=== PATIENT | female | born 1990 ===

== ENCOUNTER 2020-07-04 08:37 | Outpatient (REF) | payer OTHER, SELFPAY | END 2020-07-04 08:38 | disposition home or self-care (01) | LOC: HO.LAB 08:37 | PROVIDERS: PCP Internal Medicine; Visit Provider Internal Medicine | DX: Z20.828 Contact with and (suspected) exposure to other viral communicable diseases (principal) | CPT/HCPCS: C9803; U0003 ==

== ENCOUNTER → 2020-09-04 11:09 | Outpatient (BNVA) | payer OTHER, SELFPAY | PROVIDERS: PCP Internal Medicine; Visit Provider Internal Medicine Gastroenterology ==

== ENCOUNTER 2020-09-05 09:37 | Outpatient (REF) | payer OTHER, SELFPAY ==
[2020-09-05 10:41] LABS: MANUAL DIFF FLAG NO
[2020-09-05 10:46] LABS: Basophils Percent Auto 0.3 % (0-2); Eosinophils Absolute Auto 0.1 X10*3/uL (0.0-0.4); Hematocrit 38.8 % (37-47); Hemoglobin 13.2 g/dl (12.0-16.0); Imm Gran Abs Auto 0.02 X10*3/uL (0.00-0.03); Imm Gran Pct Auto 0.3 % (0.0-0.4); Lymphocytes Absolute Auto 2.5 X10*3/uL (1.2-4.9); Mean Corpuscular Hemoglobin 32.5 pg (27.0-33.0); Mean Corpuscular Volume 95.6 fL (80-98); Monocytes Absolute Auto 0.5 X10*3/uL (0.1-1.2); Monocytes Percent Auto 7.5 % (2-11); Neutrophils Absolute Auto 3.7 X10*3/uL (2.0-8.3); Neutrophils Percent Auto 54.9 % (45-73); Platelet Count 237 X10*3/uL (160-400); Red Blood Count 4.06 X10*6/uL (4.20-5.50); Red Cell Distribution Width 11.8 % (11.0-16.0); White Blood Count 6.8 X10*3/uL (4.8-10.8)
[2020-09-05 11:05] LABS: Alanine Aminotransferase 34 U/L (0-31); Albumin Level 4.5 g/dL (3.5-5.0); Alkaline Phosphatase 37 U/L (39-117); Anion Gap 12 (12-20); Aspartate Amino Transferase 86 U/L (5-31); Bilirubin Total 0.5 mg/dL (0.0-1.0); Blood Urea Nitrogen 9 mg/dL (9-16); Carbon Dioxide 28 mmol/L (22-29); Chloride 104 mmol/L (96-108); Estimated Glomerular Filt Rate > 60; Glucose Random 128 mg/dL (60-115); Potassium 4.5 mmol/L (3.3-5.1); Sodium 139 mmol/L (135-145); Total Protein 7.5 g/dL (6.5-8.0)
[2020-09-05 11:26] LABS: Vitamin D 25-OH Total 18.5 ng/mL (>30)
[2020-09-07 14:37] LABS: Hepatitis B Viral DNA Qn - cp <1.00 NOT DETECTED Log IU/mL (NOT DETECTED); Hepatitis B Viral DNA Qn-IU/mL <10 NOT DETECTED IU/mL (NOT DETECTED)
== END 2020-09-05 09:38 | disposition home or self-care (01) ==
LOC: HO.LAB 09:37
PROVIDERS: PCP Internal Medicine; Visit Provider Internal Medicine Gastroenterology
DX: R10.13 Epigastric pain (principal); E55.9 Vitamin D deficiency, unspecified; K21.9 Gastro-esophageal reflux disease without esophagitis
CPT/HCPCS: 36415; 80053; 82306; 85025; 87517

== ENCOUNTER 2020-11-15 10:49 | Outpatient (REF) | payer OTHER, SELFPAY ==
[2020-11-15 12:10] LABS: MANUAL DIFF FLAG NO
[2020-11-15 12:15] LABS: Basophils Percent Auto 0.3 % (0-2); Eosinophils Absolute Auto 0.1 X10*3/uL (0.0-0.4); Eosinophils Percent Auto 0.8 % (0-4); Hematocrit 39.6 % (37-47); Hemoglobin 13.1 g/dl (12.0-16.0); Imm Gran Abs Auto 0.02 X10*3/uL (0.00-0.03); Imm Gran Pct Auto 0.3 % (0.0-0.4); Lymphocytes Absolute Auto 2.3 X10*3/uL (1.2-4.9); Lymphocytes Percent Auto 37.3 % (20-40); Mean Corpuscular HGB Conc 33.1 g/dl (31.0-35.0); Mean Corpuscular Volume 96.6 fL (80-98); Mean Platelet Volume 8.8 fL (9.4-12.3); Monocytes Absolute Auto 0.5 X10*3/uL (0.1-1.2); Monocytes Percent Auto 8.8 % (2-11); Neutrophils Absolute Auto 3.2 X10*3/uL (2.0-8.3); Neutrophils Percent Auto 52.5 % (45-73); Platelet Count 275 X10*3/uL (160-400); Red Cell Distribution Width 11.4 % (11.0-16.0); White Blood Count 6.1 X10*3/uL (4.8-10.8)
[2020-11-15 12:36] LABS: Alanine Aminotransferase 12 U/L (0-31); Albumin Level 4.5 g/dL (3.5-5.0); Alkaline Phosphatase 43 U/L (39-117); Aspartate Amino Transferase 15 U/L (5-31); Bilirubin Direct 0.2 mg/dL (0.0-0.5); Bilirubin Total 0.5 mg/dL (0.0-1.0); Total Protein 7.4 g/dL (6.5-8.0)
[2020-11-17 17:57] LABS: Hepatitis B Viral DNA Qn - cp <1.00 NOT DETECTED Log IU/mL (NOT DETECTED); Hepatitis B Viral DNA Qn-IU/mL <10 NOT DETECTED IU/mL (NOT DETECTED)
== END 2020-11-15 10:50 | disposition home or self-care (01) ==
LOC: HO.LAB 10:49
PROVIDERS: Visit Provider Internal Medicine Gastroenterology
DX: R79.89 Other specified abnormal findings of blood chemistry (principal)
CPT/HCPCS: 36415; 80076; 85025; 87517

== ENCOUNTER → 2021-02-22 10:50 | Outpatient (BNVA) | payer OTHER, SELFPAY | PROVIDERS: PCP Internal Medicine; Visit Provider Internal Medicine Gastroenterology | DX: Z13.89 Encounter for screening for other disorder (principal) | CPT/HCPCS: 99212 ==

== ENCOUNTER 2021-04-04 06:14 | Outpatient (REF) | payer OTHER, SELFPAY ==
[2021-04-04 07:06] LABS: MANUAL DIFF FLAG NO
[2021-04-04 07:12] LABS: Basophils Percent Auto 0.3 % (0-2); Eosinophils Absolute Auto 0.1 X10*3/uL (0.0-0.4); Eosinophils Percent Auto 0.9 % (0-4); Hematocrit 39.1 % (37-47); Hemoglobin 13.1 g/dl (12.0-16.0); Imm Gran Abs Auto 0.01 X10*3/uL (0.00-0.03); Imm Gran Pct Auto 0.2 % (0.0-0.4); Lymphocytes Absolute Auto 2.5 X10*3/uL (1.2-4.9); Mean Corpuscular HGB Conc 33.5 g/dl (31.0-35.0); Mean Corpuscular Volume 95.4 fL (80-98); Mean Platelet Volume 8.8 fL (9.4-12.3); Monocytes Absolute Auto 0.7 X10*3/uL (0.1-1.2); Monocytes Percent Auto 10.4 % (2-11); Neutrophils Absolute Auto 3.3 X10*3/uL (2.0-8.3); Neutrophils Percent Auto 50.2 % (45-73); Platelet Count 257 X10*3/uL (160-400); Red Cell Distribution Width 11.7 % (11.0-16.0); White Blood Count 6.6 X10*3/uL (4.8-10.8)
[2021-04-04 07:53] LABS: Alanine Aminotransferase 16 U/L (0-31); Albumin Level 4.3 g/dL (3.5-5.0); Alkaline Phosphatase 41 U/L (39-117); Anion Gap 11 (12-20); Aspartate Amino Transferase 21 U/L (5-31); Bilirubin Total 0.3 mg/dL (0.0-1.0); Blood Urea Nitrogen 9 mg/dL (9-16); Calcium 9.1 mg/dL (8.4-10.2); Carbon Dioxide 27 mmol/L (22-29); Chloride 105 mmol/L (96-108); Cholesterol 183 mg/dL; Estimated Glomerular Filt Rate > 60; Glucose Fasting 106 mg/dL (60-99); Potassium 4.2 mmol/L (3.3-5.1); Sodium 139 mmol/L (135-145); Total Protein 7.1 g/dL (6.5-8.0)
[2021-04-04 08:07] LABS: Free T4 (Free Thyroxine) 0.93 ng/dL (0.71-1.85); Thyroid Stimulating Hormone 0.93 uIU/mL (0.32-4.0)
[2021-04-06 21:57] LABS: TS Negative Control Passed; TS Panel A 0; TS Panel B 0; TS Positive Control Passed; TSpotTB Negative (Negative)
== END 2021-04-04 06:15 | disposition home or self-care (01) ==
LOC: HO.LAB 06:14
PROVIDERS: PCP Internal Medicine; Visit Provider Internal Medicine
DX: R51.9 Headache, unspecified (principal); R63.5 Abnormal weight gain; Z86.11 Personal history of tuberculosis
CPT/HCPCS: 36415; 80053; 82465; 84439; 84443; 85025; 86140; 86481

== ENCOUNTER 2021-05-02 17:05 | Outpatient (REF) | payer SELFPAY ==
[2021-05-03 04:54] LABS: HBS Num1 13.63 mIU/mL (0-7.99); ~Hepatitis B Surface Antibody REACTIVE (Nonreactive)
[2021-05-03 08:52] LABS: Mumps Virus IgG Antibody <9.00 AU/mL
[2021-05-03 08:56] LABS: Rubella IgG Antibody 3.35 Index; Varicella IgG Antibody <135.00 index
== END 2021-05-02 17:06 | disposition home or self-care (01) ==
LOC: HO.LAB 17:05
PROVIDERS: PCP Internal Medicine; Visit Provider Internal Medicine
DX: Z02.1 Encounter for pre-employment examination (principal)
CPT/HCPCS: 36415; 86706; 86735; 86762; 86765; 86787

== ENCOUNTER 2021-06-13 16:50 | Emergency (ER) | payer OTHER, MEDICAID, SELFPAY ==
[2021-06-13 17:03] VITALS: BP 144/95; PULSE 97; RESP 20; TEMP 36.9; O2SAT 99; BMI 33.6
[2021-06-13 18:12] LABS: Influenza A PCR NEGATIVE (Negative); Influenza B PCR NEGATIVE (Negative); Resp Syncy Virus RNA Qual PCR NEGATIVE (Negative); SARS COV2 PCR INHOUSE NEGATIVE (Negative)
[2021-06-13 18:47] VITALS: BP 128/81; PULSE 94; RESP 18; TEMP 37; O2SAT 100
--- NOTE | 2021-06-13 18:54 | ED_ITS ---
HPI - General Adult General Chief complaint: General Medical Stated complaint: fever Time Seen by Provider: 06/13/21 18:54 Source: patient Mode of arrival: ambulatory Limitations: no limitations History of Present Illness HPI narrative: 31-year-old female came in for evaluation of generalized body ache. 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 Patient otherwise decline visual problem, sneezing, coughing, sore throat, chest pain, abdominal pain, nausea, vomiting, or diarrhea. Related Data Previous Rx's Medication Instructions Recorded cholecalciferol (vitamin D3) 125 125 mcg PO QWEEK 30 Days #10 cap 02/22/21 mcg (5,000 unit) capsule Allergies Allergy/AdvReac Type Severity Reaction Status Date / Time No Known Allergies Allergy Verified 02/22/21 10:54 Review of Systems Review of Systems: All other systems are reviewed and are negative Constitutional: Reports as per HPI and Reports no additional constitutional complaints Eyes: Reports as per HPI and Reports no additional eye complaints Reports system reviewed and no additional complaints, except as documented Cardiovascular: Reports as per HPI and Reports no additional cardiovascular com plaints Respiratory: Reports as per HPI and Reports no additional respiratory complaints Gastrointestinal: Reports as per HPI and Reports no additional gastrointestinal complaints Genitourinary: Reports no additional female genitourinary complaints Musculoskeletal: Reports no additional musculoskeletal complaints Skin/Breast: Reports system reviewed and no additional complaints, except as docu Psychiatric: Reports no additional psychiatric complaints Endocrine: Reports no additional endocrine complaints Hematologic/Lymphatic: Reports no additional hematologic/lymphatic complaints Allergic/Immunologic: Reports no additional allergic/immunologic complaints Reports system reviewed and no additional complaints, except as documented and Reports Abnormal speech present [facility] Past Medical History Medical History Miscarriage Family History Family History Father Diabetes Paternal Grandfather Diabetes Social History Social History Household Members: Children Alcohol intake: current Alcohol intake frequency: holidays/special occasions only Advance Directives: No Advance Directives Information Provided: No Patient : No Physical Exam Vital Signs: Vital Signs: Last Vital Signs Temp 98.6 F 12/01/21 18:47 Pulse 94 06/13/21 18:47 Resp 18 06/13/21 18:47 BP 128/81 06/13/21 18:47 Pulse Ox 100 06/13/21 18:47 BMI result Body Mass Index 33.6 vital signs have been reviewed as appeared to be correct. Blood pressure normal. Heart rate normal. Respiration rate normal. Temperature normal. Oxygen saturation normal. Appearance: Alert. Oriented X3. No acute distress. Head: Normal external exam. Normocephalic. Atraumatic. No Elliott signs noted. No raccoon eyes noted Eyes: PERRLA. EOMI. Conjunctiva and sclera normal. Eyelids normal. ENT: TM's Normal. Pharynx normal. Uvula midline. Moist mucous membranes. No trismus noted. No drooling noted. No muffled voice noted. Neck: Normal inspection. Neck supple. FROM. No adenopathy. Thyroid Normal. No meningeal signs. No neck mass noted. CVS: Normal heart rate and rhythm. Heart sound normal. No murmurs noted. Pulses normal throughout. Respiratory: No respiratory distress. Painless inspiration. Breath sounds normal. No wheezes/rales/rhonchi noted. Chest nontender. No accessory muscle usage noted or decreased air movement noted. Abdomen: Soft and nontender. Bowel sounds normal in all 4 quadrants. No distention noted. No organomegaly noted. No visible injury noted. Back: No CVA tenderness. Full range of motion noted. Skin: Skin warm and dry. Normal skin color. Normal skin turgor. No rashes/lesions/lacerations noted. Extremities: No lower extremity edema. Extremities exhibit normal range of motion. Extremities nontender. Neuro: Oriented X 3. Cranial nerve exam: II-XII are grossly intact No motor deficit. No sensory deficit. Reflexes normal. Course Course Course Narrative: Assessment and plan. 31-year-old female came in with viral syndrome, patient is vaccinated x2 for COVID, patient tested negative for COVID/flu/ RSV. Patient was instructed to use NSAIDs if needed for pain and drink plenty of fluids. Medical Decision Making Lab Data Lab results reviewed: Yes I reviewed the patient's lab results. Labs: Lab Results 06/13/21 Range/Units 17:26 Influenza Type A (PCR) NEGATIVE (Negative) Influenza Type B (PCR) NEGATIVE (Negative) RSV RNA Qual (PCR) NEGATIVE (Negative) SARS-CoV-2 RNA (RT-PCR) NEGATIVE (Negative) Discharge Plan Discharge Clinical Impression: Acute viral syndrome Patient Disposition: Home, Self-Care Instructions: Viral Syndrome (ED) Prescriptions: No Action cholecalciferol (vitamin D3) 125 mcg (5,000 unit) capsule 125 mcg PO QWEEK 30 Days Qty: 10 RF: 4 Referrals: Sai Tirado MD [Primary Care Provider] - 2 days Stand Alone Forms: Work/School Release
== END 2021-06-13 19:12 | disposition home or self-care (01) ==
PROVIDERS: Emergency Provider Emergency Medicine; PCP Internal Medicine
DX: R50.9 Fever, unspecified (principal); M79.10 Myalgia, unspecified site; R05.9 Cough, unspecified; Z20.822 Contact with and (suspected) exposure to COVID-19
CPT/HCPCS: 0241U; 36415; 99283

== ENCOUNTER 2021-09-06 10:41 | Outpatient (REF) | payer OTHER, MEDICAID, SELFPAY ==
[2021-09-06 12:17] LABS: Hemoglobin 13.4 g/dl (12.0-16.0); Mean Corpuscular HGB Conc 33.5 g/dl (31.0-35.0); Mean Corpuscular Hemoglobin 31.6 pg (27.0-33.0); Mean Corpuscular Volume 94.3 fL (80.0-98.0); Mean Platelet Volume 8.6 fL (9.4-12.3); Platelet Count 245 X10*3/uL (160-400); Red Blood Count 4.24 X10*6/uL (4.20-5.50); White Blood Count 6.6 X10*3/uL (4.8-10.8)
[2021-09-06 12:47] LABS: Alanine Aminotransferase 11 U/L (0-31); Albumin Level 4.5 g/dL (3.5-5.0); Alkaline Phosphatase 43 U/L (39-117); Aspartate Amino Transferase 21 U/L (5-31); Bilirubin Direct 0.2 mg/dL (0.0-0.5); Bilirubin Total 0.7 mg/dL (0.0-1.0); Total Protein 7.7 g/dL (6.5-8.0)
[2021-09-06 13:09] LABS: Vitamin D 25-OH Total 12.9 ng/mL (>30)
[2021-09-07 07:49] LABS: HBc Num1 0.09 S/CO (0.00-0.79); Hepatitis B Core Antibody Nonreactive (Nonreactive)
[2021-09-07 07:59] LABS: HBsAGNum1 0.71 S/CO (0.00-0.99); Hepatitis B Surface Antigen Negative (Negative)
== END 2021-09-06 10:42 | disposition home or self-care (01) ==
LOC: HO.LAB 10:41
PROVIDERS: PCP Internal Medicine; Referring Provider Internal Medicine; Visit Provider Internal Medicine Gastroenterology
DX: B18.1 Chronic viral hepatitis B without delta-agent (principal); R79.89 Other specified abnormal findings of blood chemistry; K21.9 Gastro-esophageal reflux disease without esophagitis; R10.13 Epigastric pain
CPT/HCPCS: 36415; 80076; 82306; 85027; 86704; 87340; 99212

== ENCOUNTER 2021-10-17 07:31 | Emergency (ER) | payer OTHER, SELFPAY ==
--- NOTE | ~2021-10-17 | XR_ITS ---
EXAMINATION: XR ANKLE, RIGHT CLINICAL INFORMATION: Slipped and fall COMPARISON: None TECHNIQUE: Four views of the right ankle. FINDINGS: There is a nondisplaced fracture of the distal fibular diaphysis. This may be comminuted as visualized on the lateral view, but appears simply oblique on the frontal view. No fracture more distally. The ankle mortise is congruent. Mild soft tissue swelling anteriorly at the ankle. XR/XR ankle RT 2V IMPRESSION: Nondisplaced distal fibular diaphyseal fracture.
[2021-10-17 07:36] VITALS: BP 103/69; PULSE 69; RESP 18; TEMP 36.7; O2SAT 99; BMI 33.5
--- NOTE | 2021-10-17 08:16 | ED.LOWEXIN ---
HPI - Extremity Injury (Lower) General Chief Complaint: Extremity Injury, Lower Stated Complaint: ankle INJ Time Seen by Provider: 10/17/21 08:00 Source: patient Mode of arrival: ambulatory Limitations: no limitations History of Present Illness HPI Narrative: 31-year-old female who presents emergency department for evaluation of right lower extremity injury. The patient states that she was going down her steps when she missed the last step causing her to twist her lower leg. She states that she developed immediate pain in the leg and she points to her right lateral malleolus when asked to localize the pain. The pain is a constant, sharp pain which is worse with movement and worse with weight-bearing. The pain is moderate in intensity. She denied any other injury. She denied being ill prior to the misstep. Related Data Previous Rx's Medication Instructions Recorded cholecalciferol (vitamin D3) 125 125 mcg PO QWEEK 30 Days #10 cap 02/22/21 mcg (5,000 unit) capsule Allergies Allergy/AdvReac Type Severity Reaction Status Date / Time No Known Allergies Allergy Verified 09/06/21 10:42 Review of Systems Review of Systems: Yes all other systems are reviewed and are negative [facility] Past Medical History [facility] Narrative: Past medical history: GERD, migraines. Past surgical history: None. 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 She denies tobacco use. She occasionally drinks alcohol. She denies drug use. Medical History Miscarriage Family History Family History Father Diabetes Paternal Grandfather Diabetes Social History Social History Household Members: Children Alcohol intake: current Alcohol intake frequency: holidays/special occasions only Advance Directives: No Advance Directives Information Provided: Yes Physical Exam Vital Signs: Vital Signs: Last Vital Signs Temp 98.1 F 10/17/21 07:36 Pulse 69 10/17/21 07:36 Resp 18 10/17/21 07:36 BP 103/69 10/17/21 07:36 Pulse Ox 99 10/17/21 07:36 BMI result Body Mass Index 33.5 Const: Other: Very pleasant and cooperative female patient, she does not appear to be in distress HEENT: Head: Yes normal to inspection, Yes normocephalic and Yes atraumatic Resp: Effort & Inspection: normal respiratory effort Extrem: Other: Patient has no significant soft tissue swelling or ecchymosis of her right lower extremity, she does have tenderness with palpation of the lateral aspect of her lower leg with tenderness palpation over the lateral malleolus with no soft tissue swelling or ecchymosis. Extremities neurovascular intact. Psych: Appearance: grossly normal Mental Status: mental status grossly normal Speech and movement: Normal speech and movement present Course Course Course Narrative: 31-year-old female who presents emergency department for evaluation of a twisting injury to her right lower extremity after she missed the last step on stairs. Patient was not ill in any other way prior to her missed out. Examination did reveal tenderness palpation of the lateral aspect of the lower leg and over the lateral malleolus with no significant soft tissue swelling or ecchymosis. Her extremities neurovascular intact. X-rays of the right lower extremity revealed a nondisplaced distal fibular diaphyseal fracture. I did review the x-ray with the patient. The patient was placed in a padded ortho glass posterior splint by the radiology technician under my supervision, I did evaluate the splint after was applied the patient's extremities neurovascular intact. Patient was given crutches. She was advised to take Tylenol and ibuprofen for pain. She will need to follow-up with our on-call orthopedic provider within 1 week for re-evaluation. She was given printed and verbal instructions and discharged home. She was given a work note as well. Discharge Plan Discharge Clinical Impression: Closed right fibular fracture Patient Disposition: Home, Self-Care Instructions: Leg Fracture (ED) Additional Instructions: You broke/fractured the right fibular shaft in the distal 3rd part of the bone. Your placed in a splint. Keep the splint on and keep it dry until you see the orthopedic provider. They will most likely apply a cast your leg. It takes 4-6 weeks for a bone to heal. Use the crutches and do not put any weight on your leg. Take ibuprofen 200 mg pills, 3 pills every 6 hours as needed for pain. Take Tylenol (acetaminophen) 500 mg pills, 2 pills every 4 to 6 hours as needed for pain. Call Dr. Martinez's office today to make a follow-up appointment within 1 week for re-evaluation of your broken bone. Please return to the emergency department if your symptoms get worse or if you develop any symptoms that are concerning to you. Please see the work note Prescriptions: No Action cholecalciferol (vitamin D3) 125 mcg (5,000 unit) capsule 125 mcg PO QWEEK 30 Days Qty: 10 4RF Rx Instructions: Take twice a week Referrals: Barry Martinez MD [Physician] - 1 week Stand Alone Forms: Work/School Release
== END 2021-10-17 08:39 | disposition home or self-care (01) ==
PROVIDERS: Emergency Provider Emergency Medicine Emergency Medical Services; PCP Internal Medicine
DX: S82.401A Unspecified fracture of shaft of right fibula, initial encounter for closed fracture (principal); X50.1XXA Overexertion from prolonged static or awkward postures, initial encounter; Y93.9 Activity, unspecified; Y92.9 Unspecified place or not applicable; Y99.9 Unspecified external cause status; Z79.899 Other long term (current) drug therapy
CPT/HCPCS: 73600; 99283

== ENCOUNTER 2021-10-22 10:53 | Outpatient (REF) | payer OTHER, SELFPAY ==
--- NOTE | ~2021-10-22 | XR_ITS ---
EXAMINATION: XR ANKLE, RIGHT CLINICAL INFORMATION: Pain right ankle. COMPARISON: None TECHNIQUE: AP and oblique view of the right ankle. FINDINGS: There is a minimally displaced fracture of the distal diaphysis of the fibula. The talocrural joint is intact. The remaining bone and soft tissues are unremarkable. XR/XR ankle RT min 3V IMPRESSION: Stable minimally displaced distal fibular fracture.
== END 2021-10-22 10:54 | disposition home or self-care (01) ==
LOC: HO.HOSX 10:53
PROVIDERS: PCP Internal Medicine; Visit Provider Physician Assistant
DX: S93.431A Sprain of tibiofibular ligament of right ankle, initial encounter (principal); X58.XXXA Exposure to other specified factors, initial encounter; Y93.9 Activity, unspecified; Y92.9 Unspecified place or not applicable; Y99.9 Unspecified external cause status
CPT/HCPCS: 73610; 99202

== ENCOUNTER 2021-10-24 12:45 | Day surgery (SDC) | payer OTHER, SELFPAY ==
--- NOTE | 2021-10-23 08:53 | HO.ANESPROP2 ---
Documented by User: Katie Wilson NP 10/23/21 08:54 HPI - Anesthesia Eval Consult details Narrative: 31yo F for Right Ankle Fracture treatment distal tibiofibular joint,syndesmosis PMFSH Active Problems Active Problems: All Active Problems (Updated 10/22/21 @ 11:37 by Rylan Barboza PA-C) Ankle syndesmosis disruption (Acute) Hx of migraine headaches (Acute) Elevated LFTs (Acute) Vitamin D deficiency (Acute) GERD (gastroesophageal reflux disease) (Acute) Dyspepsia (Acute) Hepatitis B carrier (Acute) Past Medical History Medical History Miscarriage Family History Family History Father Diabetes Paternal Grandfather Diabetes Social History Social History (Updated 10/22/21 @ 11:00 by Gabbie Nolan CMA) Household Members: Children Alcohol intake: current Alcohol intake frequency: holidays/special occasions only Patient Tobacco Use Status: Former Tobacco user Tobacco use type: Cigarette Years Smoked: 1 Smoked in Last 30 Days: No Use of substances other than those prescribed or required for medical reasons: No Are you DNR?: No Advance Directives: No Advance Directives Information Provided: Yes Meds Allergies Allergy/AdvReac Type Severity Reaction Status Date / Time No Known Allergies Allergy Verified 10/24/21 13:00 Exam Exam Date and Time: October 23, 2021 0853 Assessment and Plan Assessment Anesthesia Assessment: Chart Reviewed Documented by User: Renard Fay MD 10/24/21 15:47 PMFSH Past Medical History Medical History Miscarriage Family History Family History Father Diabetes Paternal Grandfather Diabetes Family history of problems with anesthesia: No Surgical History History of Problems with Anesthesia: No Social History Social History (Updated 10/22/21 @ 11:00 by Gabbie Nolan CMA) Household Members: Children Alcohol intake: current Alcohol intake frequency: holidays/special occasions only Patient Tobacco Use Status: Former Tobacco user Tobacco use type: Cigarette Years Smoked: 1 Smoked in Last 30 Days: No Use of substances other than those prescribed or required for medical reasons: No Are you DNR?: No Advance Directives: No Advance Directives Information Provided: Yes Meds Allergies Allergy/AdvReac Type Severity Reaction Status Date / Time No Known Allergies Allergy Verified 10/24/21 13:00 Exam Airway Mallampati Class: II TM Dist: >3cm Neck ROM: Full Loose/Missing/Broken Teeth: Yes (Braces ) Heart: RRR Lungs: b/l breath sounds Assessment and Plan Assessment Anesthesia Assessment: Anesthesia Plan Discussed Final Anesthetic Review Family History of Problems with Anesthesia: No History of Problems with Anesthesia: No NPO: Yes ASA Class: II Final Preanesthetic Review: No Changes in Pt Med Stat, Meds/Allgs Chart Reviewed, Consent Obtained/Reviewed and Anes Risks/Benef Reviewed Patient Risk: Intermediate Procedure Risk: Intermediate Anesthetic Plan Anesthetic Plan: GA and Regional Block Disposition: Standard PACU
[2021-10-24] VITALS (15 sets, daily range): BP systolic 89–113; BP diastolic 52–78; PULSE 66–86; RESP 12–20; TEMP 36.2–36.6; O2SAT 96–100; BMI 33.5
--- NOTE | ~2021-10-24 | FL_ITS ---
EXAMINATION: XR FLUOROSCOPY WITH IMAGES CLINICAL INFORMATION: Fibular fracture COMPARISON: Radiographs right ankle 10/22/2021 TECHNIQUE: Fluoroscopy performed by Dr. Barry Martinez. Fluoroscopy time: 0.2 minutes DAP: 0.0067 mGycm2 Images: 2 FINDINGS: Minimally displaced oblique fracture distal fibular shaft appear stable from prior exam. The ankle mortise is symmetric. There is a screw tract seen through the distal tibia and fibula with small plate medial side distal tibia and small plate lateral side distal fibula. FL/FL guidance in OR IMPRESSION: Fluoroscopy for orthopedic procedure.
[2021-10-24 13:03] LABS: UPreg QC Valid YES
[2021-10-24 13:06] LABS: Urine Pregnancy NEGATIVE (NEGATIVE)
[2021-10-24] MEDS: Lactated Ringers 1,000 ML 100 ML IVCONT (13:25)
--- NOTE | 2021-10-24 13:46 | MHC.SHP ---
Pre-Procedural Eval Section A Date of Service: 10/24/21 The patient is an INPATIENT: No Changes since office visit: Yes Patient answered all questions; No Cold of Flu in the past 2 weeks, No New Medical Problems and No Changes in Medication The History & Physical has been completed within 30 days and I have reviewed it.: Yes Section B Chief Complaint: Sprain of tibiofibular ligament of ankle Allergies: Allergies Allergy/AdvReac Type Severity Reaction Status Date / Time No Known Allergies Allergy Verified 10/24/21 13:00 Plan I have reviewed the history and physical and performed a pertinent physical examination on my patient. No changes have occurred unless specified.
--- NOTE | 2021-10-24 14:19 | PM.OP ---
Brief Operative Note Date of Service: 10/24/21 Pre-op diagnosis: right syndesmosis tear Post-op diagnosis: same Procedure: ORIF right syndesmosis Implants: Arthrex syndesmosis tightrope Surgeon: Barry Martinez MD Anesthesia: GETA and regional Was an Steel Fabricating Supervisor used for this Procedure?: Yes Steel Fabricating Supervisor: Jyoti Sanches Estimated blood loss (mL): 2 Tourniquet time (min): 10 IV fluids (mL): 400 Pathology: none sent Condition: stable Disposition: PACU
[2021-10-24] MEDS: fentaNYL citrate/PF 100 MCG/2 ML VIAL 25 MCG IVPUSH ×4 (14:50→15:27)
[2021-10-24] MEDS: oxyCODONE HCl Immed Release 5 MG TABLET PO (14:50)
[2021-10-24] MEDS: HYDROmorphone HCl 0.5 MG/0.5 ML SYRINGE 0.25 MG IVPUSH ×2 (15:32→15:37)
--- NOTE | 2021-11-02 15:40 | P.OP_ITS ---
Operative Note Operative Note Date of Service: 10/24/21 Narrative: Date of Service: 10/24/21 Pre-op diagnosis: right syndesmosis tear Post-op diagnosis: same Procedure: ORIF right syndesmosis Implants: Arthrex syndesmosis tightrope Surgeon: Barry Martinez MD Anesthesia: GETA and regional Was an Children'S Choir Director used for this Procedure?: Yes Children'S Choir Director: Jyoti Sanches Estimated blood loss (mL): 2 Tourniquet time (min): 10 IV fluids (mL): 400 Pathology: none sent Condition: stable Disposition: PACU Procedure in detail: Patient was brought to the operating room and placed supine on the surgical table. She was prepped and draped in standard sterile fashion and a time out was called to identify proper site, proper procedure and IV antibiotics per weight were administered. I began by performing an external rotation stress test again confirming widening of the medial clear space. A loreto incision was then made over the distal fibula at the level of the syndesmosis. I spread down to bone and then 1 Arthrex tight rope was drilled from lateral to medial through all 4 cortices and from posterior to anterior. The tight rope was then placed and applied a stabilizing and reducing the mortise. External rotation stress test done then showed a decreased medial clear space with stress. I irrigated copiously and closed the small incision with the absorbable suture and skin glue. Patient was then placed into a sterile dressing and a boot. She was extubated brought to recovery room stable condition.
== END 2021-10-24 16:35 | disposition home or self-care (01) ==
LOC: HO.SSS 12:46
PROVIDERS: Nurse Practitioner; PCP Internal Medicine; Visit Provider Orthopaedic Surgery
PROC: (CPT 27829; principal; 2021-10-24 14:20)
DX: S93.431A Sprain of tibiofibular ligament of right ankle, initial encounter (principal); X50.1XXA Overexertion from prolonged static or awkward postures, initial encounter; Y93.01 Activity, walking, marching and hiking; Y92.9 Unspecified place or not applicable; Y99.8 Other external cause status
CPT/HCPCS: 27829; 81025; C1713; J0690; J1100; J1170; J1885; J2250; J2405; J3010

== ENCOUNTER 2021-11-05 08:14 | Outpatient (REF) | payer OTHER, SELFPAY ==
--- NOTE | ~2021-11-05 | XR_ITS ---
EXAMINATION: XR ANKLE, RIGHT CLINICAL INFORMATION: Fracture COMPARISON: Previous exams most recent intraoperative fluoroscopy 10/24/2021 TECHNIQUE: AP, lateral, and mortise views of the right ankle. FINDINGS: There is a stable appearance to the screw tract and small plates along the medial distal tibia and lateral distal fibula. There is a minimally displaced comminuted fracture of the distal fibular shaft that appears unchanged. There are lateral skin john. The ankle mortise is normal. Soft tissues are normal. XR/XR ankle RT min 3V IMPRESSION: Stable postsurgical changes and stable minimally displaced comminuted fracture of the distal shaft of the fibula.
== END 2021-11-05 08:15 | disposition home or self-care (01) ==
LOC: HO.HOSX 08:14
PROVIDERS: Visit Provider Physician Assistant
DX: S93.431D Sprain of tibiofibular ligament of right ankle, subsequent encounter (principal)
CPT/HCPCS: 73610; 99212

== ENCOUNTER 2021-12-03 08:10 | Outpatient (REF) | payer OTHER, SELFPAY ==
--- NOTE | ~2021-12-03 | XR_ITS ---
EXAMINATION: XR ANKLE, RIGHT CLINICAL INFORMATION: Pain right ankle and joints right foot COMPARISON: Right ankle 11/05/2021 TECHNIQUE: AP, lateral, and mortise views of the right ankle. FINDINGS: There is a healing comminuted fracture distal left fibula with moderate callus formation. There are metallic buttons along distal fibula and tibia likely for stabilization. The ankle mortise and subtalar joints are normal. XR/XR ankle RT min 3V IMPRESSION: Healing comminuted fracture distal fibula with moderate callus formation.
== END 2021-12-03 08:11 | disposition home or self-care (01) ==
LOC: HO.HOSX 08:10
PROVIDERS: Visit Provider Physician Assistant
DX: S93.431S Sprain of tibiofibular ligament of right ankle, sequela (principal)
CPT/HCPCS: 73610; 99212

== ENCOUNTER 2022-01-17 07:32 | Outpatient (REF) | payer OTHER, SELFPAY ==
--- NOTE | ~2022-01-17 | XR_ITS ---
EXAMINATION: XR ANKLE, RIGHT CLINICAL INFORMATION: Fracture. COMPARISON: None. TECHNIQUE: AP, lateral, and mortise views of the right ankle. FINDINGS: There is a healing fracture of the distal fibular shaft with bony callus formation. Fracture line is still seen. Alignment is anatomic. There is arthrodesis of the distal tibial fibular joint with radiopaque buttons and transverse lucency. The ankle mortise is normal. Soft tissues are unremarkable. XR/XR ankle RT min 3V IMPRESSION: Healing right distal fibular shaft fracture. Stable post-surgical changes to the distal tibia and fibula.
== END 2022-01-17 07:33 | disposition home or self-care (01) ==
LOC: HO.HOSX 07:32
PROVIDERS: Visit Provider Physician Assistant
DX: M25.571 Pain in right ankle and joints of right foot (principal)
CPT/HCPCS: 73610

== ENCOUNTER → 2022-02-18 09:15 | Outpatient (BNVA) | payer OTHER, SELFPAY | PROVIDERS: PCP Internal Medicine; Visit Provider Advanced Practice Midwife | DX: N92.6 Irregular menstruation, unspecified (principal); Z87.59 Personal history of other complications of pregnancy, childbirth and the puerperium | CPT/HCPCS: 81025; 99212 ==

== ENCOUNTER 2022-02-22 13:03 | Outpatient (REF) | payer OTHER, SELFPAY ==
--- NOTE | ~2022-02-22 | US_ITS ---
EXAMINATION: US OBSTETRICAL ULTRASOUND CLINICAL INFORMATION: Irregular menstruation. Check size and dates. COMPARISON: None. LMP: 01/06/2022. Gestational age by maternal dates is 6 weeks 5 days. Estimated date of delivery by maternal dates is 10/13/2022. TECHNIQUE: Transabdominal and transvaginal first trimester OB ultrasound. Transvaginal exam was performed for better visualization of the gestational sac. FINDINGS: The uterus is retroverted. There is a single intrauterine gestational sac with visible yolk sac, embryo/fetus, and cardiac activity. There is no significant subchorionic hemorrhage or hematoma. HR: 104 beats per minute. CRL (crown rump length): 0.6 cm (6 weeks 3 days +/- 4 days). MARCY (estimated date of delivery): 10/15/2022 +/- 4 days. MATERNAL ADNEXA: The right maternal ovary measures 2.6 x 2 x 2 cm. 1.7 x 1.1 x 1.2 cm complex cyst probably representing a corpus luteum. The left maternal ovary measures 2.2 x 1.3 x 1.7 cm. There is no significant maternal adnexal mass. No maternal pelvic ascites. US/US OB pelvic and transvaginal IMPRESSION: 1. Single intrauterine gestation with ultrasound gestational age of 6 weeks 3 days +/- 4 days. 2. Estimated date of delivery is 10/15/2022 +/- 4 days. 3. No maternal adnexal mass or pelvic ascites.
== END 2022-02-22 13:04 | disposition home or self-care (01) ==
LOC: HO.US 13:03
PROVIDERS: Visit Provider Advanced Practice Midwife
DX: Z34.91 Encounter for supervision of normal pregnancy, unspecified, first trimester (principal); Z87.59 Personal history of other complications of pregnancy, childbirth and the puerperium
CPT/HCPCS: 76801; 76817

== ENCOUNTER 2022-02-28 19:41 | Emergency (ER) | payer OTHER, SELFPAY ==
--- NOTE | ~2022-02-28 | US_ITS ---
EXAMINATION: US OBSTETRICAL ULTRASOUND CLINICAL INFORMATION: Vaginal bleeding. . COMPARISON: 02/22/2022.. LMP: 01/06/2022. Gestational age by maternal dates is 7 weeks 4 days. Estimated date of delivery by maternal dates is 10/13/2022. TECHNIQUE: Transabdominal and endovaginal sonographic evaluation of the pelvis. FINDINGS: There is a single intrauterine gestational sac with visible yolk sac, embryo/fetus, and cardiac activity. There is a small subchorionic hemorrhage noted. This measures 1.5 x 1 cm. HR: 135 beats per minute. CRL (crown rump length): 1.26 cm (7 weeks 4 days +/- 4 days). MARCY (estimated date of delivery): 10/13/2022 +/- 4 days. MATERNAL ADNEXA: The right maternal ovary measures 2.6 x 2.2 x 2.2 cm. 1.6 cm corpus luteum noted. The left maternal ovary measures 2.3 x 1.3 x 2.2 cm. No adnexal mass. There is no significant maternal adnexal mass. No maternal pelvic ascites. US/US OB pelvic and transvaginal IMPRESSION: 1. Single intrauterine gestation with ultrasound gestational age of 7 weeks 4 days +/- 4 days. 2. Estimated date of delivery is 10/13/2022 +/- 4 days. 3. Small subchorionic hemorrhage.
[2022-02-28 19:47] VITALS: BP 115/73; PULSE 85; RESP 18; TEMP 36.5; O2SAT 100; BMI 34.3
[2022-02-28 20:33] LABS: MANUAL DIFF FLAG NO
[2022-02-28 20:36] LABS: Basophils Percent Auto 0.3 % (0-2); Eosinophils Absolute Auto 0.1 X10*3/uL (0.0-0.4); Eosinophils Percent Auto 0.7 % (0-4); Hematocrit 37.4 % (37.0-47.0); Hemoglobin 12.7 g/dl (12.0-16.0); Imm Gran Abs Auto 0.03 X10*3/uL (0.00-0.03); Imm Gran Pct Auto 0.3 % (0.0-0.4); Lymphocytes Percent Auto 24.7 % (20-40); Mean Corpuscular Hemoglobin 32.1 pg (27.0-33.0); Mean Corpuscular Volume 94.4 fL (80.0-98.0); Mean Platelet Volume 8.5 fL (9.4-12.3); Monocytes Absolute Auto 0.9 X10*3/uL (0.1-1.2); Monocytes Percent Auto 7.4 % (2-11); Neutrophils Percent Auto 66.6 % (45-73); Platelet Count 239 X10*3/uL (160-400); Red Blood Count 3.96 X10*6/uL (4.20-5.50); Red Cell Distribution Width 11.9 % (11.0-16.0)
[2022-02-28 21:05] LABS: Alanine Aminotransferase 14 U/L (0-31); Albumin Level 4.3 g/dL (3.5-5.0); Alkaline Phosphatase 42 U/L (39-117); Anion Gap 13 (12-20); Aspartate Amino Transferase 22 U/L (5-31); Bilirubin Total < 0.2 mg/dL (0.0-1.0); Blood Urea Nitrogen 9 mg/dL (9-16); Calcium 9.1 mg/dL (8.4-10.2); Carbon Dioxide 27 mmol/L (22-29); Chloride 104 mmol/L (96-108); Creatinine Clr Calc Pharmacy 139.6; Estimated Glomerular Filt Rate > 60; Glucose Random 97 mg/dL (60-115); Potassium 3.9 mmol/L (3.3-5.1); Sodium 140 mmol/L (135-145); Total Protein 7.5 g/dL (6.5-8.0)
--- NOTE | 2022-02-28 22:10 | ED.FEMALEGU ---
HPI - Female Genitourinary General Chief complaint: Vaginal Bleeding Stated complaint: Vaginal Bleeding/ 6 wk Time Seen by Provider: 02/28/22 22:00 Source: patient Mode of arrival: ambulatory Limitations: no limitations History of Present Illness HPI Narrative: This is a 31 year old A2 female, 6 week , who presents with a complaint of vaginal spotting and abdominal pain. She reports noticing blood in her urine and on the toilet paper when she wipes, however has not needed to use a pad. Her abdominal pain is isolated to the left lower quadrant, described as a constant ache. She tells me that her previous two miscarraiges occured around 6 weeks gestation. She currently follows with OBGYN at [place] and is currently taking vitamins, no issues to date with . Denies recent intercourse or trauma. Denies fever, chills, nausea, vomiting, vaginal discharge, dysruria, chest pain, or shortness of breath, weakness. MD elicited complaint: vaginal bleeding Related Data Allergies Allergy/AdvReac Type Severity Reaction Status Date / Time No Known Allergies Allergy Verified 02/28/22 19:46 Review of Systems Review of Systems: Constitutional : No Weight loss, No Fever, No Chills, No Fatigue, No Malaise ENT/Mouth : No sore throat, No Rhinorrhea Eyes: No Eye Pain, No Swelling, No Redness Cardiovascular : No Chest Pain, No SOB, No Dyspnea on Exertion, No Orthopnea, No Edema, No Palpitations Respiratory : No Cough, No Sputum, No Wheezing Gastrointestinal : No Nausea, No Vomiting, No Diarrhea, No Constipation, + abdominal Pain, No Hematochezia, No Melena Genitourinary : No Dysuria, No Urinary Frequency, No Hematuria, + vaginal spotting Musculoskeletal : No joint pain, No Myalgias, No Joint Swelling Skin : No Skin Lesions, No rash Neuro : No Weakness, No Numbness, No Dizziness, No Headache All other systems reviewed and are negative Yes all other systems are reviewed and are negative [facility] Past Medical History Attestation statement: The following information was validated with the patient. Source: old records reviewed and nursing notes reviewed Medical History Hepatitis B Miscarriage Surgical History History of ankle surgery Family History Family History Father Diabetes Paternal Grandfather Diabetes Social History Social History Household Members: Children Alcohol intake: current Alcohol intake frequency: holidays/special occasions only Patient Tobacco Use Status: Former Tobacco user Tobacco use type: Cigarette Years Smoked: 1 Advance Directives: No Advance Directives Information Provided: No Sexual orientation: Straight/Heterosexual Gender identity: Female Physical Exam Vital Signs: Vital Signs: Last Vital Signs Temp 97.7 F 02/28/22 19:47 Pulse 76 02/28/22 23:59 Resp 24 H 02/28/22 23:59 BP 100/57 L 02/28/22 23:59 Pulse Ox 100 02/28/22 23:59 O2 Del Method 02/28/22 23:59 BMI result Body Mass Index 34.3 VSS Appearance: Alert.? Oriented X3.? No acute distress.? Head: Normocephalic, atraumatic, no step-offs or deformities Eyes: Pupils equal, round and reactive to light.? ENT: Pharynx normal.? Neck: Normal inspection.? Neck supple.? CVS: Normal heart rate and rhythm.? Pulses normal.? Respiratory: No respiratory distress.? Breath sounds normal.? Abdomen: Soft, nondistended, tender to palpation in the left lower quadrant. Skin: Skin warm and dry.? Normal skin color.? Normal skin turgor.? Extremities: No lower extremity edema.? No calf ttp. 5/5 strength to bilateral upper and lower extremities Neuro: Oriented X 3.? No motor deficit.? No sensory deficit. Pelvic exam significant for vaginal mucosa without inflammation, bleeding, discharge, or ulcers. Closed cervical os. ? small mass, approximately 9 mm noted to the left vaginal wall on bimanual exam. Mild left adnexal tenderness. to palpation, no cervical motion tenderness. Course Reevaluation(s) Reevaluation #1: CBC appears to be with a slight leukocytosis likely secondary to inflammation or pain, chemistry with no acute electrolyte abnormalities requiring intervention urine is clean, no blood noted. Ultrasound of pelvis and transvaginal with single intrauterine gestation around 7 weeks 4 days, heart rate 135, estimated delivery date is 10/13/2022, there is a small subchorionic hemorrhage however patient is not currently bleeding at this time is not changed her pad since she has been here, denies any vaginal bleeding since she has been here. No need for repeat CBC at this time as patient has not been actively bleeding. Will have patient call OBGYN tomorrow for follow-up, concerns for threatened . Educated patient on worrisome signs and symptoms and when to return. Time: 00:30 MDM - Female Genitourinary MDM Narrative Medical decision making narrative: 0027 31-year-old female presents with vaginal spotting, tells me she is around 6 weeks , also reports left lower quadrant abdominal pain. This all started today. Followed by [facility], currently on prenatals. History of miscarriages in the past around 6 weeks. Upon physical examination patient is tender to the left lower quadrant, normoactive bowel sounds, soft abdomen, nondistended, regular rate and rhythm, lungs clear, neuro nonfocal. Bimanual exam reveals tenderness to the left adnexal region and a possible small cyst or mass on the left-hand side. No vaginal bleeding on exam, closed cervical os, unable to visualize any products of conception. Plan at this time is basic labs, urine, ultrasound Medical Records Attestation: I reviewed the patient's medical records. Lab Data Attestation: I reviewed the patient's lab results. Result diagrams: 02/28/22 20:28 02/28/22 20:28 Labs: Lab Results 02/28/22 02/28/22 02/28/22 Range/Units 20:28 20:28 20:28 WBC 12.0 H (4.8-10.8) X10*3/uL RBC 3.96 L (4.20-5.50) X10*6/uL Hgb 12.7 (12.0-16.0) g/dl Hct 37.4 (37.0-47.0) % MCV 94.4 (80.0-98.0) fL MCH 32.1 (27.0-33.0) pg MCHC 34.0 (31.0-35.0) g/dl RDW 11.9 (11.0-16.0) % Plt Count 239 (160-400) X10*3/uL MPV 8.5 L (9.4-12.3) fL Immature Gran % (Auto) 0.3 (0.0-0.4) % Neut % (Auto) 66.6 (45-73) % Lymph % (Auto) 24.7 (20-40) % [place] % (Auto) 7.4 (2-11) % Eos % (Auto) 0.7 (0-4) % Baso % (Auto) 0.3 (0-2) % Lymph # (Auto) 3.0 (1.2-4.9) X10*3/uL [place] # (Auto) 0.9 (0.1-1.2) X10*3/uL Eos # (Auto) 0.1 (0.0-0.4) X10*3/uL Baso # (Auto) 0.0 (0.0-0.2) X10*3/uL Abs Immat Gran (auto) 0.03 (0.00-0.03) X10*3/uL Absolute Neuts (auto) 8.0 (2.0-8.3) x10*3/uL Absolute Nucleated RBC 0.000 (0.0-0.012) X10*3/uL Nucleated RBC % (auto) 0.0 (0.0-0.2) /100WBC Sodium 140 (135-145) mmol/L Potassium 3.9 (3.3-5.1) mmol/L Chloride 104 (96-108) mmol/L Carbon Dioxide 27 (22-29) mmol/L Anion Gap 13 (12-20) BUN 9 (9-16) mg/dL Creatinine 0.62 (0.5-1.4) mg/dL Estim Creat Clear Calc 139.6 Estimated GFR > 60 Random Glucose 97 (60-115) mg/dL Calcium 9.1 (8.4-10.2) mg/dL Total Bilirubin < 0.2 (0.0-1.0) mg/dL AST 22 (5-31) U/L ALT 14 (0-31) U/L Alkaline Phosphatase 42 (39-117) U/L Total Protein 7.5 (6.5-8.0) g/dL Albumin 4.3 (3.5-5.0) g/dL Beta HCG, Quant 21545 Cancelled mIU/mL Urine Color Urine Appearance Urine pH (5.0-8.0) Ur Specific [place] (1.005-1.025) Urine Protein (Neg-Trace) mg/dL Urine Glucose (UA) (Negative) mg/dL Urine Ketones (Negative) mg/dL Urine Blood (Negative) Urine Nitrite (Negative) Ur Leukocyte Esterase (Negative) 02/28/22 Range/Units 23:40 WBC (4.8-10.8) X10*3/uL RBC (4.20-5.50) X10*6/uL Hgb (12.0-16.0) g/dl Hct (37.0-47.0) % MCV (80.0-98.0) fL MCH (27.0-33.0) pg MCHC (31.0-35.0) g/dl RDW (11.0-16.0) % Plt Count (160-400) X10*3/uL MPV (9.4-12.3) fL Immature Gran % (Auto) (0.0-0.4) % Neut % (Auto) (45-73) % Lymph % (Auto) (20-40) % [place] % (Auto) (2-11) % Eos % (Auto) (0-4) % Baso % (Auto) (0-2) % Lymph # (Auto) (1.2-4.9) X10*3/uL [place] # (Auto) (0.1-1.2) X10*3/uL Eos # (Auto) (0.0-0.4) X10*3/uL Baso # (Auto) (0.0-0.2) X10*3/uL Abs Immat Gran (auto) (0.00-0.03) X10*3/uL Absolute Neuts (auto) (2.0-8.3) x10*3/uL Absolute Nucleated RBC (0.0-0.012) X10*3/uL Nucleated RBC % (auto) (0.0-0.2) /100WBC Sodium (135-145) mmol/L Potassium (3.3-5.1) mmol/L Chloride (96-108) mmol/L Carbon Dioxide (22-29) mmol/L Anion Gap (12-20) BUN (9-16) mg/dL Creatinine (0.5-1.4) mg/dL Estim Creat Clear Calc Estimated GFR Random Glucose (60-115) mg/dL Calcium (8.4-10.2) mg/dL Total Bilirubin (0.0-1.0) mg/dL AST (5-31) U/L ALT (0-31) U/L Alkaline Phosphatase (39-117) U/L Total Protein (6.5-8.0) g/dL Albumin (3.5-5.0) g/dL Beta HCG, Quant mIU/mL Urine Color Yellow Urine Appearance Clear Urine pH 6.0 (5.0-8.0) Ur Specific [place] 1.025 (1.005-1.025) Urine Protein Negative (Neg-Trace) mg/dL Urine Glucose (UA) Negative (Negative) mg/dL Urine Ketones Negative (Negative) mg/dL Urine Blood Negative (Negative) Urine Nitrite Negative (Negative) Ur Leukocyte Esterase Negative (Negative) Critical Care Time Critical Care Time Critical Care Time: No Discharge Plan Discharge Clinical Impression: Threatened , Abdominal pain, Vaginal spotting Patient Disposition: Home, Self-Care Instructions: Threatened Miscarriage (ED) Additional Instructions: Take your medications as prescribed. If you were prescribed antibiotics today, it is important that you take your medication to their entirety, do not skip any doses, do not finish them early. Follow-up with your primary care provider this week. Please follow-up with OBGYN call tomorrow. Return to the emergency department with new or worsening symptoms. Such as fevers, chills, chest pain, shortness of breath, nausea, vomiting, dizziness, headache, vision changes, lethargy, or if your bleeding through more than 2 pads per hour. In case of emergency call 911 US/US OB pelvic and transvaginal IMPRESSION: 1. Single intrauterine gestation with ultrasound gestational age of 7 weeks 4 days +/- 4 days. 2. Estimated date of delivery is 10/13/2022 +/- 4 days. 3. Small subchorionic hemorrhage. Referrals: Sai Tirado MD [Primary Care Provider] - 2 days Gil Alarcon MD [Physician] - 1 day Stand Alone Forms: Work/School Release
[2022-02-28 23:52] LABS: Appearance Urine Clear; Color Urine Yellow; Glucose Urine UA Negative (Negative); Leukocyte Esterase Urine Negative (Negative); Nitrite Urine Negative (Negative); Specific Gravity - Urine 1.025 (1.005-1.025); Urine Blood Negative (Negative); Urine Ketones Negative (Negative); Urine Protein Negative (Neg-Trace)
[2022-02-28 23:59] VITALS: BP 100/57; PULSE 76; RESP 24; O2SAT 100
== END 2022-03-01 01:31 | disposition home or self-care (01) ==
PROVIDERS: Emergency Provider Internal Medicine; PCP Internal Medicine
DX: O20.0 Threatened abortion (principal); O26.851 Spotting complicating pregnancy, first trimester; O26.891 Other specified pregnancy related conditions, first trimester; R10.9 Unspecified abdominal pain; Z3A.01 Less than 8 weeks gestation of pregnancy
CPT/HCPCS: 36415; 76801; 76817; 80053; 81003; 84702; 85025; 99283; 99284

== ENCOUNTER 2022-03-04 14:38 | Outpatient (REF) | payer OTHER, SELFPAY ==
[2022-03-05 03:06] LABS: CT PCR NOT DETECTED (Not Detect.); NG PCR NOT DETECTED (Not Detect.)
[2022-03-05 10:13] LABS: BV Int Neg Control Negative (Negative); BV Int Pos Control Positive (Positive)
== END 2022-03-04 14:39 | disposition home or self-care (01) ==
LOC: HO.LAB 14:38
PROVIDERS: Visit Provider Advanced Practice Midwife
DX: O41.8X10 Other specified disorders of amniotic fluid and membranes, first trimester, not applicable or unspecified (principal); O46.8X1 Other antepartum hemorrhage, first trimester; Z87.59 Personal history of other complications of pregnancy, childbirth and the puerperium; Z11.3 Encounter for screening for infections with a predominantly sexual mode of transmission; Z3A.01 Less than 8 weeks gestation of pregnancy
CPT/HCPCS: 87480; 87491; 87510; 87591; 87660; 99212

== ENCOUNTER → 2022-03-14 10:01 | Outpatient (BNVA) | payer OTHER, SELFPAY | PROVIDERS: PCP Internal Medicine; Visit Provider Advanced Practice Midwife | DX: O09.292 Supervision of pregnancy with other poor reproductive or obstetric history, second trimester (principal); Z3A.14 14 weeks gestation of pregnancy | CPT/HCPCS: 99212 ==

== ENCOUNTER 2022-03-27 06:57 | Outpatient (REF) | payer OTHER, SELFPAY ==
[2022-03-27 09:06] LABS: Hematocrit 37.8 % (37.0-47.0); Hemoglobin 12.8 g/dl (12.0-16.0); Mean Corpuscular HGB Conc 33.9 g/dl (31.0-35.0); Mean Corpuscular Hemoglobin 31.8 pg (27.0-33.0); Mean Corpuscular Volume 93.8 fL (80.0-98.0); Platelet Count 231 X10*3/uL (160-400); Red Blood Count 4.03 X10*6/uL (4.20-5.50); Red Cell Distribution Width 11.7 % (11.0-16.0); White Blood Count 8.9 X10*3/uL (4.8-10.8)
[2022-03-27 09:35] LABS: Glucose 1 Hour PP 50gm Dose 102 mg/dL (60-140)
[2022-03-27 09:42] LABS: Amphetamine Screen Urine Not Detected (Not Detect); Barbiturates, Urine Not Detected (Not Detect); Benzodiazepines Screen Urine Not Detected (Not Detect); Cannabinoid Screen Urine Not Detected (Not Detect); Cocaine Screen Urine Not Detected (Not Detect); Fentanyl, urine Not Detected (Not Detect); Opiate Screen Urine Not Detected (Not Detect); Phencyclidine Screen Urine Not Detected (Not Detect)
[2022-03-27 09:52] LABS: HBsAGNum1 0.74 S/CO (0.00-0.99); HIV AB/AG Nonreactive (Nonreactive); HIV Num 1 0.09 S/CO (0.00-0.99); Hepatitis B Surface Antigen Negative (Negative); ~HepC Num1 0.11 S/CO (0.00-0.79); ~Hepatitis C Antibody Nonreactive (Nonreactive)
[2022-03-27 09:55] LABS: Syphilis Screen Nonreactive (Nonreactive)
[2022-03-29 05:21] LABS: Rubella IgG Antibody 2.36 Index; Varicella IgG Antibody <135.00 index
== END 2022-03-27 06:58 | disposition home or self-care (01) ==
LOC: HO.LAB 06:57
PROVIDERS: PCP Internal Medicine; Visit Provider Advanced Practice Midwife
DX: Z34.90 Encounter for supervision of normal pregnancy, unspecified, unspecified trimester (principal)
CPT/HCPCS: 80307; 85027; 86762; 86780; 86787; 86803; 86850; 86900; 87086; 87340; 87389

== ENCOUNTER 2022-03-28 11:23 | Outpatient (REF) | payer OTHER, SELFPAY ==
[2022-03-28 18:12] LABS: CT PCR NOT DETECTED (Not Detect.); NG PCR NOT DETECTED (Not Detect.)
[2022-03-29 13:00] LABS: BV Int Neg Control Negative (Negative); BV Int Pos Control Positive (Positive)
[2022-04-01 19:47] LABS: HPV mRNA E6/E7 rflx Not Detected (Not Detected)
== END 2022-03-28 11:24 | disposition home or self-care (01) ==
LOC: HO.LNP 11:23
PROVIDERS: PCP Internal Medicine; Visit Provider Advanced Practice Midwife
DX: O26.892 Other specified pregnancy related conditions, second trimester (principal); N93.9 Abnormal uterine and vaginal bleeding, unspecified; Z3A.11 11 weeks gestation of pregnancy
CPT/HCPCS: 81003; 87480; 87491; 87510; 87591; 87624; 87660; 88142; 99212

== ENCOUNTER 2022-04-17 14:13 | Outpatient (REF) | payer OTHER, SELFPAY ==
[2022-04-18 02:52] LABS: CT PCR NOT DETECTED (Not Detect.); NG PCR NOT DETECTED (Not Detect.)
[2022-04-18 13:28] LABS: BV Int Neg Control Negative (Negative); BV Int Pos Control Positive (Positive)
== END 2022-04-17 14:14 | disposition home or self-care (01) ==
LOC: HO.LNP 14:13
PROVIDERS: PCP Internal Medicine; Visit Provider Advanced Practice Midwife
DX: Z23 Encounter for immunization (principal); O26.892 Other specified pregnancy related conditions, second trimester; N89.8 Other specified noninflammatory disorders of vagina; Z3A.14 14 weeks gestation of pregnancy
CPT/HCPCS: 81003; 87480; 87491; 87510; 87591; 87660; 90471; 90686; 99212

== ENCOUNTER → 2022-05-15 11:14 | Outpatient (BNVA) | payer OTHER, SELFPAY | PROVIDERS: PCP Internal Medicine; Visit Provider Advanced Practice Midwife | DX: Z34.82 Encounter for supervision of other normal pregnancy, second trimester (principal); Z3A.18 18 weeks gestation of pregnancy | CPT/HCPCS: 99212 ==

== ENCOUNTER → 2022-06-12 12:01 | Outpatient (BNVA) | payer OTHER, SELFPAY | PROVIDERS: Visit Provider Obstetrics & Gynecology | DX: O09.292 Supervision of pregnancy with other poor reproductive or obstetric history, second trimester (principal); Z3A.22 22 weeks gestation of pregnancy | CPT/HCPCS: 99212 ==

== ENCOUNTER → 2022-07-11 13:06 | Outpatient (BNVA) | payer OTHER, SELFPAY | PROVIDERS: Visit Provider Advanced Practice Midwife | DX: O36.62X0 Maternal care for excessive fetal growth, second trimester, not applicable or unspecified (principal); Z3A.26 26 weeks gestation of pregnancy | CPT/HCPCS: 99212 ==

== ENCOUNTER 2022-07-29 08:53 | Outpatient (REF) | payer OTHER, SELFPAY ==
[2022-07-29 09:12] LABS: Hematocrit 34.7 % (37.0-47.0); Hemoglobin 11.6 g/dl (12.0-16.0); Mean Corpuscular HGB Conc 33.4 g/dl (31.0-35.0); Mean Corpuscular Hemoglobin 31.4 pg (27.0-33.0); Platelet Count 231 X10*3/uL (160-400); Red Blood Count 3.69 X10*6/uL (4.20-5.50); Red Cell Distribution Width 11.9 % (11.0-16.0); White Blood Count 12.7 X10*3/uL (4.8-10.8)
[2022-07-29 09:47] LABS: Syphilis Screen Nonreactive (Nonreactive)
[2022-07-29 11:42] LABS: Glucose 1 Hour PP 50gm Dose 145 mg/dL (60-140)
== END 2022-07-29 08:54 | disposition home or self-care (01) ==
LOC: HO.LAB 08:53
PROVIDERS: PCP Internal Medicine; Visit Provider Advanced Practice Midwife
DX: O99.013 Anemia complicating pregnancy, third trimester (principal); D64.9 Anemia, unspecified; Z3A.29 29 weeks gestation of pregnancy
CPT/HCPCS: 36415; 81003; 82950; 85027; 86780; 99212

== ENCOUNTER 2022-07-31 06:26 | Outpatient (REF) | payer OTHER, SELFPAY ==
[2022-07-31 08:07] LABS: Glucose Fasting 79 mg/dL (60-99)
[2022-07-31 08:13] LABS: Glucose 1 Hour 154 mg/dL
[2022-07-31 09:43] LABS: Glucose 2 Hour 97 mg/dL
[2022-07-31 11:37] LABS: Glucose 3 Hour 97 mg/dL
== END 2022-07-31 06:27 | disposition home or self-care (01) ==
LOC: HO.LAB 06:26
PROVIDERS: PCP Internal Medicine; Visit Provider Advanced Practice Midwife
DX: O99.810 Abnormal glucose complicating pregnancy (principal)
CPT/HCPCS: 36415; 82951

== ENCOUNTER → 2022-08-12 08:53 | Outpatient (BNVA) | payer OTHER, SELFPAY | PROVIDERS: PCP Internal Medicine; Visit Provider Advanced Practice Midwife | DX: Z23 Encounter for immunization (principal); Z34.83 Encounter for supervision of other normal pregnancy, third trimester; Z3A.31 31 weeks gestation of pregnancy | CPT/HCPCS: 81003; 90471; 90715; 99212 ==

== ENCOUNTER → 2022-08-30 09:43 | Outpatient (BNVA) | payer OTHER, SELFPAY | PROVIDERS: PCP Internal Medicine; Visit Provider Advanced Practice Midwife | DX: O09.293 Supervision of pregnancy with other poor reproductive or obstetric history, third trimester (principal); O98.413 Viral hepatitis complicating pregnancy, third trimester; B18.1 Chronic viral hepatitis B without delta-agent; Z3A.33 33 weeks gestation of pregnancy | CPT/HCPCS: 99212 ==

== ENCOUNTER → 2022-09-13 11:25 | Outpatient (BNVA) | payer OTHER, SELFPAY | PROVIDERS: PCP Internal Medicine; Visit Provider Advanced Practice Midwife | DX: O98.413 Viral hepatitis complicating pregnancy, third trimester (principal); B19.10 Unspecified viral hepatitis B without hepatic coma; O26.893 Other specified pregnancy related conditions, third trimester; R10.9 Unspecified abdominal pain; Z3A.35 35 weeks gestation of pregnancy | CPT/HCPCS: 99212 ==

== ENCOUNTER 2022-09-20 11:18 | Outpatient (REF) | payer OTHER, SELFPAY ==
[2022-09-20 18:42] LABS: CT PCR NOT DETECTED (Not Detect.); NG PCR NOT DETECTED (Not Detect.)
[2022-09-22 13:52] LABS: Allergic to Penicillin? No
== END 2022-09-20 11:19 | disposition home or self-care (01) ==
LOC: HO.LNP 11:18
PROVIDERS: PCP Internal Medicine; Visit Provider Advanced Practice Midwife
DX: Z34.93 Encounter for supervision of normal pregnancy, unspecified, third trimester (principal); Z3A.36 36 weeks gestation of pregnancy
CPT/HCPCS: 0353U; 87150; 99212

== ENCOUNTER → 2022-09-26 13:45 | Outpatient (BNVA) | payer OTHER, SELFPAY | PROVIDERS: PCP Internal Medicine; Visit Provider Advanced Practice Midwife | DX: O99.820 Streptococcus B carrier state complicating pregnancy (principal); O09.293 Supervision of pregnancy with other poor reproductive or obstetric history, third trimester; Z3A.37 37 weeks gestation of pregnancy | CPT/HCPCS: 81003; 99212 ==

== ENCOUNTER → 2022-10-03 11:52 | Outpatient (BNVA) | payer OTHER, SELFPAY | PROVIDERS: PCP Internal Medicine; Visit Provider Advanced Practice Midwife | DX: O98.413 Viral hepatitis complicating pregnancy, third trimester (principal); B18.1 Chronic viral hepatitis B without delta-agent; O09.293 Supervision of pregnancy with other poor reproductive or obstetric history, third trimester; Z3A.38 38 weeks gestation of pregnancy | CPT/HCPCS: 81003; 99212 ==

== ENCOUNTER 2022-11-19 09:59 | Outpatient (REF) | payer OTHER, SELFPAY ==
[2022-11-19 14:47] LABS: CT PCR NOT DETECTED (Not Detect.); NG PCR NOT DETECTED (Not Detect.)
== END 2022-11-19 10:00 | disposition home or self-care (01) ==
LOC: HO.LNP 09:59
PROVIDERS: PCP Internal Medicine; Visit Provider Advanced Practice Midwife
DX: Z39.2 Encounter for routine postpartum follow-up (principal); Z20.2 Contact with and (suspected) exposure to infections with a predominantly sexual mode of transmission
CPT/HCPCS: 0353U; 99212

== ENCOUNTER → 2022-12-18 14:36 | Outpatient (BNVA) | payer OTHER, SELFPAY | PROVIDERS: PCP Internal Medicine; Visit Provider Advanced Practice Midwife | DX: Z30.430 Encounter for insertion of intrauterine contraceptive device (principal) | CPT/HCPCS: 58300; 81025; J7296 ==

== ENCOUNTER 2023-01-22 11:31 | Outpatient (AMB) | payer OTHER, SELFPAY ==
--- NOTE | 2023-01-22 11:33 | A.OFFVIS_ITS ---
Intake Vital Signs 01/22/23 11:34 Height 5 ft 3 in Weight 188 lb BMI 33.3 BP 100/60 Intake Visit Reasons: IUD Check Intake Note: The patient agreed to use of a medical technologist generalist during this encounter. Scribed for NELIA Hanley by Nan Durham medical technologist generalist, on 01/22/2023 at 11:44 am EST. Marketing Ambassador: Marketing Ambassador Present (Jayleen) Allergies No Known Allergies Allergy (Verified 01/22/23 11:34) Is last menstrual period known: Yes Last menstrual period: 01/14/23 HPI HPI Comments History of Present Illness Details She is presenting for IUD check. She had the Kyleena IUD placed on 12/2022. She has no concerns. Denies pain, abnormal discharge, or other concerns. [facility] Medical History Hepatitis B Lactating mother Miscarriage Surgical History History of ankle surgery Family History Father Diabetes Paternal Grandfather Diabetes Social History Household Members: Children Alcohol intake: current Alcohol intake frequency: holidays/special occasions only Patient Tobacco Use Status: Former Tobacco user Tobacco use type: Cigarette Years Smoked: 1 Sexual orientation: Straight/Heterosexual Gender identity: Female Female Reproductive History Menstrual Age of Menarche: 15 Duration of menses: 6-7 days Date of last menstrual period: 01/14/23 control method: progestin IUCD (Kyleena 12/2022; IUD strings present 01/22/23) Physical Exam Vital Signs: Last Vital Signs BP 100/60 01/22/23 11:34 BMI result Body Mass Index 33.3 Const General: cooperative, healthy appearing, comfortable, no acute distress, well developed, alert, awake and Physically active Other: General: Yes bladder normal to palpation External Female Exam: normal external appearance and normal appearance of the urethra Speculum Exam - Vagina: normal appearance of the vagina, normal palpation and normal vaginal discharge Speculum Exam - Cervix: normal appearance of the cervix, normal palpation and Other cervical findings present (IUD strings present) Bimanual exam- vagina & uterus: normal bimanual exam, normal palpation, bladder normal to palpation and normal palpation Bimanual Exam- Adnexa, other: normal adnexae and no masses Assessment & Plan Assessment & Plan (1) IUD surveillance: Code(s): Z30.431 - Encounter for routine checking of intrauterine contraceptive device Plan: Discussed: Bleeding tends to taper down, some women do not bleed at all for months, some have unscheduled and random bleeding. Monitor bleeding and cramps for the next 1-2 months and contact office with any concerns or questions. All of her questions and concerns were addressed to the best of my ability and shared decision making. She is agreeable to plan of care. Coding Level of Care Code Est Pt Level 2 (72755) Diagnoses IUD surveillance Z30.431
[2023-01-22 11:34] VITALS: BP 100/60; BMI 33.3
== END 2023-01-22 14:03 | disposition home or self-care (01) ==
LOC: HO.HWS 11:31
PROVIDERS: PCP Internal Medicine; Visit Provider Advanced Practice Midwife
DX: Z30.431 Encounter for routine checking of intrauterine contraceptive device (principal)
CPT/HCPCS: 99212

== ENCOUNTER → 2023-01-22 11:31 | Outpatient (BNVA) | payer OTHER, SELFPAY | PROVIDERS: PCP Internal Medicine; Visit Provider Advanced Practice Midwife | DX: Z30.431 Encounter for routine checking of intrauterine contraceptive device (principal) | CPT/HCPCS: 99212 ==

== ENCOUNTER 2023-07-31 14:05 | Outpatient (REF) | payer OTHER, SELFPAY ==
[2023-07-31 14:17] LABS: MANUAL DIFF FLAG NO
[2023-07-31 14:34] LABS: Basophils Percent Auto 0.1 % (0-2); Eosinophils Absolute Auto 0.1 X10*3/uL (0.0-0.4); Eosinophils Percent Auto 0.6 % (0-4); Hematocrit 39.2 % (37.0-47.0); Imm Gran Abs Auto 0.03 X10*3/uL (0.00-0.03); Imm Gran Pct Auto 0.3 % (0.0-0.4); Lymphocytes Absolute Auto 2.9 X10*3/uL (1.2-4.9); Lymphocytes Percent Auto 32.2 % (20-40); Mean Corpuscular HGB Conc 33.2 g/dl (31.0-35.0); Mean Corpuscular Hemoglobin 31.9 pg (27.0-33.0); Mean Corpuscular Volume 96.1 fL (80.0-98.0); Mean Platelet Volume 8.8 fL (9.4-12.3); Monocytes Absolute Auto 0.6 X10*3/uL (0.1-1.2); Neutrophils Absolute Auto 5.3 x10*3/uL (2.0-8.3); Neutrophils Percent Auto 59.8 % (45-73); Platelet Count 279 X10*3/uL (160-400); Red Blood Count 4.08 X10*6/uL (4.20-5.50); Red Cell Distribution Width 11.8 % (11.0-16.0); White Blood Count 8.9 X10*3/uL (4.8-10.8)
[2023-07-31 14:43] LABS: Estimated Average Glucose 111 mg/dL; Hemoglobin A1c % 5.5 % (<6.0)
[2023-07-31 15:07] LABS: Alanine Aminotransferase 12 U/L (0-31); Albumin Level 4.6 g/dL (3.5-5.0); Alkaline Phosphatase 47 U/L (39-117); Anion Gap 11 (12-20); Aspartate Amino Transferase 18 U/L (5-31); Bilirubin Total 0.3 mg/dL (0.0-1.0); Blood Urea Nitrogen 11 mg/dL (9-16); Calcium 9.6 mg/dL (8.4-10.2); Carbon Dioxide 29 mmol/L (22-29); Chloride 104 mmol/L (96-108); Estimated Glomerular Filt Rate > 60; Glucose Random 89 mg/dL (60-115); Sodium 140 mmol/L (135-145)
[2023-08-01 04:04] LABS: HBS Num1 9.28 mIU/mL (0-7.99)
[2023-08-01 04:44] LABS: HBS Num2 9.91 mIU/mL (0-7.99); HBS Num3 10.22 mIU/mL (0-7.99); ~Hepatitis B Surface Antibody GRAYZONE (Nonreactive)
[2023-08-03 07:34] LABS: TS Negative Control Passed; TS Panel A 0; TS Panel B 0; TS Positive Control Passed; TSpotTB Negative (Negative)
== END 2023-07-31 14:06 | disposition home or self-care (01) ==
LOC: HO.LAB 14:05
PROVIDERS: PCP Internal Medicine; Visit Provider Internal Medicine
DX: Z02.1 Encounter for pre-employment examination (principal); Z11.1 Encounter for screening for respiratory tuberculosis; O24.419 Gestational diabetes mellitus in pregnancy, unspecified control; Z86.19 Personal history of other infectious and parasitic diseases
CPT/HCPCS: 36415; 80053; 83036; 85025; 86481; 86706

== ENCOUNTER 2023-08-11 13:57 | Outpatient (AMB) | payer OTHER, SELFPAY ==
--- NOTE | 2023-08-11 14:06 | A.OFFVIS_ITS ---
Intake Vital Signs 08/11/23 14:13 Height 5 ft 3 in Weight 199 lb BMI 35.2 BP 116/79 Blood Pressure Location Lt brachial Position Sitting Pulse 66 Intake Visit Reasons: Lesion behind right ear Intake Note: Patient is seen in office for evaluation and treatment of a lesion behind the right ear. Pt c/o: Onset 2 years, reports occasional itchiness, discomfort, lesion behind right ear, reports no pain. Back Panel Padder Required: No Accompanied by: Self / Same As Patient Allergies No Known Allergies Allergy (Verified 08/11/23 14:11) Medication List - Last Reconciled 08/11/23 by Sai Crawford MD levonorgestrel (Kyleena) intrauterine HPI Lesion behind right ear HPI Details [age] year old female referred for a skin lesion behind the right ear. She says that she has noticed this for almost 5 years. However she feels that this has been increasing in size. She denies any drainage. She says that has been bothering her and she wants this removed. [facility] Medical History (Updated 08/11/23 @ 14:21 by Sai Crawford MD) Skin lesion Lactating mother Hepatitis B Miscarriage Surgical History History of ankle surgery Family History Father Diabetes Paternal Grandfather Diabetes Social History Household Members: Children Alcohol intake: current Alcohol intake frequency: holidays/special occasions only Patient Tobacco Use Status: Former Tobacco user Tobacco use type: Cigarette Years Smoked: 1 Sexual orientation: Straight/Heterosexual Gender identity: Female Female Reproductive History Menstrual Age of Menarche: 15 Review of Systems Const Denies chills and Denies fever(s) Card Denies chest pain, Denies dyspnea and Denies dyspnea on exertion Resp Denies cough, Denies dyspnea and Denies dyspnea on exertion GI Denies hematochezia and Denies change in bowel habits Denies hematuria Musc Denies back pain and Denies limited range of motion Neuro Denies focal weakness and Denies convulsions Psych Denies depression and Denies mood swings Physical Exam Const General: comfortable and no acute distress Orientation/consciousness: patient oriented x3 HEENT Other: Post auricular area, left - soft, fleshy mass, about 4 mm in diameter with a narrow base Neck Neck: Yes no lymphadenopathy Resp Auscultation: clear to auscultation bilaterally Cardio Rhythm: regular rhythm GI Palpation (GI): Soft to palpation, nontender and no guarding Neuro General: patient oriented x3 Assessment & Plan Assessment & Plan (1) Skin lesion: Code(s): L98.9 - Disorder of the skin and subcutaneous tissue, unspecified Plan: She has a skin lesion, elevated, soft, with a narrow base, on the postauricular area on the left. I explained to her the technique of excision of this skin lesion behind her left ear under local anesthesia. I reviewed the risks including but not limited to bleeding and infections, as well as the benefits and alternatives. She wants to proceed. This will be done in the office on her next visit. Coding Level of Care Code New Pt Level 3 (24870) Diagnoses Skin lesion L98.9
[2023-08-11 14:13] VITALS: BP 116/79; PULSE 66; BMI 35.2
== END 2023-08-11 14:42 | disposition home or self-care (01) ==
PROVIDERS: PCP Internal Medicine; Referring Provider Internal Medicine; Visit Provider Surgery
DX: L98.9 Disorder of the skin and subcutaneous tissue, unspecified (principal)
CPT/HCPCS: 99203

== ENCOUNTER → 2023-08-11 13:57 | Outpatient (BNVA) | payer OTHER, SELFPAY | PROVIDERS: PCP Internal Medicine; Referring Provider Internal Medicine; Visit Provider Surgery | DX: L98.9 Disorder of the skin and subcutaneous tissue, unspecified (principal) | CPT/HCPCS: 99202 ==

== ENCOUNTER 2023-08-18 12:04 | Inpatient (IN) | payer OTHER, SELFPAY ==
--- NOTE | ~2023-08-18 | XR_ITS ---
EXAMINATION: XR CHEST CLINICAL INFORMATION: Dialysis line placement. COMPARISON: Chest 08/22/2023 TECHNIQUE: Frontal view of the chest was obtained. FINDINGS: The lungs are hypoexpanded with minimal left basilar atelectasis. The heart size and pulmonary vascularity is normal. There is new right jugular central venous catheter with its tip in proximal SVC. No pneumothorax seen. No gross bony abnormality seen. XR/XR chest 1V IMPRESSION: 1. New right jugular central venous catheter tip in proximal SVC. No evidence of pneumothorax 2. Hypoexpanded lungs with minimal left basilar atelectasis.
--- NOTE | ~2023-08-18 | XR_ITS ---
EXAMINATION: XR CHEST CLINICAL INFORMATION: Chest pain COMPARISON: Prior chest 08/22/2023 TECHNIQUE: 2 views of the chest were obtained. FINDINGS: Central venous catheter tip in region of SVC unchanged. Lungs clear. Cardiomediastinal silhouette normal XR/XR chest 2V IMPRESSION: No acute disease.
--- NOTE | ~2023-08-18 | XR_ITS ---
EXAMINATION: XR CHEST CLINICAL INFORMATION: Chest pain. COMPARISON: 10/10/2019 TECHNIQUE: Frontal view of the chest was obtained. FINDINGS: The lung volumes are low. The cardiomediastinal silhouette is stable. There is a left lung base opacity. There appears to be mild atelectatic change at the right lung base. The bony structures and soft tissues are unremarkable. XR/XR chest 1V IMPRESSION: Low lung volumes. Left lung base opacity which may represent atelectasis or infiltrate.
--- NOTE | ~2023-08-18 | CT_ITS ---
EXAMINATION: CT ABDOMEN AND PELVIS WITH CONTRAST CLINICAL INFORMATION: Right lower quadrant pain COMPARISON: 05/28/2015 TECHNIQUE: Multidetector volumetric images were obtained from the superior aspect of the liver through the pubic symphysis following administration 85 mL of Omnipaque 350 intravenous contrast. Sagittal and coronal reformatted images were obtained on the technologist's workstation. Oral contrast: No This CT examination was performed using dose optimization techniques as appropriate, variously including the following: *Automated exposure control *Adjustment of mA and/or kV according to patient size (this includes techniques or standardized protocols for targeted exams where dose is matched to indication/reason for exam; i.e. extremities or head) *Use of iterative reconstruction technique DLP: 630 mGy-cm FINDINGS: LUNG BASES: Unremarkable. ABDOMINAL AND PELVIC WALL: Unremarkable. LIVER AND BILIARY TREE: Unremarkable. GALLBLADDER: Unremarkable. PANCREAS: Unremarkable. SPLEEN: Unremarkable. ADRENAL GLANDS: Unremarkable. KIDNEYS AND URETERS: Unremarkable. GASTROINTESTINAL TRACT: The appendix is dilated and fluid-filled with surrounding fat stranding. Appendix measures 1.2 cm in diameter. An appendicolith is seen at the base. No evidence of intra-abdominal free air or periappendiceal fluid collection. VASCULAR: Unremarkable. LYMPH NODES/PERITONEUM: Surrounding mildly prominent lymph nodes. FREE FLUID: None. BLADDER: Unremarkable. PELVIC VISCERA: Intrauterine device is centered within the endometrial canal. . OSSEOUS STRUCTURES: Unremarkable. CT/CT abdomen pelvis w IV con IMPRESSION: Acute uncomplicated appendicitis.
--- NOTE | ~2023-08-18 | CT_ITS ---
EXAMINATION: CT ABDOMEN AND PELVIS WITHOUT CONTRAST CLINICAL INFORMATION: Rhabdomyolysis. COMPARISON: 08/18/2023 TECHNIQUE: Multidetector volumetric imaging was performed from the superior aspect of the liver through the pubic symphysis. Sagittal and coronal reformatted images were obtained on the technologist's workstation. This CT examination was performed using dose optimization techniques as appropriate, variously including the following: *Automated exposure control *Adjustment of mA and/or kV according to patient size (this includes techniques or standardized protocols for targeted exams where dose is matched to indication/reason for exam; i.e. extremities or head) *Use of iterative reconstruction technique DLP: 1958 mGy-cm FINDINGS: LUNG BASES: Moderate bilateral pleural effusions and compressive atelectasis. LIVER, GALLBLADDER, AND BILIARY TREE: The liver is normal in size and contour. There is periportal edema. Perihepatic free fluid. No biliary ductal dilatation. The gallbladder is distended. PANCREAS: No ductal dilatation. SPLEEN: Not enlarged. ADRENAL GLANDS: No adrenal mass. KIDNEYS AND URETERS: Edematous kidneys. No hydronephrosis. Perinephric stranding. No renal calculus. Retroperitoneal fluid and stranding. BLADDER: Decompressed with Neville catheter in place. GASTROINTESTINAL TRACT: Small and large bowel loops are of normal caliber. No small bowel obstruction. The appendix is not visualized. ABDOMINAL WALL: Extensive subcutaneous edema. LYMPH NODES: Few subcentimeter mesenteric lymph nodes. VASCULAR: Normal caliber abdominal aorta. PELVIC VISCERA: Intrauterine device is in place. Moderate free fluid in pelvis. OSSEOUS STRUCTURES: No destructive bone lesions. CT/CT abdomen pelvis wo IV con IMPRESSION: Edematous kidneys. Perinephric stranding. No hydronephrosis. This may be seen in the setting of acute renal injury. Fluid overload. Moderate bilateral pleural effusions. Moderate abdominopelvic ascites. Periportal edema. Extensive subcutaneous edema.
[2023-08-18 13:23] VITALS: BP 131/61; PULSE 69; RESP 18; TEMP 36.6; O2SAT 100; BMI 33.9
--- NOTE | 2023-08-18 15:32 | MHC.EDTECH ---
PATIENT BLOOD DRAWN AND URINE SAMPLE COLLECTED AND SENT TO LAB.
[2023-08-18 15:34] LABS: Appearance Urine Clear; Basophils Percent Auto 0.1 % (0-2); Color Urine Yellow; Eosinophils Percent Auto 0.1 % (0-4); Glucose Urine UA Negative (Negative); Hematocrit 39.5 % (37.0-47.0); Hemoglobin 13.7 g/dl (12.0-16.0); Imm Gran Abs Auto 0.05 X10*3/uL (0.00-0.03); Imm Gran Pct Auto 0.3 % (0.0-0.4); Leukocyte Esterase Urine Trace (Negative); MANUAL DIFF FLAG SCAN; Mean Corpuscular HGB Conc 34.7 g/dl (31.0-35.0); Mean Corpuscular Hemoglobin 32.1 pg (27.0-33.0); Mean Corpuscular Volume 92.5 fL (80.0-98.0); Mean Platelet Volume 8.9 fL (9.4-12.3); Monocytes Absolute Auto 0.4 X10*3/uL (0.1-1.2); Monocytes Percent Auto 2.6 % (2-11); Neutrophils Absolute Auto 14.5 x10*3/uL (2.0-8.3); Neutrophils Percent Auto 90.9 % (45-73); Nitrite Urine Negative (Negative); PH 8.5 (5.0-9.0); Platelet Count 219 X10*3/uL (160-400); Red Blood Count 4.27 X10*6/uL (4.20-5.50); Red Cell Distribution Width 11.9 % (11.0-16.0); SCAN SMEAR FLAG 1; Specific Gravity - Urine >= 1.030 (1.005-1.025); UMIC TRIGGER UACC YES; Urine Blood Negative (Negative); Urine Ketones 80 mg/dL (Negative); Urine Protein Trace mg/dL (Neg-Trace); White Blood Count 15.9 X10*3/uL (4.8-10.8)
[2023-08-18 15:37] LABS: Bacteria Urine None Seen (None Seen); Hyaline Casts Urine 0-2 /LPF (0-2); RBC Urine 0-2 /HPF (0-2); WBC Urine 0-5 /HPF (0-5)
[2023-08-18 15:57] LABS: SLIDE REVIEW VERIFIED
[2023-08-18 15:58] LABS: Alanine Aminotransferase 16 U/L (0-31); Albumin Level 4.7 g/dL (3.5-5.0); Alkaline Phosphatase 43 U/L (39-117); Anion Gap 12 (12-20); Aspartate Amino Transferase 20 U/L (5-31); Bilirubin Direct 0.2 mg/dL (0.0-0.5); Bilirubin Total 0.7 mg/dL (0.0-1.0); Blood Urea Nitrogen 9 mg/dL (9-16); Calcium 9.4 mg/dL (8.4-10.2); Carbon Dioxide 24 mmol/L (22-29); Chloride 106 mmol/L (96-108); Creatinine Clr Calc Pharmacy 124.1; Estimated Glomerular Filt Rate > 60; Glucose Random 117 mg/dL (60-115); HCG Quantitative < 2 mIU/mL; Lipase 20 U/L (8-78); Potassium 3.8 mmol/L (3.3-5.1); Sodium 138 mmol/L (135-145); Total Protein 8.3 g/dL (6.5-8.0)
[2023-08-18 17:27] VITALS: BP 131/74; PULSE 73; RESP 18; TEMP 36.6; O2SAT 100
[2023-08-18] MEDS: Ondansetron ODT 4 MG TAB.RAPDIS TRANSLINGU (17:32)
--- NOTE | 2023-08-18 19:19 | ED.ABDPAIN ---
HPI - Abdominal Pain General Chief Complaint: Abdominal Pain Stated Complaint: Abd pain Time Seen by Provider: 08/18/23 19:06 Source: patient Mode of arrival: ambulatory Limitations: no limitations History of Present Illness HPI narrative: Patient comes to the emergency room complaining of abdominal pain, nausea vomiting since 06:30 today. Patient denies diarrhea. Patient states that throughout the day, she has been having worsening right abdominal pain, both upper and lower but seems to be much worse in the lower quadrant. Patient denies any URI or UTI symptoms, no history of kidney stones. Related Data Home Medications Medication Instructions Recorded Confirmed levonorgestrel 17.5 mcg/24 hrs intrauterine 01/22/23 08/11/23 (5yrs) 19.5mg intrauterine device (Kyleena) Allergies Allergy/AdvReac Type Severity Reaction Status Date / Time No Known Allergies Allergy Verified 08/11/23 14:11 Review of Systems Review of Systems Constitutional : No Weight loss, No Fever, No Chills, No Night Sweats, No Fatigue, No Malaise ENT/Mouth : No Hearing loss, No Ear Pain, No Nasal Congestion, No Sinus Pain, No Hoarseness, No sore throat, No Rhinorrhea, No Swallowing Difficulty Eyes: No Eye Pain, No Swelling, No Redness, No Foreign Body, No Discharge, No Vision Changes Cardiovascular : No Chest Pain, No SOB, No Dyspnea on Exertion, No Orthopnea, No Edema, No Palpitations Respiratory : No Cough, No Sputum, No Wheezing, No Smoke Exposure, No Dyspnea Gastrointestinal : Complaining of nausea and vomiting, denies constipation or diarrhea, complaining of abdominal pain in the right side both upper and lower but much worse in the lower quadrant Genitourinary : no irregular bleeding, No Dysuria, No Urinary Frequency, No Hematuria, No Urinary Incontinence, No Urgency, No Flank Pain, No Urinary Flow Changes, No Hesitancy Musculoskeletal : No joint pain, No Myalgias, No Joint Swelling Skin : No Skin Lesions, No rash Neuro : No Weakness, No Numbness, No Paresthesias, No Loss of Consciousness, No Dizziness, No Headache Psych : No Anxiety/Panic, No Depression, No SI/HI/AH/VH, No Social Issues, Heme/Lymph: No Bruising, No Bleeding,No Lymphadenopathy Endocrine : No Polyuria, No Polydipsia, No Temperature Intolerance PMFSH Past Medical History Medical History Skin lesion Lactating mother Hepatitis B Miscarriage Surgical History History of ankle surgery Family History Family History Father Diabetes Paternal Grandfather Diabetes Social History Social History Household Members: Children Alcohol intake: current Alcohol intake frequency: holidays/special occasions only Patient Tobacco Use Status: Former Tobacco user Tobacco use type: Cigarette Years Smoked: 1 Advance Directives: No Advance Directives Information Provided: No Sexual orientation: Straight/Heterosexual Gender identity: Female Physical Exam ED Vital Signs: Vital Signs - 24 hr 08/18/23 13:23 08/18/23 17:27 08/18/23 19:40 Temperature 97.8 F 97.9 F 97.6 F Pulse Rate 69 73 Respiratory Rate 18 18 Blood Pressure 131/61 131/74 Pulse Oximetry 100 100 Oxygen Delivery Method Room Air Room Air BMI result Body Mass Index 33.9 Const Other: Appearance: Alert. Oriented X3. No acute distress. Eyes: Pupils equal, round and reactive to light. ENT: Pharynx normal. Neck: Normal inspection. Neck supple. No lymph nodes noted. No crepitus CVS: Normal heart rate and rhythm. Pulses normal. Normal S1 and S2 Respiratory: No respiratory distress. Breath sounds normal. No Wheezing. No rales Abdomen: Soft , pain to palpation in right lower quadrant at McBurney's point, with rebound, no guarding Skin: Skin warm and dry. Normal skin color. Normal skin turgor. Extremities: No lower extremity edema. No Lacerations. No Rash Neuro: Oriented X 3. No motor deficit. No sensory deficit. Moving all extremities. No slurred speech. CN 2 through 12 grossly intact Psych: calm, cooperative, normal affect Medical Decision Making Medical Decision Making MDM Narrative: My interpretation of labs: White blood cell count 15.9, chemistry unremarkable, lipase negative, hCG negative, LFTs negative -CT scan pending, patient may have appendicitis versus cyst versus cholecystitis -patient receiving IV fluids, morphine, Compazine, Zosyn -my interpretation of the CT scan of abdomen/pelvis. Appendix seems to be swollen with a fecalith, concerning for acute appendicitis -radiology report confirmed appendicitis, non perforated. I discussed the patient with Dr. Crawford from surgery, patient being admitted Differential Diagnosis Differential Diagnoses: The differential diagnosis associated with the presentation includes (As above) Admission/Observation Consideration of admission/observation: Escalation of care including admission/observation considered (Appendicitis is suspected, admission considered) Consult Healthcare Provider Management of the patient was discussed with: Environmental Health Nurse Lab Data MDM Lab Attestation statement: I reviewed the patient's lab results. 08/18/23 15:27 08/18/23 15:27 Labs: Lab Results 08/18/23 08/18/23 08/18/23 Range/Units 15:27 19:11 19:12 WBC 15.9 H (4.8-10.8) X10*3/uL RBC 4.27 (4.20-5.50) X10*6/uL Hgb 13.7 (12.0-16.0) g/dl Hct 39.5 (37.0-47.0) % MCV 92.5 (80.0-98.0) fL MCH 32.1 (27.0-33.0) pg MCHC 34.7 (31.0-35.0) g/dl RDW 11.9 (11.0-16.0) % Plt Count 219 (160-400) X10*3/uL MPV 8.9 L (9.4-12.3) fL Immature Gran % (Auto) 0.3 (0.0-0.4) % Neut % (Auto) 90.9 H (45-73) % Lymph % (Auto) 6.0 L (20-40) % [place] % (Auto) 2.6 (2-11) % Eos % (Auto) 0.1 (0-4) % Baso % (Auto) 0.1 (0-2) % Lymph # (Auto) 1.0 L (1.2-4.9) X10*3/uL [place] # (Auto) 0.4 (0.1-1.2) X10*3/uL Eos # (Auto) 0.0 (0.0-0.4) X10*3/uL Baso # (Auto) 0.0 (0.0-0.2) X10*3/uL Abs Immat Gran (auto) 0.05 H (0.00-0.03) X10*3/uL Absolute Neuts (auto) 14.5 H (2.0-8.3) x10*3/uL Absolute Nucleated RBC 0.000 (0.0-0.012) X10*3/uL Nucleated RBC % (auto) 0.0 (0.0-0.2) /100WBC Smear Tech's Comments VERIFIED Sodium 138 (135-145) mmol/L Potassium 3.8 (3.3-5.1) mmol/L Chloride 106 (96-108) mmol/L Carbon Dioxide 24 (22-29) mmol/L Anion Gap 12 (12-20) BUN 9 (9-16) mg/dL Creatinine 0.68 (0.5-1.4) mg/dL Estim Creat Clear Calc 124.1 Estimated GFR > 60 Random Glucose 117 H (60-115) mg/dL Lactic Acid 1.0 (0.5-2.0) mmol/L Calcium 9.4 (8.4-10.2) mg/dL Magnesium 2.0 (1.6-2.6) mg/dL Total Bilirubin 0.7 (0.0-1.0) mg/dL Direct Bilirubin 0.2 (0.0-0.5) mg/dL AST 20 (5-31) U/L ALT 16 (0-31) U/L Alkaline Phosphatase 43 (39-117) U/L Total Protein 8.3 H (6.5-8.0) g/dL Albumin 4.7 (3.5-5.0) g/dL Lipase 20 25 (8-78) U/L Beta HCG, Quant < 2 mIU/mL Urine Color Yellow Urine Appearance Clear Urine pH 8.5 (5.0-9.0) Ur Specific [place] >= 1.030 H (1.005-1.025) Urine Protein Trace (Neg-Trace) mg/dL Urine Glucose (UA) Negative (Negative) mg/dL Urine Ketones 80 (Negative) mg/dL Urine Blood Negative (Negative) Urine Nitrite Negative (Negative) Ur Leukocyte Esterase Trace H (Negative) Urine RBC 0-2 (0-2) /HPF Urine WBC 0-5 (0-5) /HPF Ur Squamous Epith Cells 3-5 (0-2) /HPF Urine Bacteria None Seen (None Seen) Hyaline Casts 0-2 (0-2) /LPF Urine Test NEGATIVE (NEGATIVE) COVID-19 (JHONATAN) Negative (Negative) COVID-19 Clin Com See Note Influenza Type A (DONALD) Negative (Negative) Influenza Type B (DONALD) Negative (Negative) Influenza A & B Note See Note Independent Interpretation I performed an independent interpretation of an: CT Scan Radiology Impression Discussion of test interpretation with radiology: I have reviewed the radiologist's reading. Radiologist Impression: FINDINGS: LUNG BASES: Unremarkable. ABDOMINAL AND PELVIC WALL: Unremarkable. LIVER AND BILIARY TREE: Unremarkable. GALLBLADDER: Unremarkable. PANCREAS: Unremarkable. SPLEEN: Unremarkable. ADRENAL GLANDS: Unremarkable. KIDNEYS AND URETERS: Unremarkable. GASTROINTESTINAL TRACT: The appendix is dilated and fluid-filled with surrounding fat stranding. Appendix measures 1.2 cm in diameter. An appendicolith is seen at the base. No evidence of intra-abdominal free air or periappendiceal fluid collection. VASCULAR: Unremarkable. LYMPH NODES/PERITONEUM: Surrounding mildly prominent lymph nodes. FREE FLUID: None. BLADDER: Unremarkable. PELVIC VISCERA: Intrauterine device is centered within the endometrial canal. . OSSEOUS STRUCTURES: Unremarkable. CT/CT abdomen pelvis w IV con IMPRESSION: Acute uncomplicated appendicitis. Medications Administered Generic Name Dose Route Start Last Admin Trade Name Freq PRN Reason Stop Dose Admin Ondansetron HCl 4 mg 08/18/23 17:30 08/18/23 17:32 Ondansetron Odt 4 Mg Tab.Rapdis TRANSLINGU 4 mg Q6H PRN Administration Nausea and Vomiting Discontinued Medications Generic Name Dose Route Start Last Admin Trade Name Freq PRN Reason Stop Dose Admin Sodium Chloride 1,000 mls @ 999 mls/hr 08/18/23 19:23 08/18/23 19:35 Ns IVCONT 08/18/23 20:23 999 mls/hr .Q1H1M ONE Administration Iohexol 85 ml 08/18/23 19:28 08/18/23 19:28 Iohexol 350 Mg/Ml 100 Ml Infus..Btl IV 08/18/23 19:29 85 ml ONCE ONE Administration Morphine Sulfate 4 mg 08/18/23 19:23 08/18/23 19:35 Morphine Sulfate 4 Mg/Ml Cartridge IVPUSH 08/18/23 19:24 4 mg ONCE ONE Administration Protocol Prochlorperazine Edisylate 10 mg 08/18/23 19:23 08/18/23 19:35 Prochlorperazine Edisylate 10 Mg/2 Ml Vial IVPUSH 08/18/23 19:24 10 mg ONCE ONE Administration Critical Care Time Critical Care Time Critical Care Time: Yes Total Critical Care Time: 75 Attestation: I have personally provided critical care time. Time includes review of lab data, radiology results, discussion with consultants, and monitoring for potential decompensation. Intervention performed as documented. Discharge Plan Discharge Clinical Impression: Acute appendicitis Patient Disposition: Admitted As Inpatient Prescriptions: No Action Kyleena 17.5 mcg/24 hrs (5 yrs) 19.5 mg intrauterine device intrauterine
[2023-08-18 19:26] LABS: Urine Pregnancy NEGATIVE (NEGATIVE)
[2023-08-18 19:27] LABS: UPreg QC Valid YES
[2023-08-18] MEDS: iohexoL 350 MG/ML 100 ML INFUS..BTL 85 ML IV (19:28)
[2023-08-18 19:30] LABS: Lipase 25 U/L (8-78)
[2023-08-18] MEDS: 0.9 % Sodium Chloride 1,000 ML 999 ML IVCONT (19:35)
[2023-08-18] MEDS: Morphine Sulfate 4 MG/ML CARTRIDGE IVPUSH (19:35)
[2023-08-18] MEDS: Prochlorperazine Edisylate 10 MG/2 ML VIAL IVPUSH (19:35)
[2023-08-18 19:39] LABS: COVID-19 Test Negative (Negative); IDNOW Serial# 152EDE1D; IDNOW Serial# 9DB6401D; Influenza A Negative (Negative); Influenza B2 Negative (Negative)
[2023-08-18 19:40] VITALS: TEMP 36.4
--- NOTE | 2023-08-18 21:23 | PHA.MEDREC ---
Pharmacy Consult ? Medication Reconciliation Pharmacy has completed the medication reconciliation. Patient reported no medicaitons at home. Chelsea Currie, DebbieD
[2023-08-18] MEDS: Piperacillin Sodium/Tazobactam 3.375 GM in 0.9 % Sodium Chloride 50 ML IV (21:27)
[2023-08-18] MEDS: 0.9 % Sodium Chloride 1,000 ML 100 ML IVCONT (21:27)
[2023-08-18 22:02] VITALS: BP 154/62; PULSE 84; RESP 16; TEMP 36.6; O2SAT 96
[2023-08-18] MEDS: Morphine Sulfate 4 MG/ML CARTRIDGE 3 MG IVPUSH (23:45)
[2023-08-19] VITALS (19 sets, daily range): BP systolic 86–152; BP diastolic 57–89; PULSE 93–150; RESP 14–20; TEMP 36.2–38.7; O2SAT 95–100; BMI 38.0
[2023-08-19] MEDS: Piperacillin Sodium/Tazobactam 3.375 GM in 0.9 % Sodium Chloride 50 ML IV ×3 (04:30→21:42)
[2023-08-19] MEDS: Morphine Sulfate 4 MG/ML CARTRIDGE 3 MG IVPUSH ×2 (05:49→08:21)
--- NOTE | 2023-08-19 06:55 | ECG_ITS ---
Test Reason : TACHY Blood Pressure : / mmHG Vent. Rate : 149 BPM Atrial Rate : 149 BPM P-R Int : 126 ms QRS Dur : 078 ms QT Int : 274 ms P-R-T Axes : 057 -15 -88 degrees QTc Int : 431 ms Sinus tachycardia Minimal voltage criteria for LVH, may be normal variant ( R in aVL ) ST & T wave abnormality, consider inferior ischemia ST & T wave abnormality, consider anterolateral ischemia Abnormal ECG When compared to the previous EKG of 20 may 2015, significant changes Referred By: Sai Crawford Electronically Signed By:LINUS ODOM
--- NOTE | 2023-08-19 07:00 | CA_ITS ---
Transthoracic Echocardiogram Patient (Last, First, Middle): Josseline Sims M Gender: Female Date of : 1990 Age: 33 Procedure Date: 08/19/2023 Procedure Type: Transthoracic Echocardiogram Location: E Height: 160.02 cm Weight: 89.36 kg BSA: 1.92 m2 Heart Rate: bpm BP: 90 / 60 mmHg Associate Artistic Director: TO Referring MD: Shirley CELESTIN Symptoms: gram+ bacteremia Study Quality: Fair/Contrast ECG Rhythm: Sinus Conclusions: - The left ventricular systolic function is mildly decreased. The calculated ejection fraction is 50% by biplane method. - No obvious valvular pathology seen on this study (from available image quality). Findings Procedure Information Contrast agent, definity, is being given per protocol without apparent complications. Left Ventricle Normal left ventricular cavity size. There is normal left ventricular wall thickness. The left ventricular systolic function is mildly decreased. The calculated ejection fraction is 50% by biplane method. There is mild global hypokinesis. Diastolic function is indeterminate on the basis of available data. Right Ventricle Normal right ventricular cavity size and systolic function. Atria Both atria are normal in size. Aortic Valve There is a normal trileaflet aortic valve. There is no aortic valve stenosis. There is no aortic valve regurgitation. Mitral Valve The mitral valve appears normal. There is no mitral valve regurgitation. There is no mitral valve stenosis. Pulmonic Valve The pulmonic valve is likely normal. Tricuspid Valve There is mild tricuspid valve regurgitation. Mild pulmonary hypertension is present. Great Vessels The asc aorta is normal in size. Venous The inferior vena cava is mildly dilated and collapses less than 50% with inspiration. Pericardium/Pleural There is no evidence of pericardial effusion. Prior Study Comparison No prior study available for comparison. Recommendations, Care & Conclusions No obvious valvular pathology seen on this study. Consider a DESEAN if clinically appropriate. Measurements 2D Linear Measurements IVSd: 0.80 0.6-0.9/0.6-1.0 cm LVIDd: 4.30 3.9-5.3/4.2-5.9 cm LVIDd Index: 2.24 2.4-3.2/2.2-3.1 cm/m2 LVIDs: 3.21 2.0-3.6 cm LVPWd: 0.89 0.7-1.1 cm LA Diam: 2.90 2.7-3.8/3.0-4.0 cm LAIDs Index: 1.51 1.5-2.3 cm/m2 LV Mass: 141.06 67-162/88-224 g LV Mass Index: 73.47 43-95/49-115 g/m2 LVOT Diam: 2.10 3.0+(-)1.3 cm 2D Systolic Function EF 4C: 45.00 >55% EF 2C: 51.10 >55% EF BiP: 49.60 >55% Aortic Valve AoV Pk Gregory: 1.02 AoV Mn Gregory: 0.69 AoV VTI: 0.19 AoV Pk Grad: 4.00 Aov Mn Grad: 2.00 NEYDA Cont.VTI: 2.46 LVOT LVOT Pk Gregory: 0.71 LVOT Mn Gregory: 0.47 LVOT VTI: 0.14 LVOT Pk Grad: 2.00 LVOT Mn Grad: 1.00 LVOT Diam: 2.10 LVOT Area: 3.46 Right Ventricle TAPSE (mm): 24.30 TVS' Gregory: 10.00 Tricuspid Valve TR Pk Gregory: 2.48 TR Pk Grad: 25.00 RA Press: 15.00 RVSP: 40.00 Great Vessels Aorta Sinus of Valsalva: 3.31 2.0-3.[address] [place]: 2.54 1.7-3.4 cm Ao Asc: 3.40 2.1-3.4 cm Updated in Other Vendor System with Status of Final Timmy Guadalupe MD electronically signed on 08/19/2023 1:44:50 PM with status of Final
--- NOTE | 2023-08-19 07:10 | PM.HPGS ---
History of Present Illness History of Present Illness Date of Service: 08/25/23 Chief complaint: Acute appendicitis Narrative: Josseline Castañeda is a 33 year old female who states she started to have right sided abdominal pain at around 5 a.m. yesterday. She describes some nausea and vomitting as well. Her pain persisted so she came to the ED last night and her CT showed acute appendicitis. This morning at around 07:00 o'clock, she went to the bathroom and immediately after, started to feel weakness of both legs. The nurse noted she was hyperventilating with a HR in 140's. She is now noted to have a temp of 101. According to the nurse, the patient appeared stable throughout the night and did not have any significant complaints except for some pain. She did not have any fever all night and heart rate was steady. She denies diarrhea or constipation. Review of Systems Constitutional: Constitutional: Denies chills and Reports fever(s) Cardiovascular: Cardiovascular: Denies chest pain, Denies dyspnea and Denies dyspnea on exertion Respiratory: Respiratory: Denies cough, Denies dyspnea and Denies dyspnea on exertion Gastrointestinal: Gastrointestinal: Denies hematochezia and Denies change in bowel habits Genitourinary: Genitourinary: Denies hematuria Musculoskeletal: Musculoskeletal: Denies back pain and Denies limited range of motion Neurologic: Denies focal weakness and Denies convulsions Psychiatric: Psychiatric: Denies depression and Denies mood swings [facility] Past Medical History Medical History (Updated 08/22/23 @ 16:03 by Yamilet Orta MD) Bacteremia Hepatitis B carrier Skin lesion Lactating mother Hepatitis B Miscarriage Family History Family History Father Diabetes Paternal Grandfather Diabetes Surgical History Surgical History History of ankle surgery Social History Social History Household Members: Significant Other and Children Housing: Apartment Do you presently have visiting nurse or other home services: No Alcohol intake: current Alcohol intake frequency: does not drink Comment: 1/walker Patient Tobacco Use Status: Former Tobacco user Tobacco use type: Cigarette Years Smoked: 1 Smoked in Last 30 Days: No e-Cigarette/Vaping Use: Never Used Patient Interested in Nicotine Replacement: No Patient Given Instructions on How to Stop Smoking: No Use of substances other than those prescribed or required for medical reasons: No Currently Displaying Signs/Symptoms of Drug Intoxication Withdrawal: No Any prior treatment program specific to substance use: No Have you been hit, kicked, punched, or otherwise hurt by someone within the past year? If so, by whom?: No Do you feel safe in your current relationship?: Yes Is there a partner from a previous relationship who is making you feel unsafe now?: No Are you made to feel afraid or neglected: No Advance Directives: No Advance Directives Information Provided: No Advance Directives on File: No Do you have thoughts of harming others: None Do you have a plan to hurt others: No Plan Recently lost weight without trying: No Nutrition Risks: No Nutritional Risk Patient : No : No Poor oral hygiene: No service: No Sexual orientation: Straight/Heterosexual Gender identity: Female Meds Allergies Allergy/AdvReac Type Severity Reaction Status Date / Time No Known Allergies Allergy Verified 08/11/23 14:11 Active Medications: Current Medications Sodium Chloride (Ns) 1,000 mls @ 100 mls/hr IVCONT .Q10H [facility] Last Admin: 08/18/23 21:27 Dose: 100 mls/hr Piperacillin Sod/Tazobactam (Sod 3.375 gm/ Sodium Chloride) 50 mls @ 100 mls/hr IV Q6H [facility] Last Infusion: 08/19/23 05:05 Dose: Infused Morphine Sulfate (Morphine Sulfate 4 Mg/Ml Cartridge) 3 mg IVPUSH Q3H PRN; Protocol PRN Reason: Pain, Severe (Pain Scale 7-10) Last Admin: 08/19/23 05:49 Dose: 3 mg Ondansetron HCl (Ondansetron Odt 4 Mg Tab.Rapdis) 4 mg TRANSLINGU Q6H PRN PRN Reason: Nausea and Vomiting Last Admin: 08/18/23 17:32 Dose: 4 mg Ondansetron HCl (Ondansetron Hcl 4 Mg/2 Ml Vial) 4 mg IVPUSH Q6H PRN PRN Reason: nausea Sodium Chloride (0.9 % Sodium Chloride Flush 3 Ml Syringe) 3 ml IVFLUSH QSHIFT [facility] Last Admin: 08/19/23 00:30 Dose: Not Given Home Medications Medication Instructions Recorded Confirmed Last Taken Type levonorgestrel 17.5 mcg/24 hrs intrauterine 01/22/23 08/11/23 Unknown History (5yrs) 19.5mg intrauterine device (Kyleena) Physical Exam Vital Signs: Vital Signs: Last Vital Signs Temp 101.6 F H 08/19/23 06:55 Pulse 150 H 08/19/23 06:55 Resp 20 08/19/23 06:55 BP 134/74 08/19/23 06:55 Pulse Ox 99 08/19/23 06:55 O2 Del Method Room Air 08/19/23 06:55 BMI result Body Mass Index 33.9 Const: Other: appears very anxious and hyperventilating Orientation/consciousness: patient oriented x3 Neck: Neck: Yes no lymphadenopathy Resp: Auscultation: clear to auscultation bilaterally Cardio: Rhythm: regular rhythm GI: Other: tender on the right side, mostly on lower quadrant Palpation (GI): Soft to palpation, Tenderness to palpation present (GI) and no guarding Neuro: General: patient oriented x3 Results Results Labs: Short CBC 08/18/23 Range/Units 15:27 WBC 15.9 H (4.8-10.8) X10*3/uL Hgb 13.7 (12.0-16.0) g/dl Hct 39.5 (37.0-47.0) % Plt Count 219 (160-400) X10*3/uL BMP 08/18/23 15:27 Sodium 138 Potassium 3.8 Chloride 106 Carbon Dioxide 24 BUN 9 Creatinine 0.68 Calcium 9.4 Liver Function 08/18/23 Range/Units 15:27 Total Bilirubin 0.7 (0.0-1.0) mg/dL Direct Bilirubin 0.2 (0.0-0.5) mg/dL AST 20 (5-31) U/L ALT 16 (0-31) U/L Alkaline Phosphatase 43 (39-117) U/L Albumin 4.7 (3.5-5.0) g/dL Urine 08/18/23 Range/Units 15:27 Urine Color Yellow Urine Appearance Clear Urine pH 8.5 (5.0-9.0) Ur Specific [place] >= 1.030 H (1.005-1.025) Urine Protein Trace (Neg-Trace) mg/dL Urine Glucose (UA) Negative (Negative) mg/dL Urine Test NEGATIVE (NEGATIVE) Abdomen CT scan report/results: report reviewed and image reviewed CT scan - pelvis: report reviewed and image reviewed Additional studies: Laboratory Results WBC 15.9 X10*3/uL (4.8-10.8) H 08/18/23 15:27 RBC 4.27 X10*6/uL (4.20-5.50) 08/18/23 15:27 Hgb 13.7 g/dl (12.0-16.0) 08/18/23 15:27 Hct 39.5 % (37.0-47.0) 08/18/23 15: MCV 92.5 fL (80.0-98.0) 08/18/23 15: MCH 32.1 pg (27.0-33.0) 08/18/23 15: MCHC 34.7 g/dl (31.0-35.0) 08/18/23 15: RDW 11.9 % (11.0-16.0) 08/18/23 15:27 Plt Count 219 X10*3/uL (160-400) 08/18/23 15: MPV 8.9 fL (9.4-12.3) L 08/18/23 15:27 Immature Gran % (Auto) 0.3 % (0.0-0.4) 08/18/23 15: Neut % (Auto) 90.9 % (45-73) H 08/18/23 15:27 Lymph % (Auto) 6.0 % (20-40) L 08/18/23 15:27 [place] % (Auto) 2.6 % (2-11) 08/18/23 15:27 Eos % (Auto) 0.1 % (0-4) 08/18/23 15:27 Baso % (Auto) 0.1 % (0-2) 08/18/23 15:27 Lymph # (Auto) 1.0 X10*3/uL (1.2-4.9) L 08/18/23 15:27 [place] # (Auto) 0.4 X10*3/uL (0.1-1.2) 08/18/23 15:27 Eos # (Auto) 0.0 X10*3/uL (0.0-0.4) 08/18/23 15:27 Baso # (Auto) 0.0 X10*3/uL (0.0-0.2) 08/18/23 15:27 Abs Immat Gran (auto) 0.05 X10*3/uL (0.00-0.03) H 08/18/23 15:27 Absolute Neuts (auto) 14.5 x10*3/uL (2.0-8.3) H 08/18/23 15:27 Absolute Nucleated RBC 0.000 X10*3/uL (0.0-0.012) 08/18/23 15:27 Nucleated RBC % (auto) 0.0 /100WBC (0.0-0.2) 08/18/23 15:27 Smear Tech's Comments VERIFIED 08/18/23 15:27 Sodium 138 mmol/L (135-145) 08/18/23 15:27 Potassium 3.8 mmol/L (3.3-5.1) 08/18/23 15:27 Chloride 106 mmol/L (96-108) 08/18/23 15:27 Carbon Dioxide 24 mmol/L (22-29) 08/18/23 15:27 Anion Gap 12 (12-20) 08/18/23 15:27 BUN 9 mg/dL (9-16) 08/18/23 15:27 Creatinine 0.68 mg/dL (0.5-1.4) 08/18/23 15:27 Estim Creat Clear Calc 124.1 08/18/23 15:27 Estimated GFR > 60 08/18/23 15:27 Random Glucose 117 mg/dL (60-115) H 08/18/23 15:27 Lactic Acid 1.0 mmol/L (0.5-2.0) 08/18/23 19:11 Calcium 9.4 mg/dL (8.4-10.2) 08/18/23 15:27 Magnesium 2.0 mg/dL (1.6-2.6) 08/18/23 15:27 Total Bilirubin 0.7 mg/dL (0.0-1.0) 08/18/23 15:27 Direct Bilirubin 0.2 mg/dL (0.0-0.5) 08/18/23 15:27 AST 20 U/L (5-31) 08/18/23 15: ALT 16 U/L (0-31) 08/18/23 15: Alkaline Phosphatase 43 U/L (39-117) 08/18/23 15:27 Total Protein 8.3 g/dL (6.5-8.0) H 08/18/23 15: Albumin 4.7 g/dL (3.5-5.0) 08/18/23 15: Lipase 25 U/L (8-78) 08/18/23 19:11 Beta HCG, Quant < 2 mIU/mL 08/18/23 15: Urine Color Yellow 08/18/23 15: Urine Appearance Clear 08/18/23 15: Urine pH 8.5 (5.0-9.0) 08/18/23 15: Ur Specific [place] >= 1.030 (1.005-1.025) H 08/18/23 15: Urine Protein Trace mg/dL (Neg-Trace) 08/18/23 15: Urine Glucose (UA) Negative mg/dL (Negative) 08/18/23 15: Urine Ketones 80 mg/dL (Negative) 08/18/23 15: Urine Blood Negative (Negative) 08/18/23 15: Urine Nitrite Negative (Negative) 08/18/23 15:27 Ur Leukocyte Esterase Trace (Negative) H 08/18/23 15:27 Urine RBC 0-2 /HPF (0-2) 08/18/23 15:27 Urine WBC 0-5 /HPF (0-5) 08/18/23 15: Ur Squamous Epith Cells 3-5 /HPF (0-2) 08/18/23 15:27 Urine Bacteria None Seen (None Seen) 08/18/23 15: Hyaline Casts 0-2 /LPF (0-2) 08/18/23 15:27 Urine Test NEGATIVE (NEGATIVE) 08/18/23 15:27 COVID-19 (JHONATAN) Negative (Negative) 08/18/23 19:12 COVID-19 Clin Com See Note 08/18/23 19:12 Influenza Type A (DONALD) Negative (Negative) 08/18/23 19:12 Influenza Type B (DONALD) Negative (Negative) 08/18/23 19:12 Influenza A & B Note See Note 08/18/23 19:12 Impressions Abdomen/Pelvis CT 08/18/23 19:39 IMPRESSION: Acute uncomplicated appendicitis. Assessment and Plan (1) Acute appendicitis: Status: Acute She has right sided abdominal pain and her CT scan shows thickening of the appendix c/w uncomplicated acute appendicitis. She has been started on IV abx. She had sudden complaints of weakness, was hyperventilating, and had a fever just now. This may be manifestation of sepsis. I will consult the Hospitalist service for her tachycardia. I will repeat a set of labs. She is to have lap appendectomy poss open, today. I reviewed with her the technique of this procedure. I explained the risks, including but not limited to bleeding, infections, bowel injury, abscess formation, obstruction, inherent risks of anesthesia, as well as the benefits and alternatives. Her CAT scan shows an appendicolith so she is unlikely to improve with IV antibiotics alone. Quality Stroke Does the patient have a stroke diagnosis?: No VTE Prior VTE?: No VTE Risk Level:: Medical - low VTE Device Contraindication: N/A - Device Ordered VTE Drug Contraindication: Treatment Not Indicated Procedures Date of Service Date of Service: 08/25/23
[2023-08-19] MEDS: LORazepam 1 MG TABLET PO (07:13)
[2023-08-19] MEDS: Acetaminophen 325 MG TABLET 975 MG PO (07:21)
[2023-08-19 07:32] LABS: Hematocrit 36.1 % (37.0-47.0); Hemoglobin 12.8 g/dl (12.0-16.0); Mean Corpuscular HGB Conc 35.5 g/dl (31.0-35.0); Mean Corpuscular Hemoglobin 32.2 pg (27.0-33.0); Mean Corpuscular Volume 90.9 fL (80.0-98.0); Mean Platelet Volume 8.3 fL (9.4-12.3); Platelet Count 170 X10*3/uL (160-400); Red Blood Count 3.97 X10*6/uL (4.20-5.50); Red Cell Distribution Width 11.9 % (11.0-16.0); White Blood Count 9.9 X10*3/uL (4.8-10.8)
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
[2023-08-19 08:02] LABS: Lactic Acid 1.7 mmol/L (0.5-2.0)
[2023-08-19] MEDS: 0.9 % Sodium Chloride 1,000 ML 100 ML IVCONT ×3 (08:06→21:42)
[2023-08-19] MEDS: 0.9 % Sodium Chloride Flush 3 ML SYRINGE IVFLUSH (08:06)
[2023-08-19 08:07] LABS: Anion Gap 17 (12-20); Blood Urea Nitrogen 8 mg/dL (9-16); Calcium 7.9 mg/dL (8.4-10.2); Carbon Dioxide 17 mmol/L (22-29); Chloride 106 mmol/L (96-108); Creatinine Clr Calc Pharmacy 106.8; Estimated Glomerular Filt Rate > 60; Glucose Random 168 mg/dL (60-115); Potassium 3.2 mmol/L (3.3-5.1); Sodium 137 mmol/L (135-145)
--- NOTE | 2023-08-19 08:24 | PC.NURSE ---
report given CINDY Lund in short stay at this time. surgeon Sai Crawford bedside at this time speaking w/ pt. pt remains extremely diaphoretic and tachycardic in 140s. nsr. pt currently afebrile post tylenol administration. vitals up to date prior to pt leaving ED. pt now being transported by short stay tech at this time.
[2023-08-19] MEDS: Lactated Ringers 1,000 ML 80 ML IVCONT (08:41)
--- NOTE | 2023-08-19 09:08 | HO.ANESPROP2 ---
HPI - Anesthesia Eval Consult details Narrative: 33 yo female patient with acute appendicitis. For Laparoscopic appendectomy PMFSH Active Problems Active Problems: All Active Problems (Updated 08/19/23 @ 09:10 by Darlene Morales MD) Acute appendicitis (Acute) Skin lesion (Acute) Lactating mother (Acute)- 10 month old baby. Not breast feeding Ankle syndesmosis disruption (Acute) Hx of migraine headaches (Acute) Elevated LFTs (Acute) Vitamin D deficiency (Acute) GERD (gastroesophageal reflux disease) (Acute) Dyspepsia (Acute) Hepatitis B carrier (Acute) Past Medical History Medical History Skin lesion Lactating mother Hepatitis B Miscarriage Family History Family History Father Diabetes Paternal Grandfather Diabetes Family history of problems with anesthesia: No Surgical History Surgical History History of ankle surgery History of Problems with Anesthesia: No Social History Social History Household Members: Children Alcohol intake: current Alcohol intake frequency: does not drink Patient Tobacco Use Status: Former Tobacco user Tobacco use type: Cigarette Years Smoked: 1 Smoked in Last 30 Days: No Use of substances other than those prescribed or required for medical reasons: No Advance Directives: No Advance Directives Information Provided: No Patient : No Sexual orientation: Straight/Heterosexual Gender identity: Female Meds Allergies Allergy/AdvReac Type Severity Reaction Status Date / Time No Known Allergies Allergy Verified 08/11/23 14:11 Active Medications: Current Medications Sodium Chloride (Ns) 1,000 mls @ 150 mls/hr IVCONT .[id number] [facility] Last Admin: 08/19/23 08:06 Dose: 100 mls/hr Piperacillin Sod/Tazobactam (Sod 3.375 gm/ Sodium Chloride) 50 mls @ 100 mls/hr IV Q6H [facility] Last Infusion: 08/19/23 05:05 Dose: Infused Lactated Ringer's (Lr) 1,000 mls @ 80 mls/hr IVCONT .[id number] [facility] Last Admin: 08/19/23 08:41 Dose: 80 mls/hr Morphine Sulfate (Morphine Sulfate 4 Mg/Ml Cartridge) 3 mg IVPUSH Q3H PRN; Protocol PRN Reason: Pain, Severe (Pain Scale 7-10) Last Admin: 08/19/23 05:49 Dose: 3 mg Ondansetron HCl (Ondansetron Odt 4 Mg Tab.Rapdis) 4 mg TRANSLINGU Q6H PRN PRN Reason: Nausea and Vomiting Last Admin: 08/18/23 17:32 Dose: 4 mg Ondansetron HCl (Ondansetron Hcl 4 Mg/2 Ml Vial) 4 mg IVPUSH Q6H PRN PRN Reason: nausea Sodium Chloride (0.9 % Sodium Chloride Flush 3 Ml Syringe) 3 ml IVFLUSH QSHIFT [facility] Last Admin: 08/19/23 08:06 Dose: 3 ml Home Medications Medication Instructions Recorded Confirmed Last Taken Type levonorgestrel 17.5 mcg/24 hrs intrauterine 01/22/23 08/11/23 Unknown History (5yrs) 19.5mg intrauterine device (Kyleena) Exam Height,Weight and Vital Signs: Height 5 ft 3 in Weight 86.908 kg Last Vital Signs Temp 98.7 F 08/19/23 09:05 Pulse 123 H 08/19/23 09:05 Resp 18 08/19/23 09:05 BP 114/78 08/19/23 09:05 Pulse Ox 97 08/19/23 09:05 O2 Del Method Room Air 08/19/23 09:05 Pertinent Lab Results Pertinent Lab Results: Laboratory Tests 08/18/23 08/18/23 08/18/23 15:27 19:11 19:12 WBC 15.9 H RBC 4.27 Hgb 13.7 Hct 39.5 MCV 92.5 MCH 32.1 MCHC 34.7 RDW 11.9 Plt Count 219 MPV 8.9 L Immature Gran % (Auto) 0.3 Neut % (Auto) 90.9 H Lymph % (Auto) 6.0 L [place] % (Auto) 2.6 Eos % (Auto) 0.1 Baso % (Auto) 0.1 Lymph # (Auto) 1.0 L [place] # (Auto) 0.4 Eos # (Auto) 0.0 Baso # (Auto) 0.0 Abs Immat Gran (auto) 0.05 H Absolute Neuts (auto) 14.5 H Absolute Nucleated RBC 0.000 Nucleated RBC % (auto) 0.0 Smear Tech's Comments VERIFIED Sodium 138 Potassium 3.8 Chloride 106 Carbon Dioxide 24 Anion Gap 12 BUN 9 Creatinine 0.68 Estim Creat Clear Calc 124.1 Estimated GFR > 60 Random Glucose 117 H Lactic Acid 1.0 Calcium 9.4 Magnesium 2.0 Total Bilirubin 0.7 Direct Bilirubin 0.2 AST 20 ALT 16 Alkaline Phosphatase 43 Total Protein 8.3 H Albumin 4.7 Lipase 20 25 Beta HCG, Quant < 2 Urine Color Yellow Urine Appearance Clear Urine pH 8.5 Ur Specific [place] >= 1.030 H Urine Protein Trace Urine Glucose (UA) Negative Urine Ketones 80 Urine Blood Negative Urine Nitrite Negative Ur Leukocyte Esterase Trace H Urine RBC 0-2 Urine WBC 0-5 Ur Squamous Epith Cells 3-5 Urine Bacteria None Seen Hyaline Casts 0-2 Urine Test NEGATIVE COVID-19 ([facility]ONAT[facility]) Negative COVID-19 Clin Com See Note Influenza Type A (DONALD) Negative Influenza Type B (DONALD) Negative Influenza A & B Note See Note 08/19/23 07:28 WBC 9.9 RBC 3.97 L Hgb 12.8 Hct 36.1 L MCV 90.9 MCH 32.2 MCHC 35.5 H RDW 11.9 Plt Count 170 MPV 8.3 L Immature Gran % (Auto) Neut % (Auto) Lymph % (Auto) [place] % (Auto) Eos % (Auto) Baso % (Auto) Lymph # (Auto) [place] # (Auto) Eos # (Auto) Baso # (Auto) Abs Immat Gran (auto) Absolute Neuts (auto) Absolute Nucleated RBC 0.000 Nucleated RBC % (auto) 0.0 Smear Tech's Comments Sodium 137 Potassium 3.2 L Chloride 106 Carbon Dioxide 17 L Anion Gap 17 BUN 8 L Creatinine 0.79 Estim Creat Clear Calc 106.8 Estimated GFR > 60 Random Glucose 168 H Lactic Acid 1.7 Calcium 7.9 L D Magnesium Total Bilirubin Direct Bilirubin AST ALT Alkaline Phosphatase Total Protein Albumin Lipase Beta HCG, Quant Urine Color Urine Appearance Urine pH Ur Specific [place] Urine Protein Urine Glucose (UA) Urine Ketones Urine Blood Urine Nitrite Ur Leukocyte Esterase Urine RBC Urine WBC Ur Squamous Epith Cells Urine Bacteria Hyaline Casts Urine Test COVID-19 ([facility]ONAT[facility]) COVID-19 Clin Com Influenza Type A (DONALD) Influenza Type B (DONALD) Influenza A & B Note Airway Mallampati Class: II TM Dist: >3cm Neck ROM: Full Loose/Missing/Broken Teeth: No (Denies broken, loose, missing teeth) Heart: RRR Lungs: CTAB Assessment and Plan Assessment Anesthesia Assessment: Anesthesia Plan Discussed and Chart Reviewed Final Anesthetic Review Family History of Problems with Anesthesia: No History of Problems with Anesthesia: No NPO: Yes ASA Class: II and Emergency Final Preanesthetic Review: No Changes in Pt Med Stat, Meds/Allgs Chart Reviewed, Consent Obtained/Reviewed and Anes Risks/Benef Reviewed Patient Risk: Intermediate Procedure Risk: Intermediate Assessment/Block/Sedation in SS: Assess/Block/Sedation-SS Anesthetic Plan Anesthetic Plan: GA Disposition: Standard PACU
--- NOTE | 2023-08-19 09:38 | PM.EVENT ---
Event Note Date of Service: 08/19/23 Event Note: labs checked -WBC actually lower, HCO3 also low HR down to 120's abd soft although tender pt appears clinically septic despite uncomplicated nature of appendicitis reviewed with her technique of planned procedure explained risks, incl but not limited to bleeding, infections, bowel injury, obstruction, inherent risks of anesthesia she ahs given consent explained plan to Abdoul [phone] Time Spent With Patient Time: Total time managing care of this patient today ____ minutes.
--- NOTE | 2023-08-19 09:45 | PC.NURSE ---
pt recieved 800ml of lr in prep-op
--- NOTE | 2023-08-19 10:36 | W.PM.OPN ---
Operative Note Operative Note Date of Service: 08/19/23 Narrative: Preop diagnosis: Acute appendicitis, clinically septic Postop diagnosis: The same, with gangrenous appendicitis Procedure: Laparoscopic appendectomy Surgeon: Sai Crawford MD assistant research scientist: SABI Gill The patient is a 33 year female who came into the ER last night because of right-sided abdominal pain with a CT scan consistent with acute appendicitis. She did have an appendicolith. This morning, he suddenly complained of weakness, became tachycardic to 140s, and a temperature 101 degrees. She was clinically septic. She understood that it is best to proceed with the appendectomy. She understood the technique of the procedure and was aware of the risks, benefits, and alternatives. She was brought to the operating room. She was placed supine under general anesthesia via endotracheal tube. A Neville catheter was inserted. The abdomen was prepped and draped in the usual sterile fashion. A surgical time-out was done. The patient was receiving IV Zosyn as scheduled I made a short infraumbilical incision using a blade 15. This was carried down through the full-thickness of the skin and thick subcutaneous fat down to the fascia. The fascia was incised. The peritoneum was entered. Through this incision a Amanda port was introduced. Pneumoperitoneum was introduced to a pressure of 15 mm Hg. We then used a 10 mm 0 degree scope. With laparoscopic visualization, I placed a 5 mm port in the left lower quadrant through a small stab incision. A another 5 mm port introduced through a small incision in the suprapubic margin. Graspers were applied through these working ports. The rest of the bowel loops reflected away from the right lower quadrant. The cecum was immediately seen. By following this we were able to visualize the appendix. The appendix appeared gangrenous. I was able to apply a grasper gently on the mid part of the appendix to put this on stretch. By doing so was able to visualize the base. I would to do careful dissection of the base with the LigaSure to divide adherent fiber areolar tissue as well as mesentery. This mesentery was very edematous and inflamed. We proceeded to continue to define the base until was able to clearly see this. The base of the appendix appeared viable and non gangrenous. I created a mesenteric window at the base. I then positioned a 45 number endo SRUTHI stapler across the base. This was fired to transect the appendix. There was 1 band that appeared intact and not including the staple line so I reapplied a 30 mm Endo-SRUTHI stapler to complete transection. The appendix was therefore completely removed. This was retrieved through an endobag through the umbilical incision. I had to switch to a 5 mm scope at this point to allow us to use the umbilical port for the stapler device and for specimen retrieval. I reinserted all ports an re-insufflated. I examined all 4 quadrants. There was no other pathology seen. There was no signs of any bowel injury. The staple line appeared intact. There was no bleeding. I position omentum to overlie the cecum. I therefore desufflated the port sites. I then removed all ports under vision with the laparoscope. The umbilical port was removed last. The fascia of the umbilical incision was closed with a [id number] Polysorb 3-0 stitch. Skin closure was achieved on all incisions using Polysorb 4-0 subcuticular sutures. All incisions were infiltrated with Marcaine 0.5% for postop analgesia. Dressings were applied. The procedure was completed. The patient tolerated procedure well. There were no immediate complications. Initial and final counts of sponges and instruments were correct. Estimated blood loss was less than 20 cc The patient was extubated without difficulty and transferred to the recovery room with stable vital signs. The Neville catheter was removed.
--- NOTE | 2023-08-19 11:27 | P.CONHOSP_ITS ---
History of Present Illness Data of Consult Service Date: 08/19/23 Requesting physician: Sai Crawford Primary Care Provider: Sai Tirado MD [facility] Reason for consult: tachycardia 33 year old female without any significant past medical history admitted to general surgery for management of acute appendicitis with consult placed to hospitalist service due to tachycardia. The patient presented to the ED last night with complaints of abd pain. WBC 15.9. CT abd/pelvis showed acute uncomplicated appendicitis. Early this morning developed sinus tachycardia to 140-150 and febrile to 101.6. [employer] was called. Pt given ativan and given clinical picture of sepsis was taken to OR for lap appe with post op dx gangrenous appendicitis. HR improving to 100-110 when examined in PACU. Blood cultures x1 now positive with GPC in pairs and chains. Pt remains on IV zosyn and IVF. She currently denies any complaints but remains very drowsy post-operatively and ROS limited. Review of Systems 2 Review of Systems: Yes Unobtainable due to mental condition [facility] Medical History Skin lesion Lactating mother Hepatitis B Miscarriage Family History Father Diabetes Paternal Grandfather Diabetes Surgical History History of ankle surgery Social History Household Members: Children Alcohol intake: current Alcohol intake frequency: does not drink Patient Tobacco Use Status: Former Tobacco user Tobacco use type: Cigarette Years Smoked: 1 Smoked in Last 30 Days: No Use of substances other than those prescribed or required for medical reasons: No Advance Directives: No Advance Directives Information Provided: No Patient : No Sexual orientation: Straight/Heterosexual Gender identity: Female Meds Allergies Allergy/AdvReac Type Severity Reaction Status Date / Time No Known Allergies Allergy Verified 08/11/23 14:11 Active Medications: Current Medications Albuterol Sulfate (Albuterol Sulfate (0.083%) 2.5 Mg/3 Ml Vial.Neb) 2.5 mg INHALE ONCE PRN PRN Reason: Shortness of Breath/Wheezing Sodium Chloride (Ns) 1,000 mls @ 150 mls/hr IVCONT .Q6H40M [facility] Last Admin: 08/19/23 08:06 Dose: 100 mls/hr Piperacillin Sod/Tazobactam (Sod 3.375 gm/ Sodium Chloride) 50 mls @ 100 mls/hr IV Q6H [facility] Last Infusion: 08/19/23 05:05 Dose: Infused Lactated Ringer's (Lr) 1,000 mls @ 80 mls/hr IVCONT .[id number] [facility] Last Admin: 08/19/23 08:41 Dose: 80 mls/hr Morphine Sulfate (Morphine Sulfate 4 Mg/Ml Cartridge) 3 mg IVPUSH Q3H PRN; Protocol PRN Reason: Pain, Severe (Pain Scale 7-10) Last Admin: 08/19/23 05:49 Dose: 3 mg Ondansetron HCl (Ondansetron Odt 4 Mg Tab.Rapdis) 4 mg TRANSLINGU Q6H PRN PRN Reason: Nausea and Vomiting Last Admin: 08/18/23 17:32 Dose: 4 mg Ondansetron HCl (Ondansetron Hcl 4 Mg/2 Ml Vial) 4 mg IVPUSH Q6H PRN PRN Reason: nausea Pharmacy Consult (Consult Rx Vancomycin Dosing) 1 each MISCELLANE DAILY PRN PRN Reason: Consult order Potassium Chloride (Potassium Chloride Packet 20 Meq Packet) 40 meq PO Q4H [facility] Stop: 08/19/23 15:16 Sodium Chloride (0.9 % Sodium Chloride Flush 3 Ml Syringe) 3 ml IVFLUSH QSHIFT [facility] Last Admin: 08/19/23 08:06 Dose: 3 ml Home Medications Medication Instructions Recorded Confirmed Last Taken Type levonorgestrel 17.5 mcg/24 hrs intrauterine 01/22/23 08/11/23 Unknown History (5yrs) 19.5mg intrauterine device (Kyleena) Physical Exam 2 Vital Signs and Narrative: Vital Signs: Last Vital Signs Temp 99.3 F 08/19/23 11:21 Pulse 103 H 08/19/23 11:21 Resp 16 08/19/23 11:21 BP 98/57 L 08/19/23 11:21 Pulse Ox 95 08/19/23 11:21 O2 Del Method Room Air 08/19/23 11:21 O2 Flow Rate 2 08/19/23 11:02 BMI result Body Mass Index 33.9 Constitutional - Somnolent but arousable, weak appearing, No apparent distress Eyes - PERRLA, EOMI Cardiovascular - S1S2, regular rhythm, tachycardic, No edema Respiratory - Normal lung expansion, Normal respiratory effort, No respiratory distress, CTA bilaterally Extremities - no calf tenderness bilaterally, no swelling Skin - Warm/Dry, dry lips Neurological - Somnolent but arousable, oriented x3 Results Labs 08/19/23 07:28 08/19/23 07:28 Labs: Laboratory Results - last 24 hr 08/18/23 08/18/23 08/18/23 15:27 19:11 19:12 MCV 92.5 MCH 32.1 MCHC 34.7 RDW 11.9 Plt Count 219 MPV 8.9 L Immature Gran % (Auto) 0.3 Neut % (Auto) 90.9 H Lymph % (Auto) 6.0 L [place] % (Auto) 2.6 Eos % (Auto) 0.1 Baso % (Auto) 0.1 Lymph # (Auto) 1.0 L [place] # (Auto) 0.4 Eos # (Auto) 0.0 Baso # (Auto) 0.0 Abs Immat Gran (auto) 0.05 H Absolute Neuts (auto) 14.5 H Absolute Nucleated RBC 0.000 Nucleated RBC % (auto) 0.0 Smear Tech's Comments VERIFIED Anion Gap 12 Estim Creat Clear Calc 124.1 Estimated GFR > 60 Random Glucose 117 H Lactic Acid 1.0 Calcium 9.4 Magnesium 2.0 Total Bilirubin 0.7 Direct Bilirubin 0.2 AST 20 ALT 16 Alkaline Phosphatase 43 Total Protein 8.3 H Albumin 4.7 Lipase 20 25 Beta HCG, Quant < 2 Urine Color Yellow Urine Appearance Clear Urine pH 8.5 Ur Specific Bernice >= 1.030 H Urine Protein Trace Urine Glucose (UA) Negative Urine Ketones 80 Urine Blood Negative Urine Nitrite Negative Ur Leukocyte Esterase Trace H Urine RBC 0-2 Urine WBC 0-5 Ur Squamous Epith Cells 3-5 Urine Bacteria None Seen Hyaline Casts 0-2 Urine Test NEGATIVE COVID-19 (JHONATAN) Negative COVID-19 Clin Com See Note Influenza Type A (DONALD) Negative Influenza Type B (DONALD) Negative Influenza A & B Note See Note 08/19/23 07:28 MCV 90.9 MCH 32.2 MCHC 35.5 H RDW 11.9 Plt Count 170 MPV 8.3 L Immature Gran % (Auto) Neut % (Auto) Lymph % (Auto) [place] % (Auto) Eos % (Auto) Baso % (Auto) Lymph # (Auto) [place] # (Auto) Eos # (Auto) Baso # (Auto) Abs Immat Gran (auto) Absolute Neuts (auto) Absolute Nucleated RBC 0.000 Nucleated RBC % (auto) 0.0 Smear Tech's Comments Anion Gap 17 Estim Creat Clear Calc 106.8 Estimated GFR > 60 Random Glucose 168 H Lactic Acid 1.7 Calcium 7.9 L D Magnesium Total Bilirubin Direct Bilirubin AST ALT Alkaline Phosphatase Total Protein Albumin Lipase Beta HCG, Quant Urine Color Urine Appearance Urine pH Ur Specific Bernice Urine Protein Urine Glucose (UA) Urine Ketones Urine Blood Urine Nitrite Ur Leukocyte Esterase Urine RBC Urine WBC Ur Squamous Epith Cells Urine Bacteria Hyaline Casts Urine Test COVID-19 (JHONATAN) COVID-19 Clin Com Influenza Type A (DONALD) Influenza Type B (DONALD) Influenza A & B Note Imaging Radiologist's Impressions: Impressions Abdomen/Pelvis CT 08/18/23 19:39 IMPRESSION: Acute uncomplicated appendicitis. Assessment and Plan (1) Acute appendicitis: Status: Acute Plan 33 year old female without any significant past medical history admitted to general surgery for management of acute appendicitis with consult placed to hospitalist service due to tachycardia. #Acute appendicitis with gangrene and sepsis -Continue IV zosyn per general surgery -Leukocytosis, fever, sinus tach due to sepsis. No end organ damage/hypotension -Plan per general surgery #GPC bacteremia -BC x1 positive for GPC in pairs and chains -suspect enterococcus r/t above, however cannot exclude staph at this time -Continue zosyn (08/18), add vanco (08/19) -ID consult, echo -Await final cultures, repeat cultures ordered Thank you for this consult, will continue following along with you.
[2023-08-19] MEDS: Potassium Chloride Packet 20 MEQ PACKET 40 MEQ PO ×2 (12:20→16:12)
[2023-08-19] MEDS: 0.9 % Sodium Chloride 1,000 ML 999 ML IV ×3 (13:22→23:17)
--- NOTE | 2023-08-19 14:49 | PM.EVENT ---
Event Note Date of Service: 08/20/23 Event Note: seen postop - s/p leslie mcrae, gangrenous appendicitis appears much more comfortable she says she feels much better abd soft BP on the soft side, HR lower IV fluids pain mgt on clear liquids continue IV abx - blood cultures positive dw Hospitalist service Abdoul updated Time Spent With Patient Time: Total time managing care of this patient today ____ minutes.
--- NOTE | 2023-08-19 16:59 | P.CNID_ITS ---
History of Present Illness Data of Consult Service Date: 08/19/23 Requesting physician: Shirley Cortez Primary Care Provider: Sai Tirado MD HPI Reason for consult: bacteremia She presents with symptoms since morning on 08/18 of RLQ pain,nausea and vomiting with no diarrhea. She has no kidney stones. She has 1/2 gram positive cocci in chains on 08/18 in blood. She has CT scan scan enlarged appendix Review of Systems 2 Review of Systems: Yes all other systems are reviewed and are negative [facility] Past Medical History Medical History (Updated 08/19/23 @ 17:08 by Yamilet Orta MD) Bacteremia Hepatitis B carrier Skin lesion Lactating mother Hepatitis B Miscarriage Family History Family History Father Diabetes Paternal Grandfather Diabetes Family history: reviewed and not pertinent Surgical History Surgical History History of ankle surgery Social History Social History Household Members: Significant Other and Children Housing: Apartment Do you presently have visiting nurse or other home services: No Alcohol intake: current Alcohol intake frequency: does not drink Patient Tobacco Use Status: Former Tobacco user Tobacco use type: Cigarette Years Smoked: 1 Smoked in Last 30 Days: No e-Cigarette/Vaping Use: Never Used Patient Interested in Nicotine Replacement: No Patient Given Instructions on How to Stop Smoking: No Use of substances other than those prescribed or required for medical reasons: No Currently Displaying Signs/Symptoms of Drug Intoxication Withdrawal: No Any prior treatment program specific to substance use: No Have you been hit, kicked, punched, or otherwise hurt by someone within the past year? If so, by whom?: No Do you feel safe in your current relationship?: Yes Is there a partner from a previous relationship who is making you feel unsafe now?: No Are you made to feel afraid or neglected: No Advance Directives: No Advance Directives Information Provided: No Advance Directives on File: No Do you have thoughts of harming others: None Do you have a plan to hurt others: No Plan Recently lost weight without trying: No Nutrition Risks: No Nutritional Risk Patient : No : No Poor oral hygiene: No Sexual orientation: Straight/Heterosexual Gender identity: Female Meds Allergies Allergy/AdvReac Type Severity Reaction Status Date / Time No Known Allergies Allergy Verified 08/11/23 14:11 Active Medications: Current Medications Acetaminophen (Acetaminophen 325 Mg Tablet) 650 mg PO Q6H PRN PRN Reason: fever, pain Al Hydroxide/Mg Hydroxide (Magnesium Hydrox/Alum Hydrox 30 Ml Oral.Susp) 30 ml PO Q6H PRN PRN Reason: Heartburn Albuterol Sulfate (Albuterol Sulfate (0.083%) 2.5 Mg/3 Ml Vial.Neb) 2.5 mg INHALE ONCE PRN PRN Reason: Shortness of Breath/Wheezing Sodium Chloride (Ns) 1,000 mls @ 100 mls/hr IVCONT .Q10H [facility] Last Admin: 08/19/23 12:38 Dose: Not Given Piperacillin Sod/Tazobactam (Sod 3.375 gm/ Sodium Chloride) 50 mls @ 100 mls/hr IV Q6H [facility] Last Admin: 08/19/23 16:12 Dose: 100 mls/hr Promethazine HCl 12.5 mg/ (Sodium Chloride) 50.5 mls @ 202 mls/hr IV Q6H PRN PRN Reason: Nausea and Vomiting Ketorolac Tromethamine (Ketorolac Tromethamine 30 Mg/Ml Vial) 30 mg IVPUSH Q6H PRN PRN Reason: abdominal pain Morphine Sulfate (Morphine Sulfate 4 Mg/Ml Cartridge) 3 mg IVPUSH Q4H PRN; Protocol PRN Reason: Pain, Severe (Pain Scale 7-10) Ondansetron HCl (Ondansetron Odt 4 Mg Tab.Rapdis) 4 mg TRANSLINGU Q6H PRN PRN Reason: Nausea and Vomiting Last Admin: 08/18/23 17:32 Dose: 4 mg Ondansetron HCl (Ondansetron Hcl 4 Mg/2 Ml Vial) 4 mg IVPUSH Q6H PRN PRN Reason: nausea Oxycodone HCl (Oxycodone Hcl Immed Release 5 Mg Tablet) 5 mg PO Q4H PRN PRN Reason: Pain, Moderate(Pain Scale 4-6) Oxycodone HCl (Oxycodone Hcl Immed Release 5 Mg Tablet) 10 mg PO Q4H PRN PRN Reason: Pain, Severe (Pain Scale 7-10) Pharmacy Consult (Consult Rx Vancomycin Dosing) 1 each MISCELLANE DAILY PRN PRN Reason: Consult order Sodium Chloride (0.9 % Sodium Chloride Flush 3 Ml Syringe) [facility] Last Admin: 08/19/23 16:31 Dose: Not Given Home Medications Medication Instructions Recorded Confirmed Last Taken Type levonorgestrel 17.5 mcg/24 hrs intrauterine 01/22/23 08/11/23 Unknown History (5yrs) 19.5mg intrauterine device (Kyleena) Physical Exam 2 Vital Signs: Vital Signs: Last Vital Signs Temp 97.2 F 08/19/23 15:53 Pulse 95 08/19/23 15:53 Resp 18 08/19/23 15:53 BP 92/60 08/19/23 16:02 Pulse Ox 100 08/19/23 15:53 O2 Del Method Room Air 08/19/23 15:53 O2 Flow Rate 2 08/19/23 11:02 BMI result Body Mass Index 38.0 Const: General: cooperative HEENT: Head: Yes normal to inspection Face and sinus: Yes normal facial exam Mouth: Normal oral and palatal mucosa present Teeth and gingiva: d entition normal Eyes: General: appearance normal, both eyes and all related structures P upils: Equal, round and reactive pupils present Resp: Effort & Inspection: normal respiratory effort Cardio: Rate: regular rate Rhythm: regular rhythm GI: Other: postop clean sites Palpation (GI): Soft to palpation and nontender : General: Yes no CVA tenderness Back/Spine/Pelvis: Back: no CVA tenderness Skin: General skin exam: no rashes or lesions noted Neuro: General: moves all extremities Cranial nerves: Yes Equal, round and reactive pupils present Extrem: General: Yes normal to inspection Psych: Appearance: grossly normal Results Labs 08/19/23 07:28 08/19/23 07:28 Labs: Short CBC 08/19/23 Range/Units 07:28 WBC 9.9 (4.8-10.8) X10*3/uL Hgb 12.8 (12.0-16.0) g/dl Hct 36.1 L (37.0-47.0) % Plt Count 170 (160-400) X10*3/uL BMP 08/19/23 07:28 Sodium 137 Potassium 3.2 L Chloride 106 Carbon Dioxide 17 L BUN 8 L Creatinine 0.79 Calcium 7.9 L D Urine 08/18/23 Range/Units 15:27 Urine Color Yellow Urine Appearance Clear Urine pH 8.5 (5.0-9.0) Ur Specific [place] >= 1.030 H (1.005-1.025) Urine Protein Trace (Neg-Trace) mg/dL Urine Glucose (UA) Negative (Negative) mg/dL Microbiology Microbiology Results: Microbiology 08/18/23 19:11 Blood - Venous Blood Culture - Preliminary Prelim: GPC Gram Stain only Assessment and Plan (1) Acute appendicitis: Status: Acute (2) Bacteremia: Status: Acute This may be enterococcus. She has gram positive cocci in chains Plan Continue Piperacillin/tazobactam as likely to be sensitive. Add Vancomycin only if worsens pending final evaluation. Probably Augmentin total 14 days on discharge.
[2023-08-19] MEDS: diphenhydrAMINE HCL 50 MG/ML VIAL IVPUSH (22:04)
[2023-08-19 22:27] LABS: Basophils Percent Auto 0.2 % (0-2); Eosinophils Percent Auto 0.2 % (0-4); Hematocrit 41.6 % (37.0-47.0); Hemoglobin 13.8 g/dl (12.0-16.0); Imm Gran Abs Auto 0.31 X10*3/uL (0.00-0.03); Imm Gran Pct Auto 1.6 % (0.0-0.4); Lymphocytes Absolute Auto 0.5 X10*3/uL (1.2-4.9); Lymphocytes Percent Auto 2.5 % (20-40); MANUAL DIFF FLAG SCAN; Mean Corpuscular HGB Conc 33.2 g/dl (31.0-35.0); Mean Corpuscular Volume 96.5 fL (80.0-98.0); Monocytes Absolute Auto 0.3 X10*3/uL (0.1-1.2); Monocytes Percent Auto 1.5 % (2-11); Neutrophils Absolute Auto 18.1 x10*3/uL (2.0-8.3); Platelet Count 167 X10*3/uL (160-400); Red Blood Count 4.31 X10*6/uL (4.20-5.50); Red Cell Distribution Width 12.2 % (11.0-16.0); SCAN SMEAR FLAG 1; White Blood Count 19.2 X10*3/uL (4.8-10.8)
[2023-08-19 22:30] LABS: VBG Base Excess -7.4 mmol/L; VBG HCO3 18 mmol/L (22-26); VBG pCO2 40 mmHg; VBG pH 7.27 (7.32-7.43); VBG pO2 39 mmHg
[2023-08-19 22:33] LABS: Venous Blood Gas Refer to POC result
[2023-08-19 22:40] LABS: Lactic Acid 3.7 mmol/L (0.5-2.0)
[2023-08-19 22:42] LABS: Alanine Aminotransferase 904 U/L (0-31); Albumin Level 3.5 g/dL (3.5-5.0); Alkaline Phosphatase 46 U/L (39-117); Anion Gap 18 (12-20); Aspartate Amino Transferase 3912 U/L (5-31); Bilirubin Total 0.7 mg/dL (0.0-1.0); Blood Urea Nitrogen 12 mg/dL (9-16); Calcium 6.4 mg/dL (8.4-10.2); Carbon Dioxide 17 mmol/L (22-29); Chloride 105 mmol/L (96-108); Creatinine Clr Calc Pharmacy 92.5; Estimated Glomerular Filt Rate > 60; Glucose Random 113 mg/dL (60-115); Magnesium 1.7 mg/dL (1.6-2.6); Potassium 5.1 mmol/L (3.3-5.1); Sodium 135 mmol/L (135-145); Total Protein 6.5 g/dL (6.5-8.0)
[2023-08-19 22:47] LABS: SLIDE REVIEW VERIFIED
[2023-08-19] MEDS: oxyCODONE HCl Immed Release 5 MG TABLET 10 MG PO (23:59)
[2023-08-20] MEDS: 0.9 % Sodium Chloride 1,000 ML 999 ML IV (00:19)
[2023-08-20 00:24] LABS: Reflex Lactate? Lactic Acid Added
[2023-08-20] MEDS: 0.9 % Sodium Chloride 1,000 ML 100 ML IVCONT (01:24)
[2023-08-20 01:30] LABS: ~Lactic Acid-LAB USE ONLY 1.8 mmol/L (0.5-2.0)
[2023-08-20 02:09] VITALS: BP 118/72; PULSE 109; RESP 18; TEMP 37; O2SAT 97
[2023-08-20] MEDS: Ketorolac Tromethamine 30 MG/ML VIAL IVPUSH (02:11)
[2023-08-20 02:15] LABS: Appearance Urine Hazy; Glucose Urine UA 100 mg/dL (Negative); Leukocyte Esterase Urine Small (1+) (Negative); Nitrite Urine Positive (Negative); UMIC TRIGGER UA YES; Urine Blood Large (3+) (Negative); Urine Ketones 15 mg/dL (Negative); Urine Protein 300 (3+) mg/dL (Neg-Trace)
[2023-08-20 02:28] LABS: Lactic Acid 1.4 mmol/L (0.5-2.0)
[2023-08-20 02:33] LABS: Color Urine BROWN
--- NOTE | 2023-08-20 02:33 | PC.NURSE ---
Patient reported slight numbness / increase in size of her tongue, was able to swallow and breath with no problem, no significant findings during evaluation. Dr Ayoub was at bedside, Benadryl IV ordered and administered. First patient was able to void in the bathroom and urine color was very dark, araceli. Second time was not able to void and had to be st cath, urine samples collected. Reports all body weakness and pain. Medicated with oxycodone and Toradol with acceptable result. Lactic acid was elevated 3.7, NS BOLUS X3 administered, repeat lactic acid 1.4. VS WNL, abdominal dressings D&I.
--- NOTE | 2023-08-20 02:54 | PM.EVENT ---
Event Note Date of Service: 08/20/23 Event Note: 9:32 PM - contacted by nursing to notify patient said her tongue is getting numb and bigger. I did evaluate patient. She looked uncomfortable but alert and awake. She was hyperventilating. Her tongue and oropharynx was normal; no swallowing difficulty or drooling. Heart - Mild tachycardia w/o murmurs. Lungs - clear. Blood workup was ordered stat to assess for acidosis as the patient was hyperventilating. NS bolus was ordered stat while waiting for labs. Labs showed lactic acidosis of 3.7, bicarb 17 and pH 7.2. Leukocytosis is worsening as well. AST and ALT are markedly elevated, however, bilirubin and alk phos are normal. Two more boluses (2L total) of NS ordered (30 ml/kg). Therapy with vancomycin and Zosyn empirically has been continued. 1:37 AM - Contacted to notify that patient cannot void. Bladder scan showed 510 mL. Straight cath and UA ordered. 1:47 AM - Picture sent, patient's urine: Total CK and urine myoglobin ordered to asses for rhabdomyolysis as this can explain the elevation of AST and ALT. Time Spent With Patient Time: Total time managing care of this patient today ____ minutes.
[2023-08-20 03:01] LABS: Bacteria Urine Trace (None Seen); Hyaline Casts Urine 0-2 /LPF (0-2); WBC Urine 0-5 /HPF (0-5)
[2023-08-20] MEDS: Piperacillin Sodium/Tazobactam 3.375 GM in 0.9 % Sodium Chloride 50 ML IV ×4 (04:24→20:54)
[2023-08-20 05:48] LABS: Basophils Percent Auto 0.2 % (0-2); Hematocrit 36.7 % (37.0-47.0); Hemoglobin 12.6 g/dl (12.0-16.0); Imm Gran Pct Auto 1.5 % (0.0-0.4); Lymphocytes Absolute Auto 0.6 X10*3/uL (1.2-4.9); Lymphocytes Percent Auto 3.1 % (20-40); MANUAL DIFF FLAG SCAN; Mean Corpuscular HGB Conc 34.3 g/dl (31.0-35.0); Mean Corpuscular Volume 93.1 fL (80.0-98.0); Monocytes Absolute Auto 0.5 X10*3/uL (0.1-1.2); Monocytes Percent Auto 2.7 % (2-11); Neutrophils Absolute Auto 18.5 x10*3/uL (2.0-8.3); Neutrophils Percent Auto 92.5 % (45-73); Platelet Count 155 X10*3/uL (160-400); Red Blood Count 3.94 X10*6/uL (4.20-5.50); SCAN SMEAR FLAG 1
[2023-08-20 06:00] LABS: Lactic Acid 0.9 mmol/L (0.5-2.0)
[2023-08-20 06:21] LABS: Alanine Aminotransferase 935 U/L (0-31); Albumin Level 2.7 g/dL (3.5-5.0); Alkaline Phosphatase 43 U/L (39-117); Anion Gap 12 (12-20); Aspartate Amino Transferase 3816 U/L (5-31); Bilirubin Total 0.7 mg/dL (0.0-1.0); Blood Urea Nitrogen 16 mg/dL (9-16); Calcium 5.6 mg/dL (8.4-10.2); Carbon Dioxide 14 mmol/L (22-29); Chloride 112 mmol/L (96-108); Creatinine Clr Calc Pharmacy 64.9; Estimated Glomerular Filt Rate 44; Glucose Random 99 mg/dL (60-115); Potassium 5.1 mmol/L (3.3-5.1); Sodium 133 mmol/L (135-145); Total Protein 5.2 g/dL (6.5-8.0)
--- NOTE | 2023-08-20 06:28 | P.EN_ITS ---
Event Note Date of Service: 08/20/23 Event Note: 6:18 AM - corrected calcium = 6.6. Ionized calcium ordered as well as calcium gluconate IV. Recheck calcium level later am. Urinalysis is remarkable for large blood (few RBC). CK level and urine myoglobin are still pending - suspecting rhabdomyolysis (elevated AST and ALT). Blood cultures growing GNR bacteremia. Time Spent With Patient Time: Total time managing care of this patient today ____ minutes.
--- NOTE | 2023-08-20 07:31 | PHA.PROG ---
Admission Date/Time: August 18, 2023 21:00 Indication: BACTEREMIA Weight in k.3 kg Adjusted body weight in Kg: [place] body weight in Kg: Obesity Dosing Indication % IBW: Serum Creatinine - Last 168 Hours 08/18/23 08/19/23 08/19/23 15:27 07:28 22:15 Creatinine 0.68 0.79 0.97 08/20/23 05:41 Creatinine 1.38 Estimated CrCl and GFR - Last 168 Hours 08/18/23 08/19/23 08/19/23 15:27 07:28 22:15 Estim Creat Clear Calc 124.1 106.8 92.5 Estimated GFR > 60 > 60 > 60 08/20/23 05:41 Estim Creat Clear Calc 64.9 Estimated GFR 44 Vancomycin Loading Dose: 2000 MG Current Vancomycin Dosing Regimen: 750 MG Q12H Vancomycin Monitoring using AUC goal of 400 - 600 range with trough as surrogate marker: PREDICTED AUC 446 MG/L.HR AND TROUGH 14.9 MG/L Date and Time for next Vancomycin Level to be drawn: 08/20/23 @1800 Pharmacist Comments on Vancomycin Plan: Because sCr increased from 0.79 yesterday to 1.38 today, dose was started on the cautious side and more closely monitored. Vancomycin dosing will take advantage of [employer] as a clinical decision support tool that uses Bayesian modeling to calculate individual patient's pharmacokinetic parameters and forecast the patient's drug concentration time course with the target goal AUC 24 range of 400 - 600 mg/L/hr.
--- NOTE | 2023-08-20 07:35 | PM.PNGS ---
Subjective Subjective Date of Service: 08/20/23 <Jessi Gill PA-C - Last Filed: 08/20/23 07:38> 08/20/23 <Sai Crawford MD - Last Filed: 08/20/23 08:15> Interval history: Feels better overall but c/o diffuse body pains. Mild incisional pain. OOB to bathroom. Tolerating small amount of food. <Jessi Gill PA-C - Last Filed: 08/20/23 07:38> Physical Exam Vital Signs: Vital Signs: Last Vital Signs Temp 98.6 F 08/20/23 02:09 Pulse 109 H 08/20/23 02:09 Resp 18 08/20/23 02:09 BP 118/72 08/20/23 02:09 Pulse Ox 97 08/20/23 02:09 O2 Del Method Room Air 08/20/23 02:09 O2 Flow Rate 2 08/19/23 11:02 BMI result Body Mass Index 38.0 <Jessi Glil PA-C - Last Filed: 08/20/23 07:38> Const: General: comfortable, no acute distress and alert <Jessi Gill PA-C - Last Filed: 08/20/23 07:38> Orientation/consciousness: patient oriented x3 <LIZANDRO Aguirre Last Filed: 08/20/23 07:38> Resp: Effort & Inspection: normal respiratory effort <Jessi Gill PA-C - Last Filed: 08/20/23 07:38> GI: Inspection: No distended and Yes incision (dressings c/d/i) <Jessi Gill PA-C - Last Filed: 08/20/23 07:38> Palpation (GI): Soft to palpation and Tenderness to palpation present (GI) (mild incisional) <LIZANDRO Aguirre Last Filed: 08/20/23 07:38> Skin: General skin exam: no rashes or lesions noted <LIZANDRO Aguirre Last Filed: 08/20/23 07:38> Neuro: General: patient oriented x3 <LIZANDRO Aguirre Last Filed: 08/20/23 07:38> Objective Data Active Medications Acetaminophen (Acetaminophen 325 Mg Tablet) 650 mg PO Q6H PRN PRN Reason: fever, pain Al Hydroxide/Mg Hydroxide (Magnesium Hydrox/Alum Hydrox 30 Ml Oral.Susp) 30 ml PO Q6H PRN PRN Reason: Heartburn Albuterol Sulfate (Albuterol Sulfate (0.083%) 2.5 Mg/3 Ml Vial.Neb) 2.5 mg INHALE ONCE PRN PRN Reason: Shortness of Breath/Wheezing Piperacillin Sod/Tazobactam (Sod 3.375 gm/ Sodium Chloride) 50 mls @ 100 mls/hr IV Q6H [facility] Last Infusion: 08/20/23 04:54 Dose: Infused Documented By: MAHI Promethazine HCl 12.5 mg/ (Sodium Chloride) 50.5 mls @ 202 mls/hr IV Q6H PRN PRN Reason: Nausea and Vomiting Sodium Chloride (Ns) 1,000 mls @ 100 mls/hr IVCONT .Q10H [facility] Last Infusion: 08/20/23 04:54 Dose: 100 mls/hr Documented By: MAHI Calcium Gluconate (Calcium Gluconate) 2 gm in 100 mls @ 50 mls/hr IV ONCE ONE Stop: 08/20/23 08:23 Vancomycin HCl 750 mg/ Sodium (Chloride) 265 mls @ 265 mls/hr IV Q12H [facility] Ketorolac Tromethamine (Ketorolac Tromethamine 30 Mg/Ml Vial) 30 mg IVPUSH Q6H PRN PRN Reason: abdominal pain Last Admin: 08/20/23 02:11 Dose: 30 mg Documented By: MAHI Morphine Sulfate (Morphine Sulfate 4 Mg/Ml Cartridge) 3 mg IVPUSH Q4H PRN; Protocol PRN Reason: Pain, Severe (Pain Scale 7-10) Ondansetron HCl (Ondansetron Odt 4 Mg Tab.Rapdis) 4 mg TRANSLINGU Q6H PRN PRN Reason: Nausea and Vomiting Last Admin: 08/18/23 17:32 Dose: 4 mg Documented By: BETTY Ondansetron HCl (Ondansetron Hcl 4 Mg/2 Ml Vial) 4 mg IVPUSH Q6H PRN PRN Reason: nausea Oxycodone HCl (Oxycodone Hcl Immed Release 5 Mg Tablet) 5 mg PO Q4H PRN PRN Reason: Pain, Moderate(Pain Scale 4-6) Oxycodone HCl (Oxycodone Hcl Immed Release 5 Mg Tablet) 10 mg PO Q4H PRN PRN Reason: Pain, Severe (Pain Scale 7-10) Last Admin: 08/19/23 23:59 Dose: 10 mg Documented By: MAHI Pharmacy Consult (Consult Rx Vancomycin Dosing) 1 each MISCELLANE DAILY PRN PRN Reason: Consult order Sodium Chloride (0.9 % Sodium Chloride Flush 3 Ml Syringe) 3 ml IVFLUSH QSHIFT [facility] Last Admin: 08/20/23 00:00 Dose: Not Given Documented By: MAHI Non-Admin Reason: IV Running <Jessi Gill PA-C - Last Filed: 08/20/23 07:38> Labs CBC & Chem 7: 08/20/23 05:41 08/20/23 05:41 <Jessi Gill PA-C - Last Filed: 08/20/23 07:38> Labs: Laboratory Results - last 24 hr 08/19/23 08/19/23 08/19/23 07:28 22:15 22:23 MCV 96.5 D MCH 32.0 MCHC 33.2 RDW 12.2 Plt Count 167 MPV 9.0 L Immature Gran % (Auto) 1.6 H Neut % (Auto) 94.0 H Lymph % (Auto) 2.5 L [place] % (Auto) 1.5 L Eos % (Auto) 0.2 Baso % (Auto) 0.2 Lymph # (Auto) 0.5 L [place] # (Auto) 0.3 Eos # (Auto) 0.0 Baso # (Auto) 0.0 Abs Immat Gran (auto) 0.31 H Absolute Neuts (auto) 18.1 H Absolute Nucleated RBC 0.000 Nucleated RBC % (auto) 0.0 Smear Tech's Comments VERIFIED VBG pH 7.27 L VBG pCO2 40 VBG pO2 39 VBG HCO3 18 L VBG O2 Saturation 61.0 VBG Base Excess -7.4 Anion Gap 17 18 Estim Creat Clear Calc 106.8 92.5 Estimated GFR > 60 > 60 Random Glucose 168 H 113 Lactic Acid 1.7 3.7 H* Lactic Acid F/U @ 2Hr Calcium 7.9 L D 6.4 L D Magnesium 1.7 Total Bilirubin 0.7 AST 3912 H ALT 904 H Alkaline Phosphatase 46 Total Protein 6.5 Albumin 3.5 Urine Color Urine Appearance Urine pH Ur Specific [place] Urine Protein Urine Glucose (UA) Urine Ketones Urine Blood Urine Nitrite Ur Leukocyte Esterase Urine RBC Urine WBC Ur Squamous Epith Cells Urine Bacteria Hyaline Casts 08/20/23 08/20/23 08/20/23 00:50 01:54 02:03 MCV MCH MCHC RDW Plt Count MPV Immature Gran % (Auto) Neut % (Auto) Lymph % (Auto) [place] % (Auto) Eos % (Auto) Baso % (Auto) Lymph # (Auto) [place] # (Auto) Eos # (Auto) Baso # (Auto) Abs Immat Gran (auto) Absolute Neuts (auto) Absolute Nucleated RBC Nucleated RBC % (auto) Smear Tech's Comments VBG pH VBG pCO2 VBG pO2 VBG HCO3 VBG O2 Saturation VBG Base Excess Anion Gap Estim Creat Clear Calc Estimated GFR Random Glucose Lactic Acid 1.4 Lactic Acid F/U @ 2Hr 1.8 Calcium Magnesium Total Bilirubin AST ALT Alkaline Phosphatase Total Protein Albumin Urine Color BROWN Urine Appearance Hazy Urine pH 7.0 Ur Specific [place] 1.020 Urine Protein 300 (3+) H Urine Glucose (UA) 100 H Urine Ketones 15 Urine Blood Large (3+) H Urine Nitrite Positive H Ur Leukocyte Esterase Small (1+) H Urine RBC 3-5 H Urine WBC 0-5 Ur Squamous Epith Cells 3-5 Urine Bacteria Trace Hyaline Casts 0-2 08/20/23 05:41 MCV 93.1 MCH 32.0 MCHC 34.3 RDW 12.0 Plt Count 155 L MPV 9.0 L Immature Gran % (Auto) 1.5 H Neut % (Auto) 92.5 H Lymph % (Auto) 3.1 L [place] % (Auto) 2.7 Eos % (Auto) 0.0 Baso % (Auto) 0.2 Lymph # (Auto) 0.6 L [place] # (Auto) 0.5 Eos # (Auto) 0.0 Baso # (Auto) 0.0 Abs Immat Gran (auto) 0.30 H Absolute Neuts (auto) 18.5 H Absolute Nucleated RBC 0.000 Nucleated RBC % (auto) 0.0 Smear Tech's Comments VBG pH VBG pCO2 VBG pO2 VBG HCO3 VBG O2 Saturation VBG Base Excess Anion Gap 12 Estim Creat Clear Calc 64.9 Estimated GFR 44 Random Glucose 99 Lactic Acid 0.9 Lactic Acid F/U @ 2Hr Calcium 5.6 L* D Magnesium Total Bilirubin 0.7 AST 3816 H ALT 935 H Alkaline Phosphatase 43 Total Protein 5.2 L Albumin 2.7 L Urine Color Urine Appearance Urine pH Ur Specific [place] Urine Protein Urine Glucose (UA) Urine Ketones Urine Blood Urine Nitrite Ur Leukocyte Esterase Urine RBC Urine WBC Ur Squamous Epith Cells Urine Bacteria Hyaline Casts <Jessi Gill PA-C - Last Filed: 08/20/23 07:38> Microbiology Microbiology Results: Microbiology 08/19/23 13:15 Blood Culture - Preliminary Blood - Venous Prelim: GNR Gram Stain only 08/19/23 13:15 Blood Culture - Preliminary Blood - Venous Prelim: GNR Gram Stain only 08/18/23 19:44 Blood Culture - Preliminary Blood - Venous No growth after 24 hours. 08/18/23 19:11 Blood Culture - Preliminary Blood - Venous Prelim: GPC Gram Stain only <Jessi Gill PA-C - Last Filed: 08/20/23 07:38> Procedures Date of Service Date of Service: 08/20/23 <Jessi Gill PA-C - Last Filed: 08/20/23 07:38> 08/20/23 <Sai Crawford MD - Last Filed: 08/20/23 08:15> Progress Note: A&P Assessment and plan (1) Bacteremia: Status: Acute <Jessi Gill PA-C - Last Filed: 08/20/23 07:38> Assessment and Plan: s/p lap appy, with gangrenous appendicitis feels much better BP on the soft side but clinically looks well lactate normal AST, ALT elevated markedly she does have known hx of Hep B WBC stil elevated abd soft and benign IV abx diet as tolerated as per hospitalist - possible rhabdo IVF appreciate Hospitalist ffup <Sai Crawford MD - Last Filed: 08/20/23 08:15> (2) Acute appendicitis: Status: Acute <Jessi Gill PA-C - Last Filed: 08/20/23 07:38> Assessment and Plan: 33 year old female admitted with gangrenous appendicitis now POD #1 s/p lap appy. OVerall improved but having myalgias. Abd benign with appropriate post op tenderness. WBC slightly increased, likely reactive. LFTs remain elevated, hospitalist service suspecting rhabdo. Cont IVF. Cont IV abx for bacteremia, ID rec total of 14d augmentin. Diet as tolerated, encouraged OOB/ambulation, IS use. <Jessi Gill PA-C - Last Filed: 08/20/23 07:38> Time Spent With Patient Time: Total time managing care of this patient today ____ minutes. <Jessi Gill PA-C - Last Filed: 08/20/23 07:38> Quality Stroke Does the patient have a stroke diagnosis?: No <Jessi Gill PA-C - Last Filed: 08/20/23 07:38> VTE Prior VTE?: No <Jessi Gill PA-C - Last Filed: 08/20/23 07:38> VTE Risk Level:: Medical - low <Jessi Gill PA-C - Last Filed: 08/20/23 07:38> VTE Device Contraindication: N/A - Device Ordered <LIZANDRO Aguirre Last Filed: 08/20/23 07:38> VTE Drug Contraindication: Treatment Not Indicated <Jessi Gill PA-C - Last Filed: 08/20/23 07:38>
[2023-08-20 07:46] VITALS: BP 90/70; PULSE 88; RESP 19; TEMP 36.6; O2SAT 98
[2023-08-20] MEDS: vancomycin HCL 750 MG in 0.9 % Sodium Chloride 250 ML 265 MG IV (07:50)
[2023-08-20] MEDS: Calcium Gluconate/NaCl,Iso-Osm 2 GM/100 ML PLAST..BAG IV (08:01)
[2023-08-20] MEDS: 0.9 % Sodium Chloride Flush 3 ML SYRINGE IVFLUSH ×2 (09:28→15:42)
[2023-08-20] MEDS: Lactated Ringers 1,000 ML 125 ML IVCONT ×2 (10:32→16:32)
[2023-08-20 10:39] LABS: Lactic Acid 1.7 mmol/L (0.5-2.0)
--- NOTE | 2023-08-20 10:50 | MHC.CM.PN ---
[pt is independent will not need servies when dcd has own ride home
[2023-08-20 14:40] LABS: Lactic Acid 1.9 mmol/L (0.5-2.0)
--- NOTE | 2023-08-20 14:45 | P.PNIM_ITS ---
Subjective Subjective Date of Service: 08/20/23 Interval History: Feels fatigued this morning but minimal abdominal pain Review of Systems Denies chest pain Denies shortness of breath Denies nausea vomiting diarrhea Denies fever chills Physical Exam 2 Vital Signs: Vital Signs: Last Vital Signs Temp 98 F 08/20/23 07:46 Pulse 88 08/20/23 07:46 Resp 19 08/20/23 07:46 BP 90/70 08/20/23 07:46 Pulse Ox 98 08/20/23 07:46 O2 Del Method Room Air 08/20/23 07:46 O2 Flow Rate 2 08/19/23 11:02 BMI result Body Mass Index 38.0 Const: Other: Awake alert lying comfortably in bed Resp: Other: Clear to auscultation bilaterally no rales rhonchi or wheezes Cardio: Other: No S4; positive S1-S2; no S3 murmurs rubs or gallops GI: Other: Soft minimally tender over site without rebound. Bowel sounds present Extrem: Other: No edema bilaterally Objective Data Active Medications Acetaminophen (Acetaminophen 325 Mg Tablet) 650 mg PO Q6H PRN PRN Reason: fever, pain Al Hydroxide/Mg Hydroxide (Magnesium Hydrox/Alum Hydrox 30 Ml Oral.Susp) 30 ml PO Q6H PRN PRN Reason: Heartburn Albuterol Sulfate (Albuterol Sulfate (0.083%) 2.5 Mg/3 Ml Vial.Neb) 2.5 mg INHALE ONCE PRN PRN Reason: Shortness of Breath/Wheezing Piperacillin Sod/Tazobactam (Sod 3.375 gm/ Sodium Chloride) 50 mls @ 100 mls/hr IV Q6H [facility] Last Infusion: 08/20/23 10:00 Dose: Infused Documented By: CLAUDINE Promethazine HCl 12.5 mg/ (Sodium Chloride) 50.5 mls @ 202 mls/hr IV Q6H PRN PRN Reason: Nausea and Vomiting Vancomycin HCl 750 mg/ Sodium (Chloride) 265 mls @ 265 mls/hr IV Q12H [facility] Last Infusion: 08/20/23 09:28 Dose: Infused Documented By: CLAUDINE Lactated Ringer's (Lr) 1,000 mls @ 125 mls/hr IVCONT .Q8H [facility] Last Admin: 08/20/23 10:32 Dose: 125 mls/hr Documented By: CLAUDINE Ketorolac Tromethamine (Ketorolac Tromethamine 30 Mg/Ml Vial) 30 mg IVPUSH Q6H PRN PRN Reason: abdominal pain Last Admin: 08/20/23 02:11 Dose: 30 mg Documented By: MAHI Morphine Sulfate (Morphine Sulfate 4 Mg/Ml Cartridge) 3 mg IVPUSH Q4H PRN; Protocol PRN Reason: Pain, Severe (Pain Scale 7-10) Ondansetron HCl (Ondansetron Odt 4 Mg Tab.Rapdis) 4 mg TRANSLINGU Q6H PRN PRN Reason: Nausea and Vomiting Last Admin: 08/18/23 17:32 Dose: 4 mg Documented By: BETTY Ondansetron HCl (Ondansetron Hcl 4 Mg/2 Ml Vial) 4 mg IVPUSH Q6H PRN PRN Reason: nausea Oxycodone HCl (Oxycodone Hcl Immed Release 5 Mg Tablet) 5 mg PO Q4H PRN PRN Reason: Pain, Moderate(Pain Scale 4-6) Oxycodone HCl (Oxycodone Hcl Immed Release 5 Mg Tablet) 10 mg PO Q4H PRN PRN Reason: Pain, Severe (Pain Scale 7-10) Last Admin: 08/19/23 23:59 Dose: 10 mg Documented By: MAHI Pharmacy Consult (Consult Rx Vancomycin Dosing) 1 each MISCELLANE DAILY PRN PRN Reason: Consult order Sodium Chloride (0.9 % Sodium Chloride Flush 3 Ml Syringe) 3 ml IVFLUSH [facility] Last Admin: 08/20/23 09:28 Dose: 3 ml Documented By: CLAUDINE Labs 08/20/23 05:41 08/20/23 05:41 Labs: Laboratory Results - last 24 hr 08/19/23 08/19/23 08/20/23 22:15 22:23 00:50 MCV 96.5 D MCH 32.0 MCHC 33.2 RDW 12.2 Plt Count 167 MPV 9.0 L Immature Gran % (Auto) 1.6 H Neut % (Auto) 94.0 H Lymph % (Auto) 2.5 L [place] % (Auto) 1.5 L Eos % (Auto) 0.2 Baso % (Auto) 0.2 Lymph # (Auto) 0.5 L [place] # (Auto) 0.3 Eos # (Auto) 0.0 Baso # (Auto) 0.0 Abs Immat Gran (auto) 0.31 H Absolute Neuts (auto) 18.1 H Absolute Nucleated RBC 0.000 Nucleated RBC % (auto) 0.0 Smear Tech's Comments VERIFIED VBG pH 7.27 L VBG pCO2 40 VBG pO2 39 VBG HCO3 18 L VBG O2 Saturation 61.0 VBG Base Excess -7.4 Anion Gap 18 Estim Creat Clear Calc 92.5 Estimated GFR > 60 Random Glucose 113 Lactic Acid 3.7 H* Lactic Acid F/U @ 2Hr 1.8 Calcium 6.4 L D Magnesium 1.7 Total Bilirubin 0.7 AST 3912 H ALT 904 H Alkaline Phosphatase 46 Total Creatine Kinase Total Protein 6.5 Albumin 3.5 Urine Color Urine Appearance Urine pH Ur Specific [place] Urine Protein Urine Glucose (UA) Urine Ketones Urine Blood Urine Nitrite Ur Leukocyte Esterase Urine RBC Urine WBC Ur Squamous Epith Cells Urine Bacteria Hyaline Casts 08/20/23 08/20/23 08/20/23 01:54 02:03 05:41 MCV 93.1 MCH 32.0 MCHC 34.3 RDW 12.0 Plt Count 155 L MPV 9.0 L Immature Gran % (Auto) 1.5 H Neut % (Auto) 92.5 H Lymph % (Auto) 3.1 L [place] % (Auto) 2.7 Eos % (Auto) 0.0 Baso % (Auto) 0.2 Lymph # (Auto) 0.6 L [place] # (Auto) 0.5 Eos # (Auto) 0.0 Baso # (Auto) 0.0 Abs Immat Gran (auto) 0.30 H Absolute Neuts (auto) 18.5 H Absolute Nucleated RBC 0.000 Nucleated RBC % (auto) 0.0 Smear Tech's Comments VBG pH VBG pCO2 VBG pO2 VBG HCO3 VBG O2 Saturation VBG Base Excess Anion Gap 12 Estim Creat Clear Calc 64.9 Estimated GFR 44 Random Glucose 99 Lactic Acid 1.4 0.9 Lactic Acid F/U @ 2Hr Calcium 5.6 L* D Magnesium Total Bilirubin 0.7 AST 3816 H ALT 935 H Alkaline Phosphatase 43 Total Creatine Kinase Cancelled Total Protein 5.2 L Albumin 2.7 L Urine Color BROWN Urine Appearance Hazy Urine pH 7.0 Ur Specific [place] 1.020 Urine Protein 300 (3+) H Urine Glucose (UA) 100 H Urine Ketones 15 Urine Blood Large (3+) H Urine Nitrite Positive H Ur Leukocyte Esterase Small (1+) H Urine RBC 3-5 H Urine WBC 0-5 Ur Squamous Epith Cells 3-5 Urine Bacteria Trace Hyaline Casts 0-2 08/20/23 08/20/23 10:12 14:10 MCV MCH MCHC RDW Plt Count MPV Immature Gran % (Auto) Neut % (Auto) Lymph % (Auto) [place] % (Auto) Eos % (Auto) Baso % (Auto) Lymph # (Auto) [place] # (Auto) Eos # (Auto) Baso # (Auto) Abs Immat Gran (auto) Absolute Neuts (auto) Absolute Nucleated RBC Nucleated RBC % (auto) Smear Tech's Comments VBG pH VBG pCO2 VBG pO2 VBG HCO3 VBG O2 Saturation VBG Base Excess Anion Gap Estim Creat Clear Calc Estimated GFR Random Glucose Lactic Acid 1.7 1.9 Lactic Acid F/U @ 2Hr Calcium Magnesium Total Bilirubin AST ALT Alkaline Phosphatase Total Creatine Kinase Total Protein Albumin Urine Color Urine Appearance Urine pH Ur Specific [place] Urine Protein Urine Glucose (UA) Urine Ketones Urine Blood Urine Nitrite Ur Leukocyte Esterase Urine RBC Urine WBC Ur Squamous Epith Cells Urine Bacteria Hyaline Casts Microbiology Microbiology Results: Microbiology 08/18/23 19:11 Blood Culture - Preliminary Blood - Venous Gram positive cocci 08/19/23 13:15 Blood Culture - Preliminary Blood - Venous Gram negative guillermo 08/19/23 13:15 Blood Culture - Preliminary Blood - Venous Gram negative guillermo 08/18/23 19:44 Blood Culture - Preliminary Blood - Venous No growth after 24 hours. Assessment and Plan (1) Acute appendicitis: Status: Acute (2) Bacteremia: Status: Acute (3) Elevated LFTs: Status: Acute Plan 33 year old female without any significant past medical history admitted to general surgery for management of acute appendicitis with consult placed to hospitalist service due to tachycardia. 1.Acute appendicitis with gangrene and sepsis.. Status post 1 -blood cultures 2/2 GPI -Continue IV zosyn/vanco -further plans as per surgery 2.GNR bacteremia -BC x2 positive for GNR -Continue zosyn (09/15), add vanco (09/16) -will discuss with ID 3. Transaminitis with active urinary sediment -suspicious for rhabdo -IV fluids LR at 125/hour -repeat CMP with total CK now -if bicarb remains low will start bicarb drip 4. Hypocalcemia -repleted this a.m. -repeat calcium at this time Will continue to follow Quality Stroke Does the patient have a stroke diagnosis?: No VTE Prior VTE?: No VTE Risk Level:: Medical - low VTE Device Contraindication: N/A - Device Ordered VTE Drug Contraindication: Treatment Not Indicated
--- NOTE | 2023-08-20 15:15 | PM.EVENT ---
Event Note Date of Service: 08/20/23 Event Note: Seen earlier for afternoon rounds Continues to feel better Looks comfortable Stable vital signs Abdomen soft Tolerating diet Clinically looks well As per hospitalist - low bicarb secondary to hyperchloremic acidosis from normal saline Now on LR Doing well Time Spent With Patient Time: Total time managing care of this patient today ____ minutes.
--- NOTE | 2023-08-20 15:25 | HO.POSTANES ---
Post Anesthesia Evaluation Post Anesthesia Evaluation Date of Service: 08/20/23 Vital Signs: Vital Signs Temp Pulse Resp BP Pulse Ox O2 Del Method 08/20/23 07:46 98 F 88 19 90/70 98 Room Air Anesthesia: General Endotracheal-GETA Mental Status: Awake Pain Control: Satisfactory Nausea/Vomiting: None Hydration: Adequate Anesthesia-Related Issues: No Anes. Related Issues
[2023-08-20 15:34] VITALS: BP 119/80; PULSE 85; RESP 16; TEMP 36.4; O2SAT 99
[2023-08-20 15:37] LABS: Alanine Aminotransferase 1050 U/L (0-31); Albumin Level 2.6 g/dL (3.5-5.0); Alkaline Phosphatase 48 U/L (39-117); Anion Gap 11 (12-20); Aspartate Amino Transferase 4084 U/L (5-31); Bilirubin Total 0.5 mg/dL (0.0-1.0); Blood Urea Nitrogen 20 mg/dL (9-16); Calcium 6.2 mg/dL (8.4-10.2); Carbon Dioxide 15 mmol/L (22-29); Chloride 110 mmol/L (96-108); Creatinine Clr Calc Pharmacy 40.5; Estimated Glomerular Filt Rate 26; Glucose Random 101 mg/dL (60-115); Potassium 4.4 mmol/L (3.3-5.1); Sodium 132 mmol/L (135-145)
[2023-08-20] MEDS: oxyCODONE HCl Immed Release 5 MG TABLET 10 MG PO (16:00)
--- NOTE | 2023-08-20 16:09 | P.CDIM_ITS ---
PROVIDER RESPONSE TEXT: To clarify, the appropriate diagnosis supported by the clinical indicators: Sepsis due to acute appendicitis: likely secondary to gangrenous appendicitis QUERY TEXT: PHYSICIAN'S DOCUMENTATION REQUEST Date of Query: 08/20/2023 11:50 AM EST Patient Name: Josseline Sims Admit Date: 08/19/2023 Dear Sai Crawford, A review of the medical record indicates additional documentation may be needed. Please review below and update the documentation accordingly Clinical indicators: Hospitalist Consult note 2/ - Early this morning developed tachycardia to 140-150 and febrile to 101 .6. [employer] was called, [place] 3.7 Patient given Ativan and given clinical picture of sepsis. Dx: Acute appendicitis with gangrene and sepsis. General surgery note 2 - Weakness, hyperventilating and fever. This may be manifestation of sepsis. ID consult note 08/19 - Reason for consult: Bacteremia. May be enterococcus, gram positive cocci in curtis ins Continue Piperacillin/tazobactam as likely to be sensitive/Add Vancomycin only if worsens. Surgery progress note dated 08/20 - Bacteremia Sepsis Systemic manifestations of infection, with 2 or more SIRS criteria which include: Fever > 100.4?F or hypothermia < 96.8?F Leukocytosis - WBC > 12,000 or leukopenia, WBC < 4,000, or > 10% bands Tachycardia- > 90 beats/minute Tachypnea- RR > 20 breaths/minute or PaCO2 < 32mmHg Consistency of a diagnosis that is documented within the medical record: Sepsis Sepsis due to acute appendicitis suspected, possible, probable, resolved etc. Bacteremia Other Other (explain) Clinically unable to determine (explain) Thank you, Alta Flowers, CCS, CDIS Use of terms such as suspected, likely, concern for, or probable (associated with a specific diagnosi s that is being evaluated, monitored, or treated as if it exists) are acceptable and can be coded in the inpatient se tting, when documented at the time of discharge. Please use your independent medical judgment in providing your response. THIS QUERY IS PART OF THE PERMANENT MEDICAL RECORD
[2023-08-20 18:48] LABS: Vancomycin Random 19.1 mcg/mL (15-20)
[2023-08-20 19:13] VITALS: BP 109/69; PULSE 89; RESP 18; TEMP 36.4; O2SAT 100
[2023-08-21] MEDS: oxyCODONE HCl Immed Release 5 MG TABLET 10 MG PO (00:46)
[2023-08-21] MEDS: Lactated Ringers 1,000 ML 125 ML IVCONT (00:47)
[2023-08-21 03:33] VITALS: BP 119/75; PULSE 85; RESP 18; TEMP 36.3; O2SAT 97
[2023-08-21] MEDS: Piperacillin Sodium/Tazobactam 3.375 GM in 0.9 % Sodium Chloride 50 ML IV (04:19)
[2023-08-21 07:28] VITALS: BP 105/66; PULSE 80; RESP 16; TEMP 36; O2SAT 98
--- NOTE | 2023-08-21 07:37 | P.PNGS_ITS ---
Subjective Subjective Date of Service: 08/21/23 <Jessi Gill PA-C - Last Filed: 08/21/23 07:39> 08/21/23 <Sai Crawford MD - Last Filed: 08/21/23 07:58> Interval history: Feels much better overall- less diffuse muscle pain and no abdominal pain. Tolerating solid diet. OOB and ambulating. <Jessi Gill PA-C - Last Filed: 08/21/23 07:39> Physical Exam 2 Vital Signs: Vital Signs: Last Vital Signs Temp 96.8 F 08/21/23 07:28 Pulse 80 08/21/23 07:28 Resp 16 08/21/23 07:28 BP 105/66 08/21/23 07:28 Pulse Ox 98 08/21/23 07:28 O2 Del Method Room Air 08/21/23 07:28 O2 Flow Rate 2 08/19/23 11:02 BMI result Body Mass Index 38.0 <Jessi Gill PA-C - Last Filed: 08/21/23 07:39> Const: General: comfortable, no acute distress and alert <Jessi Gill PA-C - Last Filed: 08/21/23 07:39> Orientation/consciousness: patient oriented x3 <Jessi Gill PA-C - Last Filed: 08/21/23 07:39> Resp: Effort & Inspection: normal respiratory effort <Jessi Gill PA-C - Last Filed: 08/21/23 07:39> GI: Inspection: No distended and Yes incision (clean) <Jessi Gill PA-C - Last Filed: 08/21/23 07:39> Palpation (GI): Soft to palpation, Tenderness to palpation present (GI) (very mild incisional), no guarding and not rigid <LIZANDRO Aguirre Last Filed: 08/21/23 07:39> Skin: General skin exam: no rashes or lesions noted <LIZANDRO Aguirre Last Filed: 08/21/23 07:39> Neuro: General: patient oriented x3 <LIZANDRO Aguirre Last Filed: 08/21/23 07:39> Objective Data Active Medications Acetaminophen (Acetaminophen 325 Mg Tablet) 650 mg PO Q6H PRN PRN Reason: fever, pain Al Hydroxide/Mg Hydroxide (Magnesium Hydrox/Alum Hydrox 30 Ml Oral.Susp) 30 ml PO Q6H PRN PRN Reason: Heartburn Albuterol Sulfate (Albuterol Sulfate (0.083%) 2.5 Mg/3 Ml Vial.Neb) 2.5 mg INHALE ONCE PRN PRN Reason: Shortness of Breath/Wheezing Piperacillin Sod/Tazobactam (Sod 3.375 gm/ Sodium Chloride) 50 mls @ 100 mls/hr IV Q6H [facility] Last Infusion: 08/21/23 04:53 Dose: Infused Documented By: MAHI Promethazine HCl 12.5 mg/ (Sodium Chloride) 50.5 mls @ 202 mls/hr IV Q6H PRN PRN Reason: Nausea and Vomiting Vancomycin HCl 500 mg/ Sodium (Chloride) 110 mls @ 110 mls/hr IV Q24H [facility] Sodium Bicarbonate 150 meq/ (Dextrose) 1,000 mls @ 150 mls/hr IV .Q6H40M [facility] Calcium Gluconate (Calcium Gluconate) 2 gm in 100 mls @ 50 mls/hr IV ONCE ONE Stop: 08/21/23 09:24 Albumin Human (Kedbumin 25 %) 100 mls @ 100 mls/hr IV Q6H [facility] Stop: 08/22/23 02:44 Ketorolac Tromethamine (Ketorolac Tromethamine 30 Mg/Ml Vial) 30 mg IVPUSH Q6H PRN PRN Reason: abdominal pain Last Admin: 08/20/23 02:11 Dose: 30 mg Documented By: MAHI Morphine Sulfate (Morphine Sulfate 4 Mg/Ml Cartridge) 3 mg IVPUSH Q4H PRN; Protocol PRN Reason: Pain, Severe (Pain Scale 7-10) Ondansetron HCl (Ondansetron Odt 4 Mg Tab.Rapdis) 4 mg TRANSLINGU Q6H PRN PRN Reason: Nausea and Vomiting Last Admin: 08/18/23 17:32 Dose: 4 mg Documented By: BETTY Ondansetron HCl (Ondansetron Hcl 4 Mg/2 Ml Vial) 4 mg IVPUSH Q6H PRN PRN Reason: nausea Oxycodone HCl (Oxycodone Hcl Immed Release 5 Mg Tablet) 5 mg PO Q4H PRN PRN Reason: Pain, Moderate(Pain Scale 4-6) Oxycodone HCl (Oxycodone Hcl Immed Release 5 Mg Tablet) 10 mg PO Q4H PRN PRN Reason: Pain, Severe (Pain Scale 7-10) Last Admin: 08/21/23 00:46 Dose: 10 mg Documented By: MAHI Pharmacy Consult (Consult Rx Vancomycin Dosing) 1 each MISCELLANE DAILY PRN PRN Reason: Consult order Sodium Chloride (0.9 % Sodium Chloride Flush 3 Ml Syringe) 3 ml IVFLUSH QSHIFT [facility] Last Admin: 08/21/23 00:47 Dose: Not Given Documented By: MAHI Non-Admin Reason: IV Running <Jessi Gill PA-C - Last Filed: 08/21/23 07:39> Labs CBC & Chem 7: 08/20/23 05:41 08/20/23 15:09 <Jessi Gill PA-C - Last Filed: 08/21/23 07:39> Labs: Laboratory Results - last 24 hr 08/20/23 08/20/23 08/20/23 05:41 10:12 14:10 Anion Gap Estim Creat Clear Calc Estimated GFR Random Glucose Lactic Acid 1.7 1.9 Calcium Total Bilirubin AST ALT Alkaline Phosphatase Total Creatine Kinase Cancelled Total Protein Albumin Random Vancomycin 08/20/23 08/20/23 08/20/23 15:09 18:24 22:22 Anion Gap 11 L Estim Creat Clear Calc 40.5 Estimated GFR 26 Random Glucose 101 Lactic Acid 1.0 1.0 Calcium 6.2 L D Total Bilirubin 0.5 AST 4084 H ALT 1050 H Alkaline Phosphatase 48 Total Creatine Kinase Not Reportable Total Protein 5.0 L Albumin 2.6 L Random Vancomycin 19.1 <Jessi Gill PA-C - Last Filed: 08/21/23 07:39> Microbiology Microbiology Results: Microbiology 08/18/23 19:44 Blood Culture - Preliminary Blood - Venous No growth after 48 hours. 08/18/23 19:11 Blood Culture - Preliminary Blood - Venous Gram positive cocci 08/19/23 13:15 Blood Culture - Preliminary Blood - Venous Gram negative guillermo 08/19/23 13:15 Blood Culture - Preliminary Blood - Venous Gram negative guillermo <Jessi Gill PA-C - Last Filed: 08/21/23 07:39> Procedures Date of Service Date of Service: 08/21/23 <Jessi Gill PA-C - Last Filed: 08/21/23 07:39> 08/21/23 <Sai Crawford MD - Last Filed: 08/21/23 07:58> Progress Note: A&P Assessment and plan (1) Acute appendicitis: Status: Acute <Jessi Gill PA-C - Last Filed: 08/21/23 07:39> (2) Bacteremia: Status: Acute <Jessi Gill PA-C - Last Filed: 08/21/23 07:39> Assessment and Plan: feels better tolerating diet pain minimal transaminases markedly elevated creatinine has trended up HCO still low she has hx of Hep B clinically looks well but in view of metabolic derangements, will need to stay continue IV abx as per Dr Olivier - to be taken under Hospitalist service <Sai Crawford MD - Last Filed: 08/21/23 07:58> Assessment and Plan: Overall improved. Await repeat labs. If improved, stable for dc to home today on PO course of Augmentin. Patient comfortable with plan. Will reassess later today. <Jessi Gill PA-C - Last Filed: 08/21/23 07:39> Time Spent With Patient Time: Total time managing care of this patient today ____ minutes. <Jessi Gill PA-C - Last Filed: 08/21/23 07:39> Quality Stroke Does the patient have a stroke diagnosis?: No <Jessi Gill PA-C - Last Filed: 08/21/23 07:39> VTE Prior VTE?: No <Jessi Gill PA-C - Last Filed: 08/21/23 07:39> VTE Risk Level:: Medical - low <Jessi Gill PA-C - Last Filed: 08/21/23 07:39> VTE Device Contraindication: N/A - Device Ordered <Jessi Gill PA-C - Last Filed: 08/21/23 07:39> VTE Drug Contraindication: Treatment Not Indicated <Jessi Gill PA-C - Last Filed: 08/21/23 07:39>
[2023-08-21] MEDS: Calcium Gluconate/NaCl,Iso-Osm 2 GM/100 ML PLAST..BAG IV (08:50)
--- NOTE | 2023-08-21 08:55 | PC.NURSE ---
Unable to place 2nd IV line for Meds, Primary RN notified and message sent to US guided RN for assistance.
--- NOTE | 2023-08-21 10:13 | P.CONNP_ITS ---
History of Present Illness Reason for Consult Consult date: 09/15/23 Reason for consult: RAMON Chief Complaint Chief complaint: Acute appendicitis History of Present Illness Narrative: 33 year old female admitted to general surgery for management of acute appendicitis with consult placed to hospitalist service due to tachycardia. Baseline creatinine was 0.6mg/dL she has had hypotension, Received IV contrast and currently septic with GN Rods Creatinine bumped up to 2.21 on 08/20/23 h/o Hepatitis-B surface antigen negative - patient is spontaneously cleared hepatitis-B infection.- Per GI Currently AST/ALT are > 3000; Dark urine was reported Review of Systems Constitutional: Denies fever(s) and Denies weight loss Cardiovascular: Denies chest pain Respiratory: Denies cough and Denies hemoptysis Gastrointestinal: Denies abdominal pain, Denies diarrhea and Denies nausea Musculoskeletal: Denies back pain Denies focal weakness PMFSH Past Medical History Medical History (Updated 09/11/23 @ 00:03 by Marifer Lopez) Bacteremia Hepatitis B carrier Skin lesion Lactating mother Hepatitis B Miscarriage Family History Family History Father Diabetes Paternal Grandfather Diabetes Family history: reviewed and not pertinent Surgical History Surgical History Status post laparoscopic appendectomy History of laparoscopic appendectomy (~08/19/23) History of ankle surgery Social History Social History Household Members: Significant Other and Children Housing: Apartment Do you presently have visiting nurse or other home services: No Alcohol intake: current Alcohol intake frequency: does not drink Comment: Amada/marcy Patient Tobacco Use Status: Former Tobacco user Tobacco use type: Cigarette Years Smoked: 1 e-Cigarette/Vaping Use: Never Used service: No Sexual orientation: Straight/Heterosexual Gender identity: Female Meds Allergies Allergy/AdvReac Type Severity Reaction Status Date / Time Inhaled Anesthetics (Halogen AdvReac Severe Malignant Verified 09/10/23 10:58 Based) Hyperthermia Active Medications: Current Medications Acetaminophen (Acetaminophen 325 Mg Tablet) 650 mg PO Q6H PRN PRN Reason: fever, pain Al Hydroxide/Mg Hydroxide (Magnesium Hydrox/Alum Hydrox 30 Ml Oral.Susp) 30 ml PO Q6H PRN PRN Reason: Heartburn Albuterol Sulfate (Albuterol Sulfate (0.083%) 2.5 Mg/3 Ml Vial.Neb) 2.5 mg INHALE ONCE PRN PRN Reason: Shortness of Breath/Wheezing Promethazine HCl 12.5 mg/ (Sodium Chloride) 50.5 mls @ 202 mls/hr IV Q6H PRN PRN Reason: Nausea and Vomiting Vancomycin HCl 500 mg/ Sodium (Chloride) 110 mls @ 110 mls/hr IV Q24H [facility] Sodium Bicarbonate 150 meq/ (Dextrose) 1,000 mls @ 150 mls/hr IV .Q6H40M [facility] Albumin Human (Kedbumin 25 %) 100 mls @ 100 mls/hr IV Q6H [facility] Stop: 08/22/23 02:44 Meropenem 1 gm/ Sodium (Chloride) 100 mls @ 200 mls/hr IV Q12H [facility] Ketorolac Tromethamine (Ketorolac Tromethamine 30 Mg/Ml Vial) 30 mg IVPUSH Q6H PRN PRN Reason: abdominal pain Last Admin: 08/20/23 02:11 Dose: 30 mg Morphine Sulfate (Morphine Sulfate 4 Mg/Ml Cartridge) 3 mg IVPUSH Q4H PRN; Protocol PRN Reason: Pain, Severe (Pain Scale 7-10) Ondansetron HCl (Ondansetron Odt 4 Mg Tab.Rapdis) 4 mg TRANSLINGU Q6H PRN PRN Reason: Nausea and Vomiting Last Admin: 08/18/23 17:32 Dose: 4 mg Ondansetron HCl (Ondansetron Hcl 4 Mg/2 Ml Vial) 4 mg IVPUSH Q6H PRN PRN Reason: nausea Oxycodone HCl (Oxycodone Hcl Immed Release 5 Mg Tablet) 5 mg PO Q4H PRN PRN Reason: Pain, Moderate(Pain Scale 4-6) Oxycodone HCl (Oxycodone Hcl Immed Release 5 Mg Tablet) 10 mg PO Q4H PRN PRN Reason: Pain, Severe (Pain Scale 7-10) Last Admin: 08/21/23 00:46 Dose: 10 mg Pharmacy Consult (Consult Rx Vancomycin Dosing) 1 each MISCELLANE DAILY PRN PRN Reason: Consult order Sodium Chloride (0.9 % Sodium Chloride Flush 3 Ml Syringe) 3 ml IVFLUSH [facility] Last Admin: 08/21/23 00:47 Dose: Not Given Home Medications Medication Instructions Recorded Confirmed Last Taken Type levonorgestrel 17.5 mcg/24 hrs intrauterine 01/22/23 08/11/23 Unknown History (5yrs) 19.5mg intrauterine device (Kyleena) Physical Exam Vital Signs: Last Vital Signs Temp 96.8 F 08/21/23 07:28 Pulse 80 08/21/23 07:28 Resp 16 08/21/23 07:28 BP 105/66 08/21/23 07:28 Pulse Ox 98 08/21/23 07:28 O2 Del Method Room Air 08/21/23 07:28 O2 Flow Rate 2 08/19/23 11:02 BMI result Body Mass Index 38.0 Awake. Comfortable. Neck is supple. Mucosa moist. Lungs bilateral scattered rhonchi. Heart S1-S2 heard no gallop. Abdomen soft. Extremities no edema. No involuntary movements. No myoclonus. Results Lab Results 08/26/23 07:21 09/02/23 05:24 Lab results: Chemistry 08/18/23 08/19/23 08/19/23 15:27 07:28 22:15 Sodium 138 137 135 Potassium 3.8 3.2 L 5.1 D Carbon Dioxide 24 17 L 17 L BUN 9 8 L 12 Creatinine 0.68 0.79 0.97 Calcium 9.4 7.9 L D 6.4 L D 08/20/23 08/20/23 05:41 15:09 Sodium 133 L 132 L Potassium 5.1 4.4 Carbon Dioxide 14 L 15 L BUN 16 20 H Creatinine 1.38 2.21 H Calcium 5.6 L* D 6.2 L D Hematology 08/18/23 08/19/23 08/19/23 15:27 07:28 22:15 WBC 15.9 H 9.9 19.2 H Hgb 13.7 12.8 13.8 Plt Count 219 170 167 08/20/23 05:41 WBC 20.0 H Hgb 12.6 Plt Count 155 L Urinalysis 08/18/23 08/20/23 15:27 01:54 Urine Color Yellow BROWN Urine Appearance Clear Hazy Urine pH 8.5 7.0 Ur Specific [place] >= 1.030 H 1.020 Urine Protein Trace 300 (3+) H Urine Glucose (UA) Negative 100 H Urine Ketones 80 15 Urine Blood Negative Large (3+) H Urine Nitrite Negative Positive H Ur Leukocyte Esterase Trace H Small (1+) H Urine RBC 0-2 3-5 H Urine WBC 0-5 0-5 Ur Squamous Epith Cells 3-5 3-5 Hyaline Casts 0-2 0-2 Assessment and Plan (1) RAMON (acute kidney injury): Status: Acute (2) Bacteremia: Status: Acute (3) Acute appendicitis: Status: Acute (4) Elevated LFTs: Status: Acute Plan RAMON most likely due to Hypoperfusion in a setting of Sepsis/Hypotension Cannot exclude contrast nephropathy Repeat CPK > 41688 and UA with 3+ blood and only 3-5 RBCS, suggests pigment nephropathy from Rhabdo Could have progressed to ATN from the combination of above AGN/AiN seem less likely No obstruction based on CT Metabolic acidosis Mild hyponatremia Hypocalcemia Suggest: Urine for Na/Cr/Protein Follow CPK; Calcium and phosphorous and Potassium Obtain tox /cocaine screen IV hydration- agree with LR Keep I >O Keep SBP > 100 Continue to avoid nephrotoxins Follow Vanco levels and adjust dose Watch urine out put closely No indication for dialysis Shall follow closely with team Procedures Date of Service Date of Service: 09/15/23
[2023-08-21 10:24] LABS: MANUAL DIFF FLAG NO
[2023-08-21 10:26] LABS: Basophils Percent Auto 0.2 % (0-2); Eosinophils Absolute Auto 0.1 X10*3/uL (0.0-0.4); Eosinophils Percent Auto 0.5 % (0-4); Hematocrit 31.5 % (37.0-47.0); Imm Gran Abs Auto 0.09 X10*3/uL (0.00-0.03); Imm Gran Pct Auto 0.8 % (0.0-0.4); Lymphocytes Percent Auto 8.4 % (20-40); Mean Corpuscular HGB Conc 34.9 g/dl (31.0-35.0); Mean Corpuscular Hemoglobin 32.1 pg (27.0-33.0); Mean Corpuscular Volume 91.8 fL (80.0-98.0); Mean Platelet Volume 9.5 fL (9.4-12.3); Monocytes Absolute Auto 0.6 X10*3/uL (0.1-1.2); Neutrophils Absolute Auto 9.6 x10*3/uL (2.0-8.3); Neutrophils Percent Auto 85.1 % (45-73); Platelet Count 126 X10*3/uL (160-400); Red Blood Count 3.43 X10*6/uL (4.20-5.50); White Blood Count 11.3 X10*3/uL (4.8-10.8)
[2023-08-21 10:45] LABS: Alanine Aminotransferase 1128 U/L (0-31); Albumin Level 2.6 g/dL (3.5-5.0); Alkaline Phosphatase 57 U/L (39-117); Anion Gap 13 (12-20); Aspartate Amino Transferase 3698 U/L (5-31); Bilirubin Direct 0.3 mg/dL (0.0-0.5); Bilirubin Total 0.5 mg/dL (0.0-1.0); Blood Urea Nitrogen 28 mg/dL (9-16); Calcium 7.3 mg/dL (8.4-10.2); Carbon Dioxide 15 mmol/L (22-29); Chloride 106 mmol/L (96-108); Creatinine Clr Calc Pharmacy 26.8; Estimated Glomerular Filt Rate 16; Glucose Fasting 90 mg/dL (60-99); Potassium 4.8 mmol/L (3.3-5.1); Sodium 129 mmol/L (135-145); Total Protein 5.2 g/dL (6.5-8.0); Vancomycin Random 16.6 mcg/mL (15-20)
[2023-08-21] MEDS: Sodium Bicarbonate 8.4% 150 MEQ in Dextrose 5 % 850 ML IV ×2 (11:04→20:25)
[2023-08-21] MEDS: Fluconazole in NaCl,Iso-Osm 200 MG/100 ML PIGGYBACK 100 MG IV (11:09)
[2023-08-21 11:53] LABS: Appearance Urine Clear; Creatinine Urine 22.47 mg/dL; Glucose Urine UA Negative (Negative); Leukocyte Esterase Urine Trace (Negative); Nitrite Urine Negative (Negative); PH 6.5 (5.0-9.0); Specific Gravity - Urine <= 1.005 (1.005-1.025); Total Protein Urine Random 150 mg/dL (<12); UMIC TRIGGER UA YES; Urine Blood Large (3+) (Negative); Urine Ketones Negative (Negative); Urine Protein 100 (2+) mg/dL (Neg-Trace)
[2023-08-21 11:54] LABS: Color Urine Yellow
[2023-08-21 12:12] LABS: Bacteria Urine None Seen (None Seen); Hyaline Casts Urine 0-2 /LPF (0-2); WBC Urine 0-5 /HPF (0-5)
--- NOTE | 2023-08-21 12:43 | PM.EVENT ---
Event Note Date of Service: 08/21/23 Event Note: comfortable looks well creatinine rising she says urine less dark today RAMON - multifactorial: rhabdomyolysis, perioperative, bacteremia, contrast nephropathy? IV hydration with HCO3 Nephrology following explained above to pt and family Time Spent With Patient Time: Total time managing care of this patient today ____ minutes.
[2023-08-21] MEDS: Albumin Human 25 % 100 ML IV ×3 (13:02→20:08)
[2023-08-21] MEDS: Morphine Sulfate 4 MG/ML CARTRIDGE 3 MG IVPUSH ×2 (13:53→20:05)
[2023-08-21] MEDS: cefTRIAXone sodium 2 GM in 0.9 % Sodium Chloride 50 ML IV (13:53)
--- NOTE | 2023-08-21 14:24 | HO.PM.IMPN ---
Subjective Subjective Date of Service: 08/21/23 Interval History: Feels well but tired. No acute issues overnight. 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 Review of Systems Denies chest pain Denies shortness of breath Denies nausea vomiting diarrhea Denies fever chills Physical Exam Vital Signs: Vital Signs: Last Vital Signs Temp 96.8 F 08/21/23 07:28 Pulse 80 08/21/23 07:28 Resp 16 08/21/23 07:28 BP 105/66 08/21/23 07:28 Pulse Ox 98 08/21/23 07:28 O2 Del Method Room Air 08/21/23 07:28 O2 Flow Rate 2 08/19/23 11:02 BMI result Body Mass Index 38.0 Const: Other: Awake alert lying comfortably in bed Resp: Other: Clear to auscultation bilaterally no rales rhonchi or wheezes Cardio: Other: No S4; positive S1-S2; no S3 murmurs rubs or gallops GI: Other: Soft minimally tender over site without rebound. Bowel sounds present Extrem: Other: No edema bilaterally Objective Data Active Medications Acetaminophen (Acetaminophen 325 Mg Tablet) 650 mg PO Q6H PRN PRN Reason: fever, pain Al Hydroxide/Mg Hydroxide (Magnesium Hydrox/Alum Hydrox 30 Ml Oral.Susp) 30 ml PO Q6H PRN PRN Reason: Heartburn Albuterol Sulfate (Albuterol Sulfate (0.083%) 2.5 Mg/3 Ml Vial.Neb) 2.5 mg INHALE ONCE PRN PRN Reason: Shortness of Breath/Wheezing Promethazine HCl 12.5 mg/ (Sodium Chloride) 50.5 mls @ 202 mls/hr IV Q6H PRN PRN Reason: Nausea and Vomiting Sodium Bicarbonate 150 meq/ (Dextrose) 1,000 mls @ 150 mls/hr IV .Q6H40M [facility] Last Admin: 08/21/23 11:04 Dose: 150 mls/hr Documented By: ABRAHAM Albumin Human (Kedbumin 25 %) 100 mls @ 100 mls/hr IV Q6H [facility] Stop: 08/22/23 02:44 Last Admin: 08/21/23 14:00 Dose: 100 mls/hr Documented By: ABRAHAM Ceftriaxone Sodium 2 gm/ (Sodium Chloride) 50 mls @ 100 mls/hr IV Q24H [facility] Last Admin: 08/21/23 13:53 Dose: 100 mls/hr Documented By: ABRAHAM Morphine Sulfate (Morphine Sulfate 4 Mg/Ml Cartridge) 3 mg IVPUSH Q4H PRN; Protocol PRN Reason: Pain, Severe (Pain Scale 7-10) Last Admin: 08/21/23 13:53 Dose: 3 mg Documented By: ABRAHAM Ondansetron HCl (Ondansetron Odt 4 Mg Tab.Rapdis) 4 mg TRANSLINGU Q6H PRN PRN Reason: Nausea and Vomiting Last Admin: 08/18/23 17:32 Dose: 4 mg Documented By: BETTY Ondansetron HCl (Ondansetron Hcl 4 Mg/2 Ml Vial) 4 mg IVPUSH Q6H PRN PRN Reason: nausea Oxycodone HCl (Oxycodone Hcl Immed Release 5 Mg Tablet) 5 mg PO Q4H PRN PRN Reason: Pain, Moderate(Pain Scale 4-6) Oxycodone HCl (Oxycodone Hcl Immed Release 5 Mg Tablet) 10 mg PO Q4H PRN PRN Reason: Pain, Severe (Pain Scale 7-10) Last Admin: 08/21/23 00:46 Dose: 10 mg Documented By: MAHI Pharmacy Consult (Consult Rx Vancomycin Dosing) 1 each MISCELLANE DAILY PRN PRN Reason: Consult order Sodium Chloride (0.9 % Sodium Chloride Flush 3 Ml Syringe) 3 ml IVFLUSH QSHIFT [facility] Last Admin: 08/21/23 11:05 Dose: Not Given Documented By: ABRAHAM Non-Admin Reason: IV Running Labs 08/21/23 10:01 08/21/23 10:01 Labs: Laboratory Results - last 24 hr 08/20/23 08/20/23 08/20/23 14:10 15:09 18:24 MCV MCH MCHC RDW Plt Count MPV Immature Gran % (Auto) Neut % (Auto) Lymph % (Auto) [place] % (Auto) Eos % (Auto) Baso % (Auto) Lymph # (Auto) [place] # (Auto) Eos # (Auto) Baso # (Auto) Abs Immat Gran (auto) Absolute Neuts (auto) Absolute Nucleated RBC Nucleated RBC % (auto) Anion Gap 11 L Estim Creat Clear Calc 40.5 Estimated GFR 26 Random Glucose 101 Fasting Glucose Lactic Acid 1.9 1.0 Calcium 6.2 L D Total Bilirubin 0.5 Direct Bilirubin AST 4084 H ALT 1050 H Alkaline Phosphatase 48 Total Creatine Kinase Not Reportable Total Protein 5.0 L Albumin 2.6 L Urine Color Urine Appearance Urine pH Ur Specific [place] Urine Protein Urine Glucose (UA) Urine Ketones Urine Blood Urine Nitrite Ur Leukocyte Esterase Urine RBC Urine WBC Ur Squamous Epith Cells Urine Bacteria Hyaline Casts U Random Total Protein Ur Random Sodium Urine Creatinine Random Vancomycin 19.1 08/20/23 08/21/23 08/21/23 22:22 10:01 11:10 MCV 91.8 MCH 32.1 MCHC 34.9 RDW 12.0 Plt Count 126 L MPV 9.5 Immature Gran % (Auto) 0.8 H Neut % (Auto) 85.1 H Lymph % (Auto) 8.4 L [place] % (Auto) 5.0 Eos % (Auto) 0.5 Baso % (Auto) 0.2 Lymph # (Auto) 1.0 L [place] # (Auto) 0.6 Eos # (Auto) 0.1 Baso # (Auto) 0.0 Abs Immat Gran (auto) 0.09 H Absolute Neuts (auto) 9.6 H Absolute Nucleated RBC 0.000 Nucleated RBC % (auto) 0.0 Anion Gap 13 Estim Creat Clear Calc 26.8 Estimated GFR 16 Random Glucose Fasting Glucose 90 Lactic Acid 1.0 Calcium 7.3 L D Total Bilirubin 0.5 Direct Bilirubin 0.3 AST 3698 H ALT 1128 H Alkaline Phosphatase 57 Total Creatine Kinase > 02381 H Total Protein 5.2 L Albumin 2.6 L Urine Color Yellow Urine Appearance Clear Urine pH 6.5 Ur Specific [place] <= 1.005 Urine Protein 100 (2+) H Urine Glucose (UA) Negative Urine Ketones Negative Urine Blood Large (3+) H Urine Nitrite Negative Ur Leukocyte Esterase Trace H Urine RBC 3-5 H Urine WBC 0-5 Ur Squamous Epith Cells 11-20 Urine Bacteria None Seen Hyaline Casts 0-2 U Random Total Protein 150 H Ur Random Sodium 23.0 Urine Creatinine 22.47 Random Vancomycin 16.6 Microbiology Microbiology Results: Microbiology 08/19/23 13:15 Blood Culture - Preliminary Blood - Venous Gram negative guillermo 08/19/23 13:15 Blood Culture - Preliminary Blood - Venous Gram negative guillermo 08/18/23 19:11 Blood Culture - Final Blood - Venous Streptococcus pneumoniae 08/18/23 19:44 Blood Culture - Preliminary Blood - Venous No growth after 48 hours. Assessment and Plan (1) Acute appendicitis: Status: Acute (2) Bacteremia: Status: Acute (3) RAMON (acute kidney injury): Status: Acute (4) Rhabdomyolysis: Status: Acute Plan 33 year old female without any significant past medical history admitted to general surgery for management of acute appendicitis with consult placed to hospitalist service due to tachycardia. 1.Acute appendicitis with gangrene and sepsis.. Status post 1 -blood cultures 2/2 GNR -further plans as per surgery 2.GNR bacteremia -BC x2 positive for GNR -discussed with ID. Cultures reviewed. Ceftriaxone 2 g IV daily started -await formal ID and sensitivities 3. Transaminitis with active urinary sediment -suspicious for rhabdo -IV fluids D5W with 3 amps of bicarb at 150/hr an hour 4. Hypocalcemia -repleted this a.m....08/21 -repeat calcium am 5.RAMON w/rhabdo -appreciate renal input -continue bicarb drip as ordered -follow renals/divalents/CPKs Requires ongoing hospitalization for IV antibiotics to treat Gram-negative bacteremia along with IV fluids to treat rhabdomyolysis Quality Stroke Does the patient have a stroke diagnosis?: No VTE Prior VTE?: No VTE Risk Level:: Medical - low VTE Device Contraindication: N/A - Device Ordered VTE Drug Contraindication: Treatment Not Indicated
[2023-08-21 14:53] VITALS: BP 117/76; PULSE 79; RESP 16; TEMP 36.3; O2SAT 97
[2023-08-21] MEDS: Magnesium Hydrox/Alum Hydrox 30 ML ORAL.SUSP PO (15:17)
[2023-08-21] MEDS: ondansetron HCL 4 MG/2 ML VIAL IVPUSH (15:21)
[2023-08-21 17:40] LABS: Amphetamine Screen Urine Not Detected (Not Detect); Barbiturates, Urine Not Detected (Not Detect); Benzodiazepines Screen Urine Not Detected (Not Detect); Cannabinoid Screen Urine Not Detected (Not Detect); Cocaine Screen Urine Not Detected (Not Detect); Fentanyl, urine Not Detected (Not Detect); Opiate Screen Urine POSITIVE (Not Detect); Phencyclidine Screen Urine Not Detected (Not Detect)
[2023-08-21 19:21] VITALS: BP 125/88; PULSE 77; RESP 18; TEMP 36.2; O2SAT 99
[2023-08-21] MEDS: 0.9 % Sodium Chloride Flush 3 ML SYRINGE IVFLUSH (21:17)
--- NOTE | 2023-08-22 | ECG_ITS ---
Test Reason : chest pain Blood Pressure : / mmHG Vent. Rate : 079 BPM Atrial Rate : 079 BPM P-R Int : 170 ms QRS Dur : 088 ms QT Int : 448 ms P-R-T Axes : 031 -10 -20 degrees QTc Int : 513 ms Normal sinus rhythm Minimal voltage criteria for LVH, may be normal variant ( R in aVL ) T wave abnormality, consider anterior ischemia T inversion inferior leads, consider ischemia Prolonged QT Abnormal ECG When compared with ECG of 19-AUG-2023 06:56, Vent. rate has decreased BY 70 BPM T wave inversion no longer evident in Lateral leads Referred By: Jonathan Bruner Electronically Signed By:LINUS ODOM
[2023-08-22] MEDS: Albumin Human 25 % 100 ML IV (00:56)
[2023-08-22] MEDS: Sodium Bicarbonate 8.4% 150 MEQ in Dextrose 5 % 850 ML IV (02:53)
[2023-08-22] MEDS: oxyCODONE HCl Immed Release 5 MG TABLET PO (02:56)
[2023-08-22] MEDS: ondansetron HCL 4 MG/2 ML VIAL IVPUSH (03:01)
[2023-08-22 03:16] VITALS: BP 135/78; PULSE 83; RESP 17; TEMP 36.3; O2SAT 92
[2023-08-22] MEDS: HYDROmorphone HCl 0.5 MG/0.5 ML SYRINGE IVPUSH (04:10)
[2023-08-22] MEDS: Pantoprazole Sodium 40 MG/10 ML VIAL IVPUSH (04:10)
[2023-08-22 04:40] VITALS: PULSE 77; RESP 18
[2023-08-22 05:29] LABS: MANUAL DIFF FLAG NO
[2023-08-22 05:31] LABS: Basophils Percent Auto 0.2 % (0-2); Eosinophils Percent Auto 0.3 % (0-4); Hematocrit 28.5 % (37.0-47.0); Imm Gran Abs Auto 0.05 X10*3/uL (0.00-0.03); Imm Gran Pct Auto 0.5 % (0.0-0.4); Lymphocytes Absolute Auto 0.9 X10*3/uL (1.2-4.9); Lymphocytes Percent Auto 8.6 % (20-40); Mean Corpuscular HGB Conc 35.1 g/dl (31.0-35.0); Mean Corpuscular Hemoglobin 31.5 pg (27.0-33.0); Mean Corpuscular Volume 89.9 fL (80.0-98.0); Mean Platelet Volume 9.1 fL (9.4-12.3); Monocytes Absolute Auto 0.7 X10*3/uL (0.1-1.2); Monocytes Percent Auto 6.4 % (2-11); Neutrophils Absolute Auto 9.1 x10*3/uL (2.0-8.3); Platelet Count 119 X10*3/uL (160-400); Red Blood Count 3.17 X10*6/uL (4.20-5.50); Red Cell Distribution Width 11.8 % (11.0-16.0); White Blood Count 10.9 X10*3/uL (4.8-10.8)
--- NOTE | 2023-08-22 05:39 | PC.NURSE ---
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 84% to 92% c/o sternum pressure pain no radiation to anywhere. pt vomited after oxycodone 5 mg. given zofran per eMar. notified, received new chest xray, ekg, and 2L of oxygen. and new dilaudid 0.5 mg order received it. given by this nurse. pt has 2L via NC 96%. left mid lobe lung sounds fine crackles. pt voided 100 mL in 10 hours, bladder scanned it 224 mL no action need at this time. came to see pt and product inspection supervisor saw her too. will continue to monitor.
[2023-08-22 05:51] LABS: Alanine Aminotransferase 836 U/L (0-31); Albumin Level 3.3 g/dL (3.5-5.0); Alkaline Phosphatase 55 U/L (39-117); Anion Gap 14 (12-20); Aspartate Amino Transferase 2078 U/L (5-31); Bilirubin Total 0.6 mg/dL (0.0-1.0); Blood Urea Nitrogen 30 mg/dL (9-16); Calcium 7.3 mg/dL (8.4-10.2); Carbon Dioxide 22 mmol/L (22-29); Chloride 98 mmol/L (96-108); Creatinine Clr Calc Pharmacy 21.2; Estimated Glomerular Filt Rate 12; Glucose Random 105 mg/dL (60-115); Magnesium 1.8 mg/dL (1.6-2.6); Phosphorus 4.5 mg/dL (2.7-4.5); Potassium 4.3 mmol/L (3.3-5.1); Sodium 130 mmol/L (135-145); Total Protein 5.5 g/dL (6.5-8.0)
[2023-08-22 05:53] LABS: Troponin-I High Sensitivity 27.5 ng/L (<3.5-17.0)
--- NOTE | 2023-08-22 06:00 | PM.EVENT ---
Event Note Date of Service: 08/22/23 Event Note: Contacted to notify patient was complaining of chest pain. I did evaluate patient. Patient stated mid chest pain 8/10 after she vomits and mentioned that every time she gets morphine she gets very nauseous. Denies shortness or breath and pain to her lower extremity. Her oxygen saturation was fluctuating between 91-93%. Cardiopulmonary exam is unremarkable. No legs swelling or tenderness to palpation. EKG stat showed normal sinus rhythm with a heart rate of 79 bpm, prolonged QT and T-wave abnormalities/inversion in the inferolateral leads, however, these changes are also seen EKG done in May 20, 2015. CXR showed no pulmonary edema or pleural effusions. Urinary output is decreasing and creatinine continue to increase. Creatinine is 4.23 this morning. Plan: -Telemetry --> prolonged QT (likely due to hypocalcemia). -Ca gluconate 2 g IV then start calcium carbonate 500 mg PO tid. -Will discontinue morphine due to side effects (nausea and vomiting) and renal failure. -Continue bicarb infusion. -If chest pain or oxygen saturation drops to consider anticoagulation and/or VQ scan/Bilat LE US. Time Spent With Patient Time: Total time managing care of this patient today ____ minutes.
[2023-08-22] MEDS: Calcium Gluconate/NaCl,Iso-Osm 2 GM/100 ML PLAST..BAG IV (06:59)
[2023-08-22 07:48] VITALS: BP 112/76; PULSE 71; RESP 18; TEMP 36.2; O2SAT 98
[2023-08-22 08:41] LABS: HIV AB/AG Nonreactive (Nonreactive); HIV Num 1 0.05 S/CO (0.00-0.99)
--- NOTE | 2023-08-22 09:19 | PM.PNGS ---
Subjective Subjective Date of Service: 08/22/23 <Jessi Gill PA-C - Last Filed: 08/22/23 09:23> 08/25/23 <Sai Crawford MD - Last Filed: 08/25/23 08:01> Interval history: Chest pain, vomiting overnight. Being transferred to [facility] for prolonged QT. <Jessi Gill PA-C - Last Filed: 08/22/23 09:23> Physical Exam Vital Signs: Vital Signs: Last Vital Signs Temp 97.1 F 08/22/23 07:48 Pulse 71 08/22/23 07:48 Resp 18 08/22/23 07:48 BP 112/76 08/22/23 07:48 Pulse Ox 98 08/22/23 07:48 O2 Del Method Nasal Cannula 08/22/23 07:48 O2 Flow Rate 2.0 08/22/23 07:48 BMI result Body Mass Index 38.0 <LIZANDRO Aguirre Last Filed: 08/22/23 09:23> Const: General: no acute distress and alert <Jessi Gill PA-C - Last Filed: 08/22/23 09:23> Orientation/consciousness: patient oriented x3 <LIZANDRO Aguirre Last Filed: 08/22/23 09:23> Resp: Effort & Inspection: normal respiratory effort and no respiratory distress <Jessi Gill PA-C - Last Filed: 08/22/23 09:23> GI: Inspection: No distended and Yes incision (clean) <Jessi Gill PA-C - Last Filed: 08/22/23 09:23> Palpation (GI): Soft to palpation, Tenderness to palpation present (GI) (mild incisional), no guarding and not rigid <LIZANDRO Aguirre Last Filed: 08/22/23 09:23> Skin: General skin exam: no rashes or lesions noted and no jaundice <LIZANDRO Aguirre Last Filed: 08/22/23 09:23> Neuro: General: patient oriented x3 and moves all extremities <LIZANDRO Aguirre Last Filed: 08/22/23 09:23> Objective Data Active Medications Acetaminophen (Acetaminophen 325 Mg Tablet) 650 mg PO Q6H PRN PRN Reason: fever, pain Al Hydroxide/Mg Hydroxide (Magnesium Hydrox/Alum Hydrox 30 Ml Oral.Susp) 30 ml PO Q6H PRN PRN Reason: Heartburn Last Admin: 08/21/23 15:17 Dose: 30 ml Documented By: ABRAHAM Albuterol Sulfate (Albuterol Sulfate (0.083%) 2.5 Mg/3 Ml Vial.Neb) 2.5 mg INHALE ONCE PRN PRN Reason: Shortness of Breath/Wheezing Calcium Carbonate (Calcium Carbonate 500 Mg Tablet) 500 mg PO TID [facility] Hydromorphone HCl (Hydromorphone Hcl 0.5 Mg/0.5 Ml Syringe) 0.5 mg IVPUSH Q4H PRN; Protocol PRN Reason: Pain, Severe (Pain Scale 7-10) Last Admin: 08/22/23 04:10 Dose: 0.5 mg Documented By: NASEEM Promethazine HCl 12.5 mg/ (Sodium Chloride) 50.5 mls @ 202 mls/hr IV Q6H PRN PRN Reason: Nausea and Vomiting Sodium Bicarbonate 150 meq/ (Dextrose) 1,000 mls @ 150 mls/hr IV .Q6H40M [facility] Last Admin: 08/22/23 02:53 Dose: 150 mls/hr Documented By: NASEEM Ceftriaxone Sodium 2 gm/ (Sodium Chloride) 50 mls @ 100 mls/hr IV Q24H [facility] Last Infusion: 08/21/23 14:47 Dose: Infused Documented By: ABRAHAM Ondansetron HCl (Ondansetron Odt 4 Mg Tab.Rapdis) 4 mg TRANSLINGU Q6H PRN PRN Reason: Nausea and Vomiting Last Admin: 08/18/23 17:32 Dose: 4 mg Documented By: BETTY Ondansetron HCl (Ondansetron Hcl 4 Mg/2 Ml Vial) 4 mg IVPUSH Q6H PRN PRN Reason: nausea Last Admin: 08/22/23 03:01 Dose: 4 mg Documented By: NASEEM Oxycodone HCl (Oxycodone Hcl Immed Release 5 Mg Tablet) 5 mg PO Q4H PRN PRN Reason: Pain, Moderate(Pain Scale 4-6) Last Admin: 08/22/23 02:56 Dose: 5 mg Documented By: NASEEM Oxycodone HCl (Oxycodone Hcl Immed Release 5 Mg Tablet) 10 mg PO Q4H PRN PRN Reason: Pain, Severe (Pain Scale 7-10) Last Admin: 08/21/23 00:46 Dose: 10 mg Documented By: MAHI Pantoprazole Sodium (Pantoprazole Sodium 40 Mg/10 Ml Vial) 40 mg IVPUSH DAILY@0630 [facility] Last Admin: 08/22/23 04:10 Dose: 40 mg Documented By: NASEEM Sodium Chloride (0.9 % Sodium Chloride Flush 3 Ml Syringe) 3 ml IVFLUSH QSHIFT [facility] Last Admin: 08/22/23 09:01 Dose: Not Given Documented By: ABRAHAM Non-Admin Reason: IV Running <Jessi Gill PA-C - Last Filed: 08/22/23 09:23> Labs CBC & Chem 7: 08/23/23 06:06 08/25/23 04:24 <Jessi Gill PA-C - Last Filed: 08/22/23 09:23> Labs: Laboratory Results - last 24 hr 08/21/23 08/21/23 08/21/23 10:01 11:10 17:18 MCV 91.8 MCH 32.1 MCHC 34.9 RDW 12.0 Plt Count 126 L MPV 9.5 Immature Gran % (Auto) 0.8 H Neut % (Auto) 85.1 H Lymph % (Auto) 8.4 L [place] % (Auto) 5.0 Eos % (Auto) 0.5 Baso % (Auto) 0.2 Lymph # (Auto) 1.0 L [place] # (Auto) 0.6 Eos # (Auto) 0.1 Baso # (Auto) 0.0 Abs Immat Gran (auto) 0.09 H Absolute Neuts (auto) 9.6 H Absolute Nucleated RBC 0.000 Nucleated RBC % (auto) 0.0 Anion Gap 13 Estim Creat Clear Calc 26.8 Estimated GFR 16 Random Glucose Fasting Glucose 90 Calcium 7.3 L D Phosphorus Magnesium Total Bilirubin 0.5 Direct Bilirubin 0.3 AST 3698 H ALT 1128 H Alkaline Phosphatase 57 Total Creatine Kinase > 63084 H Total Protein 5.2 L Albumin 2.6 L Urine Color Yellow Urine Appearance Clear Urine pH 6.5 Ur Specific [place] <= 1.005 Urine Protein 100 (2+) H Urine Glucose (UA) Negative Urine Ketones Negative Urine Blood Large (3+) H Urine Nitrite Negative Ur Leukocyte Esterase Trace H Urine RBC 3-5 H Urine WBC 0-5 Ur Squamous Epith Cells 11-20 Urine Bacteria None Seen Hyaline Casts 0-2 U Random Total Protein 150 H Ur Random Sodium 23.0 Urine Creatinine 22.47 Random Vancomycin 16.6 Urine Opiates Screen POSITIVE H Urine Fentanyl Screen Not Detected Ur Barbiturates Screen Not Detected Ur Phencyclidine Scrn Not Detected Ur Amphetamines Screen Not Detected U Benzodiazepines Scrn Not Detected Urine Cocaine Screen Not Detected U Marijuana (THC) Screen Not Detected HIV 1&2 Ab/P24 Ag 4thGn 08/22/23 05:24 MCV 89.9 MCH 31.5 MCHC 35.1 H RDW 11.8 Plt Count 119 L MPV 9.1 L Immature Gran % (Auto) 0.5 H Neut % (Auto) 84.0 H Lymph % (Auto) 8.6 L [place] % (Auto) 6.4 Eos % (Auto) 0.3 Baso % (Auto) 0.2 Lymph # (Auto) 0.9 L [place] # (Auto) 0.7 Eos # (Auto) 0.0 Baso # (Auto) 0.0 Abs Immat Gran (auto) 0.05 H Absolute Neuts (auto) 9.1 H Absolute Nucleated RBC 0.000 Nucleated RBC % (auto) 0.0 Anion Gap 14 Estim Creat Clear Calc 21.2 Estimated GFR 12 Random Glucose 105 Fasting Glucose Calcium 7.3 L Phosphorus 4.5 Magnesium 1.8 Total Bilirubin 0.6 Direct Bilirubin AST 2078 H ALT 836 H Alkaline Phosphatase 55 Total Creatine Kinase > 01365 H Total Protein 5.5 L Albumin 3.3 L Urine Color Urine Appearance Urine pH Ur Specific [place] Urine Protein Urine Glucose (UA) Urine Ketones Urine Blood Urine Nitrite Ur Leukocyte Esterase Urine RBC Urine WBC Ur Squamous Epith Cells Urine Bacteria Hyaline Casts U Random Total Protein Ur Random Sodium Urine Creatinine Random Vancomycin Urine Opiates Screen Urine Fentanyl Screen Ur Barbiturates Screen Ur Phencyclidine Scrn Ur Amphetamines Screen U Benzodiazepines Scrn Urine Cocaine Screen U Marijuana (THC) Screen HIV 1&2 Ab/P24 Ag 4thGn Nonreactive <Jessi Gill PA-C - Last Filed: 08/22/23 09:23> Microbiology Microbiology Results: Microbiology 08/19/23 13:15 Blood Culture - Final Blood - Venous Escherichia coli 08/19/23 13:15 Blood Culture - Final Blood - Venous Escherichia coli 08/18/23 19:11 Blood Culture - Final Blood - Venous Streptococcus pneumoniae <Jessi Gill PA-C - Last Filed: 08/22/23 09:23> Procedures Date of Service Date of Service: 08/22/23 <Jessi Gill PA-C - Last Filed: 08/22/23 09:23> 08/25/23 <Sai Crawford MD - Last Filed: 08/25/23 08:01> Progress Note: A&P Assessment and plan (1) Rhabdomyolysis: Status: Acute <Jessi Gill PA-C - Last Filed: 08/22/23 09:23> (2) RAMON (acute kidney injury): Status: Acute <Jessi Gill PA-C - Last Filed: 08/22/23 09:23> (3) Acute appendicitis: Status: Acute <LIZANDRO Aguirre Last Filed: 08/22/23 09:23> Assessment and Plan: Status post laparoscopic appendectomy Denies significant abdominal pain Abdomen soft and benign Continues to have creatinine, elevated creatinine kinase consistent with rhabdomyolysis Urine output seems adequate and clear now Bicarb better Transaminases trending a little bit lower RAMON likely multifactorial - bacteremia, IV contrast, rhabdomyolysis, vanco ? Otherwise looks comfortable Hospitalist and Nephrology following closely Hemodynamically stable Explained above to patient Seen and examined independently several times today <Sai Crawford MD - Last Filed: 08/25/23 08:01> Assessment and Plan: No acute surgical issues s/p lap appy for acute appendicitis but remains inpatient due to metabolic derrangements, renal function. Bicarb and LFTs improved today but renal functioning worsening. Being followed by nephrology. <Jessi Gill PA-C - Last Filed: 08/22/23 09:23> Time Spent With Patient Time: Total time managing care of this patient today ____ minutes. <Jessi Gill PA-C - Last Filed: 08/22/23 09:23> Quality Stroke Does the patient have a stroke diagnosis?: No <Jessi Gill PA-C - Last Filed: 08/22/23 09:23> VTE Prior VTE?: No <Jessi Gill PA-C - Last Filed: 08/22/23 09:23> VTE Risk Level:: Medical - low <Jessi Gill PA-C - Last Filed: 08/22/23 09:23> VTE Device Contraindication: N/A - Device Ordered <Jessi Gill PA-C - Last Filed: 08/22/23 09:23> VTE Drug Contraindication: Treatment Not Indicated <Jessi Gill PA-C - Last Filed: 08/22/23 09:23>
[2023-08-22] MEDS: Furosemide 100 MG/10 ML VIAL 80 MG IVPUSH (11:07)
--- NOTE | 2023-08-22 11:38 | MHC.CM.PN ---
EMR REVIEWED AND PER MD ROUNDS, PT IS NOT MEDICALLY CLEARED FOR DC , BEING TRANSFERRED TO MED/TELE FOR CARDIAC MONITORING. CM WILL CONTINUE TO FOLLOW FOR ANY CHANGE IN DC NEEDS/PLAN.
[2023-08-22 13:21] VITALS: BMI 42.2
--- NOTE | 2023-08-22 13:45 | PM.PNNEP ---
Subjective Subjective Date of Service: 08/22/23 Interval history: Seen this AM and this afternoon. Urine output poor inspite of diuretic challenge. Hypervolemic and hypoxic. IV fluids were discontinued this AM. All events noted. All data reviewed. D/W RN and Med Attending; 30 pounds over dry weight Physical Exam Vital Signs: Vital Signs: Last Vital Signs Temp 97.1 F 08/22/23 07:48 Pulse 71 08/22/23 07:48 Resp 18 08/22/23 07:48 BP 112/76 08/22/23 07:48 Pulse Ox 98 08/22/23 07:48 O2 Del Method Nasal Cannula 08/22/23 07:48 O2 Flow Rate 2.0 08/22/23 07:48 BMI result Body Mass Index 42.2 Const: Other: Short of breath; Edematous General: anxious Orientation/consciousness: patient oriented x3 Eyes: EOM: EOMs intact bilaterally Resp: Auscultation: diminished lung sounds Cardio: Rate: regular rate GI: Palpation (GI): Soft to palpation Neuro: General: patient oriented x3 and moves all extremities Extrem: Other: thigh edema, LE edema Objective Data Labs 08/22/23 05:24 08/22/23 05:24 Labs: Laboratory Results - last 24 hr 08/21/23 08/21/23 08/22/23 10:01 17:18 05:24 WBC 10.9 H RBC 3.17 L Hgb 10.0 L Hct 28.5 L MCV 89.9 MCH 31.5 MCHC 35.1 H RDW 11.8 Plt Count 119 L MPV 9.1 L Immature Gran % (Auto) 0.5 H Neut % (Auto) 84.0 H Lymph % (Auto) 8.6 L [place] % (Auto) 6.4 Eos % (Auto) 0.3 Baso % (Auto) 0.2 Lymph # (Auto) 0.9 L [place] # (Auto) 0.7 Eos # (Auto) 0.0 Baso # (Auto) 0.0 Abs Immat Gran (auto) 0.05 H Absolute Neuts (auto) 9.1 H Absolute Nucleated RBC 0.000 Nucleated RBC % (auto) 0.0 Sodium 130 L Potassium 4.3 Chloride 98 Carbon Dioxide 22 Anion Gap 14 BUN 30 H Creatinine 4.23 H* Estim Creat Clear Calc 21.2 Estimated GFR 12 Random Glucose 105 Calcium 7.3 L Phosphorus 4.5 Magnesium 1.8 Total Bilirubin 0.6 AST 2078 H ALT 836 H Alkaline Phosphatase 55 Total Creatine Kinase 886903 H 60528 H Troponin I High Sens 27.5 H Total Protein 5.5 L Albumin 3.3 L Urine Opiates Screen POSITIVE H Urine Fentanyl Screen Not Detected Ur Barbiturates Screen Not Detected Ur Phencyclidine Scrn Not Detected Ur Amphetamines Screen Not Detected U Benzodiazepines Scrn Not Detected Urine Cocaine Screen Not Detected U Marijuana (THC) Screen Not Detected HIV 1&2 Ab/P24 Ag 4thGn Nonreactive Microbiology Microbiology Results: Microbiology 08/19/23 13:15 Blood - Venous Blood Culture - Final Escherichia coli 08/19/23 13:15 Blood - Venous Blood Culture - Final Escherichia coli 08/18/23 19:11 Blood - Venous Blood Culture - Final Streptococcus pneumoniae 08/18/23 19:44 Blood - Venous Blood Culture - Preliminary No growth after 48 hours. Procedures Date of Service Date of Service: 08/22/23 Assessment & Plan Assessment and plan (1) RAMON (acute kidney injury): Status: Acute Plan Acute Kidney injury due to multifactorial tubular injury Urine output poor; IV fluids D/Oniel this AM Was given diuretic challenge this AM No good response to diuretic challenge Hypoxic and hypervolemic Needs UF and renal replacement HD catheter( temporary ) ordered by IR HD Nurse aware. HD orders in [facility]panse Shall dialyze again tomorrow( ordered) Shall closely follow up Dr Nova environmental health safety engineer this weekend Progress Note: Quality Stroke Does the patient have a stroke diagnosis?: No
[2023-08-22] MEDS: cefTRIAXone sodium 2 GM in 0.9 % Sodium Chloride 50 ML IV (13:58)
[2023-08-22 14:48] LABS: Calcium, Ionized 3.9 mg/dL (4.7-5.5)
[2023-08-22 14:54] LABS: Alanine Aminotransferase 848 U/L (0-31); Albumin Level 3.2 g/dL (3.5-5.0); Alkaline Phosphatase 94 U/L (39-117); Anion Gap 18 (12-20); Aspartate Amino Transferase 1910 U/L (5-31); Bilirubin Total 0.5 mg/dL (0.0-1.0); Blood Urea Nitrogen 31 mg/dL (9-16); Calcium 7.8 mg/dL (8.4-10.2); Carbon Dioxide 19 mmol/L (22-29); Chloride 97 mmol/L (96-108); Creatinine Clr Calc Pharmacy 20.7; Estimated Glomerular Filt Rate 11; Glucose Random 99 mg/dL (60-115); Potassium 4.7 mmol/L (3.3-5.1); Sodium 129 mmol/L (135-145); Total Protein 5.7 g/dL (6.5-8.0)
--- NOTE | 2023-08-22 15:05 | HO.PM.IMPN ---
Subjective Subjective Date of Service: 08/22/23 Interval History: No acute issues overnight. Urine output limited Review of Systems Denies chest pain Admits to shortness of breath; can not lay flat. Denies nausea vomiting diarrhea Denies fever chills Physical Exam Vital Signs: Vital Signs: Last Vital Signs Temp 97.1 F 08/22/23 07:48 Pulse 71 08/22/23 07:48 Resp 18 08/22/23 07:48 BP 112/76 08/22/23 07:48 Pulse Ox 98 08/22/23 07:48 O2 Del Method Nasal Cannula 08/22/23 07:48 O2 Flow Rate 2.0 08/22/23 07:48 BMI result Body Mass Index 42.2 Const: Other: Awake alert lying comfortably in bed Resp: Other: Clear to auscultation bilaterally no rales rhonchi or wheezes Cardio: Other: No S4; positive S1-S2; no S3 murmurs rubs or gallops GI: Other: Soft minimally tender over site without rebound. Bowel sounds present Extrem: Other: No edema bilaterally Objective Data Active Medications Acetaminophen (Acetaminophen 325 Mg Tablet) 650 mg PO Q6H PRN PRN Reason: fever, pain Al Hydroxide/Mg Hydroxide (Magnesium Hydrox/Alum Hydrox 30 Ml Oral.Susp) 30 ml PO Q6H PRN PRN Reason: Heartburn Last Admin: 08/21/23 15:17 Dose: 30 ml Documented By: ABRAHAM Albuterol Sulfate (Albuterol Sulfate (0.083%) 2.5 Mg/3 Ml Vial.Neb) 2.5 mg INHALE ONCE PRN PRN Reason: Shortness of Breath/Wheezing Calcium Carbonate (Calcium Carbonate 500 Mg Tablet) 500 mg PO TID [place] Furosemide (Furosemide 100 Mg/10 Ml Vial) 80 mg IVPUSH Q12H [place]; Protocol Last Admin: 08/22/23 11:07 Dose: 80 mg Documented By: ABRAHAM Hydromorphone HCl (Hydromorphone Hcl 0.5 Mg/0.5 Ml Syringe) 0.5 mg IVPUSH Q4H PRN; Protocol PRN Reason: Pain, Severe (Pain Scale 7-10) Last Admin: 08/22/23 04:10 Dose: 0.5 mg Documented By: NASEEM Promethazine HCl 12.5 mg/ (Sodium Chloride) 50.5 mls @ 202 mls/hr IV Q6H PRN PRN Reason: Nausea and Vomiting Sodium Bicarbonate 150 meq/ (Dextrose) 1,000 mls @ 150 mls/hr IV .Q6H40M [facility] Last Admin: 08/22/23 10:19 Dose: Not Given Documented By: ABRAHAM Non-Admin Reason: Physician Held Med Ceftriaxone Sodium 2 gm/ (Sodium Chloride) 50 mls @ 100 mls/hr IV Q24H [facility] Last Admin: 08/22/23 13:58 Dose: 100 mls/hr Documented By: ABRAHAM Ondansetron HCl (Ondansetron Odt 4 Mg Tab.Rapdis) 4 mg TRANSLINGU Q6H PRN PRN Reason: Nausea and Vomiting Last Admin: 08/18/23 17:32 Dose: 4 mg Documented By: BETTY Ondansetron HCl (Ondansetron Hcl 4 Mg/2 Ml Vial) 4 mg IVPUSH Q6H PRN PRN Reason: nausea Last Admin: 08/22/23 03:01 Dose: 4 mg Documented By: NASEEM Oxycodone HCl (Oxycodone Hcl Immed Release 5 Mg Tablet) 5 mg PO Q4H PRN PRN Reason: Pain, Moderate(Pain Scale 4-6) Last Admin: 08/22/23 02:56 Dose: 5 mg Documented By: NASEEM Oxycodone HCl (Oxycodone Hcl Immed Release 5 Mg Tablet) 10 mg PO Q4H PRN PRN Reason: Pain, Severe (Pain Scale 7-10) Last Admin: 08/21/23 00:46 Dose: 10 mg Documented By: MAHI Pantoprazole Sodium (Pantoprazole Sodium 40 Mg/10 Ml Vial) 40 mg IVPUSH DAILY@0630 [facility] Last Admin: 08/22/23 04:10 Dose: 40 mg Documented By: NASEEM Sodium Chloride (0.9 % Sodium Chloride Flush 3 Ml Syringe) 3 ml IVFLUSH QSHIFT [facility] Last Admin: 08/22/23 09:01 Dose: Not Given Documented By: ABRAHAM Non-Admin Reason: IV Running Labs 08/22/23 05:24 08/22/23 14:08 Labs: Laboratory Results - last 24 hr 08/20/23 08/21/23 08/21/23 10:12 10:01 17:18 MCV MCH MCHC RDW Plt Count MPV Immature Gran % (Auto) Neut % (Auto) Lymph % (Auto) [place] % (Auto) Eos % (Auto) Baso % (Auto) Lymph # (Auto) [place] # (Auto) Eos # (Auto) Baso # (Auto) Abs Immat Gran (auto) Absolute Neuts (auto) Absolute Nucleated RBC Nucleated RBC % (auto) Anion Gap Estim Creat Clear Calc Estimated GFR Random Glucose Calcium Ionized Calcium 3.9 L Phosphorus Magnesium Total Bilirubin AST ALT Alkaline Phosphatase Total Creatine Kinase 792698 H Total Protein Albumin Urine Opiates Screen POSITIVE H Urine Fentanyl Screen Not Detected Ur Barbiturates Screen Not Detected Ur Phencyclidine Scrn Not Detected Ur Amphetamines Screen Not Detected U Benzodiazepines Scrn Not Detected Urine Cocaine Screen Not Detected U Marijuana (THC) Screen Not Detected HIV 1&2 Ab/P24 Ag 4thGn 08/22/23 08/22/23 05:24 14:08 MCV 89.9 MCH 31.5 MCHC 35.1 H RDW 11.8 Plt Count 119 L MPV 9.1 L Immature Gran % (Auto) 0.5 H Neut % (Auto) 84.0 H Lymph % (Auto) 8.[address] [place] % (Auto) 6.4 Eos % (Auto) 0.3 Baso % (Auto) 0.2 Lymph # (Auto) 0.[address] [place] # (Auto) 0.7 Eos # (Auto) 0.0 Baso # (Auto) 0.0 Abs Immat Gran (auto) 0.05 H Absolute Neuts (auto) 9.1 H Absolute Nucleated RBC 0.000 Nucleated RBC % (auto) 0.0 Anion Gap 14 18 Estim Creat Clear Calc 21.2 20.7 Estimated GFR 12 11 Random Glucose 105 99 Calcium 7.3 L 7.8 L D Ionized Calcium Phosphorus 4.5 Magnesium 1.8 Total Bilirubin 0.6 0.5 AST 2078 H 1910 H ALT 836 H 848 H Alkaline Phosphatase 55 94 Total Creatine Kinase 66386 H Total Protein 5.5 L 5.7 L Albumin 3.3 L 3.2 L Urine Opiates Screen Urine Fentanyl Screen Ur Barbiturates Screen Ur Phencyclidine Scrn Ur Amphetamines Screen U Benzodiazepines Scrn Urine Cocaine Screen U Marijuana (THC) Screen HIV 1&2 Ab/P24 Ag 4thGn Nonreactive Microbiology Microbiology Results: Microbiology 08/19/23 13:15 Blood Culture - Final Blood - Venous Escherichia coli 08/19/23 13:15 Blood Culture - Final Blood - Venous Escherichia coli Assessment and Plan (1) RAMON (acute kidney injury): Status: Acute (2) Rhabdomyolysis: Status: Acute Plan 33 year old female without any significant past medical history admitted to general surgery for management of acute appendicitis with consult placed to hospitalist service due to tachycardia. 1.RAMON w/rhabdo(CKs greater than 80,000 after dilution) -continues to be hypervolemic -failed to respond to diuretic challenge -temporary line followed by urgent dialysis -follow renals/divalents/CPKs 2..Acute appendicitis with gangrene and sepsis.. Status post 1 -blood cultures 2/2 GNR(EColi) -further plans as per surgery 3.GNR bacteremia.. E coli sensitive to ceftriaxone -Ceftriaxone 2 g IV daily started(2) -will discuss duration with Infectious Disease 4. Transaminitis with active urinary sediment -suspicious for rhabdo -urgent hemodialysis Requires ongoing hospitalization for IV antibiotics to treat Gram-negative bacteremia along with urgent hemodialysis Quality Stroke Does the patient have a stroke diagnosis?: No VTE Prior VTE?: No VTE Risk Level:: Medical - low VTE Device Contraindication: N/A - Device Ordered VTE Drug Contraindication: Treatment Not Indicated
[2023-08-22] MEDS: fentaNYL citrate/PF 100 MCG/2 ML VIAL 25 MCG IVPUSH (15:25)
--- NOTE | 2023-08-22 15:41 | PC.NURSE ---
Patient transferred to room 254 with transporter via bed at 1450 for dialysis line placement. Patient A&O x3, no complaints, VSS, patent IV access. Dr Suero at bedside - consent obtained. Time out completed at 1500. [place] 12F 13cm placed to right IJ w/o incident under sterile technique. Patient c/o of moderate pain mid procedure - Fentanyl [address] Suero administered at 1525. Procedure completed at 1535 - VSS BP 115/76, HR 74, RR 16, 100% on 3L NC. CXR ordered and completed - film view by MD at bedside. Okay to use line per MD. Patient resting comfortably in bed, eyes closed, awaiting transport.
--- NOTE | 2023-08-22 15:41 | W.PM.CCHP ---
Procedures Date of Service Date of Service: 08/22/23 Central Line Placement Right IJ: Central Line Comments: After obtaining informed consent right internal jugular triple-lumen hemodialysis catheter placed for hemodialysis under ultrasound guidance and usual sterile conditions with no immediate complications. X-ray for line position is pending.
--- NOTE | 2023-08-22 16:00 | PM.IDPN ---
Subjective Subjective Date of Service: 08/22/23 Critical Care Time (minutes): 15 Comment: pt feels upset getting dialysis? Objective Data Labs 08/22/23 05:24 08/22/23 14:08 Labs: Laboratory Results - last 24 hr 08/20/23 08/21/23 08/21/23 10:12 10:01 17:18 WBC RBC Hgb Hct MCV MCH MCHC RDW Plt Count MPV Immature Gran % (Auto) Neut % (Auto) Lymph % (Auto) [place] % (Auto) Eos % (Auto) Baso % (Auto) Lymph # (Auto) [place] # (Auto) Eos # (Auto) Baso # (Auto) Abs Immat Gran (auto) Absolute Neuts (auto) Absolute Nucleated RBC Nucleated RBC % (auto) Sodium Potassium Chloride Carbon Dioxide Anion Gap BUN Creatinine Estim Creat Clear Calc Estimated GFR Random Glucose Calcium Ionized Calcium 3.9 L Phosphorus Magnesium Total Bilirubin AST ALT Alkaline Phosphatase Total Creatine Kinase 268977 H Troponin I High Sens Total Protein Albumin Urine Opiates Screen POSITIVE H Urine Fentanyl Screen Not Detected Ur Barbiturates Screen Not Detected Ur Phencyclidine Scrn Not Detected Ur Amphetamines Screen Not Detected U Benzodiazepines Scrn Not Detected Urine Cocaine Screen Not Detected U Marijuana (THC) Screen Not Detected HIV 1&2 Ab/P24 Ag 4thGn 08/22/23 08/22/23 05:24 14:08 WBC 10.9 H RBC 3.17 L Hgb 10.0 L Hct 28.5 L MCV 89.9 MCH 31.5 MCHC 35.1 H RDW 11.8 Plt Count 119 L MPV 9.1 L Immature Gran % (Auto) 0.5 H Neut % (Auto) 84.0 H Lymph % (Auto) 8.6 L [place]win % (Auto) 6.4 Eos % (Auto) 0.3 Baso % (Auto) 0.2 Lymph # (Auto) 0.9 L [place] # (Auto) 0.7 Eos # (Auto) 0.0 Baso # (Auto) 0.0 Abs Immat Gran (auto) 0.05 H Absolute Neuts (auto) 9.1 H Absolute Nucleated RBC 0.000 Nucleated RBC % (auto) 0.0 Sodium 130 L 129 L Potassium 4.3 4.7 Chloride 98 97 Carbon Dioxide 22 19 L Anion Gap 14 18 BUN 30 H 31 H Creatinine 4.23 H* 4.57 H* Estim Creat Clear Calc 21.2 20.7 Estimated GFR 12 11 Random Glucose 105 99 Calcium 7.3 L 7.8 L D Ionized Calcium Phosphorus 4.5 Magnesium 1.8 Total Bilirubin 0.6 0.5 AST 2078 H 1910 H ALT 836 H 848 H Alkaline Phosphatase 55 94 Total Creatine Kinase 19500 H Troponin I High Sens 27.5 H Total Protein 5.5 L 5.7 L Albumin 3.3 L 3.2 L Urine Opiates Screen Urine Fentanyl Screen Ur Barbiturates Screen Ur Phencyclidine Scrn Ur Amphetamines Screen U Benzodiazepines Scrn Urine Cocaine Screen U Marijuana (THC) Screen HIV 1&2 Ab/P24 Ag 4thGn Nonreactive Microbiology Microbiology Results: Microbiology 08/19/23 13:15 Blood - Venous Blood Culture - Final Escherichia coli 08/19/23 13:15 Blood - Venous Blood Culture - Final Escherichia coli 08/18/23 19:11 Blood - Venous Blood Culture - Final Streptococcus pneumoniae 08/18/23 19:44 Blood - Venous Blood Culture - Preliminary No growth after 48 hours. Physical Exam Vital Signs: Vital Signs: Last Vital Signs Temp 97.1 F 08/22/23 07:48 Pulse 71 08/22/23 07:48 Resp 18 08/22/23 07:48 BP 112/76 08/22/23 07:48 Pulse Ox 98 08/22/23 07:48 O2 Del Method Nasal Cannula 08/22/23 07:48 O2 Flow Rate 2.0 08/22/23 07:48 BMI result Body Mass Index 42.2 Const: General: cooperative HEENT: Head: Yes normal to inspection Face and sinus: Yes normal facial exam Mouth: Normal oral and palatal mucosa present Teeth and gingiva: dentition normal Eyes: General: appearance normal, both eyes and all related structures Pupils: Equal, round and reactive pupils present Resp: Effort & Inspection: normal respiratory effort Cardio: Rate: regular rate Rhythm: regular rhythm GI: Palpation (GI): Soft to palpation and nontender : General: Yes no CVA tenderness Back/Spine/Pelvis: Back: no CVA tenderness Skin: General skin exam: no rashes or lesions noted Neuro: General: moves all extremities Cranial nerves: Yes Equal, round and reactive pupils present Extrem: General: Yes normal to inspection Psych: Appearance: grossly normal Assessment and Plan Assessment and plan (1) Bacteremia: Problem details: Decreasing hematocrit and platelets ?postop hemolytic uremic syndrome with the renal failure,sometimes occurs postop or preop infection can cause inflammation also E coli bacteremia HIV negative. Status: Acute Plan 14 d IV Ceftriaxone 2g daily. Watch for signs of meningitis. Renal is following Time Spent With Patient Time: Total time managing care of this patient today ____ minutes.
[2023-08-22 16:40] VITALS: BP 131/83; PULSE 80; RESP 18; TEMP 36.2; O2SAT 99
--- NOTE | 2023-08-22 17:43 | PC.NURSE ---
Approximately 1640- patient returned to floor s/p line placement procedure. Vital signs stable. Denies pain and shortness of breath. Patient remains on 2L supplemental O2 via NC. X-ray report confirms placement.
[2023-08-22 20:00] VITALS: BP 98/56; PULSE 82; RESP 14; TEMP 36.4; O2SAT 99
[2023-08-22 20:22] LABS: Calcium 8.3 mg/dL (8.4-10.2)
--- NOTE | 2023-08-22 22:12 | PC.NURSE ---
2129- patient returned to floor from dialysis. A&Ox4- mentation intact. Vitals signs: BP 98/56, HR 89, SpO2 of 99% on 2L via NC, temp 97.6, and RR 16. Patient denies pain and SOB. RR even and unlabored. Patient reports feeling tired. New weight obtained upon return to floor- 107.6kg. Dr. Jonathan Bruner notified of patient's vital signs and current status. Nighttime IV Lasix held per physician.
[2023-08-23] VITALS: BP 98/63; PULSE 80; RESP 16; TEMP 36.6; O2SAT 99
[2023-08-23] MEDS: 0.9 % Sodium Chloride Flush 3 ML SYRINGE IVFLUSH ×4 (00:12→23:30)
[2023-08-23 04:00] VITALS: BP 104/61; PULSE 75; RESP 16; TEMP 36.6; O2SAT 100
[2023-08-23 06:00] VITALS: BMI 39.8
[2023-08-23 06:12] LABS: MANUAL DIFF FLAG NO
[2023-08-23 06:32] LABS: Basophils Percent Auto 0.2 % (0-2); Eosinophils Absolute Auto 0.1 X10*3/uL (0.0-0.4); Eosinophils Percent Auto 0.7 % (0-4); Hematocrit 30.4 % (37.0-47.0); Hemoglobin 10.8 g/dl (12.0-16.0); Imm Gran Abs Auto 0.08 X10*3/uL (0.00-0.03); Imm Gran Pct Auto 0.6 % (0.0-0.4); Lymphocytes Percent Auto 8.2 % (20-40); Mean Corpuscular HGB Conc 35.5 g/dl (31.0-35.0); Mean Corpuscular Volume 90.2 fL (80.0-98.0); Mean Platelet Volume 9.2 fL (9.4-12.3); Monocytes Absolute Auto 1.3 X10*3/uL (0.1-1.2); Monocytes Percent Auto 10.6 % (2-11); Neutrophils Absolute Auto 10.1 x10*3/uL (2.0-8.3); Neutrophils Percent Auto 79.7 % (45-73); Platelet Count 134 X10*3/uL (160-400); Red Blood Count 3.37 X10*6/uL (4.20-5.50); Red Cell Distribution Width 11.6 % (11.0-16.0); White Blood Count 12.6 X10*3/uL (4.8-10.8)
--- NOTE | 2023-08-23 06:53 | PC.NURSE ---
patient transferred to dialysis aprox [id number]
[2023-08-23 07:00] LABS: Alanine Aminotransferase 737 U/L (0-31); Albumin Level 3.2 g/dL (3.5-5.0); Alkaline Phosphatase 137 U/L (39-117); Anion Gap 15 (12-20); Aspartate Amino Transferase 1092 U/L (5-31); Bilirubin Total 0.5 mg/dL (0.0-1.0); Blood Urea Nitrogen 32 mg/dL (9-16); Calcium 7.9 mg/dL (8.4-10.2); Carbon Dioxide 21 mmol/L (22-29); Chloride 96 mmol/L (96-108); Creatinine Clr Calc Pharmacy 17.9; Estimated Glomerular Filt Rate 10; Glucose Fasting 81 mg/dL (60-99); Potassium 4.3 mmol/L (3.3-5.1); Sodium 128 mmol/L (135-145); Total Protein 5.8 g/dL (6.5-8.0)
[2023-08-23 09:20] LABS: HBS Num1 5.66 mIU/mL (0-7.99); HBc Num1 0.11 S/CO (0.00-0.79); HBsAGNum1 1.58 S/CO (0.00-0.99); Hepatitis B Core Antibody Nonreactive (Nonreactive); ~Hepatitis B Surface Antibody NONREACTIVE (Nonreactive)
[2023-08-23 10:32] LABS: HBsAGNum2 Reactive; HBsAGNum3 Reactive; Hepatitis B Surface Antigen Retest CNFM (Negative)
[2023-08-23] MEDS: Pantoprazole Sodium 40 MG/10 ML VIAL IVPUSH (10:43)
[2023-08-23 12:00] VITALS: BP 113/72; PULSE 89; RESP 16; TEMP 36.9; O2SAT 96
[2023-08-23] MEDS: cefTRIAXone sodium 2 GM in 0.9 % Sodium Chloride 50 ML IV (12:27)
--- NOTE | 2023-08-23 12:29 | HO.PM.IMPN ---
Subjective Subjective Date of Service: 08/23/23 Interval History: Markedly improved after dialysis x2. No issues with same. Review of Systems Denies chest pain Admits to shortness of breath that have markedly improved since dialysis Denies nausea vomiting diarrhea Denies fever chills Physical Exam Vital Signs: Vital Signs: Last Vital Signs Temp 98.4 F 08/23/23 12:00 Pulse 89 08/23/23 12:00 Resp 16 08/23/23 12:00 BP 113/72 08/23/23 12:00 Pulse Ox 96 08/23/23 12:00 O2 Del Method Room Air 08/23/23 12:00 O2 Flow Rate 2 08/23/23 04:00 BMI result Body Mass Index 39.8 Const: Other: Awake alert lying comfortably in bed Resp: Other: Clear to auscultation bilaterally no rales rhonchi or wheezes Cardio: Other: No S4; positive S1-S2; no S3 murmurs rubs or gallops GI: Other: Soft minimally tender over site without rebound. Bowel sounds present Extrem: Other: No edema bilaterally Objective Data Active Medications Acetaminophen (Acetaminophen 325 Mg Tablet) 650 mg PO Q6H PRN PRN Reason: fever, pain Al Hydroxide/Mg Hydroxide (Magnesium Hydrox/Alum Hydrox 30 Ml Oral.Susp) 30 ml PO Q6H PRN PRN Reason: Heartburn Last Admin: 08/21/23 15:17 Dose: 30 ml Documented By: ABRAHAM Albuterol Sulfate (Albuterol Sulfate (0.083%) 2.5 Mg/3 Ml Vial.Neb) 2.5 mg INHALE ONCE PRN PRN Reason: Shortness of Breath/Wheezing Calcium Carbonate (Calcium Carbonate 500 Mg Tablet) 500 mg PO TID [facility] Last Admin: 08/23/23 10:43 Dose: 500 mg Documented By: MICHELLE Hydromorphone HCl (Hydromorphone Hcl 0.5 Mg/0.5 Ml Syringe) 0.5 mg IVPUSH Q4H PRN; Protocol PRN Reason: Pain, Severe (Pain Scale 7-10) Last Admin: 08/22/23 04:10 Dose: 0.5 mg Documented By: NASEEM Promethazine HCl 12.5 mg/ (Sodium Chloride) 50.5 mls @ 202 mls/hr IV Q6H PRN PRN Reason: Nausea and Vomiting Ceftriaxone Sodium 2 gm/ (Sodium Chloride) 50 mls @ 100 mls/hr IV Q24H [facility] Last Infusion: 08/22/23 14:38 Dose: Infused Documented By: ABRAHAM Ondansetron HCl (Ondansetron Odt 4 Mg Tab.Rapdis) 4 mg TRANSLINGU Q6H PRN PRN Reason: Nausea and Vomiting Last Admin: 08/18/23 17:32 Dose: 4 mg Documented By: BETTY Ondansetron HCl (Ondansetron Hcl 4 Mg/2 Ml Vial) 4 mg IVPUSH Q6H PRN PRN Reason: nausea Last Admin: 08/22/23 03:01 Dose: 4 mg Documented By: NASEEM Oxycodone HCl (Oxycodone Hcl Immed Release 5 Mg Tablet) 5 mg PO Q4H PRN PRN Reason: Pain, Moderate(Pain Scale 4-6) Last Admin: 08/22/23 02:56 Dose: 5 mg Documented By: NASEEM Oxycodone HCl (Oxycodone Hcl Immed Release 5 Mg Tablet) 10 mg PO Q4H PRN PRN Reason: Pain, Severe (Pain Scale 7-10) Last Admin: 08/21/23 00:46 Dose: 10 mg Documented By: MAHI Pantoprazole Sodium (Pantoprazole Sodium 40 Mg/10 Ml Vial) 40 mg IVPUSH DAILY@0630 [facility] Last Admin: 08/23/23 10:43 Dose: 40 mg Documented By: MICHELLE Sodium Chloride (0.9 % Sodium Chloride Flush 3 Ml Syringe) 3 ml IVFLUSH QSHIFT [facility] Last Admin: 08/23/23 10:43 Dose: 3 ml Documented By: MICHELLE Labs 08/23/23 06:06 08/23/23 06:06 Labs: Laboratory Results - last 24 hr 08/20/23 08/21/23 08/22/23 10:12 10:01 14:08 MCV MCH MCHC RDW Plt Count MPV Immature Gran % (Auto) Neut % (Auto) Lymph % (Auto) [place] % (Auto) Eos % (Auto) Baso % (Auto) Lymph # (Auto) [place] # (Auto) Eos # (Auto) Baso # (Auto) Abs Immat Gran (auto) Absolute Neuts (auto) Absolute Nucleated RBC Nucleated RBC % (auto) Anion Gap 18 Estim Creat Clear Calc 20.7 Estimated GFR 11 Random Glucose 99 Fasting Glucose Calcium 7.8 L D Ionized Calcium 3.9 L Total Bilirubin 0.5 AST 1910 H ALT 848 H Alkaline Phosphatase 94 Total Creatine Kinase 357505 H Total Protein 5.7 L Albumin 3.2 L Hep Bs Antigen Hep Bs Antibody Hep B Core Total Ab ALTAGRACIA, Polyspecific Positive ALTAGRACIA Work-up 08/22/23 08/23/23 08/23/23 20:06 06:06 08:25 MCV 90.2 MCH 32.0 MCHC 35.5 H RDW 11.6 Plt Count 134 L MPV 9.2 L Immature Gran % (Auto) 0.6 H Neut % (Auto) 79.7 H Lymph % (Auto) 8.2 L [place] % (Auto) 10.6 Eos % (Auto) 0.7 Baso % (Auto) 0.2 Lymph # (Auto) 1.0 L [place] # (Auto) 1.3 H Eos # (Auto) 0.1 Baso # (Auto) 0.0 Abs Immat Gran (auto) 0.08 H Absolute Neuts (auto) 10.1 H Absolute Nucleated RBC 0.000 Nucleated RBC % (auto) 0.0 Anion Gap 15 Estim Creat Clear Calc 17.9 Estimated GFR 10 Random Glucose Fasting Glucose 81 Calcium 8.3 L D 7.9 L Ionized Calcium Total Bilirubin 0.5 AST 1092 H ALT 737 H Alkaline Phosphatase 137 H Total Creatine Kinase 95328 H Total Protein 5.8 L Albumin 3.2 L Hep Bs Antigen Not Reportable Hep Bs Antibody NONREACTIVE Hep B Core Total Ab Nonreactive ALTAGRACIA, Polyspecific NEGATIVE Positive ALTAGRACIA Work-up [facility] Microbiology Microbiology Results: Microbiology 08/19/23 13:15 Blood Culture - Final Blood - Venous Escherichia coli 08/19/23 13:15 Blood Culture - Final Blood - Venous Escherichia coli Assessment and Plan (1) RAMON (acute kidney injury): Status: Acute (2) Rhabdomyolysis: Status: Acute (3) Bacteremia: Status: Acute Plan 33 year old female without any significant past medical history admitted to general surgery for management of acute appendicitis with consult placed to hospitalist service due to tachycardia. 1.RAMON w/rhabdo -CKs 36,000 today -clinically improve from respiratory and overall standpoint after dialysis -HD as per renal -follow renals/divalents/CPKs 2..Acute appendicitis with gangrene and sepsis.. -no acute issue postop -further plans as per surgery 3.GNR bacteremia.. E coli sensitive to ceftriaxone -Ceftriaxone 2 g IV daily started(3) -will discuss duration with Infectious Disease 4. Transaminitis -slightly improved; trending downward -follow daily LFTs Requires ongoing hospitalization for IV antibiotics to treat Gram-negative bacteremia along with urgent hemodialysis Quality Stroke Does the patient have a stroke diagnosis?: No VTE Prior VTE?: No VTE Risk Level:: Medical - low VTE Device Contraindication: N/A - Device Ordered VTE Drug Contraindication: Treatment Not Indicated
[2023-08-23 15:28] VITALS: BP 102/64; PULSE 86; RESP 18; TEMP 36.8; O2SAT 96
[2023-08-23 16:54] LABS: Myoglobin, Quant. Random Urine >8750 mcg/L (<28)
[2023-08-23 19:39] VITALS: BP 109/66; PULSE 86; RESP 14; TEMP 37; O2SAT 95
[2023-08-23] MEDS: Acetaminophen 325 MG TABLET 650 MG PO (21:06)
[2023-08-23 23:20] VITALS: BP 99/61; PULSE 85; RESP 16; TEMP 36.6; O2SAT 94
[2023-08-24] VITALS (7 sets, daily range): BP systolic 109–140; BP diastolic 72–86; PULSE 66–78; RESP 14–18; TEMP 36.1–36.7; O2SAT 96–98; BMI 39.9
[2023-08-24] MEDS: Acetaminophen 325 MG TABLET 650 MG PO ×3 (04:09→20:32)
[2023-08-24] MEDS: Pantoprazole Sodium 40 MG/10 ML VIAL IVPUSH (06:27)
--- NOTE | 2023-08-24 06:31 | PC.NURSE ---
Patient passing gas and BM this morning, steady slow gait to bathroom with standby assistance only. Patient states her belly feels much better this morning. Steri strips intact. Patient using ice and tylenol for adequate pain control. VSS. [place] tinged urine in peace this morning, patient states that has been happening on and off.
[2023-08-24 06:36] LABS: Alanine Aminotransferase 573 U/L (0-31); Alkaline Phosphatase 120 U/L (39-117); Anion Gap 14 (12-20); Aspartate Amino Transferase 592 U/L (5-31); Bilirubin Total 0.4 mg/dL (0.0-1.0); Blood Urea Nitrogen 28 mg/dL (9-16); Calcium 8.2 mg/dL (8.4-10.2); Carbon Dioxide 23 mmol/L (22-29); Chloride 96 mmol/L (96-108); Creatinine Clr Calc Pharmacy 17.7; Estimated Glomerular Filt Rate 10; Glucose Fasting 82 mg/dL (60-99); Potassium 3.8 mmol/L (3.3-5.1); Sodium 129 mmol/L (135-145); Total Protein 5.6 g/dL (6.5-8.0)
[2023-08-24] MEDS: 0.9 % Sodium Chloride Flush 3 ML SYRINGE IVFLUSH ×2 (08:53→16:44)
[2023-08-24] MEDS: cefTRIAXone sodium 2 GM in 0.9 % Sodium Chloride 50 ML IV (12:12)
--- NOTE | 2023-08-24 13:07 | HO.PM.IMPN ---
Subjective Subjective Date of Service: 08/24/23 Interval History: Markedly improved with dialysis. Making small amounts of urine that is red tinged Review of Systems Denies chest pain Admits to shortness of breath that have markedly improved since dialysis Denies nausea vomiting diarrhea Denies fever chills Physical Exam Vital Signs: Vital Signs: Last Vital Signs Temp 97.2 F 08/24/23 07:33 Pulse 71 08/24/23 07:33 Resp 14 08/24/23 07:33 BP 118/83 08/24/23 07:33 Pulse Ox 96 08/24/23 07:33 O2 Del Method Room Air 08/24/23 07:33 O2 Flow Rate 94 08/23/23 23:20 BMI result Body Mass Index 39.9 Const: Other: Awake alert lying comfortably in bed Resp: Other: Clear to auscultation bilaterally no rales rhonchi or wheezes Cardio: Other: No S4; positive S1-S2; no S3 murmurs rubs or gallops GI: Other: Soft minimally tender over site without rebound. Bowel sounds present Extrem: Other: No edema bilaterally Objective Data Active Medications Acetaminophen (Acetaminophen 325 Mg Tablet) 650 mg PO Q6H PRN PRN Reason: fever, pain Last Admin: 08/24/23 04:09 Dose: 650 mg Documented By: PRIYANK Al Hydroxide/Mg Hydroxide (Magnesium Hydrox/Alum Hydrox 30 Ml Oral.Susp) 30 ml PO Q6H PRN PRN Reason: Heartburn Last Admin: 08/21/23 15:17 Dose: 30 ml Documented By: ABRAHAM Albuterol Sulfate (Albuterol Sulfate (0.083%) 2.5 Mg/3 Ml Vial.Neb) 2.5 mg INHALE ONCE PRN PRN Reason: Shortness of Breath/Wheezing Calcium Carbonate (Calcium Carbonate 500 Mg Tablet) 500 mg PO TID [facility] Last Admin: 08/24/23 08:52 Dose: 500 mg Documented By: MICHELLE Hydromorphone HCl (Hydromorphone Hcl 0.5 Mg/0.5 Ml Syringe) 0.5 mg IVPUSH Q4H PRN; Protocol PRN Reason: Pain, Severe (Pain Scale 7-10) Last Admin: 08/22/23 04:10 Dose: 0.5 mg Documented By: NASEEM Promethazine HCl 12.5 mg/ (Sodium Chloride) 50.5 mls @ 202 mls/hr IV Q6H PRN PRN Reason: Nausea and Vomiting Ceftriaxone Sodium 2 gm/ (Sodium Chloride) 50 mls @ 100 mls/hr IV Q24H [facility] Last Admin: 08/24/23 12:12 Dose: 100 mls/hr Documented By: MICHELLE Ondansetron HCl (Ondansetron Odt 4 Mg Tab.Rapdis) 4 mg TRANSLINGU Q6H PRN PRN Reason: Nausea and Vomiting Last Admin: 08/18/23 17:32 Dose: 4 mg Documented By: BETTY Ondansetron HCl (Ondansetron Hcl 4 Mg/2 Ml Vial) 4 mg IVPUSH Q6H PRN PRN Reason: nausea Last Admin: 08/22/23 03:01 Dose: 4 mg Documented By: NASEEM Pantoprazole Sodium (Pantoprazole Sodium 40 Mg/10 Ml Vial) 40 mg IVPUSH DAILY@0630 [facility] Last Admin: 08/24/23 06:27 Dose: 40 mg Documented By: PRIYANK Sodium Chloride (0.9 % Sodium Chloride Flush 3 Ml Syringe) 3 ml IVFLUSH QSHIFT [facility] Last Admin: 08/24/23 08:53 Dose: 3 ml Documented By: MICHELLE Labs 08/23/23 06:06 08/24/23 05:33 Labs: Laboratory Results - last 24 hr 08/20/23 08/24/23 01:54 05:33 Hold Purple Top SEE NOTE Anion Gap 14 Estim Creat Clear Calc 17.7 Estimated GFR 10 Fasting Glucose 82 Calcium 8.2 L Total Bilirubin 0.4 AST 592 H ALT 573 H Alkaline Phosphatase 120 H Total Creatine Kinase 70642 H Total Protein 5.6 L Albumin 3.0 L Ur Myoglobin, Quant >8750 H Microbiology Microbiology Results: Microbiology 08/18/23 19:44 Blood Culture - Final Blood - Venous No growth after 5 days. Assessment and Plan (1) RAMON (acute kidney injury): Status: Acute (2) Rhabdomyolysis: Status: Acute (3) Bacteremia: Status: Acute Plan 33 year old female without any significant past medical history admitted to general surgery for management of acute appendicitis with consult placed to hospitalist service due to tachycardia. 1.RAMON w/rhabdo -CKs 47094 today -clinically improve from respiratory and overall standpoint after dialysis -HD as per renal.. Creatinine slowly rising -follow renals/divalents/CPKs 2..Acute appendicitis with gangrene and sepsis.. -no acute issue postop -further plans as per surgery 3.GNR bacteremia.. E coli sensitive to ceftriaxone -Ceftriaxone 2 g IV daily started(4) -will discuss duration with Infectious Disease 4. Transaminitis -markedly improved; trending downward -follow daily LFTs Requires ongoing hospitalization for IV antibiotics to treat Gram-negative bacteremia along with urgent hemodialysis Quality Stroke Does the patient have a stroke diagnosis?: No VTE Prior VTE?: No VTE Risk Level:: Medical - low VTE Device Contraindication: N/A - Device Ordered VTE Drug Contraindication: Treatment Not Indicated
--- NOTE | 2023-08-24 16:48 | PC.NURSE ---
Dialysis cath 3 ports intact Right neck,drsg CDI,no redness swelling or crepitus noted.
[2023-08-25] MEDS: 0.9 % Sodium Chloride Flush 3 ML SYRINGE IVFLUSH ×4 (00:22→20:11)
[2023-08-25 03:45] VITALS: BP 142/85; PULSE 72; RESP 16; TEMP 36.2; O2SAT 98
[2023-08-25] MEDS: Acetaminophen 325 MG TABLET 650 MG PO ×2 (04:15→17:43)
[2023-08-25 06:21] LABS: Alanine Aminotransferase 505 U/L (0-31); Albumin Level 2.9 g/dL (3.5-5.0); Alkaline Phosphatase 98 U/L (39-117); Anion Gap 18 (12-20); Aspartate Amino Transferase 479 U/L (5-31); Bilirubin Total 0.3 mg/dL (0.0-1.0); Blood Urea Nitrogen 40 mg/dL (9-16); Calcium 8.3 mg/dL (8.4-10.2); Carbon Dioxide 23 mmol/L (22-29); Chloride 91 mmol/L (96-108); Creatinine Clr Calc Pharmacy 14.1; Estimated Glomerular Filt Rate 7; Glucose Fasting 71 mg/dL (60-99); Potassium 3.6 mmol/L (3.3-5.1); Sodium 128 mmol/L (135-145); Total Protein 5.6 g/dL (6.5-8.0)
[2023-08-25 07:44] VITALS: BP 124/68; PULSE 63; RESP 14; TEMP 36.2; O2SAT 98
--- NOTE | 2023-08-25 08:01 | P.PNGS_ITS ---
Subjective Subjective Date of Service: 08/26/23 Interval history: says she feels well today good GI function dialysis done Fri/Sat Physical Exam 2 Vital Signs: Vital Signs: Last Vital Signs Temp 97.1 F 08/25/23 07:44 Pulse 63 08/25/23 07:44 Resp 14 08/25/23 07:44 BP 124/68 08/25/23 07:44 Pulse Ox 98 08/25/23 07:44 O2 Del Method Room Air 08/25/23 07:44 O2 Flow Rate 1 08/25/23 03:45 BMI result Body Mass Index 39.9 Const: General: comfortable and no acute distress GI: Palpation (GI): Soft to palpation, not firm and no guarding Objective Data Active Medications Acetaminophen (Acetaminophen 325 Mg Tablet) 650 mg PO Q6H PRN PRN Reason: fever, pain Last Admin: 08/25/23 04:15 Dose: 650 mg Documented By: WILL Al Hydroxide/Mg Hydroxide (Magnesium Hydrox/Alum Hydrox 30 Ml Oral.Susp) 30 ml PO Q6H PRN PRN Reason: Heartburn Last Admin: 08/21/23 15:17 Dose: 30 ml Documented By: ABRAHAM Albuterol Sulfate (Albuterol Sulfate (0.083%) 2.5 Mg/3 Ml Vial.Neb) 2.5 mg INHALE ONCE PRN PRN Reason: Shortness of Breath/Wheezing Calcium Carbonate (Calcium Carbonate 500 Mg Tablet) 500 mg PO TID [facility] Last Admin: 08/25/23 07:59 Dose: 500 mg Documented By: JORGE LUIS Hydromorphone HCl (Hydromorphone Hcl 0.5 Mg/0.5 Ml Syringe) 0.5 mg IVPUSH Q4H PRN; Protocol PRN Reason: Pain, Severe (Pain Scale 7-10) Last Admin: 08/22/23 04:10 Dose: 0.5 mg Documented By: NASEEM Promethazine HCl 12.5 mg/ (Sodium Chloride) 50.5 mls @ 202 mls/hr IV Q6H PRN PRN Reason: Nausea and Vomiting Ceftriaxone Sodium 2 gm/ (Sodium Chloride) 50 mls @ 100 mls/hr IV Q24H [facility] Last Infusion: 08/24/23 13:11 Dose: Infused Documented By: MICHELLE Ondansetron HCl (Ondansetron Odt 4 Mg Tab.Rapdis) 4 mg TRANSLINGU Q6H PRN PRN Reason: Nausea and Vomiting Last Admin: 08/18/23 17:32 Dose: 4 mg Documented By: BETTY Ondansetron HCl (Ondansetron Hcl 4 Mg/2 Ml Vial) 4 mg IVPUSH Q6H PRN PRN Reason: nausea Last Admin: 08/22/23 03:01 Dose: 4 mg Documented By: NASEEM Sodium Chloride (0.9 % Sodium Chloride Flush 3 Ml Syringe) 3 ml IVFLUSH QSHIFT [facility] Last Admin: 08/25/23 07:58 Dose: 3 ml Documented By: SERAFINIC Labs 08/26/23 07:21 08/26/23 07:21 Labs: Laboratory Results - last 24 hr 08/25/23 04:24 Anion Gap 18 Estim Creat Clear Calc 14.1 Estimated GFR 7 Fasting Glucose 71 Calcium 8.3 L Total Bilirubin 0.3 AST 479 H ALT 505 H Alkaline Phosphatase 98 Total Protein 5.6 L Albumin 2.9 L Procedures Date of Service Date of Service: 08/26/23 Progress Note: A&P Assessment and plan (1) Rhabdomyolysis: Status: Acute Assessment and Plan: s/p lap chol CK still markedly elevated but trending down transaminases better creatinine still elevated Renal service following massive rhabdomyolysis after surgery unusual hopefully, she will recover kidney function Time Spent With Patient Time: Total time managing care of this patient today ____ minutes. Quality Stroke Does the patient have a stroke diagnosis?: No VTE Prior VTE?: No VTE Risk Level:: Medical - low VTE Device Contraindication: N/A - Device Ordered VTE Drug Contraindication: Treatment Not Indicated
--- NOTE | 2023-08-25 10:49 | P.PNIM_ITS ---
Subjective Subjective Date of Service: 08/25/23 Interval History: minimal abd pain no fever in HD today 200 mL urine yesterday, so far 150 mL today Review of Systems Review of Systems: Yes all other systems are reviewed and are negative Physical Exam 2 Vital Signs: Vital Signs: Last Vital Signs Temp 97.1 F 08/25/23 07:44 Pulse 63 08/25/23 07:44 Resp 14 08/25/23 07:44 BP 124/68 08/25/23 07:44 Pulse Ox 98 08/25/23 07:44 O2 Del Method Room Air 08/25/23 07:44 O2 Flow Rate 1 08/25/23 03:45 BMI result Body Mass Index 39.9 Gen: in no acute distress HEENT: sclera anicteric, moist mucus membranes Neck: supple, RIJ HD catheter Lungs: clear to auscultation bilaterally Heart: regular rate and rhythm, no murmurs Abd: soft, non-tender, non-distended, incisions C/D/I Ext: no edema Skin: warm/well-perfused Neuro: alert and oriented x3, no focal findings Psych: appropriate affect Objective Data Active Medications Acetaminophen (Acetaminophen 325 Mg Tablet) 650 mg PO Q6H PRN PRN Reason: fever, pain Last Admin: 08/25/23 04:15 Dose: 650 mg Documented By: WILL Al Hydroxide/Mg Hydroxide (Magnesium Hydrox/Alum Hydrox 30 Ml Oral.Susp) 30 ml PO Q6H PRN PRN Reason: Heartburn Last Admin: 08/21/23 15:17 Dose: 30 ml Documented By: ABRAHAM Albuterol Sulfate (Albuterol Sulfate (0.083%) 2.5 Mg/3 Ml Vial.Neb) 2.5 mg INHALE ONCE PRN PRN Reason: Shortness of Breath/Wheezing Calcium Carbonate (Calcium Carbonate 500 Mg Tablet) 500 mg PO TID [facility] Last Admin: 08/25/23 07:59 Dose: 500 mg Documented By: JORGE LUIS Hydromorphone HCl (Hydromorphone Hcl 0.5 Mg/0.5 Ml Syringe) 0.5 mg IVPUSH Q4H PRN; Protocol PRN Reason: Pain, Severe (Pain Scale 7-10) Last Admin: 08/22/23 04:10 Dose: 0.5 mg Documented By: NASEEM Promethazine HCl 12.5 mg/ (Sodium Chloride) 50.5 mls @ 202 mls/hr IV Q6H PRN PRN Reason: Nausea and Vomiting Ceftriaxone Sodium 2 gm/ (Sodium Chloride) 50 mls @ 100 mls/hr IV Q24H [facility] Last Infusion: 08/24/23 13:11 Dose: Infused Documented By: MICHELLE Ondansetron HCl (Ondansetron Odt 4 Mg Tab.Rapdis) 4 mg TRANSLINGU Q6H PRN PRN Reason: Nausea and Vomiting Last Admin: 08/18/23 17:32 Dose: 4 mg Documented By: BETTY Ondansetron HCl (Ondansetron Hcl 4 Mg/2 Ml Vial) 4 mg IVPUSH Q6H PRN PRN Reason: nausea Last Admin: 08/22/23 03:01 Dose: 4 mg Documented By: NASEEM Sodium Chloride (0.9 % Sodium Chloride Flush 3 Ml Syringe) 3 ml IVFLUSH QSHIFT [facility] Last Admin: 08/25/23 07:58 Dose: 3 ml Documented By: JORGE LUIS Labs 08/23/23 06:06 08/25/23 04:24 Labs: Laboratory Results - last 24 hr 08/25/23 04:24 Anion Gap 18 Estim Creat Clear Calc 14.1 Estimated GFR 7 Fasting Glucose 71 Calcium 8.3 L Total Bilirubin 0.3 AST 479 H ALT 505 H Alkaline Phosphatase 98 Total Creatine Kinase 18651 H Total Protein 5.6 L Albumin 2.9 L Assessment and Plan (1) RAMON (acute kidney injury): Status: Acute (2) Rhabdomyolysis: Status: Acute (3) Bacteremia: Status: Acute Plan d7 33yo F with no chronic conditions admitted to General Surgery for sepsis due to acute gangrenous appendicitis. Postop course complicated by severe rhabdomyolysis with RAMON requiring HD RAMON due to septic ATN + rhabdomyolysis - HD today, monitor renal function daily, Nephrology following - CPK improving acute gangrenous appendicitis - POD6, Surgery following E coli bacteremia - resistant to amp, gent, and [id number] - ceftriaxone 08/21-09/04, per ID complete course with cefuroxime upon discharge home hypoCa - repleting transaminasemia - suspect cross-reactivity with skeletal muscle from rhabdomyolysis, LFTs improving hx HBV - HBsAg + DNA pending VTE ppx - SCDs dispo - eventual home In my clinical judgment, the patient requires continued inpatient hospitalization for the following reasons: RAMON requiring HD Total time managing care of this patient today: 40 minutes. Quality Stroke Does the patient have a stroke diagnosis?: No VTE Prior VTE?: No VTE Risk Level:: Medical - low VTE Device Contraindication: N/A - Device Ordered VTE Drug Contraindication: Treatment Not Indicated
--- NOTE | 2023-08-25 12:40 | MHC.CM.PN ---
EMR REVIEWED AND PER MD ROUNDS, PT IS NOT MEDICALLY CLEARED FOR DC (CONTINUES TO REQUIRE HD, CLOSE LAB MONITORING) CM WILL CONTINUE TO FOLLOW FOR ANY CHANGES TO DC NEEDS/PLAN.
[2023-08-25] MEDS: cefTRIAXone sodium 2 GM in 0.9 % Sodium Chloride 50 ML IV (13:42)
[2023-08-25 15:13] VITALS: BP 125/73; PULSE 82; RESP 18; TEMP 36.3; O2SAT 100
[2023-08-25 19:59] VITALS: BP 119/67; PULSE 79; RESP 16; TEMP 36; O2SAT 97
--- NOTE | 2023-08-25 20:13 | W.PM.DNNEP ---
Subjective Subjective This patient was seen during dialysis. Interval history: Events noted Feeling better today UO has slightly increased Physical Exam Vital Signs: Vital Signs: Last Vital Signs Temp 96.8 F 08/25/23 19:59 Pulse 79 08/25/23 19:59 Resp 16 08/25/23 19:59 BP 119/67 08/25/23 19:59 Pulse Ox 97 08/25/23 19:59 O2 Del Method Room Air 08/25/23 19:59 O2 Flow Rate 1 08/25/23 03:45 BMI result Body Mass Index 39.9 Const: Other: Short of breath; Edematous General: anxious Orientation/consciousness: patient oriented x3 Eyes: EOM: EOMs intact bilaterally Resp: Auscultation: diminished lung sounds Cardio: Rate: regular rate GI: Palpation (GI): Soft to palpation Neuro: General: patient oriented x3 and moves all extremities Extrem: Other: thigh edema, LE edema Assessment & Plan Assessment and plan (1) RAMON (acute kidney injury): Status: Acute Plan Acute Kidney injury due to multifactorial tubular injury 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 Procedures Date of Service Date of Service: 08/25/23
[2023-08-25 23:42] VITALS: BP 134/80; PULSE 78; RESP 18; TEMP 36.6; O2SAT 96
[2023-08-25] MEDS: HYDROmorphone HCl 0.5 MG/0.5 ML SYRINGE IVPUSH (23:51)
[2023-08-26] VITALS (8 sets, daily range): BP systolic 137–148; BP diastolic 65–88; PULSE 64–80; RESP 16–18; TEMP 36.1–37.1; O2SAT 98–100
[2023-08-26 05:06] LABS: Appearance Urine Turbid; Color Urine Yellow; Glucose Urine UA Negative (Negative); Leukocyte Esterase Urine Large (3+) (Negative); Nitrite Urine Negative (Negative); UMIC TRIGGER UA YES; Urine Blood Large (3+) (Negative); Urine Ketones Negative (Negative); Urine Protein 300 (3+) mg/dL (Neg-Trace)
[2023-08-26 05:16] LABS: Bacteria Urine 1+ (None Seen); RBC Urine >20 /HPF (0-2); WBC Urine >50 /HPF (0-5)
[2023-08-26 05:17] LABS: Total Protein Urine Random 395 mg/dL (<12)
[2023-08-26 07:43] LABS: Hematocrit 29.1 % (37.0-47.0); Hemoglobin 10.4 g/dl (12.0-16.0); Mean Corpuscular HGB Conc 35.7 g/dl (31.0-35.0); Mean Corpuscular Hemoglobin 31.5 pg (27.0-33.0); Mean Corpuscular Volume 88.2 fL (80.0-98.0); Platelet Count 217 X10*3/uL (160-400); Red Cell Distribution Width 11.4 % (11.0-16.0); White Blood Count 11.3 X10*3/uL (4.8-10.8)
[2023-08-26 08:11] LABS: Alanine Aminotransferase 438 U/L (0-31); Albumin Level 3.2 g/dL (3.5-5.0); Alkaline Phosphatase 90 U/L (39-117); Anion Gap 14 (12-20); Aspartate Amino Transferase 366 U/L (5-31); Bilirubin Total 0.3 mg/dL (0.0-1.0); Blood Urea Nitrogen 25 mg/dL (9-16); Calcium 8.6 mg/dL (8.4-10.2); Carbon Dioxide 20 mmol/L (22-29); Chloride 97 mmol/L (96-108); Creatinine Clr Calc Pharmacy 19.5; Estimated Glomerular Filt Rate 11; Glucose Random 95 mg/dL (60-115); Potassium 3.7 mmol/L (3.3-5.1); Sodium 127 mmol/L (135-145)
[2023-08-26 09:02] LABS: HBsAG NON-REACTIVE
[2023-08-26] MEDS: 0.9 % Sodium Chloride Flush 3 ML SYRINGE IVFLUSH ×3 (09:25→19:49)
--- NOTE | 2023-08-26 10:39 | HO.PM.IMPN ---
Subjective Subjective Date of Service: 08/26/23 Interval History: no pain or dyspnea legs slightly swollen Review of Systems Review of Systems: Yes all other systems are reviewed and are negative Physical Exam Vital Signs: Vital Signs: Last Vital Signs Temp 97.0 F 08/26/23 07:58 Pulse 72 08/26/23 07:58 Resp 18 08/26/23 07:58 BP 137/70 08/26/23 07:58 Pulse Ox 99 08/26/23 07:58 O2 Del Method Room Air 08/26/23 07:58 O2 Flow Rate 1 08/25/23 03:45 BMI result Body Mass Index 39.9 Gen: in no acute distress HEENT: sclera anicteric, moist mucus membranes Neck: supple, RIJ HD catheter Lungs: clear to auscultation bilaterally Heart: regular rate and rhythm, no murmurs Abd: soft, non-tender, non-distended, incisions C/D/I Ext: 1+ bilateral leg edema Skin: warm/well-perfused Neuro: alert and oriented x3, no focal findings Psych: appropriate affect Objective Data Active Medications Acetaminophen (Acetaminophen 325 Mg Tablet) 650 mg PO Q6H PRN PRN Reason: fever, pain Last Admin: 08/25/23 17:43 Dose: 650 mg Documented By: JORGE LUIS Al Hydroxide/Mg Hydroxide (Magnesium Hydrox/Alum Hydrox 30 Ml Oral.Susp) 30 ml PO Q6H PRN PRN Reason: Heartburn Last Admin: 08/21/23 15:17 Dose: 30 ml Documented By: ABRAHAM Calcium Carbonate (Calcium Carbonate 500 Mg Tablet) 500 mg PO TID [facility] Last Admin: 08/26/23 09:25 Dose: 500 mg Documented By: MARILY Hydromorphone HCl (Hydromorphone Hcl 0.5 Mg/0.5 Ml Syringe) 0.5 mg IVPUSH Q4H PRN; Protocol PRN Reason: Pain, Severe (Pain Scale 7-10) Last Admin: 08/25/23 23:51 Dose: 0.5 mg Documented By: WILL Promethazine HCl 12.5 mg/ (Sodium Chloride) 50.5 mls @ 202 mls/hr IV Q6H PRN PRN Reason: Nausea and Vomiting Ceftriaxone Sodium 2 gm/ (Sodium Chloride) 50 mls @ 100 mls/hr IV Q24H [facility] Last Infusion: 08/25/23 14:16 Dose: Infused Documented By: JORGE LUIS Ondansetron HCl (Ondansetron Odt 4 Mg Tab.Rapdis) 4 mg TRANSLINGU Q6H PRN PRN Reason: Nausea and Vomiting Last Admin: 08/18/23 17:32 Dose: 4 mg Documented By: BETTY Ondansetron HCl (Ondansetron Hcl 4 Mg/2 Ml Vial) 4 mg IVPUSH Q6H PRN PRN Reason: nausea Last Admin: 08/22/23 03:01 Dose: 4 mg Documented By: NASEEM Sodium Chloride (0.9 % Sodium Chloride Flush 3 Ml Syringe) 3 ml IVFLUSH QSHIFT [facility] Last Admin: 08/26/23 09:25 Dose: 3 ml Documented By: MARILY Labs 08/26/23 07:21 08/26/23 07:21 Labs: Laboratory Results - last 24 hr 08/23/23 08/26/23 08/26/23 08:25 04:30 07:21 MCV 88.2 MCH 31.5 MCHC 35.7 H RDW 11.4 Plt Count 217 D MPV 9.0 L Absolute Nucleated RBC 0.000 Nucleated RBC % (auto) 0.0 Anion Gap 14 Estim Creat Clear Calc 19.5 Estimated GFR 11 Random Glucose 95 Calcium 8.6 Total Bilirubin 0.3 AST 366 H ALT 438 H Alkaline Phosphatase 90 Total Creatine Kinase 8409 H Total Protein 6.0 L Albumin 3.2 L Urine Color Yellow Urine Appearance Turbid Urine pH 7.0 Ur Specific [place] 1.010 Urine Protein 300 (3+) H Urine Glucose (UA) Negative Urine Ketones Negative Urine Blood Large (3+) H Urine Nitrite Negative Ur Leukocyte Esterase Large (3+) H Urine RBC >20 H Urine WBC >50 H Ur Squamous Epith Cells 11-20 Urine Bacteria 1+ Hyaline Casts 3-5 U Random Total Protein 395 H Urine Creatinine 43.00 Hep Bs Antigen NON-REACTIVE Hep Bs Ag Confirmation TNP Assessment and Plan (1) RAMON (acute kidney injury): Status: Acute (2) Rhabdomyolysis: Status: Acute (3) Bacteremia: Status: Acute Plan d8 33yo F with no chronic conditions admitted to General Surgery for sepsis due to acute gangrenous appendicitis. Postop course complicated by severe rhabdomyolysis with RAMON requiring HD RAMON due to septic ATN + rhabdomyolysis - HD yesterday, monitor renal function daily, Nephrology following. Likely HD tomorrow. If HD needs persists, would need Permacath. - CPK improving. Unclear cause of rhabdomyolysis- general anesthesia??? acute gangrenous appendicitis - POD7, Surgery following E coli bacteremia - resistant to amp, gent, and TMP-SMX - ceftriaxone 08/21-09/04, per ID complete course with cefuroxime upon discharge home hypoCa - repleting transaminasemia - suspect cross-reactivity with skeletal muscle from rhabdomyolysis, LFTs improving hx HBV - HBsAg now negative VTE ppx - SCDs dispo - eventual home In my clinical judgment, the patient requires continued inpatient hospitalization for the following reasons: RAMON requiring HD Total time managing care of this patient today: 35 minutes. Quality Stroke Does the patient have a stroke diagnosis?: No VTE Prior VTE?: No VTE Risk Level:: Medical - low VTE Device Contraindication: N/A - Device Ordered VTE Drug Contraindication: Treatment Not Indicated
--- NOTE | 2023-08-26 10:56 | P.PNGS_ITS ---
Subjective Subjective Date of Service: 08/26/23 Interval history: states she feels ok tolerating diet sitting on recliner Physical Exam 2 Vital Signs: Vital Signs: Last Vital Signs Temp 97.0 F 08/26/23 07:58 Pulse 72 08/26/23 07:58 Resp 18 08/26/23 07:58 BP 137/70 08/26/23 07:58 Pulse Ox 99 08/26/23 07:58 O2 Del Method Room Air 08/26/23 07:58 O2 Flow Rate 1 08/25/23 03:45 BMI result Body Mass Index 39.9 Const: Other: appears comfortable General: no acute distress Resp: Effort & Inspection: normal respiratory effort Cardio: Rate: regular rate GI: Palpation (GI): Soft to palpation and not firm Objective Data Active Medications Acetaminophen (Acetaminophen 325 Mg Tablet) 650 mg PO Q6H PRN PRN Reason: fever, pain Last Admin: 08/25/23 17:43 Dose: 650 mg Documented By: JORGE LUIS Al Hydroxide/Mg Hydroxide (Magnesium Hydrox/Alum Hydrox 30 Ml Oral.Susp) 30 ml PO Q6H PRN PRN Reason: Heartburn Last Admin: 08/21/23 15:17 Dose: 30 ml Documented By: ABRAHAM Calcium Carbonate (Calcium Carbonate 500 Mg Tablet) 500 mg PO TID [facility] Last Admin: 08/26/23 09:25 Dose: 500 mg Documented By: MARILY Hydromorphone HCl (Hydromorphone Hcl 0.5 Mg/0.5 Ml Syringe) 0.5 mg IVPUSH Q4H PRN; Protocol PRN Reason: Pain, Severe (Pain Scale 7-10) Last Admin: 08/25/23 23:51 Dose: 0.5 mg Documented By: ODRISM Promethazine HCl 12.5 mg/ (Sodium Chloride) 50.5 mls @ 202 mls/hr IV Q6H PRN PRN Reason: Nausea and Vomiting Ceftriaxone Sodium 2 gm/ (Sodium Chloride) 50 mls @ 100 mls/hr IV Q24H [facility] Last Infusion: 08/25/23 14:16 Dose: Infused Documented By: JORGE LUIS Ondansetron HCl (Ondansetron Odt 4 Mg Tab.Rapdis) 4 mg TRANSLINGU Q6H PRN PRN Reason: Nausea and Vomiting Last Admin: 08/18/23 17:32 Dose: 4 mg Documented By: BETTY Ondansetron HCl (Ondansetron Hcl 4 Mg/2 Ml Vial) 4 mg IVPUSH Q6H PRN PRN Reason: nausea Last Admin: 08/22/23 03:01 Dose: 4 mg Documented By: NASEEM Sodium Chloride (0.9 % Sodium Chloride Flush 3 Ml Syringe) 3 ml IVFLUSH QSHIFT [facility] Last Admin: 08/26/23 09:25 Dose: 3 ml Documented By: MARILY Labs 08/26/23 07:21 08/26/23 07:21 Labs: Laboratory Results - last 24 hr 08/23/23 08/26/23 08/26/23 08:25 04:30 07:21 MCV 88.2 MCH 31.5 MCHC 35.7 H RDW 11.4 Plt Count 217 D MPV 9.0 L Absolute Nucleated RBC 0.000 Nucleated RBC % (auto) 0.0 Anion Gap 14 Estim Creat Clear Calc 19.5 Estimated GFR 11 Random Glucose 95 Calcium 8.6 Total Bilirubin 0.3 AST 366 H ALT 438 H Alkaline Phosphatase 90 Total Creatine Kinase 8409 H Total Protein 6.0 L Albumin 3.2 L Urine Color Yellow Urine Appearance Turbid Urine pH 7.0 Ur Specific [place] 1.010 Urine Protein 300 (3+) H Urine Glucose (UA) Negative Urine Ketones Negative Urine Blood Large (3+) H Urine Nitrite Negative Ur Leukocyte Esterase Large (3+) H Urine RBC >20 H Urine WBC >50 H Ur Squamous Epith Cells 11-20 Urine Bacteria 1+ Hyaline Casts 3-5 U Random Total Protein 395 H Urine Creatinine 43.00 Hep Bs Antigen NON-REACTIVE Hep Bs Ag Confirmation TNP Procedures Date of Service Date of Service: 08/26/23 Progress Note: A&P Assessment and plan (1) Rhabdomyolysis: Status: Acute Assessment and Plan: s/p lap appy with severe postop rhabdomyolysis, acute renal failure and elevated transaminases looks comfortable clinically looks well abd soft creatinine down CK much lower appreciate Renal, Hospitalist ffup Time Spent With Patient Time: Total time managing care of this patient today ____ minutes. Quality Stroke Does the patient have a stroke diagnosis?: No VTE Prior VTE?: No VTE Risk Level:: Medical - low VTE Device Contraindication: N/A - Device Ordered VTE Drug Contraindication: Treatment Not Indicated
--- NOTE | 2023-08-26 12:29 | PM.PNNEP ---
Subjective Subjective Date of Service: 08/26/23 Interval history: Seen this morning. no pain or dyspnea;legs slightly swollen; All recent data reviewed Physical Exam Vital Signs: Vital Signs: Last Vital Signs Temp 97.2 F 08/26/23 11:52 Pulse 64 08/26/23 11:52 Resp 18 08/26/23 11:52 BP 148/86 H 08/26/23 11:52 Pulse Ox 99 08/26/23 11:52 O2 Del Method Room Air 08/26/23 11:52 O2 Flow Rate 1 08/25/23 03:45 BMI result Body Mass Index 39.9 Const: General: comfortable and no acute distress Orientation/consciousness: patient oriented x3 HEENT: Head: Yes normocephalic Mouth: Normal oral and palatal mucosa present Eyes: EOM: EOMs intact bilaterally Neck: Neck: Yes supple Resp: Auscultation: clear to auscultation bilaterally Cardio: Jugular venous distension: no JVD Rate: regular rate GI: Palpation (GI): Soft to palpation Auscultation: normal bowel sounds : General: Yes no CVA tenderness Back/Spine/Pelvis: Back: no CVA tenderness Skin: General skin exam: no rashes or lesions noted Neuro: General: patient oriented x3 and moves all extremities Extrem: General: Yes edema Objective Data Labs 08/26/23 07:21 08/26/23 07:21 Labs: Laboratory Results - last 24 hr 08/23/23 08/26/23 08/26/23 08:25 04:30 07:21 WBC 11.3 H RBC 3.30 L Hgb 10.4 L Hct 29.1 L MCV 88.2 MCH 31.5 MCHC 35.7 H RDW 11.4 Plt Count 217 D MPV 9.0 L Absolute Nucleated RBC 0.000 Nucleated RBC % (auto) 0.0 Sodium 127 L Potassium 3.7 Chloride 97 Carbon Dioxide 20 L Anion Gap 14 BUN 25 H Creatinine 4.73 H* Estim Creat Clear Calc 19.5 Estimated GFR 11 Random Glucose 95 Calcium 8.6 Total Bilirubin 0.3 AST 366 H ALT 438 H Alkaline Phosphatase 90 Total Creatine Kinase 8409 H Total Protein 6.0 L Albumin 3.2 L Urine Color Yellow Urine Appearance Turbid Urine pH 7.0 Ur Specific [place] 1.010 Urine Protein 300 (3+) H Urine Glucose (UA) Negative Urine Ketones Negative Urine Blood Large (3+) H Urine Nitrite Negative Ur Leukocyte Esterase Large (3+) H Urine RBC >20 H Urine WBC >50 H Ur Squamous Epith Cells 11-20 Urine Bacteria 1+ Hyaline Casts 3-5 U Random Total Protein 395 H Urine Creatinine 43.00 Hep Bs Antigen NON-REACTIVE Hep Bs Ag Confirmation TNP Microbiology Microbiology Results: Microbiology 08/18/23 19:44 Blood - Venous Blood Culture - Final No growth after 5 days. 08/19/23 13:15 Blood - Venous Blood Culture - Final Escherichia coli 08/19/23 13:15 Blood - Venous Blood Culture - Final Escherichia coli 08/18/23 19:11 Blood - Venous Blood Culture - Final Streptococcus pneumoniae Procedures Date of Service Date of Service: 08/26/23 Assessment & Plan Assessment and plan (1) RAMON (acute kidney injury): Status: Acute Plan Acute Kidney injury due to multifactorial tubular injury Urine output poor; Getting renal replacement HD catheter( temporary )in place Will need permcath if renal recovery not happening soon Shall dialyze again tomorrow( ordered) Continue with rest of current supportive management Shall closely follow up Progress Note: Quality Stroke Does the patient have a stroke diagnosis?: No
[2023-08-26] MEDS: cefTRIAXone sodium 2 GM in 0.9 % Sodium Chloride 50 ML IV (12:32)
[2023-08-26] MEDS: Acetaminophen 325 MG TABLET 650 MG PO (13:59)
--- NOTE | 2023-08-26 14:06 | PC.NURSE ---
MD Proctor made aware pt endorsing chest pressure that wraps around to the back. Pt states it feels like I pulled a muscle . MD ordered CXR and Lidocaine patch, Tylenol given pending effectiveness. VSS, pt denies SOB, does not appear to be in any distress.
[2023-08-26] MEDS: Lidocaine 4 % Patch ADH..PATCH 1 PATCH TRANSDERMA (14:15)
[2023-08-26] MEDS: Magnesium Hydrox/Alum Hydrox 30 ML ORAL.SUSP PO (17:52)
[2023-08-26] MEDS: HYDROmorphone HCl 0.5 MG/0.5 ML SYRINGE IVPUSH (22:43)
[2023-08-27 03:00] VITALS: BP 127/78; PULSE 78; RESP 17; TEMP 37; O2SAT 97
[2023-08-27 05:19] VITALS: BMI 39.6
[2023-08-27 08:05] LABS: Alanine Aminotransferase 370 U/L (0-31); Albumin Level 3.2 g/dL (3.5-5.0); Alkaline Phosphatase 83 U/L (39-117); Anion Gap 11 (12-20); Aspartate Amino Transferase 272 U/L (5-31); Bilirubin Total 0.3 mg/dL (0.0-1.0); Blood Urea Nitrogen 23 mg/dL (9-16); Calcium 8.6 mg/dL (8.4-10.2); Carbon Dioxide 23 mmol/L (22-29); Chloride 98 mmol/L (96-108); Creatinine Clr Calc Pharmacy 21.4; Estimated Glomerular Filt Rate 12; Glucose Random 74 mg/dL (60-115); Potassium 3.3 mmol/L (3.3-5.1); Sodium 129 mmol/L (135-145); Total Protein 5.9 g/dL (6.5-8.0)
--- NOTE | 2023-08-27 09:37 | HO.PM.IMPN ---
Subjective Subjective Date of Service: 08/27/23 Interval History: had some chest discomfort yesterday evening that has resolved SCr slightly improved no fever/chills Review of Systems Review of Systems: Yes all other systems are reviewed and are negative Physical Exam Vital Signs: Vital Signs: Last Vital Signs Temp 98.6 F 08/27/23 03:00 Pulse 78 08/27/23 03:00 Resp 17 08/27/23 03:00 BP 127/78 08/27/23 03:00 Pulse Ox 97 08/27/23 03:00 O2 Del Method Room Air 08/27/23 03:00 O2 Flow Rate 97 08/26/23 14:56 BMI result Body Mass Index 39.6 Gen: in no acute distress HEENT: sclera anicteric, moist mucus membranes Neck: supple, RIJ HD catheter Lungs: clear to auscultation bilaterally Heart: regular rate and rhythm, no murmurs Abd: soft, non-tender, non-distended, incisions C/D/I Ext: 1+ bilateral leg edema Skin: warm/well-perfused Neuro: alert and oriented x3, no focal findings Psych: appropriate affect Objective Data Active Medications Acetaminophen (Acetaminophen 325 Mg Tablet) 650 mg PO Q6H PRN PRN Reason: fever, pain Last Admin: 08/26/23 13:59 Dose: 650 mg Documented By: MARILY Al Hydroxide/Mg Hydroxide (Magnesium Hydrox/Alum Hydrox 30 Ml Oral.Susp) 30 ml PO Q6H PRN PRN Reason: Heartburn Last Admin: 08/26/23 17:52 Dose: 30 ml Documented By: MARILY Calcium Carbonate (Calcium Carbonate 500 Mg Tablet) 500 mg PO TID [facility] Last Admin: 08/27/23 09:34 Dose: Not Given Documented By: MAYA Non-Admin Reason: Off unit: Dialysis Heparin Sodium (Porcine) (Heparin Sodium,Porcine 5,000 Unit/Ml Vial) 5,000 unit INTRACATH MOWEFR@1645 ON [facility] Hydromorphone HCl (Hydromorphone Hcl 0.5 Mg/0.5 Ml Syringe) 0.5 mg IVPUSH Q4H PRN; Protocol PRN Reason: Pain, Severe (Pain Scale 7-10) Last Admin: 08/26/23 22:43 Dose: 0.5 mg Documented By: HO.LYSZ Promethazine HCl 12.5 mg/ (Sodium Chloride) 50.5 mls @ 202 mls/hr IV Q6H PRN PRN Reason: Nausea and Vomiting Ceftriaxone Sodium 2 gm/ (Sodium Chloride) 50 mls @ 100 mls/hr IV Q24H [facility] Last Infusion: 08/26/23 13:27 Dose: Infused Documented By: MARILY Lidocaine (Lidocaine 4 % Patch Adh..Patch) 1 patch TRANSDERMA DAILY [facility]; Protocol Last Admin: 08/27/23 09:34 Dose: Not Given Documented By: MAYA Non-Admin Reason: Off unit: Dialysis Ondansetron HCl (Ondansetron Odt 4 Mg Tab.Rapdis) 4 mg TRANSLINGU Q6H PRN PRN Reason: Nausea and Vomiting Last Admin: 08/18/23 17:32 Dose: 4 mg Documented By: BETTY Ondansetron HCl (Ondansetron Hcl 4 Mg/2 Ml Vial) 4 mg IVPUSH Q6H PRN PRN Reason: nausea Last Admin: 08/22/23 03:01 Dose: 4 mg Documented By: NASEEM Sodium Chloride (0.9 % Sodium Chloride Flush 3 Ml Syringe) 3 ml IVFLUSH QSHIFT [facility] Last Admin: 08/27/23 09:34 Dose: Not Given Documented By: MAYA Non-Admin Reason: Off unit: Dialysis Labs 08/26/23 07:21 08/27/23 06:47 Labs: Laboratory Results - last 24 hr 08/27/23 06:47 Hold Purple Top SEE NOTE Anion Gap 11 L Estim Creat Clear Calc 21.4 Estimated GFR 12 Random Glucose 74 Calcium 8.6 Total Bilirubin 0.3 AST 272 H ALT 370 H Alkaline Phosphatase 83 Total Creatine Kinase 5389 H Total Protein 5.9 L Albumin 3.2 L Assessment and Plan (1) RAMON (acute kidney injury): Status: Acute (2) Rhabdomyolysis: Status: Acute (3) Bacteremia: Status: Acute Plan d9 33yo F with no chronic conditions admitted to General Surgery for sepsis due to acute gangrenous appendicitis. Postop course complicated by severe rhabdomyolysis with RAMON requiring HD RAMON due to septic ATN + rhabdomyolysis - HD today, monitor renal function daily, Nephrology following. Perhaps starting to have renal recovery; hold off on Permacath. - CPK improving. Unclear cause of rhabdomyolysis- general anesthesia??? acute gangrenous appendicitis - POD8, Surgery following E coli bacteremia - resistant to amp, gent, and TMP-SMX - ceftriaxone 08/21-09/04, per ID complete course with cefuroxime upon discharge home hypoCa - repleting transaminasemia - suspect cross-reactivity with skeletal muscle from rhabdomyolysis, LFTs improving hx HBV - HBsAg now negative VTE ppx - SCDs dispo - eventual home In my clinical judgment, the patient requires continued inpatient hospitalization for the following reasons: RAMON requiring HD Total time managing care of this patient today: 35 minutes. Quality Stroke Does the patient have a stroke diagnosis?: No VTE Prior VTE?: No VTE Risk Level:: Medical - low VTE Device Contraindication: N/A - Device Ordered VTE Drug Contraindication: Treatment Not Indicated
--- NOTE | 2023-08-27 09:44 | P.PNNP_ITS ---
Subjective Subjective Date of Service: 08/27/23 Interval history: Seen on HD this morning.; SCr slightly improved; UO better as per patient; no fever/chills; Tolerating HD Physical Exam 2 Vital Signs: Vital Signs: Last Vital Signs Temp 98.6 F 08/27/23 03:00 Pulse 78 08/27/23 03:00 Resp 17 08/27/23 03:00 BP 127/78 08/27/23 03:00 Pulse Ox 97 08/27/23 03:00 O2 Del Method Room Air 08/27/23 03:00 O2 Flow Rate 97 08/26/23 14:56 BMI result Body Mass Index 39.6 Const: General: comfortable and no acute distress O rientation/consciousness: patient oriented x3 HEENT: Head: Yes normocephalic Mouth: Normal oral and palatal mucosa present Eyes: EOM: EOMs intact bilaterally Neck: Neck: Yes supple Resp: Auscultation: clear to auscultation bilaterally Cardio: Jugular venous distension: no JVD Rate: regular rate GI: Palpation (GI): Soft to palpation Auscultation: normal bowel sounds : General: Yes no CVA tenderness Back/Spine/Pelvis: Back: no CVA tenderness Skin: General skin exam: no rashes or lesions noted Neuro: General: patient oriented x3 and moves all extremities Extrem: General: Yes edema Objective Data Labs 08/26/23 07:21 08/27/23 06:47 Labs: Laboratory Results - last 24 hr 08/27/23 06:47 Hold Purple Top SEE NOTE Sodium 129 L Potassium 3.3 Chloride 98 Carbon Dioxide 23 Anion Gap 11 L BUN 23 H Creatinine 4.27 H* Estim Creat Clear Calc 21.4 Estimated GFR 12 Random Glucose 74 Calcium 8.6 Total Bilirubin 0.3 AST 272 H ALT 370 H Alkaline Phosphatase 83 Total Creatine Kinase 5389 H Total Protein 5.9 L Albumin 3.2 L Microbiology Microbiology Results: Microbiology 08/18/23 19:44 Blood - Venous Blood Culture - Final No growth after 5 days. 08/19/23 13:15 Blood - Venous Blood Culture - Final Escherichia coli 08/19/23 13:15 Blood - Venous Blood Culture - Final Escherichia coli 08/18/23 19:11 Blood - Venous Blood Culture - Final Streptococcus pneumoniae Procedures Date of Service Date of Service: 08/27/23 Assessment & Plan Assessment and plan (1) RAMON (acute kidney injury): Status: Acute Plan Acute Kidney injury due to multifactorial tubular injury Urine output marginally better; Getting renal replacement HD catheter( temporary )in place; Seen on HD this AM Will need permcath if renal recovery not happening soon Continue with rest of current supportive management Shall closely follow up Progress Note: Quality Stroke Does the patient have a stroke diagnosis?: No
[2023-08-27 10:50] VITALS: BP 130/65; PULSE 65; RESP 18; TEMP 36.3; O2SAT 100
[2023-08-27 11:44] VITALS: BP 126/73; PULSE 64; RESP 16; TEMP 36.5; O2SAT 98
--- NOTE | 2023-08-27 13:44 | PM.PNGS ---
Subjective Subjective Date of Service: 08/29/23 Interval history: She states she feels well Denies abdominal pain Tolerating diet well Underwent a dialysis earlier today Physical Exam Vital Signs: Vital Signs: Last Vital Signs Temp 97.7 F 08/27/23 11:44 Pulse 64 08/27/23 11:44 Resp 16 08/27/23 11:44 BP 126/73 08/27/23 11:44 Pulse Ox 98 08/27/23 11:44 O2 Del Method Room Air 08/27/23 11:44 O2 Flow Rate 97 08/26/23 14:56 BMI result Body Mass Index 39.6 Const: Other: Looks well General: comfortable and no acute distress Resp: Effort & Inspection: normal respiratory effort Cardio: Rate: regular rate GI: Palpation (GI): Soft to palpation, not firm and no guarding Objective Data Active Medications Acetaminophen (Acetaminophen 325 Mg Tablet) 650 mg PO Q6H PRN PRN Reason: fever, pain Last Admin: 08/26/23 13:59 Dose: 650 mg Documented By: MARILY Al Hydroxide/Mg Hydroxide (Magnesium Hydrox/Alum Hydrox 30 Ml Oral.Susp) 30 ml PO Q6H PRN PRN Reason: Heartburn Last Admin: 08/26/23 17:52 Dose: 30 ml Documented By: MARILY Calcium Carbonate (Calcium Carbonate 500 Mg Tablet) 500 mg PO TID [facility] Last Admin: 08/27/23 09:34 Dose: Not Given Documented By: MAYA Non-Admin Reason: Off unit: Dialysis Heparin Sodium (Porcine) (Heparin Sodium,Porcine 5,000 Unit/Ml Vial) 5,000 unit INTRACATH MOWEFR@1645 [facility] Hydromorphone HCl (Hydromorphone Hcl 0.5 Mg/0.5 Ml Syringe) 0.5 mg IVPUSH Q4H PRN; Protocol PRN Reason: Pain, Severe (Pain Scale 7-10) Last Admin: 08/26/23 22:43 Dose: 0.5 mg Documented By: MAHI Promethazine HCl 12.5 mg/ (Sodium Chloride) 50.5 mls @ 202 mls/hr IV Q6H PRN PRN Reason: Nausea and Vomiting Ceftriaxone Sodium 2 gm/ (Sodium Chloride) 50 mls @ 100 mls/hr IV Q24H [facility] Last Infusion: 08/26/23 13:27 Dose: Infused Documented By: MARILY Lidocaine (Lidocaine 4 % Patch Adh..Patch) 1 patch TRANSDERMA DAILY [facility]; Protocol Last Admin: 08/27/23 09:34 Dose: Not Given Documented By: MAYA Non-Admin Reason: Off unit: Dialysis Ondansetron HCl (Ondansetron Odt 4 Mg Tab.Rapdis) 4 mg TRANSLINGU Q6H PRN PRN Reason: Nausea and Vomiting Last Admin: 08/18/23 17:32 Dose: 4 mg Documented By: BETTY Ondansetron HCl (Ondansetron Hcl 4 Mg/2 Ml Vial) 4 mg IVPUSH Q6H PRN PRN Reason: nausea Last Admin: 08/22/23 03:01 Dose: 4 mg Documented By: NASEEM Sodium Chloride (0.9 % Sodium Chloride Flush 3 Ml Syringe) 3 ml IVFLUSH QSHIFT [facility] Last Admin: 08/27/23 09:34 Dose: Not Given Documented By: MAYA Non-Admin Reason: Off unit: Dialysis Labs 08/26/23 07:21 08/29/23 05:05 Labs: Laboratory Results - last 24 hr 08/27/23 06:47 Hold Purple Top SEE NOTE Anion Gap 11 L Estim Creat Clear Calc 21.4 Estimated GFR 12 Random Glucose 74 Calcium 8.6 Total Bilirubin 0.3 AST 272 H ALT 370 H Alkaline Phosphatase 83 Total Creatine Kinase 5389 H Total Protein 5.9 L Albumin 3.2 L Procedures Date of Service Date of Service: 08/29/23 Progress Note: A&P Assessment and plan (1) Rhabdomyolysis: Status: Acute Assessment and Plan: Status post laparoscopic appendectomy She is clinically looking well She is still undergoing hemodialysis because of her elevated creatinine CK levels however are improving Rhabdomyolysis etiology is uncertain but may be from anesthesia Overall looks well The rest of the management as per the hospitalist and the emergency medicine nurse practitioner Time Spent With Patient Time: Total time managing care of this patient today ____ minutes. Quality Stroke Does the patient have a stroke diagnosis?: No VTE Prior VTE?: No VTE Risk Level:: Medical - low VTE Device Contraindication: N/A - Device Ordered VTE Drug Contraindication: Treatment Not Indicated
[2023-08-27] MEDS: cefTRIAXone sodium 2 GM in 0.9 % Sodium Chloride 50 ML IV (14:05)
[2023-08-27] MEDS: Acetaminophen 325 MG TABLET 650 MG PO ×2 (14:13→20:56)
[2023-08-27] MEDS: 0.9 % Sodium Chloride Flush 3 ML SYRINGE IVFLUSH ×2 (16:51→20:04)
[2023-08-27 19:48] VITALS: BP 135/84; PULSE 77; RESP 18; TEMP 36.4; O2SAT 100
[2023-08-27 20:03] LABS: Myeloperoxidase Antibody <1.0 AI; Proteinase 3 PR3 Antibodies <1.0 AI
[2023-08-28] VITALS (8 sets, daily range): BP systolic 141–165; BP diastolic 53–91; PULSE 62–73; RESP 16–18; TEMP 36–36.8; O2SAT 98–100; BMI 37.5
[2023-08-28] MEDS: Acetaminophen 325 MG TABLET 650 MG PO ×4 (01:44→23:02)
--- NOTE | 2023-08-28 01:45 | PC.NURSE ---
pt c/o right side headache persistently. dr Zarco notified he approved to give PRN Tylenol Q6 to Q4. pulled out earlier. given by this nurse. pt said once in a while she has migraine at home. will continue to monitor
[2023-08-28 05:52] LABS: Anion Gap 14 (12-20); Blood Urea Nitrogen 24 mg/dL (9-16); Calcium 8.8 mg/dL (8.4-10.2); Carbon Dioxide 19 mmol/L (22-29); Chloride 99 mmol/L (96-108); Creatinine Clr Calc Pharmacy 19.1; Estimated Glomerular Filt Rate 11; Glucose Random 97 mg/dL (60-115); Sodium 128 mmol/L (135-145)
[2023-08-28] MEDS: 0.9 % Sodium Chloride Flush 3 ML SYRINGE IVFLUSH ×3 (07:35→20:52)
[2023-08-28 10:14] LABS: Hepatitis B Viral DNA Qn - cp NOT DETECTED Log IU/mL (NOT DETECTED); Hepatitis B Viral DNA Qn-IU/mL NOT DETECTED (NOT DETECTED)
--- NOTE | 2023-08-28 11:19 | P.PNIM_ITS ---
Subjective Subjective Date of Service: 08/28/23 Interval History: edema improved 100 mL urine/d x2d no chest pain Review of Systems Review of Systems: Yes all other systems are reviewed and are negative Physical Exam 2 Vital Signs: Vital Signs: Last Vital Signs Temp 97.7 F 08/28/23 07:06 Pulse 62 08/28/23 07:06 Resp 16 08/28/23 07:06 BP 150/89 H 08/28/23 07:06 Pulse Ox 99 08/28/23 07:06 O2 Del Method Room Air 08/28/23 07:06 O2 Flow Rate 97 08/26/23 14:56 BMI result Body Mass Index 37.5 Gen: in no acute distress HEENT: sclera anicteric, moist mucus membranes Neck: supple, RIJ HD catheter Lungs: clear to auscultation bilaterally Heart: regular rate and rhythm, no murmurs Abd: soft, non-tender, non-distended, incisions C/D/I Ext: trace bilateral leg edema Skin: warm/well-perfused Neuro: alert and oriented x3, no focal findings Psych: appropriate affect Objective Data Active Medications Acetaminophen (Acetaminophen 325 Mg Tablet) 650 mg PO Q6H PRN PRN Reason: fever, pain Last Admin: 08/28/23 07:38 Dose: 650 mg Documented By: MARILY Al Hydroxide/Mg Hydroxide (Magnesium Hydrox/Alum Hydrox 30 Ml Oral.Susp) 30 ml PO Q6H PRN PRN Reason: Heartburn Last Admin: 08/26/23 17:52 Dose: 30 ml Documented By: MARILY Calcium Carbonate (Calcium Carbonate 500 Mg Tablet) 500 mg PO TID [facility] Last Admin: 08/28/23 07:35 Dose: 500 mg Documented By: MARILY Heparin Sodium (Porcine) (Heparin Sodium,Porcine 5,000 Unit/Ml Vial) 5,000 unit INTRACATH MOWEFR@2195 [facility] Last Admin: 08/27/23 16:52 Dose: Not Given Documented By: MAYA Non-Admin Reason: dialysis Hydromorphone HCl (Hydromorphone Hcl 0.5 Mg/0.5 Ml Syringe) 0.5 mg IVPUSH Q4H PRN; Protocol PRN Reason: Pain, Severe (Pain Scale 7-10) Last Admin: 08/26/23 22:43 Dose: 0.5 mg Documented By: MAHI Promethazine HCl 12.5 mg/ (Sodium Chloride) 50.5 mls @ 202 mls/hr IV Q6H PRN PRN Reason: Nausea and Vomiting Ceftriaxone Sodium 2 gm/ (Sodium Chloride) 50 mls @ 100 mls/hr IV Q24H [facility] Last Infusion: 08/27/23 15:04 Dose: Infused Documented By: MAYA Lidocaine (Lidocaine 4 % Patch Adh..Patch) 1 patch TRANSDERMA DAILY [facility]; Protocol Last Admin: 08/28/23 08:46 Dose: Not Given Documented By: MARILY Non-Admin Reason: Patient Refused Ondansetron HCl (Ondansetron Odt 4 Mg Tab.Rapdis) 4 mg TRANSLINGU Q6H PRN PRN Reason: Nausea and Vomiting Last Admin: 08/18/23 17:32 Dose: 4 mg Documented By: BETTY Ondansetron HCl (Ondansetron Hcl 4 Mg/2 Ml Vial) 4 mg IVPUSH Q6H PRN PRN Reason: nausea Last Admin: 08/22/23 03:01 Dose: 4 mg Documented By: NASEEM Sodium Chloride (0.9 % Sodium Chloride Flush 3 Ml Syringe) 3 ml IVFLUSH QSHIFT [facility] Last Admin: 08/28/23 07:35 Dose: 3 ml Documented By: MARILY Labs 08/26/23 07:21 08/28/23 05:22 Labs: Laboratory Results - last 24 hr 08/26/23 08/28/23 08/28/23 07:21 05:22 05:29 Hold Purple Top SEE NOTE Anion Gap 14 Estim Creat Clear Calc 19.1 Estimated GFR 11 Random Glucose 97 Calcium 8.8 Total Creatine Kinase 3575 H Proteinase 3 (PR3) Ab <1.0 Myeloperoxidase Ab <1.0 Hep B DNA copies/mL NOT DETECTED Hep B DNA (IU/mL) NOT DETECTED Assessment and Plan (1) RAMON (acute kidney injury): Status: Acute (2) Rhabdomyolysis: Status: Acute (3) Bacteremia: Status: Acute Plan d10 33yo F with no chronic conditions admitted to General Surgery for sepsis due to acute gangrenous appendicitis. Postop course complicated by severe rhabdomyolysis with RAMON requiring HD RAMON due to septic ATN + rhabdomyolysis - HD yesterday and again tomorrow, monitor renal function daily, Nephrology following. Decision on Permacath depending on progress between now and 09/01 - CPK improving. Unclear cause of rhabdomyolysis- general anesthesia- propofol related infusion syndrome? acute gangrenous appendicitis - POD9, Surgery following E coli bacteremia - resistant to amp, gent, and TMP-SMX - ceftriaxone 08/21-09/04, per ID complete course with cefuroxime upon discharge home hypoCa - repleting transaminasemia - suspect cross-reactivity with skeletal muscle from rhabdomyolysis, LFTs improving hx HBV - HBsAg now negative, viral load negative VTE ppx - SCDs dispo - eventual home In my clinical judgment, the patient requires continued inpatient hospitalization for the following reasons: RAMON requiring HD Total time managing care of this patient today: 35 minutes. Quality Stroke Does the patient have a stroke diagnosis?: No VTE Prior VTE?: No VTE Risk Level:: Medical - low VTE Device Contraindication: N/A - Device Ordered VTE Drug Contraindication: Treatment Not Indicated
--- NOTE | 2023-08-28 12:47 | PM.PNGS ---
Subjective Subjective Date of Service: 08/28/23 Interval history: Denies abdominal pain Tolerating diet well Says she feels well overall - just tired Physical Exam Vital Signs: Vital Signs: Last Vital Signs Temp 98.0 F 08/28/23 11:47 Pulse 69 08/28/23 11:47 Resp 16 08/28/23 11:47 BP 147/80 H 08/28/23 11:47 Pulse Ox 100 08/28/23 11:47 O2 Del Method Room Air 08/28/23 11:47 O2 Flow Rate 97 08/26/23 14:56 BMI result Body Mass Index 37.5 Const: General: comfortable and no acute distress Resp: Effort & Inspection: normal respiratory effort GI: Palpation (GI): Soft to palpation, not firm and nontender Objective Data Active Medications Acetaminophen (Acetaminophen 325 Mg Tablet) 650 mg PO Q6H PRN PRN Reason: fever, pain Last Admin: 08/28/23 07:38 Dose: 650 mg Documented By: MARILY Al Hydroxide/Mg Hydroxide (Magnesium Hydrox/Alum Hydrox 30 Ml Oral.Susp) 30 ml PO Q6H PRN PRN Reason: Heartburn Last Admin: 08/26/23 17:52 Dose: 30 ml Documented By: MARILY Calcium Carbonate (Calcium Carbonate 500 Mg Tablet) 500 mg PO TID [facility] Last Admin: 08/28/23 07:35 Dose: 500 mg Documented By: MARILY Heparin Sodium (Porcine) (Heparin Sodium,Porcine 5,000 Unit/Ml Vial) 5,000 unit INTRACATH MOWEFR@1645 [facility] Last Admin: 08/27/23 16:52 Dose: Not Given Documented By: MAYA Non-Admin Reason: dialysis Hydromorphone HCl (Hydromorphone Hcl 0.5 Mg/0.5 Ml Syringe) 0.5 mg IVPUSH Q4H PRN; Protocol PRN Reason: Pain, Severe (Pain Scale 7-10) Last Admin: 08/26/23 22:43 Dose: 0.5 mg Documented By: MAHI Promethazine HCl 12.5 mg/ (Sodium Chloride) 50.5 mls @ 202 mls/hr IV Q6H PRN PRN Reason: Nausea and Vomiting Ceftriaxone Sodium 2 gm/ (Sodium Chloride) 50 mls @ 100 mls/hr IV Q24H [facility] Last Infusion: 08/27/23 15:04 Dose: Infused Documented By: MAYA Lidocaine (Lidocaine 4 % Patch Adh..Patch) 1 patch TRANSDERMA DAILY [facility]; Protocol Last Admin: 08/28/23 08:46 Dose: Not Given Documented By: MARILY Non-Admin Reason: Patient Refused Ondansetron HCl (Ondansetron Odt 4 Mg Tab.Rapdis) 4 mg TRANSLINGU Q6H PRN PRN Reason: Nausea and Vomiting Last Admin: 08/18/23 17:32 Dose: 4 mg Documented By: BETTY Ondansetron HCl (Ondansetron Hcl 4 Mg/2 Ml Vial) 4 mg IVPUSH Q6H PRN PRN Reason: nausea Last Admin: 08/22/23 03:01 Dose: 4 mg Documented By: NASEEM Sodium Chloride (0.9 % Sodium Chloride Flush 3 Ml Syringe) 3 ml IVFLUSH QSHIFT [facility] Last Admin: 08/28/23 07:35 Dose: 3 ml Documented By: MARILY Labs 08/26/23 07:21 08/28/23 05:22 Labs: Laboratory Results - last 24 hr 08/26/23 08/28/23 08/28/23 07:21 05:22 05:29 Hold Purple Top SEE NOTE Anion Gap 14 Estim Creat Clear Calc 19.1 Estimated GFR 11 Random Glucose 97 Calcium 8.8 Total Creatine Kinase 3575 H Proteinase 3 (PR3) Ab <1.0 Myeloperoxidase Ab <1.0 Hep B DNA copies/mL NOT DETECTED Hep B DNA (IU/mL) NOT DETECTED Procedures Date of Service Date of Service: 08/28/23 Progress Note: A&P Assessment and plan (1) Rhabdomyolysis: Status: Acute Assessment and Plan: Status post appendectomy Severe rhabdomyolysis postop, unusual Creatinine seems to have plateaued Patient clinically well Good GI function Hospitalist and Nephrology following Time Spent With Patient Time: Total time managing care of this patient today ____ minutes. Quality Stroke Does the patient have a stroke diagnosis?: No VTE Prior VTE?: No VTE Risk Level:: Medical - low VTE Device Contraindication: N/A - Device Ordered VTE Drug Contraindication: Treatment Not Indicated
[2023-08-28] MEDS: cefTRIAXone sodium 2 GM in 0.9 % Sodium Chloride 50 ML IV (12:57)
--- NOTE | 2023-08-28 13:39 | MHC.CM.PN ---
Per MD rounds no dc today. Friday patient may be ordered for a Permacath for HD. DP Home with or with out HD. Patient has a ride home.
--- NOTE | 2023-08-28 14:03 | P.PNNP_ITS ---
Subjective Subjective Date of Service: 08/28/23 Interval history: Edema improved; Feels better. No new complaints Physical Exam 2 Vital Signs: Vital Signs: Last Vital Signs Temp 98.0 F 08/28/23 11:47 Pulse 69 08/28/23 11:47 Resp 16 08/28/23 11:47 BP 147/80 H 08/28/23 11:47 Pulse Ox 100 08/28/23 11:47 O2 Del Method Room Air 08/28/23 11:47 O2 Flow Rate 97 08/26/23 14:56 BMI result Body Mass Index 37.5 Const: General: comfortable and no acute distress O rientation/consciousness: patient oriented x3 HEENT: Head: Yes normocephalic Mouth: Normal oral and palatal mucosa present Eyes: EOM: EOMs intact bilaterally Neck: Neck: Yes supple Resp: Auscultation: clear to auscultation bilaterally Cardio: Jugular venous distension: no JVD Rate: regular rate GI: Palpation (GI): Soft to palpation Auscultation: normal bowel sounds : General: Yes no CVA tenderness Back/Spine/Pelvis: Back: no CVA tenderness Skin: General skin exam: no rashes or lesions noted Neuro: General: patient oriented x3 and moves all extremities Extrem: General: Yes no pedal edema Objective Data Labs 08/26/23 07:21 08/28/23 05:22 Labs: Laboratory Results - last 24 hr 08/26/23 08/28/23 08/28/23 07:21 05:22 05:29 Hold Purple Top SEE NOTE Sodium 128 L Potassium 4.0 D Chloride 99 Carbon Dioxide 19 L Anion Gap 14 BUN 24 H Creatinine 4.78 H* Estim Creat Clear Calc 19.1 Estimated GFR 11 Random Glucose 97 Calcium 8.8 Total Creatine Kinase 3575 H Proteinase 3 (PR3) Ab <1.0 Myeloperoxidase Ab <1.0 Hep B DNA copies/mL NOT DETECTED Hep B DNA (IU/mL) NOT DETECTED Microbiology Microbiology Results: Microbiology 08/18/23 19:44 Blood - Venous Blood Culture - Final No growth after 5 days. 08/19/23 13:15 Blood - Venous Blood Culture - Final Escherichia coli 08/19/23 13:15 Blood - Venous Blood Culture - Final Escherichia coli 08/18/23 19:11 Blood - Venous Blood Culture - Final Streptococcus pneumoniae Procedures Date of Service Date of Service: 08/28/23 Assessment & Plan Assessment and plan (1) RAMON (acute kidney injury): Status: Acute Plan Acute Kidney injury due to multifactorial tubular injury Urine output marginal; Getting renal replacement HD catheter( temporary )in place; due tomorrow Shall hold dialysis for 48 hours after tomorrow Will need permcath if renal recovery not happening soon Continue with rest of current supportive management Lab AM. Shall closely follow up Progress Note: Quality Stroke Does the patient have a stroke diagnosis?: No
--- NOTE | 2023-08-28 16:37 | PC.NURSE ---
MD Proctor made aware pt continues to have elevated BPs last reading 165/90, HR 67, no new orders at this time. Pt endorses headache, relieved with PRN Tylenol.
[2023-08-28] MEDS: Lidocaine 4 % Patch ADH..PATCH 1 PATCH TRANSDERMA (23:08)
[2023-08-29 04:00] VITALS: BP 143/83; PULSE 70; RESP 16; TEMP 36.5; O2SAT 98
[2023-08-29 05:55] LABS: Anion Gap 14 (12-20); Blood Urea Nitrogen 29 mg/dL (9-16); Calcium 8.8 mg/dL (8.4-10.2); Carbon Dioxide 19 mmol/L (22-29); Chloride 99 mmol/L (96-108); Creatinine Clr Calc Pharmacy 15.6; Estimated Glomerular Filt Rate 9; Glucose Random 90 mg/dL (60-115); Sodium 128 mmol/L (135-145)
[2023-08-29 06:00] VITALS: BMI 38.1
[2023-08-29 07:29] VITALS: BP 140/78; PULSE 68; RESP 16; TEMP 37.2; O2SAT 98
[2023-08-29] MEDS: 0.9 % Sodium Chloride Flush 3 ML SYRINGE IVFLUSH ×2 (07:55→15:35)
--- NOTE | 2023-08-29 11:17 | HO.PM.IMPN ---
Subjective Subjective Date of Service: 08/29/23 Interval History: urinating more- 250mL this AM no chest pain ambulatory Review of Systems Review of Systems: Yes all other systems are reviewed and are negative Physical Exam Vital Signs: Vital Signs: Last Vital Signs Temp 98.9 F 08/29/23 07:29 Pulse 68 08/29/23 07:29 Resp 16 08/29/23 07:29 BP 140/78 H 08/29/23 07:29 Pulse Ox 98 08/29/23 07:29 O2 Del Method Room Air 08/29/23 07:29 O2 Flow Rate 97 08/26/23 14:56 BMI result Body Mass Index 38.1 Gen: in no acute distress HEENT: sclera anicteric, moist mucus membranes Neck: supple, RIJ HD catheter Lungs: clear to auscultation bilaterally Heart: regular rate and rhythm, no murmurs Abd: soft, non-tender, non-distended, incisions C/D/I Ext: trace bilateral leg edema Skin: warm/well-perfused Neuro: alert and oriented x3, no focal findings Psych: appropriate affect Objective Data Active Medications Acetaminophen (Acetaminophen 325 Mg Tablet) 650 mg PO Q6H PRN PRN Reason: fever, pain Last Admin: 08/28/23 23:02 Dose: 650 mg Documented By: NASEEM Al Hydroxide/Mg Hydroxide (Magnesium Hydrox/Alum Hydrox 30 Ml Oral.Susp) 30 ml PO Q6H PRN PRN Reason: Heartburn Last Admin: 08/26/23 17:52 Dose: 30 ml Documented By: MARILY Calcium Carbonate (Calcium Carbonate 500 Mg Tablet) 500 mg PO TID [facility] Last Admin: 08/29/23 07:55 Dose: 500 mg Documented By: MAYA Heparin Sodium (Porcine) (Heparin Sodium,Porcine 5,000 Unit/Ml Vial) 5,000 unit INTRACATH MOWEFR@6725 [facility] Last Admin: 08/27/23 16:52 Dose: Not Given Documented By: MAYA Non-Admin Reason: dialysis Hydromorphone HCl (Hydromorphone Hcl 0.5 Mg/0.5 Ml Syringe) 0.5 mg IVPUSH Q4H PRN; Protocol PRN Reason: Pain, Severe (Pain Scale 7-10) Last Admin: 08/26/23 22:43 Dose: 0.5 mg Documented By: MAHI Promethazine HCl 12.5 mg/ (Sodium Chloride) 50.5 mls @ 202 mls/hr IV Q6H PRN PRN Reason: Nausea and Vomiting Ceftriaxone Sodium 2 gm/ (Sodium Chloride) 50 mls @ 100 mls/hr IV Q24H [facility] Last Infusion: 08/28/23 13:27 Dose: Infused Documented By: MARILY Lidocaine (Lidocaine 4 % Patch Adh..Patch) 1 patch TRANSDERMA DAILY [facility]; Protocol Last Admin: 08/28/23 23:08 Dose: 1 patch Documented By: NASEEM Ondansetron HCl (Ondansetron Odt 4 Mg Tab.Rapdis) 4 mg TRANSLINGU Q6H PRN PRN Reason: Nausea and Vomiting Last Admin: 08/18/23 17:32 Dose: 4 mg Documented By: BETTY Ondansetron HCl (Ondansetron Hcl 4 Mg/2 Ml Vial) 4 mg IVPUSH Q6H PRN PRN Reason: nausea Last Admin: 08/22/23 03:01 Dose: 4 mg Documented By: NASEEM Sodium Chloride (0.9 % Sodium Chloride Flush 3 Ml Syringe) 3 ml IVFLUSH QSHIFT [facility] Last Admin: 08/29/23 07:55 Dose: 3 ml Documented By: MAYA Labs 08/26/23 07:21 08/29/23 05:05 Labs: Laboratory Results - last 24 hr 08/29/23 08/29/23 05:05 05:31 Hold Purple Top SEE NOTE Anion Gap 14 Estim Creat Clear Calc 15.6 Estimated GFR 9 Random Glucose 90 Calcium 8.8 Total Creatine Kinase 2013 H Assessment and Plan (1) RAMON (acute kidney injury): Status: Acute (2) Rhabdomyolysis: Status: Acute (3) Bacteremia: Status: Acute Plan d11 33yo F with no chronic conditions admitted to General Surgery for sepsis due to acute gangrenous appendicitis. Postop course complicated by severe rhabdomyolysis with RAMON requiring HD RAMON due to septic ATN + rhabdomyolysis - HD today. Monitor renal function daily. Nephrology following. Hold HD over weekend; decision on Permacath depending on whether there is renal recovery between now and 09/01 - Discussion with Anesthesia Department. Suspicion for atypical malignant hyperthermia [atypical because pt never had fever or rigidity]. Counseled to avoid inhaled anesthetics from now and and will list this under her med allergies. Genetic testing to be pursued as per [employer] [place]: RYR1 [CPT 44200], STAC3 + OOBQK9A [CPT 25337]. Will discuss with laboratory about drawing these tests and sending them to [facility] or [facility] acute gangrenous appendicitis - POD10, Surgery following E coli bacteremia - resistant to amp, gent, and TMP-SMX - ceftriaxone 08/21-09/04, per ID complete course with cefuroxime upon discharge home hypoCa - repleting transaminasemia - suspect cross-reactivity with skeletal muscle from rhabdomyolysis, LFTs improving hx HBV - HBsAg now negative, viral load negative VTE ppx - SCDs dispo - eventual home In my clinical judgment, the patient requires continued inpatient hospitalization for the following reasons: RAMON requiring HD Total time managing care of this patient today: 50 minutes. Quality Stroke Does the patient have a stroke diagnosis?: No VTE Prior VTE?: No VTE Risk Level:: Medical - low VTE Device Contraindication: N/A - Device Ordered VTE Drug Contraindication: Treatment Not Indicated
[2023-08-29] MEDS: Acetaminophen 325 MG TABLET 650 MG PO ×2 (12:13→20:13)
--- NOTE | 2023-08-29 13:17 | PM.PNGS ---
Subjective Subjective Date of Service: 08/29/23 Interval history: feels well good GI function good oral intake Physical Exam Vital Signs: Vital Signs: Last Vital Signs Temp 98.9 F 08/29/23 07:29 Pulse 68 08/29/23 07:29 Resp 16 08/29/23 07:29 BP 140/78 H 08/29/23 07:29 Pulse Ox 98 08/29/23 07:29 O2 Del Method Room Air 08/29/23 07:29 O2 Flow Rate 97 08/26/23 14:56 BMI result Body Mass Index 38.1 Const: General: comfortable and no acute distress Orientation/consciousness: No oriented to place Resp: Effort & Inspection: normal respiratory effort Cardio: Rate: regular rate GI: Palpation (GI): Soft to palpation, not firm and no guarding Neuro: General: No oriented to place Objective Data Active Medications Acetaminophen (Acetaminophen 325 Mg Tablet) 650 mg PO Q6H PRN PRN Reason: fever, pain Last Admin: 08/29/23 12:13 Dose: 650 mg Documented By: MAYA Al Hydroxide/Mg Hydroxide (Magnesium Hydrox/Alum Hydrox 30 Ml Oral.Susp) 30 ml PO Q6H PRN PRN Reason: Heartburn Last Admin: 08/26/23 17:52 Dose: 30 ml Documented By: MARILY Calcium Carbonate (Calcium Carbonate 500 Mg Tablet) 500 mg PO TID [facility] Last Admin: 08/29/23 07:55 Dose: 500 mg Documented By: MAYA Heparin Sodium (Porcine) (Heparin Sodium,Porcine 5,000 Unit/Ml Vial) 5,000 unit INTRACATH MOWEFR@1645 [facility] Last Admin: 08/27/23 16:52 Dose: Not Given Documented By: MAYA Non-Admin Reason: dialysis Hydromorphone HCl (Hydromorphone Hcl 0.5 Mg/0.5 Ml Syringe) 0.5 mg IVPUSH Q4H PRN; Protocol PRN Reason: Pain, Severe (Pain Scale 7-10) Last Admin: 08/26/23 22:43 Dose: 0.5 mg Documented By: MAHI Promethazine HCl 12.5 mg/ (Sodium Chloride) 50.5 mls @ 202 mls/hr IV Q6H PRN PRN Reason: Nausea and Vomiting Ceftriaxone Sodium 2 gm/ (Sodium Chloride) 50 mls @ 100 mls/hr IV Q24H [facility] Last Infusion: 08/28/23 13:27 Dose: Infused Documented By: MARILY Lidocaine (Lidocaine 4 % Patch Adh..Patch) 1 patch TRANSDERMA DAILY [facility]; Protocol Last Admin: 08/28/23 23:08 Dose: 1 patch Documented By: NASEEM Ondansetron HCl (Ondansetron Odt 4 Mg Tab.Rapdis) 4 mg TRANSLINGU Q6H PRN PRN Reason: Nausea and Vomiting Last Admin: 08/18/23 17:32 Dose: 4 mg Documented By: BETTY Ondansetron HCl (Ondansetron Hcl 4 Mg/2 Ml Vial) 4 mg IVPUSH Q6H PRN PRN Reason: nausea Last Admin: 08/22/23 03:01 Dose: 4 mg Documented By: NASEEM Sodium Chloride (0.9 % Sodium Chloride Flush 3 Ml Syringe) 3 ml IVFLUSH QSHIFT [facility] Last Admin: 08/29/23 07:55 Dose: 3 ml Documented By: MAYA Labs 08/26/23 07:21 08/29/23 05:05 Labs: Laboratory Results - last 24 hr 08/29/23 08/29/23 05:05 05:31 Hold Purple Top SEE NOTE Anion Gap 14 Estim Creat Clear Calc 15.6 Estimated GFR 9 Random Glucose 90 Calcium 8.8 Total Creatine Kinase 2014 H Procedures Date of Service Date of Service: 08/29/23 Progress Note: A&P Assessment and plan (1) Rhabdomyolysis: Status: Acute Assessment and Plan: 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 Quality Stroke Does the patient have a stroke diagnosis?: No VTE Prior VTE?: No VTE Risk Level:: Medical - low VTE Device Contraindication: N/A - Device Ordered VTE Drug Contraindication: Treatment Not Indicated
[2023-08-29] MEDS: cefTRIAXone sodium 2 GM in 0.9 % Sodium Chloride 50 ML IV (14:19)
--- NOTE | 2023-08-29 14:45 | PM.ANESCN ---
History of Present Illness Consult details Consult date: 08/29/23 Requesting physician: Kamla Proctor Narrative: Mrs. Nicho Castañeda had an appendectomy under general anesthesia on the morning of Aug 19.? The Dept of Anesthesia was notified on Aug 26 that she developed rhabdomyolysis within hours early on postoperatively after the surgery.? We were asked to look into the question of whether this was a case of malignant hyperthermia (MH) or propofol infusion syndrome. I was notified yesterday.? After reviewing the chart, consulting with other members of the Dept, and with Dr. Patrick at the [facility] hotline ([facility] ; [phone]), my/our conclusion is that the greatest (if not overwhelming) likelihood is that her postop course was indeed a delayed episode of MH. Notable features of her anesthetic course: 1. She was given propofol, rocuronium, and sevoflurane.? No succ. 2. During the surgery and in the recovery room, the patient never displayed any rigidity, hyperthermia, notable tachycardia, or hypercarbia. The relevant MH features are: 1. She developed rhabdomyolyis almost very early after her surgery, as demonstrated by dark brown urine (see picture in chart). 2. A chemistry lab draw the night of surgery was notable for a creat of 0.97 (compared to 0.79 preop), AST of 3912 (was 20 preop), and ALT 904 (was 16).? A CPK was unable to be done bec the analyzer had a problem with the specimen, which we think was bec the CPK was too high. ?(Note that she also had a potassium of 5.1 that night, compared to 3.2 preoperatively, but in the interim was given 80 mEq of potassium.) 3. Chemistries the first postop morning, Aug 20, were notable for creat up to 1.38, and steady transaminase levels.? A CPK level sent that day was still unable to be reported. ?That morning, she complained of diffuse body pains.? The possibility of rhabdomyolysis was raised. 4. Chemistries on Aug 21 finally reported a CPK of [id number].? By then creat was up to 3.3.? She was seen by renal and dialyzed.? (It is noted that typical (non-MH related) rhabdomyolysis cases hardly ever present with CPKs > 100,000, whereas MH-related cases have been reported w CPK as high as 671,000 [SHALINI Diaz:? Anesth & Analg 1995; 81: 1039-42].) The ?atypical? (confounding) factors are that, as noted above, during the surgery and in the recovery room, the patient never displayed any rigidity, hyperthermia, notable tachycardia, or hypercarbia. I discussed the patient with Dr. Patrick from the [facility] yesterday.? It was her opinion that the greatest likelihood was that this was a case of delayed MH.? She did not think at all that it was a case of propofol infusion syndrome (nor do I).? I spoke with the patient briefly last night (and also with her Surgeon, Dr. Crawford) and told her we would discuss it with her in greater depth and give her a letter about it, with all the details and what to do in the future. What do in the future: 1. TESTING:? The two most common tests are the caffeine-halothane contracture test (CHCT) and genetic testing. ?The CHCT is more sensitive than genetic testing (fewer false negatives).? But the CHCT is done only at specialized CHCT Centers, cannot be performed by mail because the test must be performed on fresh tissue.? So patients must travel to an approved testing center.? Very expensive bec of the travel and medical costs.? And has a substantial false negative rate.? Therefore, the most practical testing is genetic tests on a blood sample.? The three genetic tests (RYR1, STAC3, [id number]) are listed on the [facility] website under ?Testing?.? They have higher false negative rate than CHCT, but for most people is the practical way to go. ? ??Given the high false negative test rate (either CHCT or genetic blood test), the test is useful when positive, not useful when negative.? If the test is positive, then patient and immediate family (blood relatives and children) should all avoid triggering anesthetics.? If test is negative, then what to do in the future depends on the likelihood of whether the patient had an episode of MH of not.? If the possibility is real, then triggering anesthetics should be avoided.? Individual cases are best discussed with the experts at [facility]. 2. THIS PATIENT (ie. Mrs. Ethel Castañeda):? The likelihood that she had a delayed presentation of MH is high.? She MUST avoid tiggering anesthetics in the future (even if either CHCT or genetic testing is negative. 3. If she needs surgery with general anesthesia, either the machine needs to be flushed for hours per the vice president of talent acquisition?s instructions, or the flush period can be shortened to 90 secs via the use of charcoal filters on both insp and exp limbs. 4. Regardless, if a nontriggering anesthetic is used, prophylactic dantrolene is NOT given.? According to the [facility] in home sales consultant, there is no need to even bring it in the room or prepare it ahead of time.? The usual monitoring is undertaken, most particularly ETCO2 and core temperature (not skin temp). 5. Lastly the patient should register with the [place] Malignant Hyperthermia Registry (NAMHR) of [facility]. [facility] Past Medical History Medical History (Updated 08/22/23 @ 16:03 by Yamilet Orta MD) Bacteremia Hepatitis B carrier Skin lesion Lactating mother Hepatitis B Miscarriage Family History Family History Father Diabetes Paternal Grandfather Diabetes Family history: reviewed and not pertinent Surgical History Surgical History History of ankle surgery Social History Social History Household Members: Significant Other and Children Housing: Apartment Do you presently have visiting nurse or other home services: No Alcohol intake: current Alcohol intake frequency: does not drink Comment: 1/walker Patient Tobacco Use Status: Former Tobacco user Tobacco use type: Cigarette Years Smoked: 1 Smoked in Last 30 Days: No e-Cigarette/Vaping Use: Never Used Patient Interested in Nicotine Replacement: No Patient Given Instructions on How to Stop Smoking: No Use of substances other than those prescribed or required for medical reasons: No Currently Displaying Signs/Symptoms of Drug Intoxication Withdrawal: No Any prior treatment program specific to substance use: No Have you been hit, kicked, punched, or otherwise hurt by someone within the past year? If so, by whom?: No Do you feel safe in your current relationship?: Yes Is there a partner from a previous relationship who is making you feel unsafe now?: No Are you made to feel afraid or neglected: No Advance Directives: No Advance Directives Information Provided: No Advance Directives on File: No Do you have thoughts of harming others: None Do you have a plan to hurt others: No Plan Recently lost weight without trying: No Nutrition Risks: No Nutritional Risk Patient : No : No Poor oral hygiene: No service: No Sexual orientation: Straight/Heterosexual Gender identity: Female Meds Allergies Allergy/AdvReac Type Severity Reaction Status Date / Time Inhaled Anesthetics (Halogen AdvReac Severe Malignant Verified 08/29/23 10:10 Based) Hyperthermia Active Medications: Current Medications Acetaminophen (Acetaminophen 325 Mg Tablet) 650 mg PO Q6H PRN PRN Reason: fever, pain Last Admin: 08/29/23 12:13 Dose: 650 mg Al Hydroxide/Mg Hydroxide (Magnesium Hydrox/Alum Hydrox 30 Ml Oral.Susp) 30 ml PO Q6H PRN PRN Reason: Heartburn Last Admin: 08/26/23 17:52 Dose: 30 ml Calcium Carbonate (Calcium Carbonate 500 Mg Tablet) 500 mg PO TID [facility] Last Admin: 08/29/23 14:21 Dose: 500 mg Heparin Sodium (Porcine) (Heparin Sodium,Porcine 5,000 Unit/Ml Vial) 5,000 unit INTRACATH MOWEFR@1645 [facility] Last Admin: 08/27/23 16:52 Dose: Not Given Hydromorphone HCl (Hydromorphone Hcl 0.5 Mg/0.5 Ml Syringe) 0.5 mg IVPUSH Q4H PRN; Protocol PRN Reason: Pain, Severe (Pain Scale 7-10) Last Admin: 08/26/23 22:43 Dose: 0.5 mg Promethazine HCl 12.5 mg/ (Sodium Chloride) 50.5 mls @ 202 mls/hr IV Q6H PRN PRN Reason: Nausea and Vomiting Ceftriaxone Sodium 2 gm/ (Sodium Chloride) 50 mls @ 100 mls/hr IV Q24H [facility] Last Admin: 08/29/23 14:19 Dose: 100 mls/hr Lidocaine (Lidocaine 4 % Patch Adh..Patch) 1 patch TRANSDERMA DAILY [facility]; Protocol Last Admin: 08/28/23 23:08 Dose: 1 patch Ondansetron HCl (Ondansetron Odt 4 Mg Tab.Rapdis) 4 mg TRANSLINGU Q6H PRN PRN Reason: Nausea and Vomiting Last Admin: 08/18/23 17:32 Dose: 4 mg Ondansetron HCl (Ondansetron Hcl 4 Mg/2 Ml Vial) 4 mg IVPUSH Q6H PRN PRN Reason: nausea Last Admin: 08/22/23 03:01 Dose: 4 mg Sodium Chloride (0.9 % Sodium Chloride Flush 3 Ml Syringe) 3 ml IVFLUSH [facility] Last Admin: 08/29/23 07:55 Dose: 3 ml Home Medications Medication Instructions Recorded Confirmed Last Taken Type levonorgestrel 17.5 mcg/24 hrs intrauterine 01/22/23 08/11/23 Unknown History (5yrs) 19.5mg intrauterine device (Kyleena) Physical Exam Vital Signs: Vital Signs: Last Vital Signs Temp 98.9 F 08/29/23 07:29 Pulse 68 08/29/23 07:29 Resp 16 08/29/23 07:29 BP 140/78 H 08/29/23 07:29 Pulse Ox 98 08/29/23 07:29 O2 Del Method Room Air 08/29/23 07:29 O2 Flow Rate 97 08/26/23 14:56 BMI result Body Mass Index 38.1 Results Labs 08/26/23 07:21 08/29/23 05:05 Labs: Abnormal lab results 08/29/23 Range/Units 05:05 Sodium 128 L (135-145) mmol/L Carbon Dioxide 19 L (22-29) mmol/L BUN 29 H (9-16) mg/dL Creatinine 5.72 H* (0.5-1.4) mg/dL Total Creatine Kinase 2013 H (26-140) U/L BMP 08/29/23 05:05 Sodium 128 L Potassium 4.0 Chloride 99 Carbon Dioxide 19 L BUN 29 H Creatinine 5.72 H* Calcium 8.8 Cardiac Enzymes 08/29/23 Range/Units 05:05 Total Creatine Kinase 2013 H (26-140) U/L Urine 08/18/23 08/20/23 08/21/23 Range/Units 15:27 01:54 11:10 Urine Color Yellow BROWN Yellow Urine Appearance Clear Hazy Clear Urine pH 8.5 7.0 6.5 (5.0-9.0) Ur Specific [place] >= 1.030 H 1.020 <= 1.005 (1.005-1.025) Urine Protein Trace 300 (3+) H 100 (2+) H (Neg-Trace) mg/dL Urine Glucose (UA) Negative 100 H Negative (Negative) mg/dL Urine Test NEGATIVE (NEGATIVE) 08/26/23 Range/Units 04:30 Urine Color Yellow Urine Appearance Turbid Urine pH 7.0 (5.0-9.0) Ur Specific [place] 1.010 (1.005-1.025) Urine Protein 300 (3+) H (Neg-Trace) mg/dL Urine Glucose (UA) Negative (Negative) mg/dL Urine Test (NEGATIVE) All other labs normal. Procedures Date of Service Date of Service: 08/29/23
--- NOTE | 2023-08-29 14:54 | P.ENANES_ITS ---
Anesthesia Event Note Date of Service: 11/11/23 Event Note: ADDENDUM ADDED ON 09/02/2023: I spoke further today with Dr. Carbajal, another multi site leasing consultant at the [facility] hotline.? In her opinion, the central feature of malignant hyperthermia (MH) is the muscle hyperactivity (manifest as rigidity and hyperkalemia), that in turn results in the hypermetabolism (manifest by a rise in ETCO2, rise in temperature, tachypnea, tachycardia, and metabolic acidosis).? You cannot have MH without any manifestations of the muscle hyperactivity.? And this patient had none of them.? Therefore it is extremely unlikely that this patient had MH.? I and other members of the anesthesia dept agree with that. What the patient clearly did have is muscle breakdown, causing rhabdomyolysis.? The MH consultants suggestion is to focus on why the patient developed rhabdomyolysis. In terms of this patient's particular case, the proximity of her episode of rhabdomyolysis to the anesthetic cannot be ignored, and is suggestive of a link.? There are well known myopathies and muscular dystrophies that are associated with both MH and non-MH rhabdomyolysis when exposed to anesthesia triggering agents (ie. inhalation agents and succinylcholine).? Or other genetic diseases*.? And given that the patient is now known to have a daughter who has some kind of myopathy, this would seem to rise to the top of the differential. Another possibility in the differential of causes of this patient's rhabdomyolyis would include Sepsis (which the patient clearly had).? Other possibilities such as autoimmune diseases, hyperkalemic periodic paralysis, paroxysmal nocturnal hemaglobinemia, or medications, would seem much less likely.? But the differential is very wide.* There are dozens of causes of rhabdomyolysis and the patient should see an exp ert in the field to investigate that. *See Franc PA, Dirk JA, Alicia AM, Alicia AD:? Rhabdomyolysis: Pathogenesis, Diagnosis, and Treatment.? [facility] Journal; 2015: Spring; 15(1): 58?69.? PMID: [id number]. See my Anesthesia Event Note of 09/02/23 for further info. Mrs. Nicho Castañeda had an appendectomy under general anesthesia on the morning of Aug 19.? The Dept of Anesthesia was notified on Aug 26 that she developed rhabdomyolysis within hours early on postoperatively after the surgery.? We were asked to look into the question of whether this was a case of malignant hyperthermia (MH) or propofol infusion syndrome. I was notified yesterday.? After reviewing the chart, consulting with other members of our Dept, and with Dr. 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 Notable features of her anesthetic course: 1. She was given propofol, rocuronium, and sevoflurane.? No succ. 2. During the surgery and in the recovery room, the patient never displayed any rigidity, hyperthermia, notable tachycardia, or hypercarbia. The relevant MH features are: 1. She developed rhabdomyolyis almost very early after her surgery, as demonstrated by dark brown urine (see picture in chart). 2. A chemistry lab draw the night of surgery was notable for a creat of 0.97 (compared to 0.79 preop), AST of 3912 (was 20 preop), and ALT 904 (was 16).? A CPK was unable to be done bec the analyzer had a problem with the specimen, which we think was bec the CPK was too high. ?(Note that she also had a potassium of 5.1 that night, compared to 3.2 preoperatively, but in the interim was given 80 mEq of potassium.) 3. Chemistries the first postop morning, Aug 20, were notable for creat up to 1.38, and steady transaminase levels.? A CPK level sent that day was still unable to be reported. ?That morning, she complained of diffuse body pains.? The possibility of rhabdomyolysis was raised. 4. Chemistries on Aug 21 finally reported a CPK of [id number].? By then creat was up to 3.3.? She was seen by renal and dialyzed.? (It is noted that typical (non- MH related) rhabdomyolysis cases hardly ever present with CPKs > 100,000, whereas MH-related cases have been reported w CPK as high as 671,000 [SHALINI Diaz:? Anesth & Analg 1995; 81: 1039-42].) Futhermore, duriing my conversation today wherein I gave the patient a copy of this note, she told me that her 8yo daughter Amador was [place] [facility] [place] the age of 6 with myositis [CPK peaked at 54220b], which after w/u was attributed to enterovirus infection. The ?atypical? (confounding) factors are that, as noted above, during the surgery and in the recovery room, the patient never displayed any rigidity, hyperthermia, notable tachycardia, or hypercarbia. I discussed the patient with Dr. Patrick from the [facility] yesterday.? It was her opinion that the greatest likelihood was that this was a case of delayed MH.? She did not at all think that it was a case of propofol infusion syndrome (nor do I).? I spoke with the patient briefly last night (and also with her Surgeon, Dr. Crawford) and told her we would discuss it with her in greater depth and give her a letter about it, with all the details and what to do in the future. What do in the future: 1. TESTING:? The two most common tests are the caffeine-halothane contracture test (CHCT) and genetic testing. ?The CHCT is more sensitive than genetic testing (fewer false negatives).? But the CHCT is done only at specialized CHCT Centers, and cannot be performed by mail because the test must be performed on fresh tissue.? So patients must travel to an approved testing center.? Very expensive bec of the travel and medical costs.? And has a substantial false negative rate.? Therefore, the most practical testing is genetic tests on a blood sample.? The three genetic tests (RYR1, STAC3, [id number]) are listed on the [facility] website under ?Testing?.? They have a higher false negative rate than CHCT, but for most people it's the practical way to go. ? ??Given the high false negative test rate (either CHCT or genetic blood test), the test is useful when positive, not useful when negative.? If the test is positive, then the patient and immediate family (blood relatives and children) should all avoid triggering anesthetics.? If test is negative, then what to do in the future depends on the likelihood of whether the patient had an episode of MH or not.? If the possibility is real, then triggering anesthetics should be avoided.? Individual cases are best discussed with the experts at [facility]. 2. THIS PATIENT (ie. Mrs. Ethel Castañeda):? The likelihood that she had a delayed presentation of MH is high.? She MUST avoid tiggering anesthetics in the future (even if either CHCT or genetic testing is negative). 3. If she needs surgery with general anesthesia, either the machine needs to be flushed for hours per the chefs?s instructions, or the flush period can be shortened to 90 secs via the use of charcoal filters on both insp and exp limbs. 4. Regardless, if a nontriggering anesthetic is used, prophylactic dantrolene is NOT given.? According to the [facility] multi site leasing consultant, there is no need to even bring it in the room or prepare it ahead of time.? The usual monitoring is undertaken, most particularly ETCO2 and core temperature (not skin temp). 5. Lastly the patient should register with the [place] Malignant Hyperthermia Registry (NAMHR) of [facility]. The Dept of Anesthesia will give her a note that describes our final conclusions and the future actions should take in regards to testing and the prescription for future anesthetics. This visit involved > 60 min researching the above issues, writing the note, and counseling the patient for about 20 minutes. Code 29707. Time Spent With Patient Time: 60 min
[2023-08-29 15:18] VITALS: BP 148/88; PULSE 68; RESP 18; TEMP 36.7; O2SAT 100
--- NOTE | 2023-08-29 16:04 | MHC.CM.PN ---
per rounds pt not dc ready plan remains home
--- NOTE | 2023-08-29 19:09 | P.PNNP_ITS ---
Subjective Subjective Date of Service: 08/29/23 Interval history: urinating more; feels better Physical Exam 2 Vital Signs: Vital Signs: Last Vital Signs Temp 98.1 F 08/29/23 15:18 Pulse 68 08/29/23 15:18 Resp 18 08/29/23 15:18 BP 148/88 H 08/29/23 15:18 Pulse Ox 100 08/29/23 15:18 O2 Del Method Room Air 08/29/23 15:18 O2 Flow Rate 97 08/26/23 14:56 BMI result Body Mass Index 38.1 Const: General: comfortable and no acute distress O rientation/consciousness: patient oriented x3 HEENT: Head: Yes normocephalic Mouth: Normal oral and palatal mucosa present Eyes: EOM: EOMs intact bilaterally Neck: Neck: Yes supple Resp: Auscultation: clear to auscultation bilaterally Cardio: Jugular venous distension: no JVD Rate: regular rate GI: Palpation (GI): Soft to palpation Auscultation: normal bowel sounds : General: Yes no CVA tenderness Back/Spine/Pelvis: Back: no CVA tenderness Skin: General skin exam: no rashes or lesions noted Neuro: General: patient oriented x3 and moves all extremities Extrem: General: Yes no pedal edema Objective Data Labs 08/26/23 07:21 08/29/23 05:05 Labs: Laboratory Results - last 24 hr 08/29/23 08/29/23 05:05 05:31 Hold Purple Top SEE NOTE Sodium 128 L Potassium 4.0 Chloride 99 Carbon Dioxide 19 L Anion Gap 14 BUN 29 H Creatinine 5.72 H* Estim Creat Clear Calc 15.6 Estimated GFR 9 Random Glucose 90 Calcium 8.8 Total Creatine Kinase 2014 H Microbiology Microbiology Results: Microbiology 08/18/23 19:44 Blood - Venous Blood Culture - Final No growth after 5 days. 08/19/23 13:15 Blood - Venous Blood Culture - Final Escherichia coli 08/19/23 13:15 Blood - Venous Blood Culture - Final Escherichia coli 08/18/23 19:11 Blood - Venous Blood Culture - Final Streptococcus pneumoniae Procedures Date of Service Date of Service: 08/29/23 Assessment & Plan Assessment and plan (1) RAMON (acute kidney injury): Status: Acute Plan Acute Kidney injury due to multifactorial tubular injury Urine output better; Getting renal replacement HD catheter( temporary )in place; Hold further HD for now Will need permcath if renal recovery not happening soon Continue with rest of current supportive management Lab AM. Shall closely follow up Progress Note: Quality Stroke Does the patient have a stroke diagnosis?: No
[2023-08-29 19:28] VITALS: BP 154/90; PULSE 73; RESP 16; TEMP 36.9; O2SAT 100
[2023-08-29 23:09] VITALS: BP 128/85; PULSE 72; RESP 16; TEMP 37.1; O2SAT 100
[2023-08-30] VITALS (9 sets, daily range): BP systolic 137–176; BP diastolic 85–98; PULSE 65–76; RESP 16–18; TEMP 36.1–36.9; O2SAT 98–100; BMI 37.1
[2023-08-30] MEDS: HYDROmorphone HCl 0.5 MG/0.5 ML SYRINGE IVPUSH ×2 (00:05→16:38)
[2023-08-30 07:33] LABS: Alanine Aminotransferase 208 U/L (0-31); Albumin Level 3.4 g/dL (3.5-5.0); Alkaline Phosphatase 63 U/L (39-117); Anion Gap 14 (12-20); Aspartate Amino Transferase 91 U/L (5-31); Bilirubin Total 0.3 mg/dL (0.0-1.0); Blood Urea Nitrogen 17 mg/dL (9-16); Calcium 7.9 mg/dL (8.4-10.2); Carbon Dioxide 22 mmol/L (22-29); Chloride 98 mmol/L (96-108); Estimated Glomerular Filt Rate 15; Glucose Random 86 mg/dL (60-115); Potassium 3.5 mmol/L (3.3-5.1); Sodium 130 mmol/L (135-145); Total Protein 6.3 g/dL (6.5-8.0)
[2023-08-30] MEDS: Lidocaine 4 % Patch ADH..PATCH 1 PATCH TRANSDERMA (08:55)
[2023-08-30] MEDS: Acetaminophen 325 MG TABLET 650 MG PO (08:55)
[2023-08-30] MEDS: 0.9 % Sodium Chloride Flush 3 ML SYRINGE IVFLUSH ×4 (08:55→20:04)
--- NOTE | 2023-08-30 10:19 | P.PNIM_ITS ---
Subjective Subjective Date of Service: 08/30/23 Interval History: Urinated 1450 mL in last 24 hr. Cr coming down. No chest pain or other complaints. Review of Systems Review of Systems: Yes all other systems are reviewed and are negative Physical Exam 2 Vital Signs: Vital Signs: Last Vital Signs Temp 97.8 F 08/30/23 08:00 Pulse 73 08/30/23 08:00 Resp 17 08/30/23 08:00 BP 156/98 H 08/30/23 08:00 Pulse Ox 100 08/30/23 08:00 O2 Del Method Room Air 08/30/23 08:00 O2 Flow Rate 97 08/26/23 14:56 BMI result Body Mass Index 37.1 Gen: in no acute distress HEENT: sclera anicteric, moist mucus membranes Neck: supple, RIJ HD catheter Lungs: clear to auscultation bilaterally Heart: regular rate and rhythm, no murmurs Abd: soft, non-tender, non-distended, incisions C/D/I Ext: no edema Skin: warm/well-perfused Neuro: alert and oriented x3, no focal findings Psych: appropriate affect Objective Data Active Medications Acetaminophen (Acetaminophen 325 Mg Tablet) 650 mg PO Q6H PRN PRN Reason: fever, pain Last Admin: 08/30/23 08:55 Dose: 650 mg Documented By: DONNY Al Hydroxide/Mg Hydroxide (Magnesium Hydrox/Alum Hydrox 30 Ml Oral.Susp) 30 ml PO Q6H PRN PRN Reason: Heartburn Last Admin: 08/26/23 17:52 Dose: 30 ml Documented By: MARILY Calcium Carbonate (Calcium Carbonate 500 Mg Tablet) 500 mg PO TID [facility] Last Admin: 08/30/23 08:55 Dose: 500 mg Documented By: DONNY Heparin Sodium (Porcine) (Heparin Sodium,Porcine 5,000 Unit/Ml Vial) 5,000 unit INTRACATH MOWEFR@1645 [facility] Last Admin: 08/29/23 15:37 Dose: Not Given Documented By: MAYA Non-Admin Reason: Dialysis order Hydromorphone HCl (Hydromorphone Hcl 0.5 Mg/0.5 Ml Syringe) 0.5 mg IVPUSH Q4H PRN; Protocol PRN Reason: Pain, Severe (Pain Scale 7-10) Last Admin: 08/30/23 00:05 Dose: 0.5 mg Documented By: PRIYANK Promethazine HCl 12.5 mg/ (Sodium Chloride) 50.5 mls @ 202 mls/hr IV Q6H PRN PRN Reason: Nausea and Vomiting Ceftriaxone Sodium 2 gm/ (Sodium Chloride) 50 mls @ 100 mls/hr IV Q24H [facility] Last Infusion: 08/29/23 15:19 Dose: Infused Documented By: MAYA Lidocaine (Lidocaine 4 % Patch Adh..Patch) 1 patch TRANSDERMA DAILY [facility]; Protocol Last Admin: 08/30/23 08:55 Dose: 1 patch Documented By: DONNY Ondansetron HCl (Ondansetron Odt 4 Mg Tab.Rapdis) 4 mg TRANSLINGU Q6H PRN PRN Reason: Nausea and Vomiting Last Admin: 08/18/23 17:32 Dose: 4 mg Documented By: BETTY Ondansetron HCl (Ondansetron Hcl 4 Mg/2 Ml Vial) 4 mg IVPUSH Q6H PRN PRN Reason: nausea Last Admin: 08/22/23 03:01 Dose: 4 mg Documented By: NASEEM Sodium Chloride (0.9 % Sodium Chloride Flush 3 Ml Syringe) 3 ml IVFLUSH QSHIFT [facility] Last Admin: 08/30/23 08:55 Dose: 3 ml Documented By: DONNY Labs 08/26/23 07:21 08/30/23 06:01 Labs: Laboratory Results - last 24 hr 08/30/23 06:01 Anion Gap 14 Estim Creat Clear Calc 25.0 Estimated GFR 15 Random Glucose 86 Calcium 7.9 L D Total Bilirubin 0.3 AST 91 H ALT 208 H Alkaline Phosphatase 63 Total Creatine Kinase 1303 H Total Protein 6.3 L Albumin 3.4 L Assessment and Plan (1) RAMON (acute kidney injury): Status: Acute (2) Rhabdomyolysis: Status: Acute (3) Bacteremia: Status: Acute Plan d13 33yo F with no chronic conditions admitted to General Surgery for sepsis due to acute gangrenous appendicitis. Postop course complicated by severe rhabdomyolysis [CPK 53562+]with RAMON requiring HD RAMON due to septic ATN + rhabdomyolysis - Last HD 08/29/23. Appears to be making renal recovery; hold further HD. Nephrology following; disuss catheter removal once further improvement occurs. - Extensive discussion with Anesthesia Department. Suspicion for atypical malignant hyperthermia [atypical because pt never had fever or rigidity]. Counseled to avoid inhaled halogenated anesthetics from now and and listed this under med allergies. Genetic testing to be pursued as per Mal[employer]ther[employer] [place]: RYR1 [CPT 45526], STAC3 + RGMFJ9D [CPT 15588]. - Family history notable for her 8yo daughter Amdaor having been admitted to [facility] [place] at the age of 5 with myositis [CPK peaked at 68289m] attributed to enterovirus infection. I called her business technology professor Dr San and advised genetics/neuromuscular workup at [facility] and that both Becky and her little sister should avoid halogenated anesthetics. acute gangrenous appendicitis - POD11, Surgery following E coli bacteremia - resistant to amp, gent, and TMP-SMX - ceftriaxone 08/21-09/04, per ID complete course with cefuroxime upon discharge home hypoCa - repleting; will decrease frequency of CaCO3 transaminasemia - cross-reactivity with skeletal muscle from rhabdomyolysis, LFTs improving hx HBV - HBsAg now negative, viral load negative VTE ppx - SCDs dispo - eventual home In my clinical judgment, the patient requires continued inpatient hospitalization for the following reasons: RAMON Total time managing care of this patient today: 40 minutes. Quality Stroke Does the patient have a stroke diagnosis?: No VTE Prior VTE?: No VTE Risk Level:: Medical - low VTE Device Contraindication: N/A - Device Ordered VTE Drug Contraindication: Treatment Not Indicated
[2023-08-30] MEDS: cefTRIAXone sodium 2 GM in 0.9 % Sodium Chloride 50 ML IV (12:58)
[2023-08-30] MEDS: Butalb/Acetamin/Caff 50/325/40 TABLET 1 TAB PO (12:58)
[2023-08-30] MEDS: SUMAtriptan succinate 50 MG TABLET PO (15:49)
[2023-08-30] MEDS: ondansetron HCL 4 MG/2 ML VIAL IVPUSH (20:04)
[2023-08-30] MEDS: hydrALAZINE HCl 20 MG/ML VIAL 5 MG IVPUSH (20:18)
[2023-08-30] MEDS: traMADoL HCL 50 MG TABLET 25 MG PO (22:49)
[2023-08-31] VITALS (8 sets, daily range): BP systolic 134–161; BP diastolic 79–100; PULSE 66–93; RESP 16–20; TEMP 36.3–36.9; O2SAT 96–100; BMI 37.1
[2023-08-31 06:24] LABS: Anion Gap 14 (12-20); Blood Urea Nitrogen 22 mg/dL (9-16); Calcium 8.6 mg/dL (8.4-10.2); Carbon Dioxide 21 mmol/L (22-29); Chloride 97 mmol/L (96-108); Creatinine Clr Calc Pharmacy 20.7; Estimated Glomerular Filt Rate 12; Glucose Random 88 mg/dL (60-115); Potassium 3.4 mmol/L (3.3-5.1); Sodium 129 mmol/L (135-145)
--- NOTE | 2023-08-31 07:48 | P.PNIM_ITS ---
Subjective Subjective Date of Service: 08/31/23 Interval History: Seen in follow up for acute appy, ramon, rhabdo, MH Interval history: Feeling better. Urinated 550 mL in last 24 hr, slight bump in creat to 4.26. No n/v. Denies pain. Tolerating PO Review of Systems Review of Systems: Yes all other systems are reviewed and are negative Physical Exam 2 Vital Signs: Vital Signs: Last Vital Signs Temp 98 F 08/31/23 06:43 Pulse 66 08/31/23 06:43 Resp 16 08/31/23 06:43 BP 152/80 H 08/31/23 06:43 Pulse Ox 100 08/31/23 06:43 O2 Del Method Room Air 08/31/23 06:43 O2 Flow Rate 97 08/26/23 14:56 BMI result Body Mass Index 37.1 Constitutional - Awake and Alert, No apparent distress Eyes - PERRLA, EOMI Cardiovascular - S1S2, RRR, No edema Respiratory - Normal lung expansion, Normal respiratory effort, No respiratory distress, CTA bilaterally Gastrointestinal - NT / ND; +BS; No rebound or guarding Extremities - no calf tenderness bilaterally, no swelling Skin - Warm/Dry Neurological - Alert & oriented x3 Psychological - Appropriate affect Objective Data Active Medications Acetaminophen (Acetaminophen 325 Mg Tablet) 650 mg PO Q6H PRN PRN Reason: fever, pain Last Admin: 08/30/23 08:55 Dose: 650 mg Documented By: DONNY Al Hydroxide/Mg Hydroxide (Magnesium Hydrox/Alum Hydrox 30 Ml Oral.Susp) 30 ml PO Q6H PRN PRN Reason: Heartburn Last Admin: 08/26/23 17:52 Dose: 30 ml Documented By: MARILY Calcium Carbonate (Calcium Carbonate 500 Mg Tablet) 500 mg PO DAILY [facility] Heparin Sodium (Porcine) (Heparin Sodium,Porcine 5,000 Unit/Ml Vial) 5,000 unit INTRACATH MOWEFR@1645 [facility] Last Admin: 08/29/23 15:37 Dose: Not Given Documented By: MAYA Non-Admin Reason: Dialysis order Hydromorphone HCl (Hydromorphone Hcl 0.5 Mg/0.5 Ml Syringe) 0.5 mg IVPUSH Q4H PRN; Protocol PRN Reason: Pain, Severe (Pain Scale 7-10) Last Admin: 08/30/23 16:38 Dose: 0.5 mg Documented By: DONNY Promethazine HCl 12.5 mg/ (Sodium Chloride) 50.5 mls @ 202 mls/hr IV Q6H PRN PRN Reason: Nausea and Vomiting Ceftriaxone Sodium 2 gm/ (Sodium Chloride) 50 mls @ 100 mls/hr IV Q24H [facility] Last Infusion: 08/30/23 13:28 Dose: Infused Documented By: DONNY Lidocaine (Lidocaine 4 % Patch Adh..Patch) 1 patch TRANSDERMA DAILY [facility]; Protocol Last Admin: 08/30/23 08:55 Dose: 1 patch Documented By: DONNY Ondansetron HCl (Ondansetron Odt 4 Mg Tab.Rapdis) 4 mg TRANSLINGU Q6H PRN PRN Reason: Nausea and Vomiting Last Admin: 08/18/23 17:32 Dose: 4 mg Documented By: BETTY Ondansetron HCl (Ondansetron Hcl 4 Mg/2 Ml Vial) 4 mg IVPUSH Q6H PRN PRN Reason: nausea Last Admin: 08/30/23 20:04 Dose: 4 mg Documented By: MARICEL Sodium Chloride (0.9 % Sodium Chloride Flush 3 Ml Syringe) 3 ml IVFLUSH QSHIFT [facility] Last Admin: 08/30/23 20:04 Dose: 3 ml Documented By: MARICEL Labs 08/26/23 07:21 08/31/23 05:55 Labs: Laboratory Results - last 24 hr 08/31/23 05:55 Anion Gap 14 Estim Creat Clear Calc 20.7 Estimated GFR 12 Random Glucose 88 Calcium 8.6 D Total Creatine Kinase 970 H Assessment and Plan (1) Rhabdomyolysis: Status: Acute (2) RAMON (acute kidney injury): Status: Acute (3) Bacteremia: Status: Acute Plan d14 33yo F with no chronic conditions admitted to General Surgery for sepsis due to acute gangrenous appendicitis. Postop course complicated by severe rhabdomyolysis [CPK 83543+]with RAMON requiring HD RAMON due to septic ATN + rhabdomyolysis - Last HD 08/29/23. Creat slightly increased to 4.26, Appears to be making renal recovery overall per nephro; hold further HD. Nephrology following; disuss catheter removal once further improvement occurs. -give 80mg lasix x1, +180ml in 24 hours per nephro - Extensive discussion with Anesthesia Department. Suspicion for atypical malignant hyperthermia [atypical because pt never had fever or rigidity]. Counseled to avoid inhaled halogenated anesthetics from now and and listed this under med allergies. Genetic testing to be pursued as per Malignant [employer]ther[employer] [place]: RYR1 [CPT 01578], STAC3 + BBPRX0W [CPT 85912]. - Family history notable for her 8yo daughter Amador having been admitted to [facility] [place] at the age of 5 with myositis [CPK peaked at 72316u] attributed to enterovirus infection. I called her location analyst Dr San and advised genetics/neuromuscular workup at [facility] and that both Becky and her little sister should avoid halogenated anesthetics. acute gangrenous appendicitis - POD11, Surgery following E coli bacteremia - resistant to amp, gent, and TMP-SMX - ceftriaxone 08/21-09/04, per ID complete course with cefuroxime upon discharge home hypoCa - repleting; will decrease frequency of CaCO3 transaminasemia - cross-reactivity with skeletal muscle from rhabdomyolysis, LFTs improving hx HBV - HBsAg now negative, viral load negative VTE ppx - SCDs dispo - eventual home In my clinical judgment, the patient requires continued inpatient hospitalization for the following reasons: RAMON Quality Stroke Does the patient have a stroke diagnosis?: No VTE Prior VTE?: No VTE Risk Level:: Medical - low VTE Device Contraindication: N/A - Device Ordered VTE Drug Contraindication: Treatment Not Indicated
[2023-08-31] MEDS: Acetaminophen 325 MG TABLET 650 MG PO (08:10)
[2023-08-31] MEDS: 0.9 % Sodium Chloride Flush 3 ML SYRINGE IVFLUSH ×3 (08:10→19:37)
[2023-08-31] MEDS: Lidocaine 4 % Patch ADH..PATCH 1 PATCH TRANSDERMA (08:11)
--- NOTE | 2023-08-31 11:01 | PM.EVENT ---
Event Note Date of Service: 08/31/23 Event Note: Feels well Good oral intake Denies GI complaints Abdomen soft Still undergoing hemodialysis or renal failure secondary to severe rhabdomyolysis Rhabdomyolysis deemed to be secondary to delayed MH Time Spent With Patient Time: Total time managing care of this patient today ____ minutes.
[2023-08-31] MEDS: cefTRIAXone sodium 2 GM in 0.9 % Sodium Chloride 50 ML IV (12:32)
[2023-08-31] MEDS: Furosemide 100 MG/10 ML VIAL 80 MG IVPUSH (13:24)
[2023-08-31] MEDS: Heparin Sodium,Porcine 5,000 UNIT/ML VIAL 5000 UNIT SUBCUT (14:56)
[2023-08-31] MEDS: HYDROmorphone HCl 0.5 MG/0.5 ML SYRINGE IVPUSH (17:39)
[2023-09-01] MEDS: Heparin Sodium,Porcine 5,000 UNIT/ML VIAL 5000 UNIT SUBCUT ×2 (01:42→13:33)
[2023-09-01] MEDS: Acetaminophen 325 MG TABLET 650 MG PO ×2 (01:46→19:16)
[2023-09-01 03:23] VITALS: BP 129/74; PULSE 73; RESP 16; TEMP 36.9; O2SAT 97
[2023-09-01 05:57] VITALS: BMI 36.4
[2023-09-01 06:12] LABS: Anion Gap 18 (12-20); Blood Urea Nitrogen 27 mg/dL (9-16); Calcium 8.6 mg/dL (8.4-10.2); Carbon Dioxide 21 mmol/L (22-29); Chloride 95 mmol/L (96-108); Creatinine Clr Calc Pharmacy 19.9; Estimated Glomerular Filt Rate 12; Glucose Random 97 mg/dL (60-115); Potassium 3.9 mmol/L (3.3-5.1); Sodium 130 mmol/L (135-145)
[2023-09-01 07:15] VITALS: BP 141/77; PULSE 73; RESP 16; TEMP 36.6; O2SAT 98
--- NOTE | 2023-09-01 07:36 | P.PNIM_ITS ---
Subjective Subjective Date of Service: 09/01/23 Interval History: Seen in follow up for acute appy, ramon, rhabdo, MH Interval history: Feeling better. Improved urine output -1690 x 24 hours. Complaining of occipital headache squeezing/pressure in nature, limited ROM neck due to IJ catheter Review of Systems Review of Systems: Yes all other systems are reviewed and are negative Physical Exam 2 Vital Signs: Vital Signs: Last Vital Signs Temp 97.8 F 09/01/23 07:15 Pulse 73 09/01/23 07:15 Resp 16 09/01/23 07:15 BP 141/77 H 09/01/23 07:15 Pulse Ox 98 09/01/23 07:15 O2 Del Method Room Air 09/01/23 07:15 O2 Flow Rate 97 08/26/23 14:56 BMI result Body Mass Index 36.4 Constitutional - Awake and Alert, No apparent distress Eyes - PERRLA, EOMI Cardiovascular - S1S2, RRR, No edema Respiratory - Normal lung expansion, Normal respiratory effort, No respiratory distress, CTA bilaterally Gastrointestinal - NT / ND; +BS; No rebound or guarding Extremities - no calf tenderness bilaterally, no swelling Skin - Warm/Dry Neurological - Alert & oriented x3 Psychological - Appropriate affect Objective Data Active Medications Acetaminophen (Acetaminophen 325 Mg Tablet) 650 mg PO Q6H PRN PRN Reason: fever, pain Last Admin: 09/01/23 01:46 Dose: 650 mg Documented By: MARICEL Al Hydroxide/Mg Hydroxide (Magnesium Hydrox/Alum Hydrox 30 Ml Oral.Susp) 30 ml PO Q6H PRN PRN Reason: Heartburn Last Admin: 08/26/23 17:52 Dose: 30 ml Documented By: MARILY Calcium Carbonate (Calcium Carbonate 500 Mg Tablet) 500 mg PO DAILY [facility] Last Admin: 08/31/23 08:10 Dose: 500 mg Documented By: DONNY Heparin Sodium (Porcine) (Heparin Sodium,Porcine 5,000 Unit/Ml Vial) 5,000 unit INTRACATH MOWEFR@1645 [facility] Last Admin: 08/29/23 15:37 Dose: Not Given Documented By: MAYA Non-Admin Reason: Dialysis order Heparin Sodium (Porcine) (Heparin Sodium,Porcine 5,000 Unit/Ml Vial) 5,000 unit SUBCUT Q12H [facility] Last Admin: 09/01/23 01:42 Dose: 5,000 unit Documented By: MARICEL Hydromorphone HCl (Hydromorphone Hcl 0.5 Mg/0.5 Ml Syringe) 0.5 mg IVPUSH Q4H PRN; Protocol PRN Reason: Pain, Severe (Pain Scale 7-10) Last Admin: 08/31/23 17:39 Dose: 0.5 mg Documented By: DONNY Promethazine HCl 12.5 mg/ (Sodium Chloride) 50.5 mls @ 202 mls/hr IV Q6H PRN PRN Reason: Nausea and Vomiting Lidocaine (Lidocaine 4 % Patch Adh..Patch) 1 patch TRANSDERMA DAILY [facility]; Protocol Last Admin: 08/31/23 08:11 Dose: 1 patch Documented By: DONNY Ondansetron HCl (Ondansetron Odt 4 Mg Tab.Rapdis) 4 mg TRANSLINGU Q6H PRN PRN Reason: Nausea and Vomiting Last Admin: 08/18/23 17:32 Dose: 4 mg Documented By: BETTY Ondansetron HCl (Ondansetron Hcl 4 Mg/2 Ml Vial) 4 mg IVPUSH Q6H PRN PRN Reason: nausea Last Admin: 08/30/23 20:04 Dose: 4 mg Documented By: MARICEL Sodium Chloride (0.9 % Sodium Chloride Flush 3 Ml Syringe) [facility] Last Admin: 08/31/23 19:37 Dose: 3 ml Documented By: MARICEL Labs 08/26/23 07:21 09/01/23 05:27 Labs: Laboratory Results - last 24 hr 09/01/23 05:27 Hold Purple Top SEE NOTE Anion Gap 18 Estim Creat Clear Calc 19.9 Estimated GFR 12 Random Glucose 97 Calcium 8.6 Assessment and Plan (1) Rhabdomyolysis: Status: Acute (2) RAMON (acute kidney injury): Status: Acute (3) Bacteremia: Status: Acute Plan d14 33yo F with no chronic conditions admitted to General Surgery for sepsis due to acute gangrenous appendicitis. Postop course complicated by severe rhabdomyolysis [CPK 29573+]with RAMON requiring HD RAMON due to septic ATN + rhabdomyolysis - Extensive discussion with Anesthesia Department. Suspicion for atypical malignant hyperthermia [atypical because pt never had fever or rigidity]. Counseled to avoid inhaled halogenated anesthetics from now and and listed this under med allergies. Genetic testing to be pursued as per Malignant Hyperthermia [employer] of [place]: RYR1 [CPT 57096], STAC3 + PMLIZ1P [CPT 49675]. - Family history notable for her 8yo daughter Amador having been admitted to [facility] [place] at the age of 6 with myositis [CPK peaked at 86332f] attributed to enterovirus infection. I called her tier in Dr San and advised genetics/neuromuscular workup at [facility] and that both Becky and her little sister should avoid halogenated anesthetics. - overall with renal recovery. Creat slightly increased but overall stable per nephro with good urine output - Last HD 08/29/23, hold on additional HD at this time. R IJ inplace x 1 additional day per nephro who will consider dc 09/02 if creat trending down -nephro input appreciated Occipital headache/cervical muscle spasm -r/t limited ROm due to R IJ -add tizanidine, lidocaine patches -minimize narcotic use acute gangrenous appendicitis - POD13, Surgery following E coli bacteremia - resistant to amp, gent, and TMP-SMX - ceftriaxone 08/21-09/04, per ID complete course with cefuroxime upon discharge home hypoCa- resolved - repleting; CaCO3 dose reduced transaminasemia - cross-reactivity with skeletal muscle from rhabdomyolysis, LFTs improving hx HBV - HBsAg now negative, viral load negative VTE ppx - SCDs dispo - eventual home In my clinical judgment, the patient requires continued inpatient hospitalization for the following reasons: RAMON Quality Stroke Does the patient have a stroke diagnosis?: No VTE Prior VTE?: No VTE Risk Level:: Medical - low VTE Device Contraindication: N/A - Device Ordered VTE Drug Contraindication: Treatment Not Indicated
[2023-09-01] MEDS: Lidocaine 4 % Patch ADH..PATCH 1 PATCH TRANSDERMA ×2 (08:16→09:04)
[2023-09-01] MEDS: 0.9 % Sodium Chloride Flush 3 ML SYRINGE IVFLUSH (08:17)
[2023-09-01] MEDS: TiZANidine HCL 4 MG TABLET PO ×3 (09:05→19:16)
--- NOTE | 2023-09-01 10:05 | P.PNNP_ITS ---
Subjective Subjective Date of Service: 09/01/23 Interval history: Feeling better. UO good Physical Exam 2 Vital Signs: Vital Signs: Last Vital Signs Temp 97.8 F 09/01/23 07:15 Pulse 73 09/01/23 07:15 Resp 16 09/01/23 07:15 BP 141/77 H 09/01/23 07:15 Pulse Ox 98 09/01/23 07:15 O2 Del Method Room Air 09/01/23 07:15 O2 Flow Rate 97 08/26/23 14:56 BMI result Body Mass Index 36.4 Const: General: comfortable and no acute distress O rientation/consciousness: patient oriented x3 HEENT: Head: Yes normocephalic Mouth: Normal oral and palatal mucosa present Eyes: EOM: EOMs intact bilaterally Neck: Neck: Yes supple Resp: Auscultation: clear to auscultation bilaterally Cardio: Jugular venous distension: no JVD Rate: regular rate GI: Palpation (GI): Soft to palpation Auscultation: normal bowel sounds : General: Yes no CVA tenderness Back/Spine/Pelvis: Back: no CVA tenderness Skin: General skin exam: no rashes or lesions noted Neuro: General: patient oriented x3 and moves all extremities Extrem: General: Yes no pedal edema Objective Data Labs 08/26/23 07:21 09/01/23 05:27 Labs: Laboratory Results - last 24 hr 09/01/23 05:27 Hold Purple Top SEE NOTE Sodium 130 L Potassium 3.9 Chloride 95 L Carbon Dioxide 21 L Anion Gap 18 BUN 27 H Creatinine 4.40 H* Estim Creat Clear Calc 19.9 Estimated GFR 12 Random Glucose 97 Calcium 8.6 Microbiology Microbiology Results: Microbiology 08/18/23 19:44 Blood - Venous Blood Culture - Final No growth after 5 days. 08/19/23 13:15 Blood - Venous Blood Culture - Final Escherichia coli 08/19/23 13:15 Blood - Venous Blood Culture - Final Escherichia coli 08/18/23 19:11 Blood - Venous Blood Culture - Final Streptococcus pneumoniae Procedures Date of Service Date of Service: 09/01/23 Assessment & Plan Assessment and plan (1) RAMON (acute kidney injury): Status: Acute Plan Acute Kidney injury due to multifactorial tubular injury Urine output better; Was getting renal replacement- on hold now HD catheter( temporary )in place; Hold further HD for now Continue with rest of current supportive management Lab AM. If labs stable AM, shall D/C RIJ HD cath tomorrow Shall closely follow up Progress Note: Quality Stroke Does the patient have a stroke diagnosis?: No
[2023-09-01 12:00] VITALS: BP 144/92; PULSE 67; RESP 16; TEMP 36.8; O2SAT 99
[2023-09-01 15:25] VITALS: BP 148/81; PULSE 65; RESP 16; TEMP 36.7; O2SAT 98
[2023-09-01 19:07] VITALS: BP 137/75; PULSE 76; RESP 14; TEMP 37.1; O2SAT 99
[2023-09-01 23:22] VITALS: BP 138/75; PULSE 65; RESP 16; TEMP 36.5; O2SAT 98
[2023-09-02] MEDS: 0.9 % Sodium Chloride Flush 3 ML SYRINGE IVFLUSH ×4 (00:38→20:11)
[2023-09-02] MEDS: Heparin Sodium,Porcine 5,000 UNIT/ML VIAL 5000 UNIT SUBCUT ×2 (02:04→12:42)
[2023-09-02] MEDS: Acetaminophen 325 MG TABLET 650 MG PO (03:07)
[2023-09-02 04:00] VITALS: BP 132/75; PULSE 69; RESP 16; O2SAT 98
[2023-09-02 06:00] VITALS: BMI 36.0
[2023-09-02 06:06] LABS: Anion Gap 19 (12-20); Blood Urea Nitrogen 34 mg/dL (9-16); Calcium 8.5 mg/dL (8.4-10.2); Carbon Dioxide 22 mmol/L (22-29); Chloride 97 mmol/L (96-108); Creatinine Clr Calc Pharmacy 22.9; Estimated Glomerular Filt Rate 14; Glucose Random 95 mg/dL (60-115); Potassium 3.7 mmol/L (3.3-5.1); Sodium 134 mmol/L (135-145)
[2023-09-02 07:50] VITALS: BP 138/87; PULSE 72; RESP 16; TEMP 36.6; O2SAT 98
[2023-09-02] MEDS: TiZANidine HCL 4 MG TABLET PO ×3 (08:04→20:11)
[2023-09-02] MEDS: Lidocaine 4 % Patch ADH..PATCH 1 PATCH TRANSDERMA ×2 (08:05)
--- NOTE | 2023-09-02 11:13 | P.PNNP_ITS ---
Subjective Subjective Date of Service: 09/02/23 Interval history: Seen AM. Feels better. UO good. Physical Exam 2 Vital Signs: Vital Signs: Last Vital Signs Temp 97.8 F 09/02/23 07:50 Pulse 72 09/02/23 07:50 Resp 16 09/02/23 07:50 BP 138/87 09/02/23 07:50 Pulse Ox 98 09/02/23 07:50 O2 Del Method Room Air 09/02/23 07:50 O2 Flow Rate 97 08/26/23 14:56 BMI result Body Mass Index 36.0 Const: General: comfortable and no acute distress O rientation/consciousness: patient oriented x3 HEENT: Head: Yes normocephalic Mouth: Normal oral and palatal mucosa present Eyes: EOM: EOMs intact bilaterally Neck: Neck: Yes supple Resp: Auscultation: clear to auscultation bilaterally Cardio: Jugular venous distension: no JVD Rate: regular rate GI: Palpation (GI): Soft to palpation Auscultation: normal bowel sounds : General: Yes no CVA tenderness Back/Spine/Pelvis: Back: no CVA tenderness Skin: General skin exam: no rashes or lesions noted Neuro: General: patient oriented x3 and moves all extremities Extrem: General: Yes no pedal edema Objective Data Labs 08/26/23 07:21 09/02/23 05:24 Labs: Laboratory Results - last 24 hr 09/02/23 09/02/23 05:24 05:44 Hold Purple Top SEE NOTE Sodium 134 L Potassium 3.7 Chloride 97 Carbon Dioxide 22 Anion Gap 19 BUN 34 H Creatinine 3.80 H Estim Creat Clear Calc 22.9 Estimated GFR 14 Random Glucose 95 Calcium 8.5 Microbiology Microbiology Results: Microbiology 09/01/23 05:27 Blood - Venous Blood Culture - Preliminary No growth after 24 hours. 09/01/23 05:27 Blood - Venous Blood Culture - Preliminary No growth after 24 hours. 08/18/23 19:44 Blood - Venous Blood Culture - Final No growth after 5 days. 08/19/23 13:15 Blood - Venous Blood Culture - Final Escherichia coli 08/19/23 13:15 Blood - Venous Blood Culture - Final Escherichia coli 08/18/23 19:11 Blood - Venous Blood Culture - Final Streptococcus pneumoniae Procedures Date of Service Date of Service: 09/02/23 Assessment & Plan Assessment and plan (1) RAMON (acute kidney injury): Status: Acute Plan Acute Kidney injury due to multifactorial tubular injury Urine output better; Was getting renal replacement- had been on hold now HD catheter( temporary )in place- shall D/C today( ordered); NO further HD Continue with rest of current supportive management Could be D/Oniel from a renal perspective Shall closely follow up in office in one week Progress Note: Quality Stroke Does the patient have a stroke diagnosis?: No
[2023-09-02 11:39] VITALS: BP 130/82; PULSE 61; RESP 16; TEMP 36.4; O2SAT 99
--- NOTE | 2023-09-02 12:12 | HO.PM.IMPN ---
Subjective Subjective Date of Service: 09/02/23 Interval History: ramon ,rhabdo ,bacteremia Review of Systems seems improving producing urine no fevers denies any urinary c/o Physical Exam Vital Signs: Vital Signs: Last Vital Signs Temp 97.5 F 09/02/23 11:39 Pulse 61 09/02/23 11:39 Resp 16 09/02/23 11:39 BP 130/82 09/02/23 11:39 Pulse Ox 99 09/02/23 11:39 O2 Del Method Room Air 09/02/23 11:39 O2 Flow Rate 97 08/26/23 14:56 BMI result Body Mass Index 36.0 Appearance: Alert.? Oriented X3.? cvs: rrr, [id number] . res: clear to auscultation ,no rhonchii or wheezing abd: no rebound or guarding ,nt, bs present. ext pulses present , no cyanosis . neuro: axo3 , nonfocal. Objective Data Active Medications Acetaminophen (Acetaminophen 325 Mg Tablet) 650 mg PO Q6H PRN PRN Reason: fever, pain Last Admin: 09/02/23 03:07 Dose: 650 mg Documented By: SARINA Al Hydroxide/Mg Hydroxide (Magnesium Hydrox/Alum Hydrox 30 Ml Oral.Susp) 30 ml PO Q6H PRN PRN Reason: Heartburn Last Admin: 08/26/23 17:52 Dose: 30 ml Documented By: MARILY Calcium Carbonate (Calcium Carbonate 500 Mg Tablet) 500 mg PO DAILY [facility] Last Admin: 09/02/23 08:04 Dose: 500 mg Documented By: MARILY Heparin Sodium (Porcine) (Heparin Sodium,Porcine 5,000 Unit/Ml Vial) 5,000 unit INTRACATH MOWEFR@1645 [facility] Last Admin: 09/01/23 17:17 Dose: Not Given Documented By: NILES Non-Admin Reason: No dialysis today. Heparin Sodium (Porcine) (Heparin Sodium,Porcine 5,000 Unit/Ml Vial) 5,000 unit SUBCUT Q12H [facility] Last Admin: 09/02/23 02:04 Dose: 5,000 unit Documented By: SARINA Hydromorphone HCl (Hydromorphone Hcl 0.5 Mg/0.5 Ml Syringe) 0.25 mg IVPUSH Q4H PRN; Protocol PRN Reason: Pain, Severe (Pain Scale 7-10) Promethazine HCl 12.5 mg/ (Sodium Chloride) 50.5 mls @ 202 mls/hr IV Q6H PRN PRN Reason: Nausea and Vomiting Ceftriaxone Sodium 2 gm/ (Sodium Chloride) 50 mls @ 100 mls/hr IV Q24H [facility] Lidocaine (Lidocaine 4 % Patch Adh..Patch) 1 patch TRANSDERMA DAILY [facility]; Protocol Last Admin: 09/02/23 08:05 Dose: 1 patch Documented By: MARILY Lidocaine (Lidocaine 4 % Patch Adh..Patch) 1 patch TRANSDERMA DAILY [facility]; Protocol Last Admin: 09/02/23 08:05 Dose: 1 patch Documented By: MARILY Ondansetron HCl (Ondansetron Odt 4 Mg Tab.Rapdis) 4 mg TRANSLINGU Q6H PRN PRN Reason: Nausea and Vomiting Last Admin: 08/18/23 17:32 Dose: 4 mg Documented By: BETTY Ondansetron HCl (Ondansetron Hcl 4 Mg/2 Ml Vial) 4 mg IVPUSH Q6H PRN PRN Reason: nausea Last Admin: 08/30/23 20:04 Dose: 4 mg Documented By: MARICEL Sodium Chloride (0.9 % Sodium Chloride Flush 3 Ml Syringe) 3 ml IVFLUSH QSHIFT [facility] Last Admin: 09/02/23 08:05 Dose: 3 ml Documented By: MARILY Tizanidine HCl (Tizanidine Hcl 4 Mg Tablet) 4 mg PO TID [facility] Last Admin: 09/02/23 08:04 Dose: 4 mg Documented By: MARILY Labs 08/26/23 07:21 09/02/23 05:24 Labs: Laboratory Results - last 24 hr 09/02/23 09/02/23 05:24 05:44 Hold Purple Top SEE NOTE Anion Gap 19 Estim Creat Clear Calc 22.9 Estimated GFR 14 Random Glucose 95 Calcium 8.5 Microbiology Microbiology Results: Microbiology 09/01/23 05:27 Blood Culture - Preliminary Blood - Venous No growth after 24 hours. 09/01/23 05:27 Blood Culture - Preliminary Blood - Venous No growth after 24 hours. Assessment and Plan (1) Rhabdomyolysis: Status: Acute (2) RAMON (acute kidney injury): Status: Acute (3) Bacteremia: Status: Acute Plan d15 33yo F with no chronic conditions admitted to General Surgery for sepsis due to acute gangrenous appendicitis. Postop course complicated by severe rhabdomyolysis [CPK 88559+]with RAMON requiring HD RAMON due to septic ATN + rhabdomyolysis - Extensive discussion with Anesthesia Department. Suspicion for atypical malignant hyperthermia [atypical because pt never had fever or rigidity]. Counseled to avoid inhaled halogenated anesthetics from now and and listed this under med allergies. Genetic testing to be pursued as per Malignant Hyperthermia Association of [place]: RYR1 [CPT 12541], STAC3 + ENXMX0S [CPT 05901]. - Family history notable for her 8yo daughter Amador having been [place] [facility] [place] the age [place] 5 with myositis [CPK peaked at 55100c] attributed to enterovirus infection. I called her parcel post order clerk Dr San and advised genetics/neuromuscular workup at [facility] and that both Becky and her little sister should avoid halogenated anesthetics. - overall with renal recovery. Creat slightly increased but overall stable per nephro with good urine output - Last HD 08/29/23, hold on additional HD at this time. R IJ inplace x 1 additional day per nephro who will consider dc 09/02 if creat trending down -nephro input appreciated Occipital headache/cervical muscle spasm -r/t limited ROm due to R IJ -add tizanidine, lidocaine patches -minimize narcotic use acute gangrenous appendicitis - POD13, Surgery following E coli bacteremia - resistant to amp, gent, and TMP-SMX - ceftriaxone 08/21-09/04, per ID complete course with cefuroxime upon discharge home hypoCa- resolved - repleting; CaCO3 dose reduced transaminasemia - cross-reactivity with skeletal muscle from rhabdomyolysis, LFTs improving hx HBV - HBsAg now negative, viral load negative VTE ppx - SCDs dispo - eventual home In my clinical judgment, the patient requires continued inpatient hospitalization for the following reasons: RAMON, may need hd catheter removal ,also iD Follow for bacteremia . Quality Stroke Does the patient have a stroke diagnosis?: No VTE Prior VTE?: No VTE Risk Level:: Medical - low VTE Device Contraindication: N/A - Device Ordered VTE Drug Contraindication: Treatment Not Indicated
[2023-09-02] MEDS: cefTRIAXone sodium 2 GM in 0.9 % Sodium Chloride 50 ML IV (12:42)
--- NOTE | 2023-09-02 14:18 | PM.EVENT ---
Event Note Date of Service: 09/02/23 Event Note: IR requested to remove Right IJ dialysis catheter. Right IJ catheter removed at bedside. Pressure held until hemostasis assured. Dry dressing applied. No immediate complications. Patient's RN updated on removal. Gil CELESTIN Interventional Radiology Time Spent With Patient Time: Total time managing care of this patient today ____ minutes.
[2023-09-02 14:52] VITALS: BP 138/84; PULSE 65; RESP 18; TEMP 36.2; O2SAT 98
--- NOTE | 2023-09-02 15:39 | PM.ANESPN ---
Subjective Subjective Date of Service: 09/02/23 Interval history: afgjad;lgkja;\ ffkajgfljadf a;kflj;dslkfj;dlsfk Physical Exam Vital Signs: Vital Signs: Last Vital Signs Temp 97.2 F 09/02/23 14:52 Pulse 65 09/02/23 14:52 Resp 18 09/02/23 14:52 BP 138/84 09/02/23 14:52 Pulse Ox 98 09/02/23 14:52 O2 Del Method Room Air 09/02/23 14:52 O2 Flow Rate 97 08/26/23 14:56 BMI result Body Mass Index 36.0 Progress Note: A&P Time Spent With Patient Time: Total time managing care of this patient today ____ minutes. Progress Note: Quality Stroke Does the patient have a stroke diagnosis?: No Procedures Date of Service Date of Service: 09/02/23
--- NOTE | 2023-09-02 17:00 | P.ENANES_ITS ---
Anesthesia Event Note Date of Service: 11/11/23 Event Note: I spoke further today with Dr. Carbajal, another surgical product sales consultant at the [facility] hotline.? In her opinion, the central feature of malignant hyperthermia (MH) is the muscle hyperactivity (manifest as rigidity and hyperkalemia), that in turn results in the hypermetabolism characteristic of MH (manifest by a rise in ETCO2, rise in temperature, tachypnea, tachycardia, and metabolic acidosis).? You cannot have MH without any manifestations of the muscle hyperactivity.? And this patient had none of them.? Therefore, in her opinion, it is extremely unlikely that this patient had MH.? I and other members of the anesthesia dept a gree with that. What the patient clearly did have is muscle breakdown, causing rhabdomyolysis.? The MH consultants suggestion is to focus on why the patient developed rhabdomyolysis. In terms of this patient's particular case, the proximity of her episode of rhabdomyolysis to the anesthetic cannot be ignored, and is suggestive of a link.? There are well known myopathies and muscular dystrophies that are associated with both MH and non-MH rhabdomyolysis when exposed to anesthesia triggering agents (ie. inhalation agents and succinylcholine).? There are also other genetic diseases*.? And given that the patient is now known to have a daughter who has some kind of myopathy, this would seem to rise to the top of the differential. Furthermore, when I spoke with the patient today, she told me that when she discussed her daughter's myositis episode with her mother, her mother told her that when she (ie. the patient, Josseline) was a child, she (Az esquivel) had an identical episode to what Josseline's daughter had. This was in [place]. Josseline's mother took Josseline to the hospital, where they found that the muscle enzyme was elevated, same as what happened with Josseline's daughter, and the doctors in [place] at that time also ascribed Josseline's episode to a virus. Another possibility in the differential of this patient's rhabdomyolyis would include Sepsis (which the patient clearly had).? Other possibilities such as autoimmune diseases, hyperkalemic periodic paralysis, paroxysmal nocturnal hemaglobinemia, or medications, would seem much less likely.? But the differential is very wide.* There are dozens of causes of rhabdomyolysis and the patient should see an expert in the field to investigate that. [*See Franc CELESTIN, Dirk JA, Alicia AM, Alicia AD:? Rhabdomyolysis: Pathogenesis, Diagnosis, and Treatment.? [facility]; 2015: Spring; 15(1): 58?69.? PMID: [id number].] In regards to the patient?s future potential need for anesthesia: 1. Testing: The genetic test gives a conclusive result telling the patient wh ether or not they have the gene associated with MH.? Any person who has the gene should never receive a triggering anesthetic.? But if the gene is absent, that has low sensitivity for predicting whether or not a patient would develop MH in response to a triggering anesthetic.? The [facility] surgical product sales consultant felt that genetic testing for our patient would have low yield.? She did not advise it unless the patient wanted it.? 2. Either way, the surgical product sales consultant agrees that until a definitive diagnosis is made, triggering anesthetics should be avoided in this patient, not because they might cause MH, but because they might cause another episode of rhabdomyolyis. 3. The surgical product sales consultant opined that if the patient needs surgery with general anesthesia, there is no need to flush the machine.? Ie. exposure to low levels of volatile agent is unlikely to cause her any harm.? (For example, she noted, in children with muscular dystrophy, they commonly do inhalation inductions with inhalation agents, then turn the inhalation agent off and switch to propofol.) 4. There is no role for dantrolene in in non-hypermetabolic muscle disorders.? Ie. dantrolene works on the calcium channels, relaxing the hyperactive muscle.? If there?s no hyperactive muscle/hypermetabolism, there?s no role for dantrolene. 5. There?s no need to register with the [place] [employer]ignant Hyperthermia Registry (NAMHR) of [facility]. This visit involved 60 min, including researching the above issues, talking with the patient for 20 min, and writing this note. Time Spent With Patient Time: 60 min
--- NOTE | 2023-09-02 17:24 | PC.NURSE ---
PA Marrufo at bedside today at approximately 14:15 to remove right neck IJ HD cath, pt tolerated well.
[2023-09-02 19:11] VITALS: BP 129/73; PULSE 75; RESP 18; TEMP 36.6; O2SAT 97
[2023-09-02 23:51] VITALS: BP 139/85; PULSE 74; RESP 16; TEMP 36.4; O2SAT 97
[2023-09-03] MEDS: Heparin Sodium,Porcine 5,000 UNIT/ML VIAL 5000 UNIT SUBCUT (01:34)
[2023-09-03 03:18] VITALS: BP 145/86; PULSE 71; RESP 18; TEMP 36.6; O2SAT 98
[2023-09-03 05:49] VITALS: BMI 34.1
--- NOTE | 2023-09-03 07:47 | HO.ANESEVENT ---
Anesthesia Event Note Date of Service: 11/11/23 Event Note: [The following is a letter given to Mrs. Nicho Castañeda on Sep 03, 2023 about the episode of rhabdomyolysis that she had here at [facility] after a general anesthetic for her appendectomy on Aug 19.? (The letter is written as an Anesthesia Event note because such a note has the patient?s identifying information, including medical record number, which will be helpful to future outside physicians needing to investigate what happened, should the need arise.)] Dear Mrs. Nicho Castañead, On August 19 you had surgery under general anesthesia to remove your appendix.? Later that night, about 14 hours after surgery, it became apparent that you were having rhabdomyolysis, a condition where muscle fibers break down and release toxic (damaging) components into the circulation.? The doctors made the diagnosis after they found that your urine had turned brown, and the urine tested strongly positive for a muscle breakdown protein called myoglobin.? And later, your blood tested positive for a very high level of CPK (creatine phosphokinase), a component released from muscle.? (Your level was 172,000; normal is less than 140.)? It was those muscle components released into the bloodstream that damaged your kidneys and caused your kidneys to fail, which required dialysis. So we know WHAT happened.? The central questions are 1) WHY it happened? And 2) was it related to the anesthesia; most particularly, was this an episode of malignant hyperthermia (MH)? When muscle activity becomes hyperactive, from any cause (could even be strenuous or vigorous exercise), muscle proteins break down and can cause rhabdomyolysis.? Malignant hyperthermia is a very, very rare complication of anesthesia, wherein certain anesthetic drugs cause all the muscles in the body to quickly become very hyperactive.? And that can then cause rhabdomyolysis.? Even more importantly, MH can be fatal But when MH happens, it shows up in the body in two ways: 1) the body becomes rigid from all the muscle hyperactivity, and 2) the muscle hyperactivity causes the body?s metabolism to speed up.? You cannot have MH without those two responses of the body.? And neither of those things happened in your case.? So the expert career consultant we spoke with yesterday at the [facility] hotline (Malignant Hyperthermia Association of the ; [phone]), Dr. Fernandez, felt it was extremely unlikely that what you had was an episode of MH.? We agree with that.? The significance of that is that you don?t have to worry that you might get MH in the future if you should need general anesthesia again. But in your case, if muscle hyperactivity didn?t cause the muscle breakdown, what did?? That is the main question, and at this point we don?t have an answer.? But we do have thoughts and recommendations. The fact that your episode of rhabdomyolysis occurred so soon after your anesthesia is suggestive of a possible link.? There are well known muscle diseases that are associated with rhabdomyolysis when exposed to anesthesia triggering agents (ie. inhalation agents and succinylcholine). ?And the fact that you and your daughter both previously had episodes of myositis of some kind, added to your current episode, would seem to make some kind of hereditary muscle disease a leading possibility. Another possible of cause of your rhabdomyolyis includes sepsis (a severe infection, which you clearly had).? Other possibilities such as other genetic disorders, autoimmune diseases, hyperkalemic periodic paralysis, paroxysmal nocturnal hemaglobinemia, or medications, would seem much less likely.? But the list of causes is very wide.? There are dozens of causes of rhabdomyolysis* and you should see an expert in the field to investigate that. *See Franc CELESTIN, Dirk JA, Alicia AM, Alicia AD:? Rhabdomyolysis: Pathogenesis, Diagnosis, and Treatment.? [facility]; 2015: Spring; 15(1): 58?69.? PMID: [id number]. Finally, in regards to your potential need for anesthesia in the future: 1. Testing:? The genetic test for MH gives a definite result telling you whether or not you have the gene associated with MH.? Any person who has that gene should never receive a triggering anesthetic.? But if the gene is absent, that doesn?t predict that a patient would not develop MH in response to a triggering anesthetic.? Although we?re confident that you didn?t have an episode of MH, we still think that it would be worthwhile for you to have the test done, for your peace of mind.? Results will take some number of days to come back, and your doctor will be able to discuss the results with you. 2. Either way, until a definite diagnosis is made, you must avoid triggering anesthetics, which might cause another episode of rhabdomyolysis. 3. There?s no need for you to register with the [place] Malignant Hyperthermia Registry (NAMHR) of [facility]. If you ever have any questions, you can always call me or the anesthesiologist non profit financial controller here at [facility] ([phone]), and tell them you were hospitalized here in Aug, 2023, and you had a complication of anesthesia, and tell them to look up the anesthesia notes that I wrote.? If it?s not me that you talk to, they will be able to look up those notes and then answer your questions. Please keep this letter with your important papers in your home. We suggest that you give a copy of this letter to your doctor. And should you ever need surgery again, make sure to give a copy of the letter to the surgeon, and also the anesthesiologist. Best wishes from the staff here for your continued good health, Jake Hinkle MD Department of Anesthesiology [place], [place] [phone]. This visit involved 60 min, including talking with the patient for 20+ min, and writing this note. Time Spent With Patient Time: 60 min
[2023-09-03 07:51] VITALS: BP 135/81; PULSE 66; RESP 17; TEMP 36.5; O2SAT 98
[2023-09-03] MEDS: TiZANidine HCL 4 MG TABLET PO (08:54)
[2023-09-03] MEDS: 0.9 % Sodium Chloride Flush 3 ML SYRINGE IVFLUSH (08:54)
[2023-09-03] MEDS: Lidocaine 4 % Patch ADH..PATCH 1 PATCH TRANSDERMA ×2 (08:55)
--- NOTE | 2023-09-03 12:03 | PM.DS ---
DS: Providers Provider Date of Service: 09/03/23 Date of admission: 08/18/23 21:00 Date of discharge: 09/03/23 Primary care physician: Sai Tirado MD Consults: 08/19/23 07:19 Consult to Hospitalist Stat Comment: Consulting Provider: Hospitalist Reason For Exam: tachycardia in the 140's 08/19/23 12:05 Consult to Infectious Diseases [place]ine [place] [facility] [place] [facility] Reason for consultation: bacteremia, ?enterococcus 08/21/23 07:28 Consult to Nephrology Stat Consulting [place] [facility] [place] [facility] Reason for consultation: RAMON Has provider been notified: Yes 08/21/23 08:27 Consult to Infectious Diseases Routine Consulting [place] [facility] [place] [facility] Reason for consultation: Bacteremia Has provider been notified: No 08/21/23 08:28 Consult to Infectious Diseases Routine Consulting Provider: BENITO TRAN Reason for consultation: Bacteremia Has provider been notified: Yes Attending physician on discharge: Ignacia Kaye Discharging clinician: Ignacia Kaye DS: Diagnosis Discharge Diagnosis (1) Rhabdomyolysis: Status: Acute (2) RAMON (acute kidney injury): Status: Acute (3) Bacteremia: Status: Acute DS: Summary Hospital Course Hospital Course: 33 year old female without any significant past medical history admitted to general surgery for management of acute appendicitis with consult placed to hospitalist service due to tachycardia. The patient presented to the ED with complaints of abd pain. WBC 15.9. CT abd/pelvis showed acute uncomplicated appendicitis. Early this morning developed sinus tachycardia to 140-150 and febrile to 101.6. TEST EVALUATOR was called. Pt given ativan and given clinical picture of sepsis was taken to OR for lap appe with post op dx gangrenous appendicitis. HR improving to 100-110 when examined in PACU. Blood cultures x1 now positive with GPC in pairs and chains. Pt remains on IV zosyn and IVF. She currently denies any complaints but remains very drowsy post-operatively and ROS limited. Hospital course: Patient was initially admitted for acute appendicitis with sepsis , blood culture was sent-patient was started on IV antibiotics, patient had appendectomy procedure on 08/19/23 : Hospital course complicated rhabdomyolysis, also found to have Gram-negative bacteremia, transaminitis, ramon. Patient was given hydration for RAMON and rhabdomyolysis, IV antibiotics for bacteremia, transaminitis improving thought to be related to rhabdo, in addition patient also received temporary hemodialysis because of RAMON in setting of rhabdo.With above supportive care patient creatinine is improving, patient is is producing amount good urine. Creatinine also improving. Patient seen by ID and also completed IV antibiotics for E coli bacteremia. Echo: The left ventricular systolic function is mildly decreased. The calculated ejection fraction is 50% by biplane method. No obvious valvular pathology seen on this study. d/w anesthesia (please see Dr Hinkle noted 09/02/23 )who spoke to MHAUS /Rhabdomyolysis information with letter is given to patient ,also spoke to patient pcp and updated in detail of above. plan: Malignant Hyperthermia genetic test [RYR1, STAC3, [id number]] CPT 60402+30544 -pending moniter bmp, lfts moniter in 1 week outpatient. until a definite diagnosis is made, must avoid triggering anesthetics, which might cause another episode of rhabdomyolysis. follow up with pcp, nephrology,surgery and consider outpatient rhabdomylysis workup. Patient was strongly advised to avoid nephrotoxic medications including NSAIDs. Assessment and plan discussed with the patient in detail length she understand and in agreement with the above plan, in addition pcp is also aware. Time spent 50 minute. Time Attestation Discharge coordination time: Greater than 30 minutes Quality: Safe Use of Opioids Does Pt have an Active Cancer Diagnosis on the Problem List?: No Quality: Stroke Does the patient have a stroke diagnosis?: No Physical Exam Vital Signs: Vital Signs: Last Vital Signs Temp 97.7 F 09/03/23 07:51 Pulse 66 09/03/23 07:51 Resp 17 09/03/23 07:51 BP 135/81 09/03/23 07:51 Pulse Ox 98 09/03/23 07:51 O2 Del Method Room Air 09/03/23 07:51 O2 Flow Rate 97 08/26/23 14:56 BMI result Body Mass Index 34.1 Appearance: Alert.? Oriented X3.? cvs: rrr, [id number] . res: clear to auscultation ,no rhonchii or wheezing abd: no rebound or guarding ,nt, bs present. ext pulses present , no cyanosis , no edema . neuro: axo3 , nonfocal. DS: Data Data Completed and Pending Completed studies during hospitalization [Text1]: Pending at discharge 08/19/23 10:31 Surgical [PTH] Routine Labs on day of discharge: Preliminary micro results at discharge 09/01/23 05:27 Blood Culture - Preliminary Blood - Venous No growth after 48 hours. 09/01/23 05:27 Blood Culture - Preliminary Blood - Venous No growth after 48 hours. Imaging Chest x-ray: Radiologist's impression: ITS Impressions Abdomen/Pelvis CT 08/18/23 19:39 IMPRESSION: Acute uncomplicated appendicitis. Chest X-Ray 08/22/23 04:40 IMPRESSION: Low lung volumes. Left lung base opacity which may represent atelectasis or infiltrate. Abdomen/Pelvis CT 08/22/23 11:54 IMPRESSION: Edematous kidneys. Perinephric stranding. No hydronephrosis. This may be seen in the setting of acute renal injury. Fluid overload. Moderate bilateral pleural effusions. Moderate abdominopelvic ascites. Periportal edema. Extensive subcutaneous edema. Chest X-Ray 08/22/23 15:52 IMPRESSION: 1. New right jugular central venous catheter tip in proximal SVC. No evidence of pneumothorax 2. Hypoexpanded lungs with minimal left basilar atelectasis. Chest X-Ray 08/26/23 14:23 IMPRESSION: No acute disease. Discharge Plan Discharge Anticipated Discharge Date/Time: 08/21/23 10:47 Patient Disposition: Home, Self-Care Discharge Diagnosis: acute appendicitis s/p laparoscopic appendectomy ,rhabdomylysis Referrals: Sai Tirado MD [Primary Care Provider] - 1 Week Sai Crawford MD [Physician] - 2 Weeks Discharge Medications: New docusate sodium [Colace] 100 mg capsule 100 mg PO BID PRN (Reason: constipation) Qty: 30 0RF Continued Kyleena 17.5 mcg/24 hrs (5 yrs) 19.5 mg intrauterine device intrauterine Discharge Orders: Discharge Order (Routine); Ordered 09/03/23 Ordered By: Ignacia Kaye Diet: Advance to usual diet Activity on Discharge: As tolerated Stand Alone Forms: Patient Portal Discharge page Other Ambulatory Orders: Complete Blood Count no Diff (Routine) Timeframe: 1 Week Facility: [facility] - Location: Laboratory Ordered By: Ignacia Kaye Comprehensive Met. Panel (Routine) Timeframe: 1 Week Facility: [facility] - Location: Laboratory Ordered By: Ignacia Kaye Activity Restrictions/Additional Instructions: If the incision area is tender, you may apply an ice pack for short intervals (No more than 20 minutes on, followed by at least 20 minutes off). Do not apply heat. Do not use creams, lotions, or topical antibiotics. These can cause infection or allergic reaction. Ok to shower 24 hours after your surgery. Remove bandaids in 2 days and replace. You have steri strips (small white cloth strips) covering your incision- these will fall off ~1 week. Follow up in office with Dr. Crawford in 2 weeks. ([phone]) No heavy lifting (>10-20lbs) or strenuous activity! Call Your Doctor If: -Your temperature exceeds 101.5? F -You experience excessive pain or swelling -You have an unexpected reaction to medication -You have excessive bleeding -You experience continued vomiting/nausea -Your incision begins to separate -Your incision shows signs of infection such as increased redness, swelling, excessive pain, drainage (light blood or clear fluid is normal) or heat Care Plan Goals: Return to baseline health and resume normal activities following recovery period. Health Concerns: acute appendicitis bacteremia rhabomylysis s/p laparoscopic appendectomy Plan of Treatment: Doing well post op. F/u in office with surgery. Malignant Hyperthermia genetic test [RYR1, STAC3, [id number]] CPT [id number] -pending moniter bmp, lfts moniter in 1 week outpatient. until a definite diagnosis is made, must avoid triggering anesthetics, which might cause another episode of rhabdomyolysis. follow up with pcp, nephrology and consider outpatient rhabdomylysis workup. Patient was strongly advised to avoid nephrotoxic medications including NSAIDs. Assessment: Doing well post op
[2023-09-03] MEDS: cefTRIAXone sodium 2 GM in 0.9 % Sodium Chloride 50 ML IV (12:37)
--- NOTE | 2023-09-03 12:42 | MHC.CM.PN ---
pt dcd home no servies
--- NOTE | 2023-10-23 10:35 | PM.ANESPN ---
Subjective Subjective Date of Service: 10/23/23 Interval history: Physical Exam Vital Signs: Vital Signs: Last Vital Signs Temp 97.7 F 09/03/23 07:51 Pulse 66 09/03/23 07:51 Resp 17 09/03/23 07:51 BP 135/81 09/03/23 07:51 Pulse Ox 98 09/03/23 07:51 O2 Del Method Room Air 09/03/23 07:51 O2 Flow Rate 97 08/26/23 14:56 BMI result Body Mass Index 34.1 Progress Note: A&P Time Spent With Patient Time: Total time managing care of this patient today ____ minutes. Progress Note: Quality Stroke Does the patient have a stroke diagnosis?: No Procedures Date of Service Date of Service: 10/23/23
== END 2023-09-03 14:21 | disposition home or self-care (01) | DRG 710 ==
LOC: HO.ED 20:54 → HO.EDOVER 21:06 → HO.S3 08-19 11:13
PROVIDERS: Family Medicine; Hospitalist; Internal Medicine; Internal Medicine Hypertension Specialist; Internal Medicine Nephrology; Physician Assistant; Physician Assistant Medical; Physician Assistant Surgical; Admitting Provider Surgery; Emergency Provider Emergency Medicine; PCP Internal Medicine; Visit Provider Internal Medicine
PROC: 0DTJ4ZZ Resection of Appendix, Percutaneous Endoscopic Approach (ICD-10-PCS; CPT 44970; principal; 2023-08-19 12:00)
DX: A41.9 Sepsis, unspecified organism (principal); N17.0 Acute kidney failure with tubular necrosis; M62.82 Rhabdomyolysis; E83.51 Hypocalcemia; K35.891 Other acute appendicitis without perforation, with gangrene; E87.1 Hypo-osmolality and hyponatremia; T41.0X5A Adverse effect of inhaled anesthetics, initial encounter; Z16.24 Resistance to multiple antibiotics; B96.20 Unspecified Escherichia coli [E. coli] as the cause of diseases classified elsewhere; K38.1 Appendicular concretions; Z86.19 Personal history of other infectious and parasitic diseases; Z20.822 Contact with and (suspected) exposure to COVID-19; Z87.891 Personal history of nicotine dependence; Z79.899 Other long term (current) drug therapy
CPT/HCPCS: 36415; 71045; 71046; 74176; 74177; 80048; 80053; 80076; 80202; 80307; 81001; 81003; 81025; 81408; 82310; 82330; 82550; 82570; 82803; 83605; 83690; 83735; 83874; 84100; 84156; 84300; 84484; 84702; 85025; 85027; 86021; 86704; 86706; 86880; 87040; 87077; 87186; 87205; 87340; 87389; 87502; 87517; 87635; 88304; 90999; 93005; 93306; 97161; 99285; 99499; C1758; C9113; J0360; J0613; J0665; J0696; J0737; J1170; J1200; J1450; J1644; J1885; J1940; J2270; J2405; J2543; J2704; J3010; J3370; J7120; P9047; Q9957; Q9967

== ENCOUNTER 2023-08-18 21:00 | Outpatient (BNV) | payer OTHER, SELFPAY | END 2023-08-19 07:00 | PROVIDERS: Admitting Provider Surgery; Emergency Provider Emergency Medicine; PCP Internal Medicine; Visit Provider Internal Medicine | DX: R00.0 Tachycardia, unspecified (principal); K35.80 Unspecified acute appendicitis | CPT/HCPCS: 93010; 93306 ==

== ENCOUNTER 2023-08-18 21:00 | Outpatient (BNV) | payer OTHER, SELFPAY | END 2023-08-22 04:31 | PROVIDERS: Admitting Provider Surgery; Emergency Provider Emergency Medicine; PCP Internal Medicine; Visit Provider Internal Medicine | DX: R07.9 Chest pain, unspecified (principal); I45.81 Long QT syndrome | CPT/HCPCS: 93010 ==

== ENCOUNTER → 2023-08-18 21:00 | Outpatient (BNV) | payer OTHER, SELFPAY | PROVIDERS: Admitting Provider Surgery; Emergency Provider Emergency Medicine; PCP Internal Medicine; Visit Provider Surgery | DX: M62.82 Rhabdomyolysis (principal) | CPT/HCPCS: 44970; 99024; 99222; 99499 ==

== ENCOUNTER → 2023-08-18 21:00 | Outpatient (BNV) | payer OTHER, SELFPAY | PROVIDERS: Admitting Provider Surgery; Emergency Provider Emergency Medicine; PCP Internal Medicine; Visit Provider Anesthesiology | DX: M62.82 Rhabdomyolysis (principal) | CPT/HCPCS: 99233; 99499 ==

== ENCOUNTER → 2023-08-18 21:00 | Outpatient (BNV) | payer OTHER, SELFPAY | PROVIDERS: Admitting Provider Surgery; Emergency Provider Emergency Medicine; PCP Internal Medicine; Visit Provider Internal Medicine | DX: R78.81 Bacteremia (principal) | CPT/HCPCS: 99222; 99232 ==

== ENCOUNTER → 2023-08-18 21:00 | Outpatient (BNV) | payer OTHER, SELFPAY | PROVIDERS: Admitting Provider Surgery; Emergency Provider Emergency Medicine; PCP Internal Medicine; Visit Provider Internal Medicine Pulmonary Disease | DX: N17.9 Acute kidney failure, unspecified (principal) | CPT/HCPCS: 36556 ==

== ENCOUNTER → 2023-08-18 21:00 | Outpatient (BNV) | payer OTHER, SELFPAY | PROVIDERS: Admitting Provider Surgery; Emergency Provider Emergency Medicine; PCP Internal Medicine; Visit Provider Physician Assistant | DX: N17.9 Acute kidney failure, unspecified (principal); M62.82 Rhabdomyolysis; K35.31 Acute appendicitis with localized peritonitis and gangrene, without perforation; R78.81 Bacteremia | CPT/HCPCS: 99222; 99232; 99233; 99238; 99499 ==

== ENCOUNTER → 2023-08-18 21:00 | Outpatient (BNV) | payer OTHER, SELFPAY | PROVIDERS: Admitting Provider Surgery; Emergency Provider Emergency Medicine; PCP Internal Medicine; Visit Provider Internal Medicine Nephrology | DX: N17.9 Acute kidney failure, unspecified (principal); A41.9 Sepsis, unspecified organism; K35.80 Unspecified acute appendicitis; R79.89 Other specified abnormal findings of blood chemistry; N17.0 Acute kidney failure with tubular necrosis | CPT/HCPCS: 90935; 99223; 99232; 99233 ==

== ENCOUNTER 2023-09-10 10:11 | Outpatient (REF) | payer OTHER, SELFPAY ==
[2023-09-10 11:01] LABS: Hematocrit 35.4 % (37.0-47.0); Hemoglobin 11.8 g/dl (12.0-16.0); Mean Corpuscular HGB Conc 33.3 g/dl (31.0-35.0); Mean Corpuscular Hemoglobin 31.3 pg (27.0-33.0); Mean Corpuscular Volume 93.9 fL (80.0-98.0); Mean Platelet Volume 8.8 fL (9.4-12.3); Platelet Count 412 X10*3/uL (160-400); Red Blood Count 3.77 X10*6/uL (4.20-5.50); Red Cell Distribution Width 11.8 % (11.0-16.0); White Blood Count 7.6 X10*3/uL (4.8-10.8)
[2023-09-10 11:49] LABS: Alanine Aminotransferase 37 U/L (0-31); Albumin Level 5.1 g/dL (3.5-5.0); Alkaline Phosphatase 65 U/L (39-117); Anion Gap 18 (12-20); Aspartate Amino Transferase 22 U/L (5-31); Bilirubin Total 0.5 mg/dL (0.0-1.0); Blood Urea Nitrogen 33 mg/dL (9-16); Calcium 10.7 mg/dL (8.4-10.2); Carbon Dioxide 25 mmol/L (22-29); Chloride 100 mmol/L (96-108); Estimated Glomerular Filt Rate 38; Glucose Random 114 mg/dL (60-115); Potassium 3.5 mmol/L (3.3-5.1); Sodium 139 mmol/L (135-145); Total Protein 9.5 g/dL (6.5-8.0)
== END 2023-09-10 10:12 | disposition home or self-care (01) ==
LOC: HO.LAB 10:11
PROVIDERS: PCP Internal Medicine; Visit Provider Internal Medicine
DX: N17.9 Acute kidney failure, unspecified (principal); M62.82 Rhabdomyolysis; R79.89 Other specified abnormal findings of blood chemistry; Z90.49 Acquired absence of other specified parts of digestive tract
CPT/HCPCS: 36415; 80053; 85027; 99212

== ENCOUNTER 2023-09-10 10:25 | Outpatient (AMB) | payer OTHER, SELFPAY ==
--- NOTE | 2023-09-10 10:26 | A.OFFVIS_ITS ---
Intake Vital Signs 09/10/23 10:27 Height 5 ft 3 in Weight 192 lb 10.944 oz BMI 34.1 BP 123/84 Blood Pressure Location Rt brachial Position Sitting Pulse 91 Intake Visit Reasons: s/p laparoscopic appendectomy Intake Note: This patient presents for a post-op assessment status post laparoscopic appendectomy. Pt c/o; reports no complaints at this time. Construction Scheduler Required: No Accompanied by: Self / Same As Patient Allergies Inhaled Anesthetics (Halogen Based) Adverse Reaction (Severe, Verified 09/10/23 10:58) Malignant Hyperthermia HPI s/p laparoscopic appendectomy HPI Details 33-year-old female here for follow-up af ter appendectomy. She underwent laparoscopic appendectomy last 08/20/2023. Her postop course was complicated by severe rhabdomyolysis with subsequent acute renal failure requiring hemodialysis. Her last hemodialysis was last week. Her kidney function appears to have been improving. She says she has good urine output. She denies any GI complaints. [facility] Medical History (Updated 08/22/23 @ 16:03 by Yamilet Orta MD) Bacteremia Hepatitis B carrier Skin lesion Lactating mother Hepatitis B Miscarriage Surgical History (Updated 09/10/23 @ 10:56 by Sai Crawford MD) Status post laparoscopic appendectomy History of laparoscopic appendectomy (~08/19/23) History of ankle surgery Family History Father Diabetes Paternal Grandfather Diabetes Social History Household Members: Significant Other and Children Housing: Apartment Do you presently have visiting nurse or other home services: No Alcohol intake: current Alcohol intake frequency: does not drink Comment: 1/walker Patient Tobacco Use Status: Former Tobacco user Tobacco use type: Cigarette Years Smoked: 1 e-Cigarette/Vaping Use: Never Used service: No Sexual orientation: Straight/Heterosexual Gender identity: Female Female Reproductive History Menstrual Age of Menarche: 15 Review of Systems Const Denies chills and Denies fever(s) Card Denies chest pain, Denies dyspnea and Denies dyspnea on exertion Resp Denies cough, Denies dyspnea and Denies dyspnea on exertion GI Denies hematochezia and Denies change in bowel habits Denies hematuria Musc Denies back pain and Denies limited range of motion Neuro Denies focal weakness and Denies convulsions Psych Denies depression and Denies mood swings Physical Exam Vital Signs: Last Vital Signs Pulse 91 09/10/23 10:27 BP 123/84 09/10/23 10:27 BMI result Body Mass Index 34.1 Const General: comfortable and no acute distress Resp Effort & Inspection: normal respiratory effort Cardio Rate: regular rate GI Other: Incisions are well healed Palpation (GI): Soft to palpation, not firm and nontender Assessment & Plan Assessment & Plan (1) Status post laparoscopic appendectomy: Code(s): Z90.49 - Acquired absence of other specified parts of digestive tract Plan: She is doing very well postoperatively. All incisions are well healed. She is good GI functions. I advised her to avoid lifting more than 20 lb for about 2 more weeks. She can follow up on a p.r.n. basis. (2) Rhabdomyolysis: Code(s): M62.82 - Rhabdomyolysis Plan: She developed extreme rhabdomyolysis postop with subsequent renal failure requiring hemodialysis. Her renal function has improved and she has had no dialysis since over a week ago. Her rhabdomyolysis was deemed to be provoked by anesthesia although it is unlikely to be from malignant hyperthermia. Her family may be at risk for this as well. I advised her to make sure that her anesthesiologist for any future surgeries is aware of the this postop event. She is to follow-up with her heater helper forge as well. Coding Level of Care Code Global (96080) Diagnoses Status post laparoscopic appendectomy Z90.49 Rhabdomyolysis M62.82
[2023-09-10 10:27] VITALS: BP 123/84; PULSE 91; BMI 34.1
== END 2023-09-10 10:52 | disposition home or self-care (01) ==
PROVIDERS: PCP Internal Medicine; Visit Provider Surgery
DX: Z90.49 Acquired absence of other specified parts of digestive tract (principal); M62.82 Rhabdomyolysis
CPT/HCPCS: 99024

== ENCOUNTER 2023-09-10 10:56 | Outpatient (AMB) | payer OTHER, SELFPAY ==
[2023-09-10 10:56] VITALS: BP 118/84; PULSE 86; O2SAT 97; BMI 32.3
--- NOTE | 2023-09-10 10:56 | HO.NEPHOV ---
HPI HPI Comments History of Present Illness Details I had the privilege of seeing Josseline who is a 33 year old female without any significant past medical history who recently was admitted to general surgery for management of acute appendicitis . She presented to the ER with complaints of abdominal pain. She had a WBC 15.9. CT abdomen /pelvis showed acute uncomplicated appendicitis. She developed sinus tachycardia to 140-150 and fever of 101.6. She was taken to OR for lap appendectomy and had a post operative diagnosis of gangrenous appendicitis. Blood cultures were positive with GPC in pairs and chains. She was treated with IV zosyn and IVF. Hospital course was complicated by rhabdomyolysis, Gram-negative bacteremia, transaminitis , rhabdomyolysis and RAMON. She needed temporary hemodialysis which was discontinued when her urine output was improving and her creatinine was better. Her hemodialysis catheter was discontinued at that time by interventional radiology. Patient was seen by ID and also completed IV antibiotics for E coli bacteremia. She was thought to have malignant hyperthermia.RYR1, STAC3, EUGMS6p gene testing was one and is pending. She was asked to avoid triggering anesthetics which might cause another episode of rhabdomyolysis. She had an episode of rhabdomyolysis when she was a child and her eldest daughter who is 9 years of age had rhabdomyolysis when she was 5 years. She feels improved with no nausea, vomiting, diarrhea, shortness of breath, paroxysmal nocturnal dyspnea, orthopnea, pedal edema, urinary symptoms or orthostasis. She has not taking any jkei-kwl-hgmrvnv medications. Her appetite is better and she is currently clinically well. She has seen surgical team the other day and was cleared from their end. [facility] Medical History (Updated 08/22/23 @ 16:03 by Yamilet Orta MD) Bacteremia Hepatitis B carrier Skin lesion Lactating mother Hepatitis B Miscarriage Surgical History Status post laparoscopic appendectomy History of laparoscopic appendectomy (~08/19/23) History of ankle surgery Family History Father Diabetes Paternal Grandfather Diabetes Social History Household Members: Significant Other and Children Housing: Apartment Do you presently have visiting nurse or other home services: No Alcohol intake: current Alcohol intake frequency: does not drink Comment: 1/walker Patient Tobacco Use Status: Former Tobacco user Tobacco use type: Cigarette Years Smoked: 1 e-Cigarette/Vaping Use: Never Used service: No Sexual orientation: Straight/Heterosexual Gender identity: Female Female Reproductive History Menstrual Age of Menarche: 15 Vital Signs 09/10/23 10:56 Height 5 ft 3 in Weight 182 lb 4 oz BMI 32.3 BP 118/84 Blood Pressure Location Rt brachial Position Sitting Pulse 86 Pulse Source Pulse Oximeter Pulse Oximetry (%) 97 Oxygen Delivery Method Room Air Physical Exam Vital Signs: Last Vital Signs Pulse 86 09/10/23 10:56 BP 118/84 09/10/23 10:56 Pulse Ox 97 09/10/23 10:56 Oxygen Delivery Method Room Air 09/10/23 10:56 BMI result Body Mass Index 32.3 Const General: comfortable and no acute distress Orientation/consciousness: patient oriented x3 HEENT Head: Yes normocephalic Mouth: Normal oral and palatal mucosa present Eyes EOM: EOMs intact bilaterally Neck Neck: Yes supple Resp Auscultation: clear to auscultation bilaterally Cardio Jugular venous distension: no JVD Rate: regular rate GI Palpation (GI): Soft to palpation Auscultation: normal bowel sounds General: Yes no CVA tenderness Back/Spine/Pelvis Back: no CVA tenderness Skin General skin exam: no rashes or lesions noted Neuro General: patient oriented x3 and moves all extremities Extrem General: Yes no pedal edema Assessment & Plan Assessment & Plan (1) RAMON (acute kidney injury): Code(s): N17.9 - Acute kidney failure, unspecified Plan Acute Kidney injury due to multifactorial tubular injury Was getting renal replacement- discontinued with good urine output and serum creatinine coming down. HD catheter( temporary ) was discontinued She should maintain good hydration and avoid nonsteroidal anti-inflammatories She has normal renal function at baseline She was thought to have malignant hyperthermia.RYR1, STAC3, BCEFO9f gene testing was one and is pending. She was asked to avoid triggering anesthetics which might cause another episode of rhabdomyolysis. She had an episode of rhabdomyolysis when she was a child and her eldest daughter who is 9 years of age had rhabdomyolysis when she was 6 years Continue with rest of current supportive management for now. Follow-up blood work ordered and follow-up appointment given. Answered all questions. Orders: Orders Creatinine Today N17.9 - Acute kidney failure, unspecified Electrolytes Today N17.9 - Acute kidney failure, unspecified Blood Urea Nitrogen Today N17.9 - Acute kidney failure, unspecified CK, Total+Isoenzymes, Serum Today N17.9 - Acute kidney failure, unspecified Medications: Discontinued docusate sodium (Colace) Discontinued Reason: Doctor's Order 100 mg PO BID PRN 30 caps 0RF constipation calcium carbonate (Oyster Shell Calcium 500) Discontinued Reason: Doctor's Order 500 mg PO DAILY 14 tabs 0RF Coding Level of Care Code Est Pt Level 4 (13193) Diagnoses RAMON (acute kidney injury) N17.9 Results Reviewed Nephrology Results: Hgb 11.8 g/dl (12.0-16.0) L 09/10/23 WBC 7.6 X10*3/uL (4.8-10.8) 09/10/23 Plt Count 412 X10*3/uL (160-400) H 09/10/23 Sodium 139 mmol/L (135-145) 09/10/23 Potassium 3.5 mmol/L (3.3-5.1) 09/10/23 Chloride 100 mmol/L (96-108) 09/10/23 Carbon Dioxide 25 mmol/L (22-29) 09/10/23 BUN 33 mg/dL (9-16) H 09/10/23 Creatinine 1.57 mg/dL (0.5-1.4) H 09/10/23 Calcium 10.7 mg/dL (8.4-10.2) H 09/10/23 Phosphorus 4.5 mg/dL (2.7-4.5) 08/22/23 Urine Protein 300 (3+) mg/dL (Neg-Trace) H 08/26/23 Urine Creatinine 43.00 mg/dL 08/26/23
== END 2023-09-10 11:56 | disposition home or self-care (01) ==
PROVIDERS: PCP Internal Medicine; Visit Provider Internal Medicine Nephrology
DX: N17.9 Acute kidney failure, unspecified (principal)
CPT/HCPCS: 99214

== ENCOUNTER 2023-10-07 15:56 | Outpatient (REF) | payer OTHER, SELFPAY ==
[2023-10-07 17:44] LABS: Anion Gap 15 (12-20); Blood Urea Nitrogen 7 mg/dL (9-16); Carbon Dioxide 27 mmol/L (22-29); Chloride 100 mmol/L (96-108); Estimated Glomerular Filt Rate > 60; Sodium 139 mmol/L (135-145)
[2023-10-10 21:49] LABS: CK-BB None Detected (None Detected); CK-MB 0 % (<5); CK-MM 86 % (95-100); Creatine Kinase,Total,Serum 114 U/L (29-143)
== END 2023-10-07 15:57 | disposition home or self-care (01) ==
LOC: HO.LAB 15:56
PROVIDERS: PCP Internal Medicine; Visit Provider Internal Medicine Nephrology
DX: N17.9 Acute kidney failure, unspecified (principal)
CPT/HCPCS: 36415; 80051; 82552; 82565; 84520

== ENCOUNTER 2023-10-08 10:57 | Outpatient (AMB) | payer OTHER, SELFPAY ==
[2023-10-08 11:10] VITALS: BP 114/80; PULSE 85; O2SAT 98; BMI 31.9
--- NOTE | 2023-10-08 11:10 | HO.NEPHOV ---
HPI HPI Comments History of Present Illness Details I had the privilege of seeing Josseline who is a 33 year old female without any significant past medical history who recently was admitted to general surgery for management of acute appendicitis . She presented to the ER with complaints of abdominal pain. She had a WBC 15.9. CT abdomen /pelvis showed acute uncomplicated appendicitis. She developed sinus tachycardia to 140-150 and fever of 101.6. She was taken to OR for lap appendectomy and had a post operative diagnosis of gangrenous appendicitis. Blood cultures were positive with GPC in pairs and chains. She was treated with IV zosyn and IVF. Hospital course was complicated by rhabdomyolysis, Gram-negative bacteremia, transaminitis , rhabdomyolysis and RAMON. She needed temporary hemodialysis which was discontinued when her urine output was improving and her creatinine was better. Her hemodialysis catheter was discontinued at that time by interventional radiology. Patient was seen by ID and also completed IV antibiotics for E coli bacteremia. She was thought to have malignant hyperthermia.RYR1, STAC3, [id number] gene testing was one and is pending. She was asked to avoid triggering anesthetics which might cause another episode of rhabdomyolysis. She had an episode of rhabdomyolysis when she was a child and her eldest daughter who is 9 years of age had rhabdomyolysis when she was 5 years. She feels improved with no nausea, vomiting, diarrhea, shortness of breath, paroxysmal nocturnal dyspnea, orthopnea, pedal edema, urinary symptoms or orthostasis. She has not taking any agex-eig-buxkloo medications. Her appetite is better and she is currently clinically well. She has seen surgical team and was cleared from their end. Her renal functions are back to baseline. [facility] Medical History (Updated 10/08/23 @ 11:18 by Dick Cordero MD) Bacteremia Hepatitis B carrier Skin lesion Lactating mother Hepatitis B Miscarriage Surgical History Status post laparoscopic appendectomy History of laparoscopic appendectomy (~08/19/23) History of ankle surgery Family History Father Diabetes Paternal Grandfather Diabetes Social History Household Members: Significant Other and Children Housing: Apartment Do you presently have visiting nurse or other home services: No Alcohol intake: current Alcohol intake frequency: does not drink Comment: 1/walker Patient Tobacco Use Status: Former Tobacco user Tobacco use type: Cigarette Years Smoked: 1 e-Cigarette/Vaping Use: Never Used service: No Sexual orientation: Straight/Heterosexual Gender identity: Female Female Reproductive History Menstrual Age of Menarche: 15 Vital Signs 10/08/23 11:10 Height 5 ft 3 in Weight 180 lb 4 oz BMI 31.9 BP 114/80 Blood Pressure Location Lt brachial Position Sitting Pulse 85 Pulse Source Pulse Oximeter Pulse Oximetry (%) 98 Oxygen Delivery Method Room Air Physical Exam Vital Signs: Last Vital Signs Pulse 85 10/08/23 11:10 BP 114/80 10/08/23 11:10 Pulse Ox 98 10/08/23 11:10 Oxygen Delivery Method Room Air 10/08/23 11:10 BMI result Body Mass Index 31.9 Const General: comfortable and no acute distress Orientation/consciousness: patient oriented x3 HEENT Head: Yes normocephalic Mouth: Normal oral and palatal mucosa present Eyes EOM: EOMs intact bilaterally Neck Neck: Yes supple Resp Auscultation: clear to auscultation bilaterally Cardio Jugular venous distension: no JVD Rate: regular rate GI Palpation (GI): Soft to palpation Auscultation: normal bowel sounds General: Yes no CVA tenderness Back/Spine/Pelvis Back: no CVA tenderness Skin General skin exam: no rashes or lesions noted Neuro General: patient oriented x3 and moves all extremities Extrem General: Yes no pedal edema Assessment & Plan Assessment & Plan (1) RAMON (acute kidney injury): Code(s): N17.9 - Acute kidney failure, unspecified (2) Hypokalemia: Code(s): E87.6 - Hypokalemia Plan Acute Kidney injury due to multifactorial tubular injury Was getting renal replacement- discontinued with good urine output and serum creatinine is back to baseline. HD catheter( temporary ) was discontinued long ago She should maintain good hydration and avoid nonsteroidal anti-inflammatories She has normal renal function at baseline She was thought to have malignant hyperthermia.RYR1, STAC3, [id number] gene testing was done and was negative. She was asked to avoid triggering anesthetics which might cause another episode of rhabdomyolysis. She had an episode of rhabdomyolysis when she was a child and her eldest daughter who is 9 years of age had rhabdomyolysis when she was 6 years Gave KCl 10 MEQ daily for ten days Continue with rest of current supportive management for now. Follow-up blood work ordered and follow-up appointment given. Answered all questions. Orders: Orders Blood Urea Nitrogen Today N17.9 - Acute kidney failure, unspecified Protein Creatinine Ratio, Ur Today N17.9 - Acute kidney failure, unspecified Electrolytes Today N17.9 - Acute kidney failure, unspecified Creatinine Today N17.9 - Acute kidney failure, unspecified Medications: New potassium chloride ER 10 mEq PO DAILY 10 caps 0RF 10 days Coding Level of Care Code Est Pt Level 4 (88282) Diagnoses RAMON (acute kidney injury) N17.9 Hypokalemia E87.6 Results Reviewed Nephrology Results: Hgb 11.8 g/dl (12.0-16.0) L 09/10/23 WBC 7.6 X10*3/uL (4.8-10.8) 09/10/23 Plt Count 412 X10*3/uL (160-400) H 09/10/23 Sodium 139 mmol/L (135-145) 10/07/23 Potassium 3.0 mmol/L (3.3-5.1) L 10/07/23 Chloride 100 mmol/L (96-108) 10/07/23 Carbon Dioxide 27 mmol/L (22-29) 10/07/23 BUN 7 mg/dL (9-16) L 10/07/23 Creatinine 0.77 mg/dL (0.5-1.4) 10/07/23 Calcium 10.7 mg/dL (8.4-10.2) H 09/10/23
== END 2023-10-08 11:24 | disposition home or self-care (01) ==
PROVIDERS: PCP Internal Medicine; Visit Provider Internal Medicine Nephrology
DX: N17.9 Acute kidney failure, unspecified (principal); E87.6 Hypokalemia
CPT/HCPCS: 99214

== ENCOUNTER → 2023-10-08 10:57 | Outpatient (BNVA) | payer OTHER, SELFPAY | PROVIDERS: PCP Internal Medicine; Visit Provider Internal Medicine Nephrology | DX: N17.9 Acute kidney failure, unspecified (principal); E87.6 Hypokalemia | CPT/HCPCS: 99212 ==

== ENCOUNTER 2024-01-29 14:18 | Outpatient (REF) | payer OTHER, SELFPAY | END 2024-01-29 14:19 | disposition home or self-care (01) | LOC: HO.LNP 14:18 | PROVIDERS: PCP Internal Medicine; Visit Provider Advanced Practice Midwife | DX: Z01.419 Encounter for gynecological examination (general) (routine) without abnormal findings (principal); Z20.2 Contact with and (suspected) exposure to infections with a predominantly sexual mode of transmission | CPT/HCPCS: 99395 ==

== ENCOUNTER 2024-01-29 14:18 | Outpatient (AMB) | payer OTHER, SELFPAY ==
--- NOTE | 2024-01-29 14:35 | MHC.OFFVIS ---
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 Doing well with no concerns. She tries to eat healthy and stays active with exercise. Light spotting with the IUD, no pad needed. Currently is sexually active. She denies vaginal itching and irritation. STI screening offered; she accepts. Denies family history of breast, ovarian or colon cancer. Last pap smear 2021, negative. [facility] Medical History (Updated 01/29/24 @ 15:04 by Henrietta Conley CNM) Bacteremia Hepatitis B carrier Skin lesion Hepatitis B Miscarriage Surgical History Status post laparoscopic appendectomy History of laparoscopic appendectomy (~08/19/23) History of ankle surgery Family History Father Diabetes Paternal Grandfather Diabetes Social History Household Members: Significant Other and Children Housing: Apartment Do you presently have visiting nurse or other home services: No Alcohol intake: current Alcohol intake frequency: does not drink Comment: Amada/marcy Patient Tobacco Use Status: Former Tobacco user Tobacco use type: Cigarette Years Smoked: 1 e-Cigarette/Vaping Use: Never Used service: No Sexual orientation: Straight/Heterosexual Gender identity: Female Female Reproductive History Menstrual Age of Menarche: 15 control method: progestin IUCD (Kyleena 12/18/22) Total pregnancies: 4 Full term: 2 Number of Living Children: 2 Ab spontaneous: 2 Date of last pap smear: 03/28/22 (neg pap and hpv) Review of Systems Const All systems reviewed & are unremarkable except as noted in HPI and below Reports as per HPI Eyes Reports no additional complaints ENT Reports no additional complaints Card Reports no additional complaints Resp Reports no additional complaints GI Reports as per HPI and Reports no additional complaints Reports as per HPI Musc Reports no additional complaints Skin/Breast Reports as per HPI Neuro Reports no additional complaints Psych Reports no additional complaints Endo Reports no additional complaints Stefano/Lymph Reports no additional complaints Aller/Immun Reports no additional complaints Physical Exam Vital Signs: Last Vital Signs BP 100/60 01/29/24 14:36 BMI result Body Mass Index 34.4 Const General: cooperative, healthy appearing, no acute distress, well developed and alert Orientation/consciousness: patient oriented x3 HEENT Head: Yes normal to inspection Eyes General: appearance normal, both eyes and all related structures Neck Neck: Yes normal visual inspection Thyroid: Thyroid normal Chest Other: Breast mass right breast at 11:00 o'clock position Chest palpation & inspection: normal inspection of the chest and other (no puckering, dimpling, peau de orange, retraction, discharge, masses) Breast/axilla inspection: normal inspection of the breasts Breast/axilla palpation: normal palpation of the breasts Resp Effort & Inspection: normal respiratory effort GI Inspection: Yes normal to inspection Palpation (GI): Soft to palpation Rectal Exam - Female: deferred General: Yes bladder normal to palpation External Female Exam: normal external appearance and normal appearance of the urethra Speculum Exam - Vagina: normal appearance of the vagina, normal palpation and normal vaginal discharge Speculum Exam - Cervix: normal appearance of the cervix, normal palpation and Other cervical findings present (IUD strings present at the os) Bimanual exam- vagina & uterus: normal bimanual exam, normal palpation, uterine size normal, bladder normal to palpation, normal palpation and non-tender Bimanual Exam- Adnexa, other: no masses Skin General skin exam: no rashes or lesions noted Rashes: no rashes Neuro General: patient oriented x3 Cognition (Neuro): normal cognition Extrem General: Yes normal to inspection Psych Attitude: cooperative Thought process: Normal thought process present Assessment & Plan Assessment & Plan (1) Encounter for well woman exam with routine gynecological exam: Code(s): Z01.419 - Encounter for gynecological examination (general) (routine) without abnormal findings Category: Medical (2) Breast mass: Code(s): N63.0 - Unspecified lump in unspecified breast Category: Medical Plan Discussed: Current recommendations for pap smears per ASCCP guidelines. Breast awareness and periodic breast exams. Maintain a healthy lifestyle including a well balanced diet and routine exercise. Workup for breast mass to include ultrasound and diagnostic mammogram, follow up in person for test results refer if indicated. Patient verbalizes understanding and agrees to the plan of care. She was given opportunity to ask questions and all questions were answered to the best of my ability. 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 This note is constructed using voice recognition software. While every effort has been made to ensure accuracy, commercial real estate assistant errors may have been included. Orders: Orders HIV Ab/Ag Today Z20.2 - Contact with and (suspected) exposure to infections with a predominantly sexual mode of transmission Syphilis Screen Today Z20.2 - Contact with and (suspected) exposure to infections with a predominantly sexual mode of transmission CT NG by PCR Today Z20.2 - Contact with and (suspected) exposure to infections with a predominantly sexual mode of transmission MM tomosynthesis diagnostic BI Today N63.0 - Unspecified lump in unspecified breast, Z12.31 - Encounter for screening mammogram for malignant neoplasm of breast Hepatitis C Antibody Reflex Today Z20.2 - Contact with and (suspected) exposure to infections with a predominantly sexual mode of transmission Bacterial Vaginosis Panel Today Z20.2 - Contact with and (suspected) exposure to infections with a predominantly sexual mode of transmission US breast RT complete Today N63.0 - Unspecified lump in unspecified breast Coding Level of Care Code Est Pt Prev Care 18-39y([id number]) Diagnoses Encounter for well woman exam with routine gynecological exam Z01.419 Breast mass N63.0
[2024-01-29 14:36] VITALS: BP 100/60; BMI 34.4
== END 2024-01-29 15:09 | disposition home or self-care (01) ==
LOC: HO.HWS 14:18
PROVIDERS: PCP Internal Medicine; Visit Provider Advanced Practice Midwife
DX: Z01.419 Encounter for gynecological examination (general) (routine) without abnormal findings (principal); N63.0 Unspecified lump in unspecified breast
CPT/HCPCS: 99395

== ENCOUNTER 2024-01-29 15:03 | Outpatient (REF) | payer OTHER, SELFPAY ==
[2024-01-30 05:18] LABS: HIV AB/AG Nonreactive (Nonreactive); HIV Num 1 0.35 S/CO (0.00-0.99); Syphilis Screen Nonreactive (Nonreactive); ~Hepatitis C Antibody Nonreactive (Nonreactive)
[2024-01-30 09:49] LABS: Bacterial Vaginosis PCR POSITIVE (Negative); Candida Group PCR NOT DETECTED (Not Detect); Candida glab krusei PCR NOT DETECTED (Not Detect); Trichomonas vaginalis PCR NOT DETECTED (Not Detect)
[2024-01-30 09:52] LABS: CT PCR NOT DETECTED (Not Detect.); NG PCR NOT DETECTED (Not Detect.)
== END 2024-01-29 15:04 | disposition home or self-care (01) ==
LOC: HO.LAB 15:03
PROVIDERS: PCP Internal Medicine; Visit Provider Advanced Practice Midwife
DX: Z20.2 Contact with and (suspected) exposure to infections with a predominantly sexual mode of transmission (principal)
CPT/HCPCS: 0352U; 86780; 86803; 87389; 87491; 87591

== ENCOUNTER 2024-02-09 13:22 | Outpatient (REF) | payer OTHER, SELFPAY ==
--- NOTE | ~2024-02-09 | US_ITS ---
EXAMINATION: MM DIAGNOSTIC DIGITAL BREAST TOMOSYNTHESIS, BILATERAL US BREAST LIMITED, RIGHT MAMMOGRAPHY: CLINICAL INFORMATION: Palpable lump 11:00 region right breast per referring clinician. COMPARISON: Mammography: This is a baseline mammogram. TECHNIQUE: Digital breast tomosynthesis is performed in both the craniocaudal and mediolateral oblique views along with computer-aided detection (CAD). Synthesized 2D images are generated from the tomosynthesis. A full lateral view of the right breast and CC and lateral spot compression of the upper outer quadrant of the right breast were obtained. FINDINGS: The breasts are heterogeneously dense, which may obscure small masses (ACR BI-RADS breast composition Category c). There are no significant masses, abnormal calcifications, or other abnormalities in either breast. ULTRASOUND: CLINICAL INFORMATION: Palpable lump 11:00 region right breast per referring clinician. COMPARISON: None TECHNIQUE: Targeted sonographic evaluation was performed using a high frequency linear transducer. Selected archived documentation. FINDINGS: RIGHT BREAST: The upper-outer quadrant of the right breast was scanned. There is no discrete abnormality. Clinical follow-up advised. US/US breast RT limited mamm only IMPRESSION: No mammographic sonographic correlates with the area of palpable concern in the upper outer quadrant of the right breast. No mammographic signs of malignancy left breast. OVERALL ASSESSMENT: Mammography: BI-RADS 1 - Negative Ultrasound: BI-RADS 1 - Negative RECOMMENDATION: 1. Patient should be managed based on the clinical impression. 2. Otherwise, routine annual screening mammography. Results were provided to the patient at time of visit by the technologist. This patient's information was entered into a reminder system with a target due date for their next mammogram.
== END 2024-02-09 13:23 | disposition home or self-care (01) ==
LOC: HO.MAMMO 13:22
PROVIDERS: PCP Internal Medicine; Visit Provider Advanced Practice Midwife
DX: N63.11 Unspecified lump in the right breast, upper outer quadrant (principal)
CPT/HCPCS: 76642; 77062; 77066

== ENCOUNTER → 2024-02-09 13:30 | Outpatient (BNV) | payer OTHER, SELFPAY | PROVIDERS: PCP Internal Medicine; Visit Provider Radiology Diagnostic Radiology | DX: N63.11 Unspecified lump in the right breast, upper outer quadrant (principal) | CPT/HCPCS: 76642; 77062; 77066 ==

== ENCOUNTER 2024-02-18 15:45 | Outpatient (REF) | payer OTHER, SELFPAY ==
[2024-02-18 16:03] LABS: MANUAL DIFF FLAG NO
[2024-02-18 16:18] LABS: Basophils Percent Auto 0.3 % (0-2); Eosinophils Absolute Auto 0.2 X10*3/uL (0.0-0.4); Hemoglobin 12.1 g/dl (12.0-16.0); Imm Gran Abs Auto 0.01 X10*3/uL (0.00-0.03); Imm Gran Pct Auto 0.1 % (0.0-0.4); Lymphocytes Absolute Auto 2.6 X10*3/uL (1.2-4.9); Lymphocytes Percent Auto 34.2 % (20-40); Mean Corpuscular HGB Conc 33.6 g/dl (31.0-35.0); Mean Corpuscular Hemoglobin 31.3 pg (27.0-33.0); Mean Corpuscular Volume 93.3 fL (80.0-98.0); Mean Platelet Volume 8.5 fL (9.4-12.3); Monocytes Absolute Auto 0.6 X10*3/uL (0.1-1.2); Monocytes Percent Auto 7.5 % (2-11); Neutrophils Absolute Auto 4.2 x10*3/uL (2.0-8.3); Neutrophils Percent Auto 55.9 % (45-73); Platelet Count 254 X10*3/uL (160-400); Red Blood Count 3.86 X10*6/uL (4.20-5.50); Red Cell Distribution Width 12.1 % (11.0-16.0); White Blood Count 7.6 X10*3/uL (4.8-10.8)
[2024-02-18 16:23] LABS: Prothrombin Time 12.5 SEC (11.1-13.3)
[2024-02-18 16:25] LABS: Partial Thromboplastin Time 32.8 SEC (26.0-36.8)
[2024-02-18 16:48] LABS: Alanine Aminotransferase 23 U/L (0-31); Albumin Level 4.4 g/dL (3.5-5.0); Alkaline Phosphatase 43 U/L (39-117); Anion Gap 9 (12-20); Aspartate Amino Transferase 34 U/L (5-31); Bilirubin Total 0.2 mg/dL (0.0-1.0); Blood Urea Nitrogen 9 mg/dL (9-16); C Reactive Protein 0.11 mg/dL (< or = 0.50); Calcium 9.5 mg/dL (8.4-10.2); Carbon Dioxide 31 mmol/L (22-29); Chloride 103 mmol/L (96-108); Estimated Glomerular Filt Rate > 60; Glucose Random 81 mg/dL (60-115); Potassium 3.8 mmol/L (3.3-5.1); Sodium 139 mmol/L (135-145); Total Protein 7.6 g/dL (6.5-8.0)
[2024-02-18 17:03] LABS: Free T4 (Free Thyroxine) 0.88 ng/dL (0.71-1.85); Thyroid Stimulating Hormone 0.65 uIU/mL (0.32-4.0)
[2024-02-19 07:58] LABS: ~HepC Num1 0.38 S/CO (0.00-0.79); ~Hepatitis C Antibody Nonreactive (Nonreactive)
== END 2024-02-18 15:46 | disposition home or self-care (01) ==
LOC: HO.LAB 15:45
PROVIDERS: PCP Internal Medicine; Visit Provider Internal Medicine
DX: B19.10 Unspecified viral hepatitis B without hepatic coma (principal); L29.9 Pruritus, unspecified; R23.3 Spontaneous ecchymoses
CPT/HCPCS: 36415; 80053; 82550; 84439; 84443; 85025; 85610; 85730; 86140; 86803

== ENCOUNTER 2024-03-08 11:02 | Outpatient (REF) | payer OTHER, SELFPAY | END 2024-03-08 11:03 | disposition home or self-care (01) | LOC: HO.LAB 11:02 | PROVIDERS: PCP Internal Medicine; Visit Provider Internal Medicine | DX: R74.8 Abnormal levels of other serum enzymes (principal) | CPT/HCPCS: 36415; 82550 ==

== ENCOUNTER 2024-03-10 11:13 | Outpatient (REF) | payer OTHER, SELFPAY | END 2024-03-10 11:14 | disposition home or self-care (01) | LOC: HO.LNP 11:13 | PROVIDERS: PCP Internal Medicine; Visit Provider Surgery | DX: D23.21 Other benign neoplasm of skin of right ear and external auricular canal (principal) | CPT/HCPCS: 11421; 88304; 88305 ==

== ENCOUNTER 2024-03-10 11:13 | Outpatient (AMB) | payer OTHER, SELFPAY ==
--- NOTE | 2024-03-10 11:13 | A.OFFVIS_ITS ---
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 [facility] Medical History Bacteremia Hepatitis B carrier Skin lesion Hepatitis B Miscarriage Surgical History Status post laparoscopic appendectomy History of laparoscopic appendectomy (~08/19/23) History of ankle surgery Family History Father Diabetes Paternal Grandfather Diabetes Social History Household Members: Significant Other and Children Housing: Apartment Do you presently have visiting nurse or other home services: No Alcohol intake: current Alcohol intake frequency: does not drink Comment: Amada/marcy Patient Tobacco Use Status: Former Tobacco user Tobacco use type: Cigarette Years Smoked: 1 e-Cigarette/Vaping Use: Never Used service: No Sexual orientation: Straight/Heterosexual Gender identity: Female Female Reproductive History Menstrual Age of Menarche: 15 Physical Exam Vital Signs: BMI result Body Mass Index 34.4 Office Procedures Excision Details: She was in reclining position with the head turned to the left. The lesion was seen at the right postauricular area measuring about 6 mm in size, fleshy soft and well-defined. The area was prepped and draped. Lidocaine 1% was used for local anesthesia. I made an elliptical incision around the base of this lesion with a blade 15. This was carried down through the full-thickness of the skin to excise the entire lesion. This was sent as a specimen. The incision was closed with full-thickness nylon 3-0 interrupted sutures. Band aid was applied. She tolerated procedure well. There were no immediate complications. [id number] scalp/neck/hands/feet/genitalia 0.6cm-1cm Procedure code (CPT) selection complete Assessment & Plan Assessment & Plan (1) Skin lesion: Code(s): L98.9 - Disorder of the skin and subcutaneous tissue, unspecified Category: Medical Plan: She had a skin lesion from the right postauricular area excised. 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 She was given wound care instructions. She can take Tylenol for pain p.r.n.. I will see her in the office for removal sutures. Coding Level of Care Code Procedure Only Diagnoses Skin lesion L98.9 CPT Codes Scalp/Neck/Hands/Feet/Genetalia - CPT: 36776-[id number] scalp/neck/hands/feet/genitalia 0.6cm-1cm ([id number])
[2024-03-10 11:14] VITALS: BMI 34.4
== END 2024-03-10 11:34 | disposition home or self-care (01) ==
PROVIDERS: PCP Internal Medicine; Visit Provider Surgery
DX: H61.891 Other specified disorders of right external ear (principal)
CPT/HCPCS: 11421

== ENCOUNTER → 2024-03-24 11:21 | Outpatient (BNVA) | payer OTHER, SELFPAY | PROVIDERS: PCP Internal Medicine; Visit Provider Surgery | DX: Z48.02 Encounter for removal of sutures (principal); Z87.2 Personal history of diseases of the skin and subcutaneous tissue; Z98.890 Other specified postprocedural states | CPT/HCPCS: 99211 ==

== ENCOUNTER 2024-04-05 15:59 | Outpatient (REF) | payer OTHER, SELFPAY ==
[2024-04-05 17:24] LABS: Anion Gap 11 (12-20); Blood Urea Nitrogen 11 mg/dL (9-16); Carbon Dioxide 27 mmol/L (22-29); Chloride 106 mmol/L (96-108); Creatinine Urine 113.53 mg/dL; Estimated Glomerular Filt Rate > 60; Potassium 4.2 mmol/L (3.3-5.1); Protein/Creatinine Ratio, Ur 0.07 (<0.2); Sodium 140 mmol/L (135-145); Total Protein Urine Random 8 mg/dL (<12)
== END 2024-04-05 16:00 | disposition home or self-care (01) ==
LOC: HO.LAB 15:59
PROVIDERS: Absent Provider Advanced Practice Midwife; PCP Internal Medicine; Visit Provider Internal Medicine Nephrology
DX: N17.9 Acute kidney failure, unspecified (principal)
CPT/HCPCS: 36415; 80051; 82565; 82570; 84156; 84520

== ENCOUNTER 2024-04-12 10:17 | Outpatient (AMB) | payer OTHER, SELFPAY ==
--- NOTE | 2024-04-12 10:23 | HO.NEPHOV ---
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 She has H/O gangrenous appendicitis. Blood cultures at that time was positive with GPC in pairs and chains. Hospital course was complicated by rhabdomyolysis, Gram-negative bacteremia, transaminitis , rhabdomyolysis and RAMON. She needed temporary hemodialysis which was discontinued when her urine output was improving and her creatinine is normal now. She was thought to have malignant hyperthermia.RYR1, STAC3, FLMMB9g gene testing. She was asked to avoid triggering anesthetics which might cause another episode of rhabdomyolysis. She had an episode of rhabdomyolysis when she was a child and her eldest daughter who is 9 years of age had rhabdomyolysis when she was 5 years. She feels improved with no nausea, vomiting, diarrhea, shortness of breath, paroxysmal nocturnal dyspnea, orthopnea, pedal edema, urinary symptoms or orthostasis. She has not taking any upds-pqe-lurohnc medications. Her appetite is better and she is currently clinically well. [facility] Medical History Bacteremia Hepatitis B carrier Skin lesion Hepatitis B Miscarriage Surgical History History of surgical removal of lesion (~03/10/24) Status post laparoscopic appendectomy History of laparoscopic appendectomy (~08/19/23) History of ankle surgery Family History Father Diabetes Paternal Grandfather Diabetes Social History Household Members: Significant Other and Children Housing: Apartment Do you presently have visiting nurse or other home services: No Alcohol intake: current Alcohol intake frequency: does not drink Comment: 1/walker Patient Tobacco Use Status: Former Tobacco user Tobacco use type: Cigarette Years Smoked: 1 e-Cigarette/Vaping Use: Never Used service: No Sexual orientation: Straight/Heterosexual Gender identity: Female Female Reproductive History Menstrual Age of Menarche: 15 Review of Systems Const All systems reviewed & are unremarkable except as noted in HPI and below Physical Exam Vital Signs: Last Vital Signs Pulse 78 04/12/24 10:24 BP 100/70 04/12/24 10:24 Pulse Ox 98 04/12/24 10:24 Oxygen Delivery Method Room Air 04/12/24 10:24 BMI result Body Mass Index 34.6 Const General: comfortable and no acute distress Orientation/consciousness: patient oriented x3 HEENT Head: Yes normocephalic Mouth: Normal oral and palatal mucosa present Eyes EOM: EOMs intact bilaterally Neck Neck: Yes supple Resp Auscultation: clear to auscultation bilaterally Cardio Jugular venous distension: no JVD Rate: regular rate GI Palpation (GI): Soft to palpation Auscultation: normal bowel sounds General: Yes no CVA tenderness Back/Spine/Pelvis Back: no CVA tenderness Skin General skin exam: no rashes or lesions noted Neuro General: patient oriented x3 and moves all extremities Extrem General: Yes no pedal edema Results Reviewed Nephrology Results: Hgb 12.1 g/dl (12.0-16.0) 02/18/24 WBC 7.6 X10*3/uL (4.8-10.8) 02/18/24 Plt Count 254 X10*3/uL (160-400) 02/18/24 Sodium 140 mmol/L (135-145) 04/05/24 Potassium 4.2 mmol/L (3.3-5.1) 04/05/24 Chloride 106 mmol/L (96-108) 04/05/24 Carbon Dioxide 27 mmol/L (22-29) 04/05/24 BUN 11 mg/dL (9-16) 04/05/24 Creatinine 0.79 mg/dL (0.5-1.4) 04/05/24 Calcium 9.5 mg/dL (8.4-10.2) 02/18/24 Urine Creatinine 113.53 mg/dL 04/05/24 Protein/Creatinin Ratio 0.07 (<0.2) 04/05/24 Assessment & Plan Assessment & Plan (1) RAMON (acute kidney injury): Code(s): N17.9 - Acute kidney failure, unspecified Category: Medical Plan Acute Kidney injury due to multifactorial tubular injury- resolved Was getting renal replacement- discontinued with good urine output and serum creatinine is back to baseline. HD catheter( temporary ) was discontinued long ago She should maintain good hydration and avoid nonsteroidal anti-inflammatories She was thought to have malignant hyperthermia.RYR1, STAC3, CVUDT2b gene testing was done and was negative. She was asked to avoid triggering anesthetics which might cause another episode of rhabdomyolysis. She had an episode of rhabdomyolysis when she was a child and her eldest daughter who is 9 years of age had rhabdomyolysis when she was 6 years Continue with rest of current supportive management for now. Follow-up blood work ordered and follow-up appointment given. Answered all questions. Orders: Orders Blood Urea Nitrogen Today N17.9 - Acute kidney failure, unspecified CK, Total+Isoenzymes, Serum Today N17.9 - Acute kidney failure, unspecified Creatinine Today N17.9 - Acute kidney failure, unspecified Electrolytes Today N17.9 - Acute kidney failure, unspecified Protein Creatinine Ratio, Ur Today N17.9 - Acute kidney failure, unspecified Coding Level of Care Code Est Pt Level 4 (95324) Diagnoses RAMON (acute kidney injury) N17.9
[2024-04-12 10:24] VITALS: BP 100/70; PULSE 78; O2SAT 98; BMI 34.6
== END 2024-04-12 10:43 | disposition home or self-care (01) ==
PROVIDERS: PCP Internal Medicine; Visit Provider Internal Medicine Nephrology
DX: N17.9 Acute kidney failure, unspecified (principal)
CPT/HCPCS: 99213

== ENCOUNTER → 2024-04-12 10:17 | Outpatient (BNVA) | payer OTHER, SELFPAY | PROVIDERS: PCP Internal Medicine; Visit Provider Internal Medicine Nephrology | DX: N17.9 Acute kidney failure, unspecified (principal); Z90.49 Acquired absence of other specified parts of digestive tract | CPT/HCPCS: 99212 ==

== ENCOUNTER → 2024-05-19 15:11 | Outpatient (BNVA) | payer OTHER, SELFPAY | PROVIDERS: PCP Internal Medicine; Visit Provider Advanced Practice Midwife | DX: Z30.09 Encounter for other general counseling and advice on contraception (principal); Z71.2 Person consulting for explanation of examination or test findings | CPT/HCPCS: 99212 ==

== ENCOUNTER 2025-04-11 16:31 | Outpatient (REF) | payer OTHER, SELFPAY ==
[2025-04-11 18:18] LABS: Anion Gap 11 (12-20); Blood Urea Nitrogen 10 mg/dL (9-16); Carbon Dioxide 29 mmol/L (22-29); Chloride 104 mmol/L (96-108); Estimated Glomerular Filt Rate > 60; Potassium 4.0 mmol/L (3.3-5.1); Sodium 140 mmol/L (135-145)
[2025-04-11 18:23] LABS: Total Protein Urine Random < 7 mg/dL (<12)
--- OUTSIDE RECORDS SUMMARY | 2025-04-11 18:25 | XMS_ITS | Clinical Summary ---
Author Organization [facility] Address [address] [place] [phone] Phone Care Team Providers Care Web Design Specialist Name Role Phone Sai Tirado MD Primary Care Provider Allergies No known active allergies Medications acetaminophen (TYLENOL) 500 MG tablet Take 500 mg by mouth every 6 (six) hours as needed for pain (specific location in comments). Active Social History Tobacco Use Types Packs/Day Years Used Date Smoking Tobacco: Former Smokeless Tobacco: Never Alcohol Use Standard Drinks/Week Comments Not Currently 0 (1 standard drink = 0.6 oz pur e alcohol) Education Answer Date Recorded Are you interested in more education? Not on levi e 11/08/2022 Are you concerned about learning? Not on file 11/08/2022 No 11/08/2022 No 11/08/2022 Digital Access Answer Date Recorded No 12/07/2022 No 12/07/2022 No 12/07/2022 Reliable internet access at home? Not on file 12/07/2022 Device with a working camera? Not on file Comments Unknown Sex and Gender Information Value Date Recorded Sex Assigned at Not on file Legal Sex Female 8:08 AM EST Gender Identity Not on file Sexual Orientation Not on file Last Filed Vital Signs Vital Sign Reading Time Taken Comments Blood Pressure 99/65 08/03/2019 12:47 PM EST Pulse 88 08/03/2019 8:20 AM EST Temperature 36.9 C (98.4 F) 08/03/2019 12:47 PM EST Respiratory Rate 18 08/03/2019 9:07 AM EST Oxygen Saturation 100% 08/03/2019 12:47 PM EST Inhaled Oxygen Concentration - - Weight 86.2 kg (190 lb) 08/03/2019 8:20 AM EST Height 160 cm (5' 3 ) 08/03/2019 8:20 AM EST Body Mass Index 33.66 08/03/2019 8:20 AM EST Plan of Treatment Health Maintenance Due Date Last Done Comments Adult Td,Tdap Booster 1991 DEPRESSION SCREENING 2003 SMOKING Hx and SMOKELESS TOBACCO SCREENING 2004 HEPATITIS C SCREENING 2009 HIV ONE-TIME SCREENING (18-6 5 YEARS) 2009 PAP SMEAR 2012 INFLUENZA VACCINE (#1) 2025 COVID-19 VACCINE (2 - 2024-2 6 season) 2025 11/23/2020 HEPATITIS A VACCINES Aged Out 04/04/2020, 09/13/2019 No longer eligible based on patient's age to complete this topic HIB VACCINES Aged Out No longer eligi ble based on patient's age to complete this topic MENINGOCOCCAL VACCINES (ACWY) Aged Out No longer eligible based on patient's age to complete this topic MENINGOCOCCAL VACCINES (B) Aged Out N o longer eligible based on patient's age to complete this topic PNEUMOCOCCAL VACCINES (0-49 years) Aged Out No longer eligible b ased on patient's age to complete this topic Medical Devices Not on file Insurance [facility] [employer] [place] [employer] [place] [employer] [place] [place] [place] [employer] [employer] [employer] [facility] Care Teams Web Design Specialist Relationship Specialty Start Date End Date Sai Tirado MD [address] [place] [address] [place] [address] PCP - General Internal Medicine 08/03/19 Additional Source Comments The information contained in this document represents components of the legal health record. It is not the complete legal health record.[facility]
[2025-04-17 22:28] LABS: CK-BB None Detected (None Detected); CK-MB 0 % (<5); CK-MM 98 % (95-100); Creatine Kinase,Total,Serum 227 U/L (20-239)
== END 2025-04-11 16:32 | disposition home or self-care (01) ==
LOC: HO.LAB 16:31
PROVIDERS: Visit Provider Internal Medicine Nephrology
DX: N17.9 Acute kidney failure, unspecified (principal)
CPT/HCPCS: 36415; 80051; 82552; 82565; 82570; 84156; 84520

== ENCOUNTER 2025-04-13 09:21 | Outpatient (AMB) | payer OTHER, SELFPAY ==
--- NOTE | 2025-04-13 09:41 | HO.NEPHOV ---
Vital Signs 04/13/25 09:42 Height 5 ft 3 in Weight 205 lb 6 oz BMI 36.4 BP 100/64 Blood Pressure Location Lt brachial Position Sitting Pulse 82 Pulse Source Pulse Oximeter Pulse Oximetry (%) 97 Oxygen Delivery Method Room Air Intake Visit Reasons: RAMON-LVM Marketing Traffic Coordinator Required: No Accompanied by: Self / Same As Patient Allergies Inhaled Anesthetics (Halogen Based) Adverse Reaction (Severe, Verified 04/13/25 09:42) Malignant Hyperthermia HPI Comments Details: Josseline who is a 34 year old female in follow up for H/O RAMON. She has H/O gangrenous appendicitis. Blood cultures at that time was positive with GPC in pairs and chains. Hospital course was complicated by rhabdomyolysis, Gram-negative bacteremia, transaminitis , rhabdomyolysis and RAMON. She needed temporary hemodialysis which was discontinued when her urine output was improving and her creatinine is normal now. She was thought to have malignant hyperthermia.RYR1, STAC3, OOEYM4a gene testing. She was asked to avoid triggering anesthetics which might cause another episode of rhabdomyolysis. She had an episode of rhabdomyolysis when she was a child and her eldest daughter who is 9 years of age had rhabdomyolysis when she was 5 years. She feels improved with no nausea, vomiting, diarrhea, shortness of breath, paroxysmal nocturnal dyspnea, orthopnea, pedal edema, urinary symptoms or orthostasis. She has not taking any jnra-rfi-xnsoajz medications. Her appetite is better and she is currently clinically well. [facility] Medical History (Updated 05/19/24 @ 16:08 by Henrietta Conley CNM) Unwanted fertility IUD (intrauterine device) in place Bacteremia Hepatitis B carrier Skin lesion Hepatitis B Miscarriage Surgical History History of surgical removal of lesion (~03/10/24) Status post laparoscopic appendectomy History of laparoscopic appendectomy (~08/19/23) History of ankle surgery Family History Father Diabetes Paternal Grandfather Diabetes Social History Household Members: Significant Other and Children Housing: Apartment Do you presently have visiting nurse or other home services: No Alcohol intake: current Alcohol intake frequency: does not drink Comment: 1/walker Patient Tobacco Use Status: Former Tobacco user Tobacco use type: Cigarette Years Smoked: 1 e-Cigarette/Vaping Use: Never Used service: No Sexual orientation: Straight/Heterosexual Gender identity: Female Female Reproductive History Menstrual Age of Menarche: 15 Review of Systems Const All systems reviewed & are unremarkable except as noted in HPI and below Physical Exam Vital Signs: Last Vital Signs Pulse 82 04/13/25 09:42 BP 100/64 04/13/25 09:42 Pulse Ox 97 04/13/25 09:42 Oxygen Delivery Method Room Air 04/13/25 09:42 BMI result Body Mass Index 36.4 Const General: comfortable and no acute distress Orientation/consciousness: patient oriented x3 HEENT Head: Yes normocephalic Mouth: Normal oral and palatal mucosa present Eyes EOM: EOMs intact bilaterally Neck Neck: Yes supple Resp Auscultation: clear to auscultation bilaterally Cardio Jugular venous distension: no JVD Rate: regular rate GI Palpation (GI): Soft to palpation Auscultation: normal bowel sounds General: Yes no CVA tenderness Back/Spine/Pelvis Back: no CVA tenderness Skin General skin exam: no rashes or lesions noted Neuro General: patient oriented x3 and moves all extremities Extrem General: Yes no pedal edema Results Reviewed Nephrology Results: Hgb, (12.0-16.0) 12.1 g/dl 02/18/24 WBC, (4.8-10.8) 7.6 X10*3/uL 02/18/24 Plt Count, (160-400) 254 X10*3/uL Δ 02/18/24 Sodium, (135-145) 140 mmol/L 04/11/25 Potassium, (3.3-5.1) 4.0 mmol/L 04/11/25 Chloride, (96-108) 104 mmol/L 04/11/25 Carbon Dioxide, (22-29) 29 mmol/L 04/11/25 BUN, (9-16) 10 mg/dL 04/11/25 Creatinine, (0.5-1.4) 0.61 mg/dL 04/11/25 Calcium, (8.4-10.2) 9.5 mg/dL Δ 02/18/24 Urine Creatinine 51.32 mg/dL 04/11/25 Protein/Creatinin Ratio TNP 04/11/25 Assessment & Plan Assessment & Plan (1) RAMON (acute kidney injury): Code(s): N17.9 - Acute kidney failure, unspecified Category: Medical Plan Acute Kidney injury due to multifactorial tubular injury- resolved Was getting renal replacement- discontinued with good urine output and serum creatinine is back to baseline. Had HD catheter( temporary ) was discontinued long ago She should maintain good hydration and avoid nonsteroidal anti-inflammatories She was thought to have malignant hyperthermia.RYR1, STAC3, XUTFM9o gene testing was done and was negative. She was asked to avoid triggering anesthetics which might cause another episode of rhabdomyolysis. She had an episode of rhabdomyolysis when she was a child and her eldest daughter who is 9 years of age had rhabdomyolysis when she was 6 years Continue with rest of current supportive management for now. Answered all questions. F/U with PCP Coding Level of Care Code Est Pt Level 4 (39112) Diagnoses RAMON (acute kidney injury) N17.9
[2025-04-13 09:42] VITALS: BP 100/64; PULSE 82; O2SAT 97; BMI 36.4
--- OUTSIDE RECORDS SUMMARY | 2025-04-13 10:10 | XMS_ITS | Clinical Summary ---
Author Organization [facility] Address [address] [place] [phone] Phone Care Team Providers Care Scrap Sorter Name Role Phone Sai Tirado MD Primary [...] topic Medical Devices Not on file Insurance [facility] [employer] [place] [employer] [place] [place] [place] [place] [place] [employer] [place] [place] [facility] Care Teams Scrap Sorter Relationship Specialty Start Date End Date Sai Tirado MD [address] [place] [address] [place] [address] PCP - General Internal Medicine 08/03/19 Additional Source Comments The information contained in this document represents components of the legal health record. It is not the complete legal health record.[facility]
== END 2025-04-13 11:53 | disposition home or self-care (01) ==
LOC: HO.HKA 09:22
PROVIDERS: PCP Internal Medicine; Visit Provider Internal Medicine Nephrology
DX: N17.9 Acute kidney failure, unspecified (principal)
CPT/HCPCS: 99214

== ENCOUNTER → 2025-04-13 09:21 | Outpatient (BNVA) | payer OTHER, SELFPAY | PROVIDERS: PCP Internal Medicine; Visit Provider Internal Medicine Nephrology | DX: N17.9 Acute kidney failure, unspecified (principal) | CPT/HCPCS: 99212 ==

== ENCOUNTER 2025-04-20 09:25 | Outpatient (AMB) | payer OTHER, SELFPAY ==
[2025-04-20 08:22] VITALS: BP 120/80; PULSE 81; TEMP 36.6; O2SAT 98; BMI 36.1
--- NOTE | 2025-04-20 08:22 | A.OFFPC_ITS ---
Vital Signs 04/20/25 08:22 Height 5 ft 3 in Weight 204 lb BMI 36.1 BP 120/80 Blood Pressure Location Rt brachial Position Sitting Pulse 81 Pulse Source Pulse Oximeter Temp 97.9 F Temp Source Temporal Artery Scan Pulse Oximetry (%) 98 Oxygen Delivery Method Room Air Intake Visit Reasons: HAMLET /Dr Tirado Big Data Developer Required: No Accompanied by: Self / Same As Patient Allergies Inhaled Anesthetics (Halogen Based) Adverse Reaction (Severe, Verified 04/20/25 08:25) Malignant Hyperthermia Medication List - Last Reconciled 04/20/25 by SABI Lauren levonorgestrel (Kyleena) intrauterine tirzepatide (weight loss) (Zepbound) 2.5 mg (0.5 mL) subcut QWEEK triamcinolone acetonide 0.1% 1 appl topical BID Tobacco use date assessed: 04/20/25 Dental Screening Dental Screen Date: 04/20/25 Did you have a dental visit in the last 12 months?: No Did you have a dental problem in the last 6 months where you did not have access to dental care?: No HPI HPI Comments History of Present Illness Details The patient is a 34-year-old female presenting for annual physical. The patient experienced acute appendicitis with bacterial involvement a year ago, which required emergency surgery. During the surgery, she had a reaction to the anesthetic and subsequently developed kidney problems. She saw nephrology for follow up on 04/13. She has been advised by her trucking manager to stay well hydrated and avoid nephrotoxic medications such as ibuprofen and Aleve. The patient has a history of sciatica, presenting as pain along the outside of her leg without any prior back injury. The pain is likely exacerbated by her current weight of 200 pounds, which is the highest she has ever been. She also reports a persistent eczema, currently on her left arm. She has had recurring patches that come and go. They have been present for years. She has been managing it with cleaning and waxing, but it persists, and she will be prescribed a steroid cream. The patient has gained 40 pounds following her appendicitis surgery, despite losing 20 pounds initially. She attributes this to possible dietary habits and is considering weight loss medications if covered by insurance. Preventative care measures include a Pap smear, which is due, and she is scheduled to see her ACCOUNT CLASSIFICATION CLERK tomorrow for an IUD replacement and tubal ligation, pending anesthetic considerations. She has a form for her employer to be completed. 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 [facility] Medical History (Updated 04/20/25 @ 10:20 by SABI Lauren) Annual physical exam Bacteremia Eczema Hepatitis B Hepatitis B carrier IUD (intrauterine device) in place Left sciatic nerve pain Miscarriage Obesity (BMI 35.0-39.9 without comorbidity) Skin lesion Unwanted fertility Surgical History History of ankle surgery History of laparoscopic appendectomy (~08/19/23) History of surgical removal of lesion (~03/10/24) Status post laparoscopic appendectomy Family History (Updated 04/20/25 @ 09:35 by Kina Rosa MA) Father Diabetes Paternal Grandfather Diabetes Mother No problems noted. Social History Household Members: Significant Other and Children Housing: Apartment Do you presently have visiting nurse or other home services: No Alcohol intake: current Alcohol intake frequency: does not drink Comment: Amada/marcy Patient Tobacco Use Status: Former Tobacco user Tobacco use type: Cigarette Years Smoked: 1 e-Cigarette/Vaping Use: Never Used service: No Current occupational status: employed Sexual orientation: Straight/Heterosexual Gender identity: Female Cognitive needs: No Hearing needs: No Vision needs: No Female Reproductive History Menstrual Age of Menarche: 15 Questionnaire PHQ-9 Over the last 2 weeks, how often have you been bothered by any of the following problems? 1. Little interest or pleasure in doing things: not at all 2. Feeling down, depressed, or hopeless: not at all 3. Trouble falling or staying asleep, or sleeping too much: not at all 4. Feeling tired or having little energy: not at all 5. Poor appetite or overeating: not at all 6. Feeling bad about yourself - or that you are a failure or have let yourself or your family down: not at all 7. Trouble concentrating on things, such as reading the newspaper or watching television: not at all 8. Moving or speaking so slowly that other people could have noticed. Or the opposite - being so fidgety or restless that you have been moving around a lot more than usual: not at all 9. Thoughts that you would be better off or of hurting yourself in some way: not at all Total score: 0 Depression Screening Interpretation: Negative Depression Screening Done: Yes Source: Developed by Drs. Dustin Orozco, Tonya Christiansen, Ken Mathews and colleagues, with an educational nella from [employer]. Thrive Questionnaire Date Thrive assessed: 04/20/25 I am a: Patient Within the past 12 months, did the food you bought not last and you didn't have the money to get more?: Never true Within the past 12 months, did you worry whether your food would run out before you got money to buy more?: Never true Do you have trouble paying for medicines?: No Do you have trouble getting transportation to medical appointments?: No Do you have trouble paying your heating and electricity bill?: No Do you have trouble taking care of your child, family member or friend?: No Do you have trouble with day-to-day activities such as bathing, preparing meals, shopping, managing finances, etc.?: No Are you currently unemployed and looking for a job?: No Are you interested in more education?: No THRIVE Score: 0 AUDIT C Alcohol Use Questionnaire (AUDIT-C) 1. How often do you have a drink containing alcohol?: Monthly or less 2. How many drinks containing alcohol do you have on a typical day when you are drinking?: 1 or 2 3. How often do you have six or more drinks on one occasion?: Less than monthly Total Score: 2 DELIA-7 AMB Questionnaire DELIA-7 Date DELIA - 7 assessed: 04/20/25 Feeling nervous, anxious, or on edge: 0 = Not at all Not being able to stop or control worryin = Not at all Worrying too much about different things: 0 = Not at all Trouble relaxin = Not at all Being so restless that it is hard to sit still: 0 = Not at all Becoming easily annoyed or irritable: 0 = Not at all Feeling afraid as if something awful might happen: 0 = Not at all Total DELIA-7 score (0-4 normal; 5-9 mild; 10-14 moderate; 15-21 severe): 0 Source: Developed by Tonya Peterson Kurt Kroenke and colleagues, with an educational nella from [employer]. Review of Systems Const Details: CONSTITUTIONAL No Chills No Fever Reports weight gain of 40 pounds No fatigue No generalized weakness SKIN No itching rash on left arm EYES No change in visual acuity No eye pain No red eye HEAD AND NECK No dizziness No headache No neck pain EAR/NOSE/MOUTH/THROAT No earache No sinus pain No congestion No hoarseness No sore throat RESPIRATORY No cough No shortness of breath No wheezing CARDIOVASCULAR No chest pain No dyspnea No palpitations No peripheral edema No Syncope GASTROINTESTINAL No abdominal pain No constipation No diarrhea No heartburn No loss of appetite No nausea No vomiting GENITOURINARY No dysuria No hematuria No urinary frequency No urinary urgency ENDOCRINE No cold intolerance No excessive hunger No excessive thirst No change in hair texture MUSCULOSKELETAL No back pain No joint pain No swelling No myalgias Reports pain in left leg, likely sciatica IMMUNOLOGICAL/ALLERGIC No congestion No itchy eyes No itchy nose No rhinitis No watery eyes HEMATOLOGIC No bleeding tendencies No bruising No fatigue LYMPHATIC No swollen lymph nodes NEUROLOGICAL No memory loss Numbness in left thigh No focal weakness PSYCHIATRIC No anxiety No depression No sleeping problems No substance abuse No suicidal ideation Physical exam (Primary Care) Vital Signs: Last Vital Signs Temp 97.9 F 04/20/25 08:22 Pulse 81 04/20/25 08:22 BP 120/80 04/20/25 08:22 Pulse Ox 98 04/20/25 08:22 Oxygen Delivery Method Room Air 04/20/25 08:22 BMI result Body Mass Index 36.1 GENERAL Well Developed, Obese, In no acute distress HEENT Head- Normocephalic, atraumatic Eyes- PERRLA, EOMI, Conjuctiva-WNL, Lids-WNL Ears- Canals- Clear, TMs- WNL Nose-Straight, Nares Patent OroPharynx-Mouth WNL, Tongue- no lesions, throat no erythema or exudate Neck- Supple, no lymphadenopathy, thyroid WNL CARDIOVASCULAR Heart- Regular rate and Rhythm without murmur Extremities- No edema RESPIRATORY Normal chest movement, clear to auscultation ABDOMINAL/GI Nondistended, soft, nontender, normal bowel sounds, no masses, no hepatosplenomegaly GENITOURINARY No CVA tenderness BACK Straight,Normal ROM, nmtender, Straight leg raise negative, DTR 2+ symmetrical, Gait normal MUSCULOSKELETAL No joint pain, swelling or deformity VASCULAR No JVD, Dorasalis pedis and Posterior Tibialis pulses normal and symmetrical DERMATOLOGY No rashes, no significant skin lesions, skin turgor WNL NEUROLOGICAL Cranial Nerves 11-x11 grossly intact, gait WNL, Coordination WNL, Muscle strength normal and Symmetrical, DTR normal and symmetrical, Light touch sensation intact PSYCHIATRIC Mood and affect WNL, Oriented to person, place and time Tobacco/Smoking Status: Tobacco use Status Tobacco use date assessed 04/20/25 04/20/25 08:26 Patient Tobacco Use Status Former Tobacco user 04/20/25 08:24 Tobacco use type Cigarette 04/20/25 08:24 e-Cigarette/Vaping Use Never Used 04/20/25 08:24 PHQ-9: PHQ-9 Score PHQ-9: Total score 0 04/20/25 09:36 Depression Screening Interpretation: Negative Thrive Assessment: Date of Thrive Assessment Date Thrive assessed 04/20/25 04/20/25 08:26 Coding Level of Care Code New Pt New Pt Prev Care 18-39yr([id number] Patient Type New Diagnoses Annual physical exam Z00.00 Obesity (BMI 35.0-39.9 without comorbidity) E66.9 RAMON (acute kidney injury) N17.9 Other eczema L30.8 Eczema type: other Left sciatic nerve pain M54.32 Assessment & Plan Assessment & Plan (1) Annual physical exam: Code(s): Z00.00 - Encounter for general adult medical examination without abnormal findings Category: Medical Plan: Will get labs. Form completed for work. (2) Obesity (BMI 35.0-39.9 without comorbidity): Comment: BMI today was 36.1 Code(s): E66.9 - Obesity, unspecified Category: Medical Plan: Discussed the health risks of obesity with the patient. Reviewed benefits of even moderate weight loss with the patient. Patient will gradually try and increase exercise to 30-40 min 5-7 times per week. . We discussed the patient adding more fruits and vegetables to their diet. Will request Zepbound depe ndent on insurance. Will monitor weight and follow up in 3 months. (3) RAMON (acute kidney injury): Code(s): N17.9 - Acute kidney failure, unspecified Category: Medical Plan: Resolved. Seen by Nephrology. The patient was advised to maintain hydration and avoid nephrotoxic medications to manage kidney health. (4) Eczema: Code(s): L30.9 - Dermatitis, unspecified Category: Medical Qualifiers: Eczema type: other Qualified Code(s): L30.8 - Other specified dermatitis Plan: The patient will be prescribed a steroid cream, Triamcinolone to manage eczema. Patient to follow up as needed if symptoms persist or worsen. (5) Left sciatic nerve pain: Code(s): M54.32 - Sciatica, left side Category: Medical Plan: The patient reports sciatica-related leg pain, likely exacerbated by weight gain. Will monitor. Patient to follow up in 3 months or sooner if symptoms persist or worsen. Plan During the visit, we discussed the patient's history of acute appendicitis and the subsequent anesthetic reaction that led to kidney issues. The patient was advised to maintain hydration and avoid nephrotoxic medications. We also addressed her sciatica, likely exacerbated by weight gain, and discussed potential weight loss strategies, including medication options pending insurance approval. For her angular eczema, a steroid cream prescription was planned. Preventative care measures, including a Pap smear and ACCOUNT CLASSIFICATION CLERK follow-up for IUD replacement and tubal ligation, were also reviewed. Orders: Orders TSH reflex Free T4 Today E66.9 - Obesity, unspecified, Z00.00 - Encounter for general adult medical examination without abnormal findings Lipid Panel Today E66.9 - Obesity, unspecified, Z00.00 - Encounter for general adult medical examination without abnormal findings, Z13.220 - Encounter for screening for lipoid disorders Mumps Virus IgG Antibody Today Z01.84 - Encounter for antibody response examination Mumps Virus IgM Antibody Today Z01.84 - Encounter for antibody response examination Complete Blood Count no Diff Today E66.9 - Obesity, unspecified, Z00.00 - Encounter for general adult medical examination without abnormal findings Comprehensive Met. Panel Today E66.9 - Obesity, unspecified, Z00.00 - Encounter for general adult medical examination without abnormal findings Hemoglobin A1c Today E66.9 - Obesity, unspecified, Z00.00 - Encounter for general adult medical examination without abnormal findings, Z13.1 - Encounter for screening for diabetes mellitus Medications: New triamcinolone acetonide 0.1% 1 appl topical BID 30 grams 2RF for eczema tirzepatide (weight loss) (Zepbound) for 4 weeks 2.5 mg (0.5 mL) subcut QWEEK 2 mL 1RF for weight loss Patient Instructions: - Stay well hydrated and avoid medications like ibuprofen and Aleve. - Follow up with ACCOUNT CLASSIFICATION CLERK for Pap smear, IUD replacement, and tubal ligation. - Consider dietary changes to include more fruits and vegetables. - Engage in regular physical activity. - Use prescribed steroid cream for eczema as directed. - Schedule follow-up appointment in three months.
== END 2025-04-20 10:36 | disposition home or self-care (01) ==
LOC: HO.HMCHD 09:26
PROVIDERS: Visit Provider Physician Assistant Medical
DX: Z00.00 Encounter for general adult medical examination without abnormal findings (principal); E66.9 Obesity, unspecified; N17.9 Acute kidney failure, unspecified; L30.8 Other specified dermatitis; M54.32 Sciatica, left side

== ENCOUNTER 2025-04-20 10:28 | Outpatient (REF) | payer OTHER, SELFPAY ==
[2025-04-20 12:18] LABS: Hematocrit 38.0 % (37.0-47.0); Hemoglobin 12.9 g/dl (12.0-16.0); Mean Corpuscular HGB Conc 33.9 g/dl (31.0-35.0); Mean Corpuscular Hemoglobin 31.9 pg (27.0-33.0); Mean Corpuscular Volume 93.8 fL (80.0-98.0); NRBC Abs Auto 0.000 X10*3/uL (0.0-0.012); NRBC Pct Auto 0.0 /100WBC (0.0-0.2); Platelet Count 240 X10*3/uL (160-400); Red Blood Count 4.05 X10*6/uL (4.20-5.50); White Blood Count 7.4 X10*3/uL (4.8-10.8)
[2025-04-20 12:48] LABS: Alanine Aminotransferase 25 U/L (0-31); Albumin Level 4.5 g/dL (3.5-5.0); Alkaline Phosphatase 41 U/L (39-117); Anion Gap 9 (12-20); Aspartate Amino Transferase 27 U/L (5-31); Blood Urea Nitrogen 9 mg/dL (9-16); Calcium 9.0 mg/dL (8.4-10.2); Carbon Dioxide 28 mmol/L (22-29); Chloride 105 mmol/L (96-108); Cholesterol 188 mg/dL (<200); Estimated Glomerular Filt Rate > 60; HDL Cholesterol 48 mg/dL (>40); Potassium 4.2 mmol/L (3.3-5.1); Sodium 138 mmol/L (135-145); Total Protein 7.3 g/dL (6.5-8.0); Triglycerides 103 mg/dL (<150)
[2025-04-20 13:32] LABS: Hemoglobin A1C 133.5984 umol/L; Total Hemoglobin (HGBA1C) 3368.9253 umol/L
== END 2025-04-20 10:29 | disposition home or self-care (01) ==
LOC: HO.10HDL 10:28
PROVIDERS: Visit Provider Physician Assistant Medical
DX: Z13.220 Encounter for screening for lipoid disorders (principal); Z13.1 Encounter for screening for diabetes mellitus; Z01.84 Encounter for antibody response examination; E66.9 Obesity, unspecified; Z68.36 Body mass index [BMI] 36.0-36.9, adult; N17.9 Acute kidney failure, unspecified; L30.8 Other specified dermatitis; M54.32 Sciatica, left side; Z87.891 Personal history of nicotine dependence; Z71.3 Dietary counseling and surveillance
CPT/HCPCS: 36415; 80053; 80061; 83036; 84443; 85027; 86735